=== PATIENT | female | born 1975 | race Caucasian/White ===

== ENCOUNTER 2017-05-31 11:32 | Inpatient (IN) | payer SELFPAY ==
[~2017-05-31] VITALS: Ht 152.4 cm; Wt 46.1 kg
[2017-05-31] VITALS (7 sets, daily range): BP systolic 95–108; BP diastolic 60–62; PULSE 108–120; RESP 16–20; TEMP 98.9–100.5; O2SAT 94–100
[~2017-05-31 11:32] MED LIST: LORT5TAB PO; METH10TA PO; PRED20 PO; RANI150 PO
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
[2017-05-31] MEDS ORDERED: SODIUM CHLORIDE 0.9% FLUSH 10 ML FLUSH IVF PRN ×2 (12:00→16:45)
[2017-05-31] MEDS ORDERED: SODIUM CHLOR 0.9% 1000 ML INJ 1,000 ML IV ONE ×4 (12:45→20:15)
[2017-05-31] MEDS ORDERED: methylPREDNISolone SOD SUCC 125 MG/2 ML VIAL IVP ONE (12:45)
[2017-05-31] MEDS: RESP: ALBUTEROL 2.5 MG/IPRATROPIUM 0.5 MG NEB (SCH) INH (12:51)
[2017-05-31 12:58] LABS: AUTOMATED NEUTROPHIL # 8.7 TH/MM3 (1.8-7.7); BASOPHIL # 0.1 TH/MM3 (0-0.2); BASOPHIL % 0.8 % (0.0-2.0); LYMPHOCYTE # 0.3 TH/MM3 (1.0-4.8); MEAN CELL VOLUME 92.9 FL (80.0-100.0); MEAN CORPUSCULAR HEMOGLOBIN 31.9 PG (27.0-34.0); MEAN CORPUSCULAR HGB CONC 34.3 % (32.0-36.0); MONO % 3.2 % (0.0-8.0); PLATELET COUNT 97 TH/MM3 (150-450); RED BLOOD COUNT 3.98 MIL/MM3 (4.00-5.30); RED CELL DISTRIBUTION WIDTH 13.9 % (11.6-17.2); WHITE BLOOD COUNT 9.4 TH/MM3 (4.0-11.0)
[2017-05-31 13:09] LABS: APTT (PATIENT) 29.6 SEC (24.3-30.1); PROTHROMBIN TIME - PATIENT 10.6 SEC (9.8-11.6)
--- NOTE | 2017-05-31 13:26 | RADRPT ---
EXAM DATE/TIME: 05/31/2017 12:55 [facility] COMPARISON: No previous studies available for comparison. INDICATIONS : Chest pain, short of breath. MEDICAL HISTORY : Chronic obstructive pulmonary disease. SURGICAL HISTORY : None. ENCOUNTER: Initial ACUITY: 2 days PAIN SCORE: 10/10 LOCATION: Bilateral chest FINDINGS: There is mild infiltrate in the right lower lobe. Followup to clearance would be suggested. Left lung appears grossly clear. Cardiac contours are satisfactory. CONCLUSION: Right lower lobe infiltrate Thiago Holland MD on May 31, 2017 at 13:22 Board Certified Radiologist. This report was verified electronically.
[2017-05-31 13:28] LABS: HEMO FLAGS AUTO DIFF
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
[2017-05-31 13:42] LABS: ALT (GPT) 27 U/L (10-53); ANION GAP 13 MEQ/L (5-15); AST (GOT) 35 U/L (15-37); BICARBONATE 20.2 MEQ/L (21.0-32.0); BLOOD UREA NITROGEN 37 MG/DL (7-18); CHLORIDE 99 MEQ/L (98-107); GLOMERULAR FILTRATION RATE 22 ML/MIN (>89); MAGNESIUM 2.1 MG/DL (1.5-2.5); POTASSIUM 3.7 MEQ/L (3.5-5.1); SODIUM (NA) 132 MEQ/L (136-145)
[2017-05-31 13:46] LABS: BANDS 28 % (0-6); NEUTROPHIL # MANUAL DIFF 9.2 TH/MM3 (1.8-7.7); PLATELET ESTIMATE SMEAR LOW (NORMAL); PLATELET MORPHOLOGY NORMAL (NORMAL); POLYS (SEG NEUTROPHILS) 70 % (16-70); SCAN/DIFF FINAL DIFF MANUAL; WBC DIFF SAMPLE 100
[2017-05-31 13:47] LABS: ALKALINE PHOSPHATASE 80 U/L (45-117); CREATINE KINASE 156 U/L (26-192); TOTAL BILIRUBIN ADULT 0.3 MG/DL (0.2-1.0)
[2017-05-31 13:59] LABS: CKMB LESS THAN 0.5 NG/ML (0.5-3.6)
[2017-05-31] MEDS ORDERED: SODIUM CHLOR 0.9% 1000 ML INJ 800 ML IV ONE (14:04)
[2017-05-31] MEDS ORDERED: PIPERACIL-TAZO 4.5 GM PREMIX 100 ML IV STA (14:04)
[2017-05-31] MEDS ORDERED: MORPHINE SULFATE 4 MG/ML INJ IV PUSH ONE ×2 (14:15→23:15)
[2017-05-31 14:21] LABS: BACTERIA, URINE OCC /hpf; BLOOD, URINE MOD (NEG); COMMENT (UR) CULT NOT INDICATED; CULTURE IF INDICATED CULT NOT INDICATED; GLUCOSE,URINE NEG (NEG); HYALINE CAST, URINE 19 /lpf (RARE); KETONE, URINE TRACE mg/dL (NEG); NITRITE,URINE NEG (NEG); SQUAMOUS EPITHELIAL CELL URINE 62 /hpf (0-5); URINE COLOR YELLOW (YELLW/STRAW)
[2017-05-31] MEDS ORDERED: SODIUM CHLOR 0.9% 1000 ML INJ 1,000 ML IV SCH (15:14)
[2017-05-31] MEDS ORDERED: BISACODYL 10 MG SUPP RECTAL PRN (15:15)
[2017-05-31] MEDS ORDERED: LACTULOSE SYRUP 20 GM/30 ML CUP PO PRN (15:15)
[2017-05-31] MEDS ORDERED: OLANZapine IM 10 MG VIAL IM ONE (15:15)
[2017-05-31] MEDS ORDERED: SENNOSIDES 8.6 MG TAB PO PRN (15:15)
[2017-05-31] MEDS ORDERED: VANCOMYCIN INJ 1,100 MG in SODIUM CHLOR 0.9% 250 ML INJ 250 ML IV ONE (15:15)
[2017-05-31] MEDS ORDERED: ONDANSETRON HCL 4 MG/2 ML VIAL IVP PRN (15:15)
[2017-05-31] MEDS ORDERED: NALOXONE HCL 0.4 MG/ML AMP IV PRN (15:15)
[2017-05-31] MEDS ORDERED: SODIUM CHLORIDE 0.9% FLUSH 10 ML FLUSH IV FLUSH PRN (15:15)
[2017-05-31] MEDS ORDERED: MAGNESIUM HYDROXIDE SUSP 30 ML CUP PO PRN (15:15)
--- NOTE | 2017-05-31 15:22 | RADRPT ---
EXAM DATE/TIME: 05/31/2017 13:45 [facility] COMPARISON: No previous studies available for comparison. INDICATIONS : Left arm swelling. MEDICAL HISTORY : COPD. Intravenous drug use. Depression. Anxiety. SURGICAL HISTORY : Tubal ligation. Colonoscopy. Fracture left leg. ENCOUNTER: Initial ACUITY: 2 day PAIN SCORE: 10/10 LOCATION: Left arm. FINDINGS: There is spontaneous flow documented in the basilic, axillary, and subclavian veins. The vessels are compressible and augmentation response is documented. No filling defects are seen. The flow is pha sic with respiration. Direction of flow in the jugular vein is caudal. However, the cephalic and brachial veins are incompletely compressible. This predominantly involves t he peripheral brachial vein and the entire cephalic. On Doppler interrogation, and no detectable flow in the cephalic. There is preserved flow in the brachial, however. CONCLUSION: 1. Deep venous thrombosis with nonocclusive thrombus in the peripheral brachial vein. 2. Occlusive thrombus in the entire superficial cephalic vein. Tyler Chung MD on May 31, 2017 at 15:17 Board Certified Radiologist. This report was verified electronically.
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
[2017-05-31] MEDS ORDERED: Vancomycin Consult Pharmacy 1 EA OTHER SCH (15:30)
[2017-05-31] MEDS ORDERED: HEPARIN SODIUM - SQ 10,000 UNITS/ML VIAL SQ SCH (16:00)
--- NOTE | 2017-05-31 16:37 | PD.RAD ---
Post Procedure Progress Note Pre Procedure Diagnosis: (1) Pneumonia Post Procedure Diagnosis: (1) Pneumonia Procedure Date: May 31, 2017 Supervising Radiologist: Sebastian Mora JR Proceduralist/Assist: Michael Carbajal, RT(R), Diana Becerra RT(R)() Anesthesia: Local Plan of Activity Patient to Unit: Nursing Unit Patient Condition: Good See PACS Report for procedural detail/treatment Central Venous Access Device Procedure 1 Right Internal Jugular Central Line Placement triple lumen Green[place]ic: Shelbi Mora Jr.,Sebastian Rosenbaum MD May 31, 2017 16:37
--- NOTE | 2017-05-31 16:49 | RADRPT ---
EXAM DATE/TIME: 05/31/2017 16:21 [facility] COMPARISON: No previous studies available for comparison. INDICATIONS : Patient is in need of placement of a central line for medication administration due to pnemonia. MEDICAL HISTORY : History of IVDA, COPD, cervical cancer, GI bleed, left hand cellulitis. SURGICAL HISTORY : History of colonoscopy, endoscopy. ENCOUNTER: Initial ACUITY: 1 day PAIN SCORE: 4/10 LOCATION: Left hand FLUORO TIME: 0.2 minutes IMAGE SERIES: 1 ACCESS: Right internal jugular vein DEVICE(S): 1.) 7 [place] triple lumen 20 cm Arrow central line PROCEDURE : 1. Ultrasound guided venipuncture. 2. Central line placement. The risks, benefits and alternatives to the procedure were explained and verbal and written consent w as obtained. The site was prepped in sterile fashion. Full sterile technique was used, including ca p, mask, sterile gloves and gown and a large sterile sheet. Hand hygiene and 2% chlorhexidine prep w as utilized per protocol for cutaneous antisepsis with appropriate dry time for site. The skin and s ubcutaneous tissues were infiltrated with local anesthetic solution. With ultrasound guidance a dermatotomy in the neck was created and subcutaneous dissection was perfor med. A micropuncture set was used to gain access and serial dilatation was performed to accept the c atheter as prescribed above. The catheter was fixed in place with suture and a sterile dressing was a pplied. The patient tolerated the procedure well and there were no complications. Chest radiograph is to be obtained to document position. CONCLUSION: Uncomplicated line placement as above. Sebastian Mora Jr., MD on May 31, 2017 at 16:47 Board Certified Radiologist. This report was verified electronically.
--- NOTE | 2017-05-31 17:04 | EKG ---
Date Performed: 05/31/2017 Time Performed: 13:28:33 PTAGE: 42 years EKG: SINUS TACHYCARDIA POSSIBLE RIGHT ATRIAL ENLARGEMENT POSSIBLE LEFT ATRIAL ENLARGEMENT ABNORM AL RHYTHM ECG PREVIOUS TRACING : 12/24/2012 12.25 Compared to the previous tracing rate faster DOCTOR: Brett Cazares Interpretating Date/Time 05/31/2017 17:04:08
[2017-05-31 17:36] LABS: HEMATOCRIT 30.9 % (35.0-46.0); MEAN CELL VOLUME 93.1 FL (80.0-100.0); MEAN CORPUSCULAR HGB CONC 34.3 % (32.0-36.0); PLATELET COUNT 87 TH/MM3 (150-450); RED BLOOD COUNT 3.32 MIL/MM3 (4.00-5.30); RED CELL DISTRIBUTION WIDTH 13.6 % (11.6-17.2); WHITE BLOOD COUNT 10.6 TH/MM3 (4.0-11.0)
[2017-05-31 17:41] LABS: REVIEW FLAG FINAL
[2017-05-31 17:52] LABS: APTT (PATIENT) 29.2 SEC (24.3-30.1); PROTHROMBIN TIME - PATIENT 10.9 SEC (9.8-11.6)
[2017-05-31] MEDS: HEPARIN-D5W INJ 250 ML IV SCH (19:48)
[2017-05-31 21:09] LABS: BLOOD GAS BASE EXCESS -7.4 mmol/L (-2-2); BLOOD GAS CARBOXYHEMOGLOBIN 1.3 % (0-4); BLOOD GAS HCO3 17 mmol/L (22-26); BLOOD GAS METHEMOGLOBIN 0.9 % (0-2); BLOOD GAS O2 HGB SATURATION 97 % (90-100); BLOOD GAS OXYGEN CONTENT 14.5 Vol % (12.0-20.0); BLOOD GAS PCO2 28 mmHg (38-42); BLOOD GAS PO2 269 mmHg (61-120); BLOOD GAS TOTAL HGB 10.1 G/DL (12.0-16.0); CRITICAL VALUE NO; FIO2 100 %; LITER FLOW 15 L/M; TEMP CORR TO 98.6
[2017-05-31 21:10] LABS: DRAW SITE RT RADIAL; NUMBER OF ARTERIAL PUNCTURES 2; STAT YES; ULNAR PULSE PRESENT
--- NOTE | 2017-05-31 21:26 | HHI.PR ---
Addendum to Inpatient Note Addendum Reason: Additional Documentation Additional Information Rapid response was called on this patient because patient was short of breath, in acute respiratory distress with hypoxia on room air. Nursing staff have therefore placed patient on nonrebreather and I was contacted. Came to see the patient at the bedside. Patient is awake, alert, oriented. Patient is in acute distress on nonrebreather. She is saturating about 92% though her work of breathing is quite high on non rebreather She would answer yes or no questions but not able to elaborate much. Chart reviewed. Impression: Acute respiratory distress from her hypoxic respiratory failure- ARDS vs PE Severe sepsis Bilateral pneumonia LUE DVT Plan: ABG stat. nebs bipap 12/5, fio2 to keep O2 sat above 90%. Chest x-ray stat. Personally reviewed. Showed airspace disease bilaterally suggestive of ARDS. continue heparin drip for both DVT and possible PE antibiotics- vanco/zosyn to continue transfer pt to ICU for critical care management- requiring bipap, high fio2 high risk of decompensation from ARDS dvt prophylaxis on heparin drip critical care time 30min Octaviano Luna MD May 31, 2017 21:26
--- NOTE | 2017-05-31 21:32 | RADRPT ---
EXAM DATE/TIME: 05/31/2017 21:20 [facility] COMPARISON: CENTRAL LINE PLACEMENT W , May 31, 2017, 16:21. INDICATIONS : Shortness of breath. MEDICAL HISTORY : Chronic obstructive pulmonary disease. SURGICAL HISTORY : None. ENCOUNTER: Initial ACUITY: 1 day PAIN SCORE: 0/10 LOCATION: Bilateral chest FINDINGS: A single view of the chest demonstrates scattered parenchymal opacities in the right upper lobe and r ight lower lobe. Right sided central line with tip in the cavoatrial junction. Heart normal in size.. Osseous structures are intact. CONCLUSION: 1. Patchy air space disease right upper lobe right lower lobe. Alfonzo Werner MD on May 31, 2017 at 21:29 Board Certified Radiologist. This report was verified electronically.
[2017-05-31] MEDS: ACETAMINOPHEN 325 MG TAB PO PRN (22:54)
[2017-05-31] MEDS: PIPERACIL-TAZO 2.25 GM PREMIX 50 ML IV SCH (22:57)
[2017-05-31 23:43] LABS: APTT (PATIENT) 36.8 SEC (24.3-30.1)
[2017-06-01] VITALS (13 sets, daily range): BP systolic 93–128; BP diastolic 59–70; PULSE 82–108; RESP 18–22; TEMP 97.5–103; O2SAT 90–98
[2017-06-01] MEDS ORDERED: CHLORHEXIDINE GLUCONATE 2 % 1 PACK (2 CLOTHS)(extra cloths) TOPICAL PRN (01:45)
[2017-06-01 03:50] LABS: AUTOMATED NEUTROPHIL # 8.5 TH/MM3 (1.8-7.7); BASOPHIL % 0.1 % (0.0-2.0); LYMPH % 5.1 % (9.0-44.0); LYMPHOCYTE # 0.5 TH/MM3 (1.0-4.8); MEAN CELL VOLUME 93.1 FL (80.0-100.0); MEAN CORPUSCULAR HEMOGLOBIN 32.1 PG (27.0-34.0); MEAN CORPUSCULAR HGB CONC 34.5 % (32.0-36.0); MONO % 4.2 % (0.0-8.0); NEUT % 90.6 % (16.0-70.0); PLATELET COUNT 76 TH/MM3 (150-450); RED CELL DISTRIBUTION WIDTH 13.9 % (11.6-17.2); WHITE BLOOD COUNT 9.4 TH/MM3 (4.0-11.0)
[2017-06-01 04:00] LABS: HEMO FLAGS AUTO DIFF
[2017-06-01] MEDS: CHLORHEXIDINE GLUCONATE 2 % 1 PACK (2 CLOTHS)(taper/protocol) TOPICAL SCH (04:00)
[2017-06-01] MEDS: PIPERACIL-TAZO 2.25 GM PREMIX 50 ML IV SCH ×2 (04:04→09:57)
[2017-06-01 04:05] LABS: APTT (PATIENT) 39.4 SEC (24.3-30.1)
[2017-06-01 04:42] LABS: ANION GAP 9 MEQ/L (5-15); BLOOD UREA NITROGEN 30 MG/DL (7-18); CHLORIDE 108 MEQ/L (98-107); GLOMERULAR FILTRATION RATE 45 ML/MIN (>89); POTASSIUM 3.5 MEQ/L (3.5-5.1); SODIUM (NA) 138 MEQ/L (136-145)
[2017-06-01 07:14] LABS: BANDS 15 % (0-6); NEUTROPHIL # MANUAL DIFF 8.6 TH/MM3 (1.8-7.7); POLYS (SEG NEUTROPHILS) 77 % (16-70); WBC DIFF SAMPLE 100
[2017-06-01 07:15] LABS: PLATELET ESTIMATE SMEAR LOW (NORMAL); PLATELET MORPHOLOGY NORMAL (NORMAL); SCAN/DIFF FINAL DIFF MANUAL
[2017-06-01] MEDS: SODIUM CHLORIDE 0.9% FLUSH 10 ML FLUSH IVF SCH (08:54)
[2017-06-01] MEDS: SODIUM CHLORIDE 0.9% FLUSH 10 ML FLUSH IV FLUSH SCH ×2 (08:55→22:01)
[2017-06-01] MEDS: DOCUSATE SODIUM 50 MG/SENNA 8.6 MG TAB PO SCH ×2 (08:55→21:00)
[2017-06-01 09:07] LABS: RETIC % 0.8 % (0.4-3.0)
[2017-06-01 09:12] LABS: REVIEW FLAG FINAL
[2017-06-01] MEDS ORDERED: ACETAMINOPHEN/HYDROcodone 325 MG/5 MG TAB PO PRN ×2 (09:15)
[2017-06-01 09:26] LABS: FERRITIN 389 NG/ML (8-252); LDH SERUM 186 U/L (84-246); TRANSFERRIN IRON PROFILE 171 MG/DL (200-360)
[2017-06-01] MEDS ORDERED: oxyCODONE/ACETAMINOPHEN 5 MG/325 MG TAB PO PRN (09:30)
[2017-06-01] MEDS: VANCOMYCIN 1,000 MG/NS 250 ML IV SCH ×2 (09:57)
[2017-06-01 10:44] LABS: APTT (PATIENT) 34.2 SEC (24.3-30.1)
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
[2017-06-01] MEDS: oxyCODONE/ACETAMINOPHEN 5 MG/325 MG TAB PO PRN ×3 (11:28→22:01)
[2017-06-01] MEDS: AZITHROMYCIN 250 MG TAB PO SCH (12:18)
[2017-06-01] MEDS: cefTRIAXone INJ 2,000 MG in SODIUM CHLORIDE 0.9% INJ 100 ML IV SCH (12:19)
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
--- NOTE | 2017-06-01 15:15 | HHI.PR ---
Subjective Remarks Follow-up for infection, DVT, thrombocytopenia, pneumonia, and respiratory failure Patient stated that breathing has improved. She said that she is in very good spirits at the moment because 2 of her sons are visiting her right now. Patient denies any cough. Last fever was at midnight 103. Deny any bleeding. Patient stated that she feels a lot stronger. Otherwise no other complaints. technical services manager is at the bedside. Objective Vitals Vital Signs Date Time Temp Pulse Resp B/P Pulse Ox O2 Delivery O2 Flow Rate FiO2 06/01/17 14:00 82 06/01/17 12:00 89 06/01/17 12:00 97.5 89 20 93/60 98 06/01/17 10:00 100 06/01/17 08:00 96 06/01/17 08:00 98.8 96 22 107/59 98 06/01/17 06:00 89 06/01/17 04:00 98.9 87 18 97/61 90 06/01/17 04:00 87 06/01/17 02:00 93 06/01/17 00:00 108 06/01/17 00:00 103.0 108 20 128/70 98 05/31/17 22:22 100 Simple Mask 6.00 05/31/17 22:15 100 100 05/31/17 21:30 100 50 05/31/17 20:50 100 15.00 100 05/31/17 20:50 100.5 120 18 108/60 95 05/31/17 17:18 108 16 95/60 94 Room Air I/O 05/31/17 05/31/17 05/31/17 06/01/17 06/01/17 06/01/17 07:00 15:00 23:00 07:00 15:00 23:00 Intake Total 120 ml 975 ml Output Total 350 ml Balance 120 ml 625 ml Intake Oral 120 ml 240 ml IV Total 735 ml Output Urine Total 350 ml # Voids 3 # Bowel Movements 0 0 Result Diagram: 06/01/1731406/01/17314 Imaging Last Impressions Central Venous Line 05/31/17 1524 Signed Impressions: Service Date/Time: Wednesday, May 31, 2017 16:21 - CONCLUSION: Uncomplicated line placement as above. Sebastian Mora Jr., MD Hand X-Ray 05/31/17 1235 Signed Impressions: Service Date/Time: Wednesday, May 31, 2017 12:47 - CONCLUSION: No fracture or significant degenerative changes. Tyler Chung MD Radius/Ulna X-Ray 05/31/17 1149 Signed Impressions: Service Date/Time: Wednesday, May 31, 2017 12:52 - CONCLUSION: No fracture. Tyler Chung MD Chest X-Ray 05/31/17 1149 Signed Impressions: Service Date/Time: Wednesday, May 31, 2017 12:55 - CONCLUSION: Right lower lobe infiltrate Thiago Holland MD Upper Extremity Ultrasound 05/31/17 0000 Signed Impressions: Service Date/Time: Wednesday, May 31, 2017 13:45 - CONCLUSION: 1. Deep venous thrombosis with nonocclusive thrombus in the peripheral brachial vein. 2. Occlusive thrombus in the entire superficial cephalic vein. Tyler Chung MD Objective Remarks GENERAL: in NAD SKIN: Warm and dry. HEAD: Normocephalic. EYES: No scleral icterus. No injection or drainage. NECK: Supple, trachea midline. No JVD or lymphadenopathy. Right IJ in place. CARDIOVASCULAR: Regular rate and rhythm without murmurs, gallops, or rubs. RESPIRATORY: Breath sounds equal bilaterally. No accessory muscle use. GASTROINTESTINAL: Abdomen soft, non-tender, nondistended. Medications and IVs Current Medications Sodium Chloride 2 ml 2 ml UNSCH PRN IVF FLUSH AFTER USING IV ACCESS; Start at 12:00; Stop 05/31/17 at 17:01; Status DC Sodium Chloride (NS 1000 ml Inj) 1,000 ml @ 999 mls/hr BOLUS ONCE IV Last administered on 05/31/17 13:55; Start 05/31/17 at 12:45; Stop 05/31/17 at 13:45 ; Status DC Methylprednisolone Sodium Succinate (SoluMEDROL INJ) 60 mg ONCE ONCE IVP Last administered on 05/31/17 13:55; Start 05/31/17 at 12:45; Stop 05/31/17 at 12:46 ; Status DC Albuterol/ Ipratropium 1 ampule 1 ampule Q15M INH Last administered on 12:51; Start 05/31/17 at 12:45; Stop 05/31/17 at 13:16; Status DC Vancomycin HCl 1100 mg/Sodium Chloride 261 ml @ 250 mls/hr ONCE ONCE IV ; Start 05/31/17 at 15:15; Stop 05/31/17 at 16:17; Status DC Piperacillin Sod/ Tazobactam Sod 100 ml @ 200 mls/hr ONCE STAT IV Last administered on 05/31/17 16:59; Start 05/31/17 at 14:04; Stop 05/31/17 at 14:33 ; Status DC Sodium Chloride 1,000 ml @ 1,000 mls/hr Q1H ONCE IV Last administered on 16:58; Start 05/31/17 at 14:04; Stop 05/31/17 at 15:03; Status DC Sodium Chloride (NS 1000 ml Inj) 800 ml @ 1,000 mls/hr Q48M ONCE IV Last administered on 05/31/17 16:59; Start 05/31/17 at 14:04; Stop 05/31/17 at 14:51 ; Status DC Morphine Sulfate (Morphine Inj) 4 mg ONCE ONCE IV PUSH Last administered on 19:46; Start 05/31/17 at 14:15; Stop 05/31/17 at 14:16; Status DC Olanzapine 10 mg 10 mg ONCE ONCE IM ; Start 05/31/17 at 15:15; Stop 05/31/17 at 15:16; Status Cancel Sodium Chloride (NS 1000 ml Inj) 1,000 ml @ 150 mls/hr Q6H40M IV Last administered on 05/31/17 19:47; Start 05/31/17 at 15:14; Stop 05/31/17 at 23:04 ; Status DC Sodium Chloride (NS Flush) 2 ml UNSCH PRN IV FLUSH FLUSH AFTER USING IV ACCESS ; Start 05/31/17 at 15:15 Sodium Chloride (NS Flush) 2 ml BID IV FLUSH Last administered on 06/01/17 08: 55; Start 05/31/17 at 21:00 Acetaminophen (Tylenol) 650 mg Q4H PRN PO TEMP > 100.4 Last administered on 22:54; Start 05/31/17 at 15:15 Ondansetron HCl (Zofran Inj) 4 mg Q6H PRN IVP NAUSEA OR VOMITING; Start at 15:15 Heparin Sodium (Porcine) (Heparin Inj) 5,000 units Q12H SQ ; Start 05/31/17 at 16:00; Stop 05/31/17 at 16:00; Status DC Naloxone HCl (Narcan Inj) 0.4 mg UNSCH PRN IV SEE LABEL COMMENTS; Start at 15:15 Senna/Docusate Sodium (Judy-Colace) 1 tab BID PO Last administered on 08:55; Start 05/31/17 at 21:00 Magnesium Hydroxide (Milk Of Magnesia Liq) 30 ml Q12H PRN PO MILD - MODERATE CONSTIPATION; Start 05/31/17 at 15:15 Sennosides (Senokot) 17.2 mg Q12H PRN PO MODERATE - SEVERE CONSTIPATION; Start 05/31/17 at 15:15 Bisacodyl (Dulcolax Supp) 10 mg DAILY PRN RECTAL SEVERE CONSITIPATION; Start at 15:15 Lactulose 30 ml 30 ml DAILY PRN PO SEVERE CONSITIPATION; Start 05/31/17 at 15: 15 Sodium Chloride 1,000 ml @ 999 mls/hr BOLUS ONCE IV ; Start 05/31/17 at 17:00 ; Stop 05/31/17 at 18:00; Status DC Pharmacy Profile Note 0 ml @ 0 mls/hr UNSCH OTHER ; Start 05/31/17 at 15:30 Piperacillin Sod/ Tazobactam Sod 50 ml @ 100 mls/hr Q6H IV Last administered on 06/01/17 09:57; Start 05/31/17 at 23:00; Stop 06/01/17 at 11:29; Status DC Heparin Sodium/ Dextrose (Heparin-D5W Inj) 250 ml @ 0 mls/hr TITRATE IV Last administered on 05/31/17 19:48; Start 05/31/17 at 16:15 Sodium Chloride (NS Flush) DAILY IVF Last administered on 06/01/17 08:54; Start 06/01/17 at 09:00 Sodium Chloride UNSCH PRN IVF SEE PROTOCOL; Start 05/31/17 at 16:45 Sodium Chloride (NS 1000 ml Inj) 1,000 ml @ 999 mls/hr BOLUS ONCE IV ; Start 05/31/17 at 20:15; Stop 05/31/17 at 21:15; Status DC Morphine Sulfate (Morphine Inj) 2 mg ONCE ONCE IV PUSH Last administered on 00:22; Start 05/31/17 at 23:15; Stop 05/31/17 at 23:16; Status DC Miscellaneous Information Patient in critical care unit? Ass... Q361D .XX ; Start 06/01/17 at 01:45 Chlorhexidine Gluconate (Chlorhexidine 2% Cloth) 3 pack DAILY@04 TOPICAL Last administered on 06/01/17 04:00; Start 06/01/17 at 04:00; Stop 06/05/17 at 04:01 Chlorhexidine Gluconate (Chlorhexidine 2% Cloth) 3 pack UNSCH PRN TOPICAL HYGIENIC CARE; Start 06/01/17 at 01:45; Stop 06/06/17 at 01:38 Acetaminophen/ Hydrocodone Bitart ([place] 5-325 Mg) 1 tab Q4H PRN PO pain 1-7; Start 06/01/17 at 09:15; Stop 06/01/17 at 09:29; Status DC Acetaminophen/ Hydrocodone Bitart ([place] 5-325 Mg) 2 tab Q4H PRN PO pain 8-10 Last administered on 06/01/17 09:22; Start 06/01/17 at 09:15; Stop 06/01/17 at 09:29; Status DC Oxycodone/ Acetaminophen (Percocet 5-325 Mg) 1 tab Q4H PRN PO pain 1-7; Start 06/01/17 at 09:30 Oxycodone/ Acetaminophen 2 tab 2 tab Q4H PRN PO pain 8-10 Last administered on 06/01/17 11:28; Start 06/01/17 at 09:30 Vancomycin HCl/ Sodium Chloride (Vancomycin Inj/ NS 250 ml Inj) 250 ml @ 250 mls/hr Q24H IV Last administered on 06/01/17 09:57; Start 06/01/17 at 10:00 Miscellaneous Information SPECIFIC LAB TO BE DRAWN:VANCOMYCIN TROUGH DATE TO... ONCE ONCE .XX ; Start 06/04/17 at 09:45; Stop 06/04/17 at 09:46 Ceftriaxone Sodium/Sodium Chloride (Rocephin Inj/NS Inj) 100 ml @ 200 mls/hr Q24H IV Last administered on 06/01/17 12:19; Start 06/01/17 at 12:00 Azithromycin (Zithromax) 500 mg Q24H PO Last administered on 06/01/17 12:18; Start 06/01/17 at 12:00 A/P Assessment and Plan 42-year-old female IV drug user presented with dyspnea, fevers and chills Sepsis source may be secondary to right lower lobe pneumonia and bacteremia. -Last review showing normal WBC with bandemia. Creatinine elevated with GFR 22. Chest x-ray showed right lower lobe infiltrate. UA negative. Patient has tachycardia. -Status post fluid resuscitation. Positive for out of 4 blood cultures for gram -positive cocci 1 culture showing MRSA. -Infectious disease consulted and following. -See treatment as below. Acute respiratory failure with hypoxia -Secondary to sepsis, bacteremia and pneumonia. -Continue supplement oxygen. Treat underlying condition. See treatment as below. MRSA bacteremia -Patient on vancomycin. Cultures repeated today. -Infectious disease following. Pending echo report. Community-acquired pneumonia -Checks x-ray show infiltrate in the right lower lobe. -Initially patient was on Zosyn and vancomycin. -Zosyn was discontinued and Rocephin started by infectious disease. -Pending pneumococcal and Legionella antigen. An order for sputum culture also obtained. Left arm DVT -Ultrasound Doppler showed Deep venous thrombosis with nonocclusive thrombus in the peripheral brachial vein. 2. Occlusive thrombus in the entire superficial cephalic vein. -Patient was put on a heparin drip. Due to thrombocytopenia inverted block operator consulted. Per inverted block operator continue with heparin drip. Thrombocytopenia -No signs of any active bleed. There is no recent baseline. Last baseline in 2012 and it was normal. -Most likely secondary to consumption. -Integration Analyst consulted and following. Per inverted block operator check hepatitis and HIV panel in addition to vitamin and iron study. Current IV drug use with crystal meth -Education given and discouraged use of crystal meth. DVT prophylaxis -SCDs. At the moment due to thrombocytopenia chemoprophylaxis contraindicated. Yissel Aldridge MD Jun 01, 2017 15:15 Yissel Aldridge MD Jun 01, 2017 15:15
[2017-06-01] MEDS: HEPARIN-D5W INJ 250 ML IV SCH (16:22)
[2017-06-01 17:05] LABS: APTT (PATIENT) 37.6 SEC (24.3-30.1)
--- NOTE | 2017-06-01 18:55 | RADRPT ---
EXAM DATE/TIME: 06/01/2017 17:07 [place] COMPARISON: No previous studies available for comparison. INDICATIONS : Hepatomegaly, evaluate liver and spleen. MEDICAL HISTORY : COPD. Intravenous drug use. Depression. Anxiety. SURGICAL HISTORY : Tubal ligation. Colonoscopy. Fracture left leg. ENCOUNTER: Initial ACUITY: 1 day PAIN SCORE: 4/10 LOCATION: Bilateral upper quadrant MEASUREMENTS: LIVER: 17.2 cm length COMMON DUCT: 5 mm RIGHT KIDNEY: 10.9 x 5.3 x 3.9 cm SPLEEN: 11.5 cm length FINDINGS: LIVER: Normal echotexture without focal lesion or ductal dilatation. Hepatopedal flow. COMMON DUCT: No intraluminal mass or stone visualized. GALLBLADDER: Contains no stones, demonstrates no wall thickening or pericholecystic fluid. PANCREAS: The visualized portions are within normal limits. RIGHT KIDNEY: No hydronephrosis, stone or mass. Small right pleural effusion. SPLEEN: No focal lesion. CONCLUSION: 1. Small right pleural effusion. 2. No evidence for cholelithiasis. 3. Spleen and liver are normal in size. Alfonzo Werner MD on June 01, 2017 at 18:52 Board Certified Radiologist. This report was verified electronically.
--- NOTE | 2017-06-01 21:33 | ECHRPT ---
Indication: SEPSIS- ENDOCARDITIS CONCLUSIONS Normal left ventricular size. Wall thickness is normal. The left ventricular systolic function is low normal with an estimated ejection fraction in the rang e of 50- 55%. No regional wall motion abnormalities are present. Moderate mitral valve regurgitation. Moderate aortic valve regurgitation. Mild thickening of the aortic valve leaflets. There is moderate tricuspid regurgitation. There is mild pulmonary hypertension present (45 mmHg). BP: 97 / 61 HR: 87 Rhythm: Sinus MEASUREMENTS (Male / Female) Normal Values Technical Quality:Good 2D ECHO LV Diastolic Diameter PLAX 4.6 cm 4.2 - 5.9 / 3.9 - 5.3 cm LV Systolic Diameter PLAX 3.7 cm IVS Diastolic Thickness 0.9 cm 0.6 - 1.0 / 0.6 - 0.9 cm LVPW Diastolic Thickness 0.7 cm 0.6 - 1.0 / 0.6 - 0.9 cm LV Relative Wall Thickness 0.3 RV Internal Dim ED PLAX 1.9 cm LA Systolic Diameter LX 3.1 cm 3.0 - 4.0 / 2.7 - 3.8 cm M-MODE AV Cusp Separation MM 1.9 cm DOPPLER AV Peak Velocity 146.0 cm/s AV Peak Gradient 8.5 mmHg LVOT Peak Velocity 97.2 cm/s LVOT Peak Gradient 3.8 mmHg MR Peak Velocity 510.0 cm/s MR Peak Gradient 104.0 mmHg Mitral E Point Velocity 64.7 cm/s Mitral A Point Velocity 76.0 cm/s Mitral E to A Ratio 0.9 LV E' Lateral Velocity 11.8 cm/s Mitral E to LV E' Lateral Ratio 5.5 LV E' Septal Velocity 6.7 cm/s Mitral E to LV E' Septal Ratio 9.6 TR Peak Velocity 296.0 cm/s TR Peak Gradient 35.0 mmHg FINDINGS LEFT VENTRICLE Normal left ventricular size. Wall thickness is normal. The left ventricular systolic function is low normal with an estimated ejection fraction in the rang e of 50- 55%. No regional wall motion abnormalities are present. RIGHT VENTRICLE Normal right ventricular size and systolic function. LEFT ATRIUM The left atrial size is normal. RIGHT ATRIUM The right atrial size is normal. ATRIAL SEPTUM Normal atrial septal thickness without atrial level shunting by limited color doppler interrogation. AORTA The aortic root and proximal ascending aorta are normal in size on limited imaging. MITRAL VALVE Moderate mitral valve regurgitation. AORTIC VALVE Moderate aortic valve regurgitation. Mild thickening of the aortic valve leaflets. TRICUSPID VALVE There is moderate tricuspid regurgitation. There is estimated mild pulmonary hypertension present (45 mmHg). PULMONARY VALVE The pulmonary valve is not well visualized. VESSELS The inferior vena cava is normal in size. PERICARDIUM No pericardial effusion. Brett Cazares MD, FACC (Electronically Signed) Final Date:01 June 2017 21:33
[2017-06-02] VITALS (14 sets, daily range): BP systolic 92–115; BP diastolic 53–71; PULSE 81–132; RESP 17–32; TEMP 97.4–98.9; O2SAT 83–97
[2017-06-02 01:45] LABS: APTT (PATIENT) 39.2 SEC (24.3-30.1)
[2017-06-02] MEDS: oxyCODONE/ACETAMINOPHEN 5 MG/325 MG TAB PO PRN ×4 (02:58→22:42)
[2017-06-02] MEDS: CHLORHEXIDINE GLUCONATE 2 % 1 PACK (2 CLOTHS)(taper/protocol) TOPICAL SCH (02:58)
[2017-06-02 05:14] LABS: AUTOMATED NEUTROPHIL # 6.4 TH/MM3 (1.8-7.7); BASOPHIL % 0.5 % (0.0-2.0); EOSINOPHIL % 0.1 % (0.0-4.0); HEMATOCRIT 26.7 % (35.0-46.0); LYMPH % 11.8 % (9.0-44.0); LYMPHOCYTE # 0.9 TH/MM3 (1.0-4.8); MEAN CELL VOLUME 93.4 FL (80.0-100.0); MEAN CORPUSCULAR HEMOGLOBIN 31.9 PG (27.0-34.0); MEAN CORPUSCULAR HGB CONC 34.1 % (32.0-36.0); MONO % 5.2 % (0.0-8.0); NEUT % 82.4 % (16.0-70.0); PLATELET COUNT 79 TH/MM3 (150-450); RED BLOOD COUNT 2.86 MIL/MM3 (4.00-5.30); RED CELL DISTRIBUTION WIDTH 14.1 % (11.6-17.2); WHITE BLOOD COUNT 7.8 TH/MM3 (4.0-11.0)
[2017-06-02 05:33] LABS: HEMO FLAGS AUTO DIFF
[2017-06-02 05:45] LABS: BICARBONATE 26.1 MEQ/L (21.0-32.0); POTASSIUM 3.6 MEQ/L (3.5-5.1)
[2017-06-02] MEDS: VANCOMYCIN 1,000 MG/NS 250 ML IV SCH ×2 (08:10)
[2017-06-02] MEDS: DOCUSATE SODIUM 50 MG/SENNA 8.6 MG TAB PO SCH ×2 (08:10→22:42)
[2017-06-02] MEDS: SODIUM CHLORIDE 0.9% FLUSH 10 ML FLUSH IV FLUSH SCH ×2 (09:00→22:42)
[2017-06-02] MEDS: SODIUM CHLORIDE 0.9% FLUSH 10 ML FLUSH IVF SCH (09:00)
[2017-06-02 09:40] LABS: BANDS 10 % (0-6); NEUTROPHIL # MANUAL DIFF 6.4 TH/MM3 (1.8-7.7); PLATELET ESTIMATE SMEAR LOW (NORMAL); POLYS (SEG NEUTROPHILS) 72 % (16-70); WBC DIFF SAMPLE 100
[2017-06-02 09:41] LABS: PLATELET MORPHOLOGY ENLARGED (NORMAL); SCAN/DIFF FINAL DIFF MANUAL
[2017-06-02] MEDS: cefTRIAXone INJ 2,000 MG in SODIUM CHLORIDE 0.9% INJ 100 ML IV SCH (10:47)
[2017-06-02] MEDS: AZITHROMYCIN 250 MG TAB PO SCH (10:48)
[2017-06-02 10:52] LABS: APTT (PATIENT) 37.8 SEC (24.3-30.1)
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
--- NOTE | 2017-06-02 13:43 | HHI.PR ---
Subjective Remarks Follow-up for infection and respiratory failure Patient was very upset and was packing her things to leave. I ask her why she said that she was not being treated like a human being. She stated that she wanted to get up to use the restroom and she was not allowed to. Otherwise she had no other complaints. She stated that her breathing has improved and she is doing a lot better. She remains afebrile. Patient had a nonrebreather off and there was no shortness of breathing. I dealt with patient's nurse and asked him to wean her off the nonrebreather since clinically she does not show any signs of respiratory failure. Patient stated that she will stay in the hospital if she can be transferred to a different floor. Objective Vitals Vital Signs Date Time Temp Pulse Resp B/P Pulse Ox O2 Delivery O2 Flow Rate FiO2 06/02/17 12:00 95 06/02/17 12:00 97.8 95 32 95/63 92 06/02/17 10:00 109 06/02/17 08:00 87 06/02/17 08:00 97.4 87 23 92/53 97 06/02/17 06:00 81 06/02/17 04:21 20 06/02/17 04:00 97.9 87 25 101/63 83 06/02/17 04:00 87 06/02/17 03:00 84 18 106/71 96 06/02/17 02:01 81 18 115/58 06/02/17 02:00 82 19 06/02/17 02:00 82 06/02/17 00:00 83 06/02/17 00:00 98.0 83 17 102/55 92 06/01/17 22:00 95 06/01/17 20:00 82 06/01/17 20:00 97.7 82 18 99/61 98 06/01/17 18:00 96 06/01/17 16:50 98 Simple Mask 6.00 06/01/17 16:00 88 06/01/17 16:00 97.8 88 20 94/60 95 06/01/17 14:00 82 I/O 06/01/17 06/01/17 06/01/17 06/02/17 06/02/17 06/02/17 07:00 15:00 23:00 07:00 15:00 23:00 Intake Total 120 ml 975 ml 626 ml 655 ml Output Total 350 ml 400 ml Balance 120 ml 625 ml 626 ml 255 ml Intake Oral 120 ml 240 ml 480 ml 480 ml IV Total 735 ml 146 ml 175 ml Output Urine Total 350 ml 400 ml # Voids 3 1 # Bowel Movements 0 0 # Sanitary Pads 1 Pads 1 Pads 1 Pads Result Diagram: 06/02/1741906/02/17419 Objective Remarks GENERAL: in NAD SKIN: Warm and dry. Left arm redness and swelling has improved. Mild tenderness of palpation in the area. HEAD: Normocephalic. EYES: No scleral icterus. No injection or drainage. NECK: Supple, trachea midline. No JVD or lymphadenopathy. Right IJ in place. CARDIOVASCULAR: Regular rate and rhythm without murmurs, gallops, or rubs. RESPIRATORY scant amount of scattered diffuse wheezing. No accessory muscle use. GASTROINTESTINAL: Abdomen soft, non-tender, nondistended. Medications and IVs Current Medications Sodium Chloride 2 ml 2 ml UNSCH PRN IVF FLUSH AFTER USING IV ACCESS; Start at 12:00; Stop 05/31/17 at 17:01; Status DC Sodium Chloride (NS 1000 ml Inj) 1,000 ml @ 999 mls/hr BOLUS ONCE IV Last administered on 05/31/17 13:55; Start 05/31/17 at 12:45; Stop 05/31/17 at 13:45 ; Status DC Methylprednisolone Sodium Succinate (SoluMEDROL INJ) 60 mg ONCE ONCE IVP Last administered on 05/31/17 13:55; Start 05/31/17 at 12:45; Stop 05/31/17 at 12:46 ; Status DC Albuterol/ Ipratropium 1 ampule 1 ampule Q15M INH Last administered on 12:51; Start 05/31/17 at 12:45; Stop 05/31/17 at 13:16; Status DC Vancomycin HCl 1100 mg/Sodium Chloride 261 ml @ 250 mls/hr ONCE ONCE IV ; Start 05/31/17 at 15:15; Stop 05/31/17 at 16:17; Status DC Piperacillin Sod/ Tazobactam Sod 100 ml @ 200 mls/hr ONCE STAT IV Last administered on 05/31/17 16:59; Start 05/31/17 at 14:04; Stop 05/31/17 at 14:33 ; Status DC Sodium Chloride 1,000 ml @ 1,000 mls/hr Q1H ONCE IV Last administered on 16:58; Start 05/31/17 at 14:04; Stop 05/31/17 at 15:03; Status DC Sodium Chloride (NS 1000 ml Inj) 800 ml @ 1,000 mls/hr Q48M ONCE IV Last administered on 05/31/17 16:59; Start 05/31/17 at 14:04; Stop 05/31/17 at 14:51 ; Status DC Morphine Sulfate (Morphine Inj) 4 mg ONCE ONCE IV PUSH Last administered on 19:46; Start 05/31/17 at 14:15; Stop 05/31/17 at 14:16; Status DC Olanzapine 10 mg 10 mg ONCE ONCE IM ; Start 05/31/17 at 15:15; Stop 05/31/17 at 15:16; Status Cancel Sodium Chloride (NS 1000 ml Inj) 1,000 ml @ 150 mls/hr Q6H40M IV Last administered on 05/31/17 19:47; Start 05/31/17 at 15:14; Stop 05/31/17 at 23:04 ; Status DC Sodium Chloride (NS Flush) 2 ml UNSCH PRN IV FLUSH FLUSH AFTER USING IV ACCESS ; Start 05/31/17 at 15:15 Sodium Chloride (NS Flush) 2 ml BID IV FLUSH Last administered on 06/02/17 09: 00; Start 05/31/17 at 21:00 Acetaminophen (Tylenol) 650 mg Q4H PRN PO TEMP > 100.4 Last administered on 22:54; Start 05/31/17 at 15:15 Ondansetron HCl (Zofran Inj) 4 mg Q6H PRN IVP NAUSEA OR VOMITING; Start at 15:15 Heparin Sodium (Porcine) (Heparin Inj) 5,000 units Q12H SQ ; Start 05/31/17 at 16:00; Stop 05/31/17 at 16:00; Status DC Naloxone HCl (Narcan Inj) 0.4 mg UNSCH PRN IV SEE LABEL COMMENTS; Start at 15:15 Senna/Docusate Sodium (Judy-Colace) 1 tab BID PO Last administered on 08:10; Start 05/31/17 at 21:00 Magnesium Hydroxide (Milk Of Magnesia Liq) 30 ml Q12H PRN PO MILD - MODERATE CONSTIPATION; Start 05/31/17 at 15:15 Sennosides (Senokot) 17.2 mg Q12H PRN PO MODERATE - SEVERE CONSTIPATION; Start 05/31/17 at 15:15 Bisacodyl (Dulcolax Supp) 10 mg DAILY PRN RECTAL SEVERE CONSITIPATION; Start at 15:15 Lactulose 30 ml 30 ml DAILY PRN PO SEVERE CONSITIPATION; Start 05/31/17 at 15: 15 Sodium Chloride 1,000 ml @ 999 mls/hr BOLUS ONCE IV ; Start 05/31/17 at 17:00 ; Stop 05/31/17 at 18:00; Status DC Pharmacy Profile Note 0 ml @ 0 mls/hr UNSCH OTHER ; Start 05/31/17 at 15:30 Piperacillin Sod/ Tazobactam Sod 50 ml @ 100 mls/hr Q6H IV Last administered on 06/01/17 09:57; Start 05/31/17 at 23:00; Stop 06/01/17 at 11:29; Status DC Heparin Sodium/ Dextrose (Heparin-D5W Inj) 250 ml @ 0 mls/hr TITRATE IV Last administered on 06/01/17 16:22; Start 05/31/17 at 16:15 Sodium Chloride (NS Flush) DAILY IVF Last administered on 06/02/17 09:00; Start 06/01/17 at 09:00 Sodium Chloride UNSCH PRN IVF SEE PROTOCOL; Start 05/31/17 at 16:45 Sodium Chloride (NS 1000 ml Inj) 1,000 ml @ 999 mls/hr BOLUS ONCE IV ; Start 05/31/17 at 20:15; Stop 05/31/17 at 21:15; Status DC Morphine Sulfate (Morphine Inj) 2 mg ONCE ONCE IV PUSH Last administered on 00:22; Start 05/31/17 at 23:15; Stop 05/31/17 at 23:16; Status DC Miscellaneous Information Patient in critical care unit? Ass... Q361D .XX ; Start 06/01/17 at 01:45 Chlorhexidine Gluconate (Chlorhexidine 2% Cloth) 3 pack DAILY@04 TOPICAL Last administered on 06/02/17 02:58; Start 06/01/17 at 04:00; Stop 06/05/17 at 04:01 Chlorhexidine Gluconate (Chlorhexidine 2% Cloth) 3 pack UNSCH PRN TOPICAL HYGIENIC CARE; Start 06/01/17 at 01:45; Stop 06/06/17 at 01:38 Acetaminophen/ Hydrocodone Bitart ([place] 5-325 Mg) 1 tab Q4H PRN PO pain 1-7; Start 06/01/17 at 09:15; Stop 06/01/17 at 09:29; Status DC Acetaminophen/ Hydrocodone Bitart ([place] 5-325 Mg) 2 tab Q4H PRN PO pain 8-10 Last administered on 06/01/17 09:22; Start 06/01/17 at 09:15; Stop 06/01/17 at 09:29; Status DC Oxycodone/ Acetaminophen (Percocet 5-325 Mg) 1 tab Q4H PRN PO pain 1-7; Start 06/01/17 at 09:30 Oxycodone/ Acetaminophen 2 tab 2 tab Q4H PRN PO pain 8-10 Last administered on 06/02/17 08:11; Start 06/01/17 at 09:30 Vancomycin HCl/ Sodium Chloride (Vancomycin Inj/ NS 250 ml Inj) 250 ml @ 250 mls/hr Q24H IV Last administered on 06/02/17 08:10; Start 06/01/17 at 10:00 Miscellaneous Information SPECIFIC LAB TO BE DRAWN:VANCOMYCIN TROUGH DATE TO... ONCE ONCE .XX ; Start 06/04/17 at 09:45; Stop 06/04/17 at 09:46 Ceftriaxone Sodium/Sodium Chloride (Rocephin Inj/NS Inj) 100 ml @ 200 mls/hr Q24H IV Last administered on 06/02/17 10:47; Start 06/01/17 at 12:00 Azithromycin (Zithromax) 500 mg Q24H PO Last administered on 06/02/17 10:48; Start 06/01/17 at 12:00 Albuterol/ Ipratropium (Duoneb Neb) 1 ampule Q6HR WHILE AWAKE NEB NEB ; Start 06/02/17 at 14:00 A/P Assessment and Plan 42-year-old female IV drug user presented with dyspnea, fevers and chills Sepsis source may be secondary to right lower lobe pneumonia and bacteremia. -Last review showing normal WBC with bandemia. Creatinine elevated with GFR 22. Chest x-ray showed right lower lobe infiltrate. UA negative. Patient has tachycardia. -Status post fluid resuscitation. Positive blood cultures. -Infectious disease consulted and following. -See treatment as below. Acute respiratory failure with hypoxia -Secondary to sepsis, bacteremia and pneumonia. -Continue supplement oxygen. Treat underlying condition. See treatment as below. MRSA bacteremia -06/01 All 4 cultures positive showing MRSA, group a strep, and bacillus not anthrax. Repeat blood cultures on 12/02/71 out of 4 gram-positive cocci. -Infectious disease following. Echo shows no lesion. Most likely will need a MIREILLE. -Patient is on vancomycin, Rocephin and azithromycin. Community-acquired pneumonia -Checks x-ray show infiltrate in the right lower lobe. -Initially patient was on Zosyn and vancomycin. -Zosyn was discontinued and now on Rocephin -pneumococcal and Legionella antigen negative. An order for sputum culture also obtained. Left arm DVT -Ultrasound Doppler showed Deep venous thrombosis with nonocclusive thrombus in the peripheral brachial vein. 2. Occlusive thrombus in the entire superficial cephalic vein. -Patient was put on a heparin drip. Due to thrombocytopenia core drill operator helper consulted. Per core drill operator helper continue with heparin drip. Thrombocytopenia -No signs of any active bleed. There is no recent baseline. Last baseline in 2012 and it was normal. -Most likely secondary to consumption. -Trial Mgr consulted and following. Per core drill operator helper check hepatitis and HIV panel in addition to vitamin and iron study. Hepatitis C -Patient is an active IV drug user. -LFTs normal. Liver ultrasound also normal. Follows outpatient. Current IV drug use with crystal meth -Education given and discouraged use of crystal meth. DVT prophylaxis -Patient on heparin drip. Discharge Planning Will wean patient off nonrebreather and if able to wean onto nasal cannula can be transfer to [facility]. Dealt with patient's nurse. Yissel Aldridge MD Jun 02, 2017 13:43
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
[2017-06-02] MEDS ORDERED: FLUMAZENIL 0.5 MG/5 ML VIAL IV PUSH PRN (15:45)
[2017-06-02] MEDS ORDERED: HALOPERIDOL LACTATE 5 MG/ML AMP IM PRN (15:45)
[2017-06-02] MEDS ORDERED: LORazepam 2 MG TAB PO PRN (15:45)
[2017-06-02] MEDS ORDERED: MORPHINE SULFATE 4 MG/ML INJ IV PUSH PRN (15:45)
[2017-06-02] MEDS ORDERED: LORazepam 2 MG/ML VIAL IV PUSH PRN ×4 (15:45)
[2017-06-02] MEDS ORDERED: LORazepam 1 MG TAB PO PRN (15:45)
[2017-06-02 20:27] LABS: APTT (PATIENT) 35.3 SEC (24.3-30.1)
[2017-06-02 21:29] LABS: APTT (PATIENT) 27.8 SEC (24.3-30.1)
[2017-06-02] MEDS: VANCOMYCIN INJ 1,000 MG in SODIUM CHLOR 0.9% 250 ML INJ 250 ML IV SCH (22:42)
[2017-06-02] MEDS: RESP: ALBUTEROL 2.5 MG/IPRATROPIUM 0.5 MG NEB (SCH) NEB (23:59)
[2017-06-03] VITALS (10 sets, daily range): BP systolic 105–122; BP diastolic 56–75; PULSE 85–128; RESP 16–24; TEMP 97.4–102.6; O2SAT 91–95
[2017-06-03 02:56] LABS: APTT (PATIENT) 39.1 SEC (24.3-30.1)
[2017-06-03] MEDS: CHLORHEXIDINE GLUCONATE 2 % 1 PACK (2 CLOTHS)(taper/protocol) TOPICAL SCH (04:00)
[2017-06-03 07:30] LABS: HEMATOCRIT 27.4 % (35.0-46.0); MEAN CELL VOLUME 94.4 FL (80.0-100.0); MEAN CORPUSCULAR HEMOGLOBIN 31.2 PG (27.0-34.0); MEAN CORPUSCULAR HGB CONC 33.1 % (32.0-36.0); PLATELET COUNT 111 TH/MM3 (150-450); RED CELL DISTRIBUTION WIDTH 14.1 % (11.6-17.2); REVIEW FLAG FINAL; WHITE BLOOD COUNT 6.4 TH/MM3 (4.0-11.0)
[2017-06-03 07:33] LABS: APTT (PATIENT) 43.1 SEC (24.3-30.1)
[2017-06-03 07:53] LABS: BICARBONATE 25.4 MEQ/L (21.0-32.0); POTASSIUM 3.4 MEQ/L (3.5-5.1)
[2017-06-03] MEDS: SODIUM CHLORIDE 0.9% FLUSH 10 ML FLUSH IV FLUSH SCH ×2 (09:00→22:44)
[2017-06-03] MEDS: SODIUM CHLORIDE 0.9% FLUSH 10 ML FLUSH IVF SCH (09:00)
[2017-06-03] MEDS: oxyCODONE/ACETAMINOPHEN 5 MG/325 MG TAB PO PRN ×3 (09:01→18:35)
[2017-06-03] MEDS: VANCOMYCIN INJ 1,000 MG in SODIUM CHLOR 0.9% 250 ML INJ 250 ML IV SCH ×2 (09:02→22:43)
[2017-06-03] MEDS: DOCUSATE SODIUM 50 MG/SENNA 8.6 MG TAB PO SCH ×2 (09:03→19:40)
[2017-06-03] MEDS: RESP: ALBUTEROL 2.5 MG/IPRATROPIUM 0.5 MG NEB (SCH) NEB ×3 (10:14→19:33)
[2017-06-03] MEDS ORDERED: POTASSIUM CHLORIDE 10 MEQ CONTROLLED RELEASE TAB PO ONE (10:30)
--- NOTE | 2017-06-03 10:59 | HHI.PR ---
Subjective Remarks Follow-up for bacteremia and withdrawals Patient found sleeping in bed. When I woke her up she states she had no complaints. Deny any tremors or any types of withdrawal. She denies any shortness of breathing and does not have her nasal cannula on. Denies any cough. Patient had a fever last my 102. Objective Vitals Vital Signs Date Time Temp Pulse Resp B/P Pulse Ox O2 Delivery O2 Flow Rate FiO2 06/03/17 10:15 95 Nasal Cannula 4.00 06/03/17 08:00 97.4 96 20 122/75 92 06/03/17 04:00 98.4 111 24 106/67 92 06/03/17 00:05 92 Nasal Cannula 6.00 06/03/17 00:01 92 Nasal Cannula 6.00 06/03/17 00:00 102.6 123 24 117/56 94 06/02/17 20:00 108 06/02/17 20:00 98.9 104 20 103/58 92 06/02/17 18:40 98.9 114 18 115/69 90 06/02/17 18:00 132 06/02/17 16:00 122 06/02/17 14:00 113 06/02/17 12:00 95 06/02/17 12:00 97.8 95 32 95/63 92 I/O 06/02/17 06/02/17 06/02/17 06/03/17 06/03/17 06/03/17 07:00 15:00 23:00 07:00 15:00 23:00 Intake Total 655 ml 462 ml 120 ml 120 ml Output Total 400 ml Balance 255 ml 462 ml 120 ml 120 ml Intake Oral 480 ml 280 ml 120 ml 120 ml IV Total 175 ml 182 ml Output Urine Total 400 ml # Voids 1 1 # Bowel Movements 0 0 0 # Sanitary Pads 1 Pads Result Diagram: 06/03/1770406/03/17704 Objective Remarks GENERAL: in NAD SKIN: Warm and dry. Left arm redness and swelling has improved. Mild tenderness of palpation in the area. HEAD: Normocephalic. EYES: No scleral icterus. No injection or drainage. NECK: Supple, trachea midline. No JVD or lymphadenopathy. Right IJ in place. CARDIOVASCULAR: Regular rate and rhythm without murmurs, gallops, or rubs. RESPIRATORY clear to auscultation bilaterally. No accessory muscle use. GASTROINTESTINAL: Abdomen soft, non-tender, nondistended. Medications and IVs Current Medications Sodium Chloride 2 ml 2 ml UNSCH PRN IVF FLUSH AFTER USING IV ACCESS; Start at 12:00; Stop 05/31/17 at 17:01; Status DC Sodium Chloride (NS 1000 ml Inj) 1,000 ml @ 999 mls/hr BOLUS ONCE IV Last administered on 05/31/17 13:55; Start 05/31/17 at 12:45; Stop 05/31/17 at 13:45 ; Status DC Methylprednisolone Sodium Succinate (SoluMEDROL INJ) 60 mg ONCE ONCE IVP Last administered on 05/31/17 13:55; Start 05/31/17 at 12:45; Stop 05/31/17 at 12:46 ; Status DC Albuterol/ Ipratropium 1 ampule 1 ampule Q15M INH Last administered on 12:51; Start 05/31/17 at 12:45; Stop 05/31/17 at 13:16; Status DC Vancomycin HCl 1100 mg/Sodium Chloride 261 ml @ 250 mls/hr ONCE ONCE IV ; Start 05/31/17 at 15:15; Stop 05/31/17 at 16:17; Status DC Piperacillin Sod/ Tazobactam Sod 100 ml @ 200 mls/hr ONCE STAT IV Last administered on 05/31/17 16:59; Start 05/31/17 at 14:04; Stop 05/31/17 at 14:33 ; Status DC Sodium Chloride 1,000 ml @ 1,000 mls/hr Q1H ONCE IV Last administered on 16:58; Start 05/31/17 at 14:04; Stop 05/31/17 at 15:03; Status DC Sodium Chloride (NS 1000 ml Inj) 800 ml @ 1,000 mls/hr Q48M ONCE IV Last administered on 05/31/17 16:59; Start 05/31/17 at 14:04; Stop 05/31/17 at 14:51 ; Status DC Morphine Sulfate (Morphine Inj) 4 mg ONCE ONCE IV PUSH Last administered on 19:46; Start 05/31/17 at 14:15; Stop 05/31/17 at 14:16; Status DC Olanzapine 10 mg 10 mg ONCE ONCE IM ; Start 05/31/17 at 15:15; Stop 05/31/17 at 15:16; Status Cancel Sodium Chloride (NS 1000 ml Inj) 1,000 ml @ 150 mls/hr Q6H40M IV Last administered on 05/31/17 19:47; Start 05/31/17 at 15:14; Stop 05/31/17 at 23:04 ; Status DC Sodium Chloride (NS Flush) 2 ml UNSCH PRN IV FLUSH FLUSH AFTER USING IV ACCESS ; Start 05/31/17 at 15:15 Sodium Chloride (NS Flush) 2 ml BID IV FLUSH Last administered on 06/03/17 09: 00; Start 05/31/17 at 21:00 Acetaminophen (Tylenol) 650 mg Q4H PRN PO TEMP > 100.4 Last administered on 22:54; Start 05/31/17 at 15:15 Ondansetron HCl (Zofran Inj) 4 mg Q6H PRN IVP NAUSEA OR VOMITING; Start at 15:15 Heparin Sodium (Porcine) (Heparin Inj) 5,000 units Q12H SQ ; Start 05/31/17 at 16:00; Stop 05/31/17 at 16:00; Status DC Naloxone HCl (Narcan Inj) 0.4 mg UNSCH PRN IV SEE LABEL COMMENTS; Start at 15:15 Senna/Docusate Sodium (Judy-Colace) 1 tab BID PO Last administered on 09:03; Start 05/31/17 at 21:00 Magnesium Hydroxide (Milk Of Magnesia Liq) 30 ml Q12H PRN PO MILD - MODERATE CONSTIPATION; Start 05/31/17 at 15:15 Sennosides (Senokot) 17.2 mg Q12H PRN PO MODERATE - SEVERE CONSTIPATION; Start 05/31/17 at 15:15 Bisacodyl (Dulcolax Supp) 10 mg DAILY PRN RECTAL SEVERE CONSITIPATION; Start at 15:15 Lactulose 30 ml 30 ml DAILY PRN PO SEVERE CONSITIPATION; Start 05/31/17 at 15: 15 Sodium Chloride 1,000 ml @ 999 mls/hr BOLUS ONCE IV ; Start 05/31/17 at 17:00 ; Stop 05/31/17 at 18:00; Status DC Pharmacy Profile Note 0 ml @ 0 mls/hr UNSCH OTHER ; Start 05/31/17 at 15:30 Piperacillin Sod/ Tazobactam Sod 50 ml @ 100 mls/hr Q6H IV Last administered on 06/01/17 09:57; Start 05/31/17 at 23:00; Stop 06/01/17 at 11:29; Status DC Heparin Sodium/ Dextrose (Heparin-D5W Inj) 250 ml @ 0 mls/hr TITRATE IV Last administered on 06/01/17 16:22; Start 05/31/17 at 16:15 Sodium Chloride (NS Flush) DAILY IVF Last administered on 06/03/17 09:00; Start 06/01/17 at 09:00 Sodium Chloride UNSCH PRN IVF SEE PROTOCOL; Start 05/31/17 at 16:45 Sodium Chloride (NS 1000 ml Inj) 1,000 ml @ 999 mls/hr BOLUS ONCE IV ; Start 05/31/17 at 20:15; Stop 05/31/17 at 21:15; Status DC Morphine Sulfate (Morphine Inj) 2 mg ONCE ONCE IV PUSH Last administered on 00:22; Start 05/31/17 at 23:15; Stop 05/31/17 at 23:16; Status DC Miscellaneous Information Patient in critical care unit? Ass... Q361D .XX ; Start 06/01/17 at 01:45 Chlorhexidine Gluconate (Chlorhexidine 2% Cloth) 3 pack DAILY@04 TOPICAL Last administered on 06/02/17 02:58; Start 06/01/17 at 04:00; Stop 06/05/17 at 04:01 Chlorhexidine Gluconate (Chlorhexidine 2% Cloth) 3 pack UNSCH PRN TOPICAL HYGIENIC CARE; Start 06/01/17 at 01:45; Stop 06/06/17 at 01:38 Acetaminophen/ Hydrocodone Bitart ([place] 5-325 Mg) 1 tab Q4H PRN PO pain 1-7; Start 06/01/17 at 09:15; Stop 06/01/17 at 09:29; Status DC Acetaminophen/ Hydrocodone Bitart ([place] 5-325 Mg) 2 tab Q4H PRN PO pain 8-10 Last administered on 06/01/17 09:22; Start 06/01/17 at 09:15; Stop 06/01/17 at 09:29; Status DC Oxycodone/ Acetaminophen (Percocet 5-325 Mg) 1 tab Q4H PRN PO pain 1-7; Start 06/01/17 at 09:30 Oxycodone/ Acetaminophen 2 tab 2 tab Q4H PRN PO pain 8-10 Last administered on 06/03/17 09:01; Start 06/01/17 at 09:30 Vancomycin HCl/ Sodium Chloride (Vancomycin Inj/ NS 250 ml Inj) 250 ml @ 250 mls/hr Q24H IV Last administered on 06/02/17 08:10; Start 06/01/17 at 10:00; Stop 06/02/17 at 15:16; Status DC Miscellaneous Information SPECIFIC LAB TO BE DRAWN:VANCOMYCIN TROUGH DATE TO... ONCE ONCE .XX ; Start 06/04/17 at 09:45; Stop 06/04/17 at 09:46 Ceftriaxone Sodium/Sodium Chloride (Rocephin Inj/NS Inj) 100 ml @ 200 mls/hr Q24H IV Last administered on 06/02/17 10:47; Start 06/01/17 at 12:00 Azithromycin (Zithromax) 500 mg Q24H PO Last administered on 06/02/17 10:48; Start 06/01/17 at 12:00 Albuterol/ Ipratropium 1 ampule 1 ampule Q6HR WHILE AWAKE NEB NEB Last administered on 06/03/17 10:14; Start 06/02/17 at 14:00 Vancomycin HCl/ Sodium Chloride (Vancomycin Inj/ NS 250 ml Inj) 250 ml @ 250 mls/hr Q12H IV Last administered on 06/03/17 09:02; Start 06/02/17 at 22:00 Flumazenil (Romazicon Inj) 0.2 mg Q1M PRN IV PUSH SEE LABEL COMMENTS; Start at 15:45 Lorazepam (Ativan) 1 mg Q4H PRN PO CIWA 8 - 10; Start 06/02/17 at 15:45 Lorazepam (Ativan Inj) 1 mg Q4H PRN IV PUSH CIWA 8 - 10; Start 06/02/17 at 15: 45 Lorazepam (Ativan) 2 mg Q2H PRN PO CIWA 11-14; Start 06/02/17 at 15:45 Lorazepam (Ativan Inj) 2 mg Q2H PRN IV PUSH CIWA 11-14; Start 06/02/17 at 15:45 Lorazepam (Ativan Inj) 2 mg Q1H PRN IV PUSH CIWA 15-20 Last administered on t 18:07; Start 06/02/17 at 15:45 Lorazepam (Ativan Inj) 2 mg Q15M PRN IV PUSH CIWA > 20; Start 06/02/17 at 15:45 Haloperidol Lactate (Haldol Inj) 2 mg Q15M PRN IM SEE LABEL COMMENTS; Start at 15:45 Morphine Sulfate (Morphine Inj) 2 mg Q3H PRN IV PUSH withdrawal; Start at 15:45 Miscellaneous Information SPECIFIC LAB TO BE DRAWN:VANCOMYCIN TROUGH DATE TO... ONCE ONCE .XX ; Start 06/04/17 at 09:45; Stop 06/04/17 at 09:46 Potassium Chloride (KCl) 30 meq ONCE ONCE PO ; Start 06/03/17 at 10:30; Stop at 10:31; Status DC A/P Assessment and Plan 42-year-old female IV drug user presented with dyspnea, fevers and chills Sepsis source may be secondary to right lower lobe pneumonia and bacteremia. -Last review showing normal WBC with bandemia. Creatinine elevated with GFR 22. Chest x-ray showed right lower lobe infiltrate. UA negative. Patient has tachycardia. -Status post fluid resuscitation. Positive blood cultures. -Infectious disease consulted and following. -See treatment as below. Acute respiratory failure with hypoxia -Secondary to sepsis, bacteremia and pneumonia. -Continue supplement oxygen. Treat underlying condition. See treatment as below. MRSA bacteremia -06/01 All 4 cultures positive showing MRSA, group a strep, and bacillus not anthrax. Repeat blood cultures on 12/02/16 out of 4 gram-positive cocci. Blood cultures repeated on 12/04/16 -Infectious disease following. Echo shows no lesion. Most likely will need a MIREILLE. -Patient is on vancomycin, Rocephin and azithromycin. Community-acquired pneumonia -Checks x-ray show infiltrate in the right lower lobe. -Initially patient was on Zosyn and vancomycin. -Zosyn was discontinued and now on Rocephin -pneumococcal and Legionella antigen negative. An order for sputum culture also obtained. Tachycardia -Secondary to withdrawals. -Patient on CIWA protocol and morphine IV when necessary for any signs of withdrawal. Left arm DVT -Ultrasound Doppler showed Deep venous thrombosis with nonocclusive thrombus in the peripheral brachial vein. 2. Occlusive thrombus in the entire superficial cephalic vein. -Per obstetrics teacher can consider oral anticoagulation. Thrombocytopenia -No signs of any active bleed. There is no recent baseline. Last baseline in 2012 and it was normal. -Most likely secondary to consumption. -Mine Manager consulted and following. Patient positive for hepatitis C. HIV negative. Hepatitis C -Patient is an active IV drug user. -LFTs normal. Liver ultrasound also normal. Follows outpatient. Current IV drug use with crystal meth -Education given and discouraged use of crystal meth. DVT prophylaxis -Patient on heparin drip. Discharge Planning Patient continues to be bacteremic and continued to have fevers. Due to severity of her illness she most likely will require a long hospital course. Yissel Aldridge MD Jun 03, 2017 10:59
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
[2017-06-03] MEDS: cefTRIAXone INJ 2,000 MG in SODIUM CHLORIDE 0.9% INJ 100 ML IV SCH (12:13)
[2017-06-03] MEDS: AZITHROMYCIN 250 MG TAB PO SCH (12:14)
[2017-06-03] MEDS ORDERED: DO NOT ADM ANY ANTICOAGULANT DRUGS OTHER PRN (13:00)
[2017-06-03] MEDS ORDERED: WARFARIN SOD 2 MG TAB PO ONE (14:00)
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
[2017-06-03] MEDS ORDERED: CEFUROXIME AXETIL 500 MG TAB PO SCH (15:00)
[2017-06-03 16:29] LABS: APTT (PATIENT) 83.7 SEC (24.3-30.1)
[2017-06-03] MEDS ORDERED: RESP: ALBUTEROL CONC 2.5 MG/0.5 ML NEB NEB PRN (18:15)
--- NOTE | 2017-06-03 18:54 | RADRPT ---
EXAM DATE/TIME: 06/03/2017 18:29 [facility] COMPARISON: CHEST SINGLE AP, May 31, 2017, 21:20. INDICATIONS : Shortness of breath. MEDICAL HISTORY : Chronic obstructive pulmonary disease. SURGICAL HISTORY : None. ENCOUNTER: Subsequent ACUITY: 4 - 6 days PAIN SCORE: 0/10 LOCATION: chest FINDINGS: A single view of the chest demonstrates right central line in superior vena cava. Bilateral airspace disease, right greater than left present. Differential diagnosis includes bronchopneumonia. Small right effusion. CONCLUSION: Increase in right-sided airspace disease over the last 3 days. Small right effusion. Mild left basila r opacity. Right central line in superior vena cava. Dave Calderón MD on June 03, 2017 at 18:49 Board Certified Radiologist. This report was verified electronically.
[2017-06-03] MEDS: ACETAMINOPHEN 325 MG TAB PO PRN (19:39)
[2017-06-03] MEDS ORDERED: LORazepam 1 MG TAB PO ONE (21:45)
[2017-06-03] MEDS: HEPARIN-D5W INJ 250 ML IV SCH (22:51)
[2017-06-03] MEDS: CEFEPIME INJ 2,000 MG in SODIUM CHLORIDE 0.9% INJ 100 ML IV SCH (23:30)
--- NOTE | 2017-06-03 23:30 | PD.CONS ---
HPI Consult Requested By Primary Care Physician No Primary Care Physician History of Present Illness 42-year-old female with pmhx significant for IV drug use who presented with shortness of breathing for 2 days associated with cough, phlegm, fevers and chills. Admitted with sepsis. Consulted for MIREILLE to r/o IE. Review of Systems Consitutional: DENIES: Fatigue, Fever, Chills, Weight gain, Weight loss Eyes: DENIES: Amaurosis Fugax, Change in vision HEENT: DENIES: Lightheadedness, Change in hearing Respiratory: DENIES: See HPI, Cough, Snoring, Shortness of breath, Wheezing, Sputum production Cardiovascular: DENIES: See HPI, Chest pain, Palpitations, Syncope, Tachycardia Gastrointestinal: DENIES: Nausea, Vomiting, Change in bowel habits, Reflux, Bloody stools, Melena Genitourinary: DENIES: Urinary incontinence, Difficulty voiding Integumentary: DENIES: Rash Neurologic: DENIES: Tingling or numbness, Memory problems, Poor Balance, Stroke symptoms Musculoskeletal: DENIES: Joint pain, Muscle pain, Limited range of motion, Back pain Psychiatric: DENIES: Anxiety, Depression, Sleep disturbances Hematologic: DENIES: Bruising tendencies, Bleeding tendencies Endocrine: DENIES: Weight gain, Weight loss, Thyroid disease Past Family Social History Allergies: Coded Allergies: *MDRO Multi-Drug Resistant Organism (Verified Adverse Reaction, Unknown, ) MRSA (blood) 05/31/17, 06/01/17, 06/02/17, 06/03/17 Past Medical History History cervical cancer 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 Past Surgical History History of LEEP procedure. Tubal ligation Reported Medications Reported Meds & Active Scripts Active No Active Prescriptions or Reported Medications Active Ordered Medications Current Medications Medications (Trade) Dose Ordered Sig/Peter Route Start Time Stop Time Status Last Admin (NS Flush) 2 ml UNSCH PRN IV FLUSH 05/31/17 15:15 (NS Flush) 2 ml BID IV FLUSH 05/31/17 21:00 06/03/17 22:44 (Tylenol) 650 mg Q4H PRN PO 05/31/17 15:15 06/03/17 19:39 (Zofran Inj) 4 mg Q6H PRN IVP 05/31/17 15:15 (Narcan Inj) 0.4 mg UNSCH PRN IV 05/31/17 15:15 (Judy-Colace) 1 tab BID PO 05/31/17 21:00 06/03/17 19:40 (Milk Of Magnesia Liq) 30 ml Q12H PRN PO 05/31/17 15:15 (Senokot) 17.2 mg Q12H PRN PO 05/31/17 15:15 (Dulcolax Supp) 10 mg DAILY PRN RECTAL 05/31/17 15:15 Lactulose 30 ml 30 ml DAILY PRN PO 05/31/17 15:15 Pharmacy Profile Note 0 ml @ 0 mls/hr UNSCH OTHER 05/31/17 15:30 (Heparin-D5W Inj) 250 ml @ 0 mls/hr TITRATE IV 05/31/17 16:15 06/03/17 22:51 (NS Flush) DAILY IVF 06/01/17 09:00 06/03/17 09:00 (NS Flush) UNSCH PRN IVF 05/31/17 16:45 Miscellaneous Information Patient in critical care unit? Ass... Q361D .XX 06/01/17 01:45 (Chlorhexidine 2% Cloth) 3 pack DAILY@04 TOPICAL 06/01/17 04:00 06/05/17 04:01 06/02/17 02:58 (Chlorhexidine 2% Cloth) 3 pack UNSCH PRN TOPICAL 06/01/17 01:45 06/06/17 01:38 (Percocet 5-325 Mg) 1 tab Q4H PRN PO 06/01/17 09:30 (Percocet 5-325 Mg) 2 tab Q4H PRN PO 06/01/17 09:30 06/03/17 18:35 Miscellaneous Information SPECIFIC LAB TO BE DRAWN:VANCOMYCIN TROUGH DATE TO... ONCE ONCE .XX 06/04/17 09:45 06/04/17 09:46 Azithromycin 500 mg 500 mg Q24H PO 06/01/17 12:00 Hold 06/03/17 12:14 (Vancomycin Inj/ NS 250 ml Inj) 250 ml @ 250 mls/hr Q12H IV 06/02/17 22:00 06/03/17 22:43 (Romazicon Inj) 0.2 mg Q1M PRN IV PUSH 06/02/17 15:45 (Ativan) 1 mg Q4H PRN PO 06/02/17 15:45 (Ativan Inj) 1 mg Q4H PRN IV PUSH 06/02/17 15:45 (Ativan) 2 mg Q2H PRN PO 06/02/17 15:45 (Ativan Inj) 2 mg Q2H PRN IV PUSH 06/02/17 15:45 (Ativan Inj) 2 mg Q1H PRN IV PUSH 06/02/17 15:45 06/02/17 18:07 (Ativan Inj) 2 mg Q15M PRN IV PUSH 06/02/17 15:45 (Haldol Inj) 2 mg Q15M PRN IM 06/02/17 15:45 Morphine Sulfate 2 mg 2 mg Q3H PRN IV PUSH 06/02/17 15:45 (Coumadin Consult Pharmacy) 0 ml @ 0 mls/hr UNSCH OTHER 06/03/17 12:15 Miscellaneous Information ALL NURSING DEPARTME... UNSCH PRN OTHER 06/03/17 13:00 06/04/17 12:59 Cefuroxime Axetil 500 mg 500 mg Q12H PO 06/03/17 15:00 Hold 06/03/17 15:44 (Maxipime Inj/NS Inj) 100 ml @ 200 mls/hr Q8HR IV 06/03/17 22:00 Physical Exam Vital Signs Vital Signs Date Time Temp Pulse Resp B/P Pulse Ox O2 Delivery O2 Flow Rate FiO2 06/03/17 20:00 99.9 128 17 112/66 91 06/03/17 18:26 92 Nasal Cannula 4.00 06/03/17 16:00 100.8 124 16 116/68 92 06/03/17 12:00 99.6 122 18 105/58 91 06/03/17 10:15 95 Nasal Cannula 4.00 06/03/17 08:00 97.4 96 20 122/75 92 06/03/17 08:00 85 06/03/17 04:00 98.4 111 24 106/67 92 06/03/17 00:05 92 Nasal Cannula 6.00 06/03/17 00:01 92 Nasal Cannula 6.00 06/03/17 00:00 102.6 123 24 117/56 94 Physical Exam GENERAL: Well-nourished, well-developed patient. SKIN: Warm and dry. HEAD: Normocephalic. EYES: No scleral icterus. No injection or drainage. NECK: Supple, trachea midline. No JVD or lymphadenopathy. CARDIOVASCULAR: Regular rate and rhythm without murmurs, gallops, or rubs. RESPIRATORY: Breath sounds equal bilaterally. No accessory muscle use. GASTROINTESTINAL: Abdomen soft, non-tender, nondistended. EXTREMITIES: No cyanosis, or edema. NEUROLOGICAL: Awake, alert, and oriented x 3. Non-focal. Laboratory Laboratory Tests Test 06/03/17 06/03/17 06/03/17 02:30 07:05 15:51 Activated Partial 39.1 43.1 83.7 Thromboplast Time White Blood Count 6.4 Red Blood Count 2.90 Hemoglobin 9.0 Hematocrit 27.4 Mean Corpuscular Volume 94.4 Mean Corpuscular Hemoglobin 31.2 Mean Corpuscular Hemoglobin 33.1 Concent Red Cell Distribution Width 14.1 Platelet Count 111 Mean Platelet Volume 10.7 Sodium Level 141 Potassium Level 3.4 Chloride Level 108 Carbon Dioxide Level 25.4 Anion Gap 8 Blood Urea Nitrogen 19 Creatinine 0.79 Estimat Glomerular Filtration 80 Rate Random Glucose 84 Calcium Level 7.9 Date/Time Procedure Status Source Growth 06/03/17 07:05 Aerobic Blood Culture Received Blood Peripheral Pending 06/03/17 07:05 Anaerobic Blood Culture Received Blood Peripheral Pending 06/02/17 16:20 Aerobic Blood Culture - Preliminary Resulted Blood Peripheral NO GROWTH IN 1 DAY 06/02/17 16:20 Anaerobic Blood Culture - Preliminary Resulted Blood Peripheral NO GROWTH IN 1 DAY 06/01/17 14:54 Legionella Antigen - Final Complete Urine Clean Catch PRESUMPTIVE NEGATIVE FOR LEGIONELLA P... 06/01/17 14:54 Streptococcus pneumoniae Antigen (M - Final Complete Urine Clean Catch PRESUMPTIVE NEGATIVE FOR STREPTOCOCCU... 05/31/17 19:30 Aerobic Blood Culture - Final Complete Blood Line S. Aureus Mrsa Group A Beta Strep 05/31/17 19:30 Anaerobic Blood Culture - Final Complete S. Aureus Mrsa Group A Beta Strep Result Diagram: 06/03/17 0705 06/03/17 0705 Imaging Last Impressions Chest X-Ray 06/03/17 0000 Signed Impressions: Service Date/Time: Saturday, June 03, 2017 18:29 - CONCLUSION: Increase in right-sided airspace disease over the last 3 days. Small right effusion. Mild left basilar opacity. Right central line in superior vena cava. Dave Calderón MD Liver Ultrasound 06/01/17 0000 Signed Impressions: Service Date/Time: Thursday, June 01, 2017 17:07 - CONCLUSION: 1. Small right pleural effusion. 2. No evidence for cholelithiasis. 3. Spleen and liver are normal in size. Alfonzo Werner MD Central Venous Line 05/31/17 1524 Signed Impressions: Service Date/Time: Wednesday, May 31, 2017 16:21 - CONCLUSION: Uncomplicated line placement as above. Sebastian Mora Jr., MD Hand X-Ray 05/31/17 1235 Signed Impressions: Service Date/Time: Wednesday, May 31, 2017 12:47 - CONCLUSION: No fracture or significant degenerative changes. Tyler Chung MD Radius/Ulna X-Ray 05/31/17 1149 Signed Impressions: Service Date/Time: Wednesday, May 31, 2017 12:52 - CONCLUSION: No fracture. Tyler Chung MD Upper Extremity Ultrasound 05/31/17 0000 Signed Impressions: Service Date/Time: Wednesday, May 31, 2017 13:45 - CONCLUSION: 1. Deep venous thrombosis with nonocclusive thrombus in the peripheral brachial vein. 2. Occlusive thrombus in the entire superficial cephalic vein. Tyler Chung MD Assessment and Plan Problem List: (1) Sepsis Assessment and Plan: 42 y/o with sepsis consulted for MIREILLE to r/o IE. No vegetation on TTE. Risk benefits of MIREILLE have been discussed with patient. She understands risks and want to think about it. She states that she does not want any more tests. If patient decides to have the MIREILLE it can be done next week. Thank you for the opportunity to take part in the care of this patient (2) Pneumonia (3) Normocytic anemia (4) DVT (deep venous thrombosis) (5) Thrombocytopenia Epi Mcfarlane MD Jun 03, 2017 23:30 Epi Mcfarlane MD Jun 03, 2017 23:30
[2017-06-03 23:59] LABS: APTT (PATIENT) 27.8 SEC (24.3-30.1)
[2017-06-04] VITALS (12 sets, daily range): BP systolic 96–116; BP diastolic 52–69; PULSE 89–160; RESP 18–20; TEMP 97.5–102; O2SAT 77–98
[2017-06-04] MEDS: RESP: ALBUTEROL 2.5 MG/IPRATROPIUM 0.5 MG NEB (SCH) NEB ×7 (03:21→19:54)
[2017-06-04] MEDS: CHLORHEXIDINE GLUCONATE 2 % 1 PACK (2 CLOTHS)(taper/protocol) TOPICAL SCH (03:50)
[2017-06-04] MEDS: ACETAMINOPHEN 325 MG TAB PO PRN ×2 (04:02→16:15)
[2017-06-04] MEDS: oxyCODONE/ACETAMINOPHEN 5 MG/325 MG TAB PO PRN ×3 (04:03→15:53)
[2017-06-04] MEDS: CEFEPIME INJ 2,000 MG in SODIUM CHLORIDE 0.9% INJ 100 ML IV SCH ×2 (05:23→14:25)
[2017-06-04 07:29] LABS: PROTHROMBIN TIME - PATIENT 11.2 SEC (9.8-11.6)
[2017-06-04 07:47] LABS: APTT (PATIENT) 32.2 SEC (24.3-30.1)
[2017-06-04] MEDS: SODIUM CHLORIDE 0.9% FLUSH 10 ML FLUSH IVF SCH (09:00)
[2017-06-04] MEDS ORDERED: PHARMACY ORDERED LAB ONE ×2 (09:45)
[2017-06-04] MEDS: SODIUM CHLORIDE 0.9% FLUSH 10 ML FLUSH IV FLUSH SCH (09:52)
[2017-06-04] MEDS: VANCOMYCIN INJ 1,000 MG in SODIUM CHLOR 0.9% 250 ML INJ 250 ML IV SCH (09:52)
[2017-06-04] MEDS: DOCUSATE SODIUM 50 MG/SENNA 8.6 MG TAB PO SCH (09:52)
--- NOTE | 2017-06-04 11:14 | HHI.PR ---
Subjective Remarks Follow-up for pneumonia and bacteremia Patient continues to have fevers. Last night fever of 102. Yesterday night I got paged by her nurse stating that patient require more oxygen so a stat chest x-ray was placed and nebulizers were increased. Patient denied any shortness of breathing. She stills has fever and chills. When I saw patient she is off the oxygen and in no respiratory distress. I also asked patient if she has any back pain or any pain anywhere pain on her body and she stated no. Objective Vitals Vital Signs Date Time Temp Pulse Resp B/P Pulse Ox O2 Delivery O2 Flow Rate FiO2 06/04/17 08:00 97.5 89 18 96/52 96 06/04/17 04:10 90 Nasal Cannula 4.00 06/04/17 04:00 102.0 113 19 116/65 91 06/04/17 00:13 98 Nasal Cannula 4.00 06/04/17 00:00 98.0 102 20 100/69 96 06/03/17 20:00 99.9 128 17 112/66 91 06/03/17 20:00 118 06/03/17 18:26 92 Nasal Cannula 4.00 06/03/17 16:00 100.8 124 16 116/68 92 06/03/17 12:00 99.6 122 18 105/58 91 I/O 06/03/17 06/03/17 06/03/17 06/04/17 06/04/17 06/04/17 07:00 15:00 23:00 07:00 15:00 23:00 Intake Total 120 ml 480 ml 440 ml 140 ml Balance 120 ml 480 ml 440 ml 140 ml Intake Oral 120 ml 480 ml 440 ml 140 ml # Voids 1 2 2 2 # Bowel Movements 0 0 0 0 Result Diagram: 06/03/17 0705 06/04/17 0645 Objective Remarks GENERAL: in NAD SKIN: Warm and dry. mild erythema of right forearm and swelling has improved. Mild tenderness of palpation in the area. HEAD: Normocephalic. EYES: No scleral icterus. No injection or drainage. NECK: Supple, trachea midline. No JVD or lymphadenopathy. Right IJ in place. CARDIOVASCULAR: Regular rate and rhythm without murmurs, gallops, or rubs. RESPIRATORY decrease right lower base. Patient has normal respiratory rate and in no respiratory distress. She is not coughing during the interview. No accessory muscle use. GASTROINTESTINAL: Abdomen soft, non-tender, nondistended. Medications and IVs Current Medications Sodium Chloride 2 ml 2 ml UNSCH PRN IVF FLUSH AFTER USING IV ACCESS; Start at 12:00; Stop 05/31/17 at 17:01; Status DC Sodium Chloride (NS 1000 ml Inj) 1,000 ml @ 999 mls/hr BOLUS ONCE IV Last administered on 05/31/17 13:55; Start 05/31/17 at 12:45; Stop 05/31/17 at 13:45 ; Status DC Methylprednisolone Sodium Succinate (SoluMEDROL INJ) 60 mg ONCE ONCE IVP Last administered on 05/31/17 13:55; Start 05/31/17 at 12:45; Stop 05/31/17 at 12:46 ; Status DC Albuterol/ Ipratropium 1 ampule 1 ampule Q15M INH Last administered on 12:51; Start 05/31/17 at 12:45; Stop 05/31/17 at 13:16; Status DC Vancomycin HCl 1100 mg/Sodium Chloride 261 ml @ 250 mls/hr ONCE ONCE IV ; Start 05/31/17 at 15:15; Stop 05/31/17 at 16:17; Status DC Piperacillin Sod/ Tazobactam Sod 100 ml @ 200 mls/hr ONCE STAT IV Last administered on 05/31/17 16:59; Start 05/31/17 at 14:04; Stop 05/31/17 at 14:33 ; Status DC Sodium Chloride 1,000 ml @ 1,000 mls/hr Q1H ONCE IV Last administered on 16:58; Start 05/31/17 at 14:04; Stop 05/31/17 at 15:03; Status DC Sodium Chloride (NS 1000 ml Inj) 800 ml @ 1,000 mls/hr Q48M ONCE IV Last administered on 05/31/17 16:59; Start 05/31/17 at 14:04; Stop 05/31/17 at 14:51 ; Status DC Morphine Sulfate (Morphine Inj) 4 mg ONCE ONCE IV PUSH Last administered on 19:46; Start 05/31/17 at 14:15; Stop 7/25/17 at 14:16; Status DC Olanzapine 10 mg 10 mg ONCE ONCE IM ; Start 05/31/17 at 15:15; Stop 05/31/17 at 15:16; Status Cancel Sodium Chloride (NS 1000 ml Inj) 1,000 ml @ 150 mls/hr Q6H40M IV Last administered on 05/31/17 19:47; Start 05/31/17 at 15:14; Stop 05/31/17 at 23:04 ; Status DC Sodium Chloride (NS Flush) 2 ml UNSCH PRN IV FLUSH FLUSH AFTER USING IV ACCESS ; Start 05/31/17 at 15:15 Sodium Chloride (NS Flush) 2 ml BID IV FLUSH Last administered on 06/04/17 09: 52; Start 05/31/17 at 21:00 Acetaminophen (Tylenol) 650 mg Q4H PRN PO TEMP > 100.4 Last administered on 04:02; Start 05/31/17 at 15:15 Ondansetron HCl (Zofran Inj) 4 mg Q6H PRN IVP NAUSEA OR VOMITING; Start at 15:15 Heparin Sodium (Porcine) (Heparin Inj) 5,000 units Q12H SQ ; Start 05/31/17 at 16:00; Stop 05/31/17 at 16:00; Status DC Naloxone HCl (Narcan Inj) 0.4 mg UNSCH PRN IV SEE LABEL COMMENTS; Start at 15:15 Senna/Docusate Sodium (Judy-Colace) 1 tab BID PO Last administered on 09:52; Start 05/31/17 at 21:00 Magnesium Hydroxide (Milk Of Magnesia Liq) 30 ml Q12H PRN PO MILD - MODERATE CONSTIPATION; Start 05/31/17 at 15:15 Sennosides (Senokot) 17.2 mg Q12H PRN PO MODERATE - SEVERE CONSTIPATION; Start 05/31/17 at 15:15 Bisacodyl (Dulcolax Supp) 10 mg DAILY PRN RECTAL SEVERE CONSITIPATION; Start at 15:15 Lactulose 30 ml 30 ml DAILY PRN PO SEVERE CONSITIPATION; Start 05/31/17 at 15: 15 Sodium Chloride 1,000 ml @ 999 mls/hr BOLUS ONCE IV ; Start 05/31/17 at 17:00 ; Stop 05/31/17 at 18:00; Status DC Pharmacy Profile Note 0 ml @ 0 mls/hr UNSCH OTHER ; Start 05/31/17 at 15:30 Piperacillin Sod/ Tazobactam Sod 50 ml @ 100 mls/hr Q6H IV Last administered on 06/01/17 09:57; Start 05/31/17 at 23:00; Stop 06/01/17 at 11:29; Status DC Heparin Sodium/ Dextrose (Heparin-D5W Inj) 250 ml @ 0 mls/hr TITRATE IV Last administered on 06/03/17 22:51; Start 05/31/17 at 16:15 Sodium Chloride (NS Flush) DAILY IVF Last administered on 06/04/17 09:00; Start 06/01/17 at 09:00 Sodium Chloride UNSCH PRN IVF SEE PROTOCOL; Start 05/31/17 at 16:45 Sodium Chloride (NS 1000 ml Inj) 1,000 ml @ 999 mls/hr BOLUS ONCE IV ; Start 05/31/17 at 20:15; Stop 05/31/17 at 21:15; Status DC Morphine Sulfate (Morphine Inj) 2 mg ONCE ONCE IV PUSH Last administered on 00:22; Start 05/31/17 at 23:15; Stop 05/31/17 at 23:16; Status DC Miscellaneous Information Patient in critical care unit? Ass... Q361D .XX ; Start 06/01/17 at 01:45 Chlorhexidine Gluconate (Chlorhexidine 2% Cloth) 3 pack DAILY@04 TOPICAL Last administered on 06/02/17 02:58; Start 06/01/17 at 04:00; Stop 06/05/17 at 04:01 Chlorhexidine Gluconate (Chlorhexidine 2% Cloth) 3 pack UNSCH PRN TOPICAL HYGIENIC CARE; Start 06/01/17 at 01:45; Stop 06/06/17 at 01:38 Acetaminophen/ Hydrocodone Bitart ([place] 5-325 Mg) 1 tab Q4H PRN PO pain 1-7; Start 06/01/17 at 09:15; Stop 06/01/17 at 09:29; Status DC Acetaminophen/ Hydrocodone Bitart ([place] 5-325 Mg) 2 tab Q4H PRN PO pain 8-10 Last administered on 06/01/17 09:22; Start 06/01/17 at 09:15; Stop 06/01/17 at 09:29; Status DC Oxycodone/ Acetaminophen (Percocet 5-325 Mg) 1 tab Q4H PRN PO pain 1-7; Start 06/01/17 at 09:30 Oxycodone/ Acetaminophen 2 tab 2 tab Q4H PRN PO pain 8-10 Last administered on 06/04/17 10:02; Start 06/01/17 at 09:30 Vancomycin HCl/ Sodium Chloride (Vancomycin Inj/ NS 250 ml Inj) 250 ml @ 250 mls/hr Q24H IV Last administered on 06/02/17 08:10; Start 06/01/17 at 10:00; Stop 06/02/17 at 15:16; Status DC Miscellaneous Information SPECIFIC LAB TO BE DRAWN:VANCOMYCIN TROUGH DATE TO... ONCE ONCE .XX Last administered on 06/04/17 09:45; Start 06/04/17 at 09:45; Stop 06/04/17 at 09:46; Status DC Ceftriaxone Sodium/Sodium Chloride (Rocephin Inj/NS Inj) 100 ml @ 200 mls/hr Q24H IV Last administered on 06/03/17 12:13; Start 06/01/17 at 12:00; Stop at 14:04; Status DC Azithromycin (Zithromax) 500 mg Q24H PO Last administered on 06/03/17 12:14; Start 06/01/17 at 12:00; Status Hold Albuterol/ Ipratropium 1 ampule 1 ampule Q6HR WHILE AWAKE NEB NEB Last administered on 06/03/17 13:31; Start 06/02/17 at 14:00; Stop 06/03/17 at 18:08 ; Status DC Vancomycin HCl/ Sodium Chloride (Vancomycin Inj/ NS 250 ml Inj) 250 ml @ 250 mls/hr Q12H IV Last administered on 06/04/17 09:52; Start 06/02/17 at 22:00 Flumazenil (Romazicon Inj) 0.2 mg Q1M PRN IV PUSH SEE LABEL COMMENTS; Start at 15:45 Lorazepam (Ativan) 1 mg Q4H PRN PO CIWA 8 - 10; Start 06/02/17 at 15:45 Lorazepam (Ativan Inj) 1 mg Q4H PRN IV PUSH CIWA 8 - 10; Start 06/02/17 at 15: 45 Lorazepam (Ativan) 2 mg Q2H PRN PO CIWA 11-14 Last administered on 06/04/17 01 :58; Start 06/02/17 at 15:45 Lorazepam (Ativan Inj) 2 mg Q2H PRN IV PUSH CIWA 11-14; Start 06/02/17 at 15:45 Lorazepam (Ativan Inj) 2 mg Q1H PRN IV PUSH CIWA 15-20 Last administered on 18:07; Start 06/02/17 at 15:45 Lorazepam (Ativan Inj) 2 mg Q15M PRN IV PUSH CIWA > 20; Start 06/02/17 at 15:45 Haloperidol Lactate (Haldol Inj) 2 mg Q15M PRN IM SEE LABEL COMMENTS; Start at 15:45 Morphine Sulfate (Morphine Inj) 2 mg Q3H PRN IV PUSH withdrawal; Start at 15:45 Miscellaneous Information SPECIFIC LAB TO BE DRAWN:VANCOMYCIN TROUGH DATE TO... ONCE ONCE .XX ; Start 06/04/17 at 09:45; Stop 06/04/17 at 09:45; Status DC Potassium Chloride 30 meq 30 meq ONCE ONCE PO Last administered on 06/03/17 12:14; Start 06/03/17 at 10:30; Stop 06/03/17 at 10:31; Status DC Pharmacy Profile Note (Coumadin Consult Pharmacy) 0 ml @ 0 mls/hr UNSCH OTHER ; Start 06/03/17 at 12:15 Warfarin Sodium (Coumadin) 2 mg ONCE ONCE PO Last administered on 06/03/17 14 :09; Start 06/03/17 at 14:00; Stop 06/03/17 at 14:01; Status DC Miscellaneous Information ALL NURSING DEPARTME... UNSCH PRN OTHER SEE LABEL COMMENTS; Start 06/03/17 at 13:00; Stop 06/04/17 at 12:59 Patient Medication Teaching (Coumadin Booklet) 1 ONCE ONCE OTHER Last administered on 06/03/17 15:55; Start 06/03/17 at 16:00; Stop 06/03/17 at 16:34 ; Status DC Cefuroxime Axetil (Ceftin) 500 mg Q12H PO Last administered on 06/03/17 15:44 ; Start 06/03/17 at 15:00; Status Hold Albuterol/ Ipratropium (Duoneb Neb) 1 ampule Q4HR NEB NEB Last administered on 06/04/17 08:18; Start 06/03/17 at 18:15 Albuterol Sulfate (Albuterol Concentrated Neb) 2.5 mg Q2HR NEB PRN NEB SOB or wheezing Last administered on 06/03/17 18:26; Start 06/03/17 at 18:15 Lorazepam 1 mg 1 mg ONCE ONCE PO Last administered on 06/03/17 22:44; Start 06/03/17 at 21:45; Stop 06/03/17 at 21:46; Status DC Cefepime HCl/ Sodium Chloride (Maxipime Inj/NS Inj) 100 ml @ 200 mls/hr Q8HR IV Last administered on 06/04/17 05:23; Start 06/03/17 at 22:00 Warfarin Sodium (Coumadin) 5 mg DAILY@1600 PO ; Start 06/04/17 at 16:00; Status Cancel Warfarin Sodium (Coumadin) 4 mg DAILY@1600 PO ; Start 06/04/17 at 16:00 A/P Assessment and Plan 42-year-old female IV drug user presented with dyspnea, fevers and chills Sepsis source may be secondary to right lower lobe pneumonia and bacteremia. -Last review showing normal WBC with bandemia. Creatinine elevated with GFR 22. Chest x-ray showed right lower lobe infiltrate. UA negative. Patient has tachycardia. -Status post fluid resuscitation. Positive blood cultures. -Infectious disease consulted and following. -See treatment as below. Acute respiratory failure with hypoxia -Secondary to sepsis, bacteremia and pneumonia. -Continue supplement oxygen. Treat underlying condition. See treatment as below. MRSA bacteremia -06/01 All 4 cultures positive showing MRSA, group a strep, and bacillus not anthrax. Repeat blood cultures on 06/01/17 4/4 MRSA. Blood cultures on 06/02/17 1/4 positive for gram-positive cocci 1 Blood cultures repeated on 12/04/16 still pending. -Patient continues to have fevers. -Infectious disease following. Echo shows no lesion. Most likely will need a MIREILLE. -Patient is on vancomycin and cefepime. Rocephin was discontinued on 06/03. Ceftin and Azithromycin is on hold. Community-acquired pneumonia -Checks x-ray show infiltrate in the right lower lobe. -Initially patient was on Zosyn and vancomycin. -Zosyn was discontinued and Rocephin discontinued on 06/03. Patient was put on azithromycin and Ceftin as placed on hold. She is now on cefepime. -pneumococcal and Legionella antigen negative. An order for sputum culture also obtained. -Patient had increased oxygen requirement last night in which an x-ray was repeated which showed increased right lower lobe infiltrate. At the moment she is satting at 96% on room air. -Continue with current management per infectious disease. Tachycardia -Intermittent. -Secondary to withdrawals. -Patient on CIWA protocol and morphine IV when necessary for any signs of withdrawal. Left arm DVT -Ultrasound Doppler showed Deep venous thrombosis with nonocclusive thrombus in the peripheral brachial vein. 2. Occlusive thrombus in the entire superficial cephalic vein. -Per shoe sprayer can consider oral anticoagulation. Thrombocytopenia -No signs of any active bleed. There is no recent baseline. Last baseline in 2012 and it was normal. -Most likely secondary to consumption. -New Business Clerk consulted and following. Patient positive for hepatitis C. HIV negative. Hepatitis C -Patient is an active IV drug user. -LFTs normal. Liver ultrasound also normal. Follows outpatient. Current IV drug use with crystal meth -Education given and discouraged use of crystal meth. DVT prophylaxis -Patient on heparin drip. Discharge Planning Patient continues to be bacteremic and continued to have fevers. Due to severity of her illness she most likely will require a long hospital course. Yissel Aldridge MD Jun 04, 2017 11:13
[2017-06-04 13:31] LABS: BICARBONATE 24.6 MEQ/L (21.0-32.0); POTASSIUM 3.2 MEQ/L (3.5-5.1)
[2017-06-04 13:39] LABS: HEMATOCRIT 24.3 % (35.0-46.0); MEAN CELL VOLUME 94.5 FL (80.0-100.0); MEAN CORPUSCULAR HEMOGLOBIN 31.5 PG (27.0-34.0); MEAN CORPUSCULAR HGB CONC 33.3 % (32.0-36.0); PLATELET COUNT 179 TH/MM3 (150-450); RED BLOOD COUNT 2.57 MIL/MM3 (4.00-5.30); RED CELL DISTRIBUTION WIDTH 14.1 % (11.6-17.2); REVIEW FLAG FINAL; WHITE BLOOD COUNT 9.3 TH/MM3 (4.0-11.0)
[2017-06-04] MEDS ORDERED: WARFARIN SOD 5 MG TAB PO SCH (16:00)
[2017-06-04] MEDS ORDERED: WARFARIN SOD 4 MG TAB PO SCH (16:00)
[2017-06-04 16:46] LABS: APTT (PATIENT) 26.7 SEC (24.3-30.1)
[2017-06-04] MEDS ORDERED: POTASSIUM CHLORIDE 20 MEQ CONTROLLED RELEASE TAB PO ONE (17:00)
[2017-06-04] MEDS ORDERED: SODIUM CHLOR 0.9% 1000 ML INJ 1,000 ML IV ONE (17:00)
[2017-06-04] MEDS ORDERED: PANTOPRAZOLE SODIUM 40 MG VIAL IV PUSH SCH (17:00)
[2017-06-04] MEDS ORDERED: IBUPROFEN 800 MG TAB PO ONE (17:00)
== END 2017-06-04 20:13 | disposition left against medical advice (07) | DRG 871 ==
LOC: NEPC 11:32 → NEDA 15:04 → N05A 20:13 → HIME 22:10 → N04B 06-02 18:53 → HIMW 06-04 17:40
PROVIDERS: ADMIT Family Medicine; ATTEND Family Medicine
PROC: 05HM33Z Insertion of Infusion Device into Right Internal Jugular Vein, Percutaneous Approach (ICD-10-PCS; principal; 2017-05-31)
DX: A41.02 Sepsis due to Methicillin resistant Staphylococcus aureus (principal); J18.9 Pneumonia, unspecified organism; J96.01 Acute respiratory failure with hypoxia; D69.6 Thrombocytopenia, unspecified; I95.9 Hypotension, unspecified; J44.0 Chronic obstructive pulmonary disease with (acute) lower respiratory infection; L03.114 Cellulitis of left upper limb; I82.622 Acute embolism and thrombosis of deep veins of left upper extremity; Z85.41 Personal history of malignant neoplasm of cervix uteri; F19.90 Other psychoactive substance use, unspecified, uncomplicated; F17.210 Nicotine dependence, cigarettes, uncomplicated; R00.0 Tachycardia, unspecified; M79.602 Pain in left arm; F41.1 Generalized anxiety disorder; D64.9 Anemia, unspecified; B19.20 Unspecified viral hepatitis C without hepatic coma; R65.20 Severe sepsis without septic shock; S61.532A Puncture wound without foreign body of left wrist, initial encounter; X58.XXXA Exposure to other specified factors, initial encounter; Y92.9 Unspecified place or not applicable
CPT/HCPCS: 36556; 36600; 71010; 73090; 73130; 76705; 76937; 77001; 80048; 80053; 80074; 80202; 81001; 82550; 82552; 82565; 82607; 82728; 82746; 82805; 83540; 83550; 83605; 83615; 83735; 83880; 84484; 84703; 85007; 85027; 85044; 85060; 85379; 85384; 85610; 85730; 86403; 86703; 87040; 87186; 87205; 87449; 87641; 93005; 93306; 93971; 94002; 94640; 94664; 96374; J0692; J0696; J1644; J2060; J2270; J2543; J2930; J3370; J7030; J7050; J7611

== ENCOUNTER 2017-06-05 11:49 | Inpatient (IN) | payer SELFPAY ==
[~2017-06-05] VITALS: Ht 152.4 cm; Wt 44.9 kg
[2017-06-05 11:57] VITALS: PULSE 122; RESP 20; TEMP 101.9; O2SAT 86
[2017-06-05] MEDS ORDERED: SODIUM CHLOR 0.9% 1000 ML INJ 1,000 ML IV ONE (12:08)
[2017-06-05] MEDS ORDERED: SODIUM CHLOR 0.9% 1000 ML INJ 800 ML IV ONE (12:08)
[2017-06-05] MEDS ORDERED: ACETAMINOPHEN 325 MG TAB PO ONE (12:15)
[2017-06-05] MEDS ORDERED: VANCOMYCIN INJ 1,000 MG in SODIUM CHLOR 0.9% 250 ML INJ 250 ML IV STA (12:19)
[2017-06-05] MEDS ORDERED: PIPERACIL-TAZO 4.5 GM PREMIX 100 ML IV STA (12:19)
--- NOTE | 2017-06-05 12:19 | PD ---
HPI Chief Complaint: Fever Time Seen by Provider: 11:59 Travel History International Travel<30 days: No Contact w/Intl Traveler<30days: No Traveled to known affect area: No History of Present Illness HPI 42-year-old female states she made a mistake and left AMA. She states that she still is feeling febrile and short of breath. She denies using drugs while she was gone. She denies any new complaints. She presents by ambulance. She is a poor historian [facility] Past Medical History Narrative Medical By records Anxiety: Yes Depression: Yes Cancer: Yes (cervical cancer, 1995) COPD: Yes Diminished Hearing: No Gastrointestinal Disorders: Yes (COLONOSCOPY/ENDOSCOPY 12/17; FOR GI BLEED) Insomnia: Yes Musculoskeletal: Yes (BACK INJURY) Respiratory: Yes (COPD) ?: Not : 4 Para: 4 Tubal Ligation: Yes Past Surgical History Narrative Surgical By records Gynecologic Surgery: Yes (surgery for cervical cancer, January,) Social History Narrative Social History By records Alcohol Use: No Tobacco Use: Yes (1.5 PPD) Substance Use: Yes (IV DRUG USE METHAMPHETAMINE, PT REPORTS LAST USE 2 WEEKS AGO) Allergies-Medications (Allergen,Severity, Reaction): Coded Allergies: *MDRO Multi-Drug Resistant Organism (Verified Adverse Reaction, Unknown, ) MRSA (blood) 05/31/17 Reported Meds & Prescriptions Reported Meds & Active Scripts Active No Active Prescriptions or Reported Medications Review of Systems ROS Limitations: Poor Historian Except as stated in HPI: all other systems reviewed are Neg Physical Exam Exam Limitations: Poor Historian Narrative GENERAL: thin, well-developed patient. SKIN: Warm and dry. HEAD: Normocephalic EYES: No injection or drainage. ENT: No nasal drainage noted. NECK: Supple, trachea midline. CARDIOVASCULAR: Tachycardic rate and regular rhythm RESPIRATORY: Breath sounds equal bilaterally at apices. No accessory muscle use. GASTROINTESTINAL: Abdomen nondistended. NEUROLOGICAL: Awake and alert. Moves all extremities and sensory grossly within normal limits. Normal speech. Data Data Last Documented VS Vital Signs Date Time Temp Pulse Resp B/P Pulse Ox O2 Delivery O2 Flow Rate FiO2 06/05/17 12:01 116 20 93 Nasal Cannula 2 06/05/17 11:57 101.9 Orders Electrocardiogram (06/05/17 12:08) Complete Blood Count With Diff (06/05/17 12:08) Comprehensive Metabolic Panel (06/05/17 12:08) Prothrombin Time / Inr (Pt) (06/05/17 12:08) Act Partial Throm Time (Ptt) (06/05/17 12:08) Lactic Acid Sepsis Protocol (06/05/17 12:08) Magnesium (Mg) (06/05/17 12:08) Phosphorus (Po4) (06/05/17 12:08) Ckmb (Isoenzyme) Profile (06/05/17 12:08) Troponin I (06/05/17 12:08) Urinalysis - C+S If Indicated (06/05/17 12:08) Blood Culture (06/05/17 12:08) Chest, Single Ap (06/05/17 12:08) Ecg Monitoring (06/05/17 12:08) Iv Access Insert/Monitor (06/05/17 12:08) Oximetry (06/05/17 12:08) Acetaminophen (Tylenol) (06/05/17 12:15) Sodium Chlor 0.9% 1000 Ml Inj (Ns 1000 M (06/05/17 12:08) Sodium Chlor 0.9% 1000 Ml Inj (Ns 1000 M (06/05/17 12:08) Vascular Poc Ultrasound (06/05/17 ) Vancomycin Inj (Vancomycin Inj) (06/05/17 12:19) Piperacil-Tazo 4.5 Gm Premix (Zosyn 4.5 (06/05/17 12:19) Vascular Access Team Consult/P PRN (06/05/17 13:06) Vascular Poc Ultrasound (06/05/17 ) Potassium Chloride Eff (K-Lyte Cl Eff) (06/05/17 13:45) Admit Order (Ed Use Only) (06/05/17 13:46) Labs Laboratory Tests Test 06/05/17 12:35 White Blood Count 11.8 TH/MM3 Red Blood Count 2.54 MIL/MM3 Hemoglobin 8.0 GM/DL Hematocrit 23.4 % Mean Corpuscular Volume 92.5 FL Mean Corpuscular Hemoglobin 31.7 PG Mean Corpuscular Hemoglobin 34.3 % Concent Red Cell Distribution Width 14.1 % Platelet Count 248 TH/MM3 Mean Platelet Volume 10.0 FL Neutrophils (%) (Auto) 72.0 % Lymphocytes (%) (Auto) 13.0 % Monocytes (%) (Auto) 13.6 % Eosinophils (%) (Auto) 0.8 % Basophils (%) (Auto) 0.6 % Neutrophils # (Auto) 8.5 TH/MM3 Lymphocytes # (Auto) 1.5 TH/MM3 Monocytes # (Auto) 1.6 TH/MM3 Eosinophils # (Auto) 0.1 TH/MM3 Basophils # (Auto) 0.1 TH/MM3 CBC Comment DIFF FINAL Differential Comment Prothrombin Time 15.3 SEC Prothromb Time International 1.4 RATIO Ratio Activated Partial 31.0 SEC Thromboplast Time Urine Color LIGHT-YELLOW Urine Turbidity CLEAR Urine pH 6.5 Urine Specific [place] 1.007 Urine Protein NEG mg/dL Urine Glucose (UA) NEG mg/dL Urine Ketones NEG mg/dL Urine Occult Blood MOD Urine Nitrite NEG Urine Bilirubin NEG Urine Urobilinogen LESS THAN 2.0 MG/DL Urine Leukocyte Esterase NEG Urine RBC 8 /hpf Urine WBC 1 /hpf Urine Squamous Epithelial 3 /hpf Cells Microscopic Urinalysis Comment CULT NOT INDICATED Sodium Level 142 MEQ/L Potassium Level 2.7 MEQ/L Chloride Level 110 MEQ/L Carbon Dioxide Level 23.2 MEQ/L Anion Gap 9 MEQ/L Blood Urea Nitrogen 6 MG/DL Creatinine 0.75 MG/DL Estimat Glomerular Filtration 85 ML/MIN Rate Random Glucose 93 MG/DL Lactic Acid Level 1.3 mmol/L Calcium Level 7.3 MG/DL Protein Corrected Calcium 7.7 MG/DL Phosphorus Level 1.8 MG/DL Magnesium Level 1.4 MG/DL Total Bilirubin 0.5 MG/DL Aspartate Amino Transf 20 U/L (AST/SGOT) Alanine Aminotransferase 24 U/L (ALT/SGPT) Alkaline Phosphatase 70 U/L Total Creatine Kinase 36 U/L Troponin I 0.02 NG/ML Total Protein 6.3 GM/DL Albumin 1.6 GM/DL [facility] Medical Decision Making Medical Screen Exam Complete: Yes Emergency Medical Condition: Yes Medical Record Reviewed: Yes (past history confirm, patient was in hospital for sepsis and pneumonia, history of IV drug abuse) Interpretation(s) CBC & BMP Diagram 06/05/17 12:35 cxr with pneumonia Differential Diagnosis Pneumonia, sepsis, renal failure, endocarditis Narrative Course Will check blood work, imaging and dose with IV fluids in place back on antibiotics and will admit back to the hospital ED workup is positive for persistent sepsis and pneumonia. She agrees to stay, potassium replaced Sepsis Criteria SIRS Criteria (2 or more): Temp > 100.9 or < 96.8, Heart rate over 90 Sepsis Criteria (SIRS+source): Infect source susp/known Criteria Outcome: Meets sepsis criteria Physician Communication Physician Communication dr munoz agrees to admit Diagnosis Primary Impression: Sepsis Qualified Code: A41.9 - Sepsis, due to unspecified organism Additional Impressions: Pneumonia Qualified Code: J18.9 - Pneumonia due to infectious organism, unspecified laterality, unspecified part of lung Thrombocytopenia Normocytic anemia Hypokalemia Admitting Information Admitting Physician Requests: Admit Scripts No Active Prescriptions or Reported Meds Natalia Mcknight MD Jun 05, 2017 12:19
[2017-06-05 13:11] LABS: AUTOMATED NEUTROPHIL # 8.5 TH/MM3 (1.8-7.7); BASOPHIL # 0.1 TH/MM3 (0-0.2); BASOPHIL % 0.6 % (0.0-2.0); EOSINOPHIL # 0.1 TH/MM3 (0-0.4); EOSINOPHIL % 0.8 % (0.0-4.0); HEMATOCRIT 23.4 % (35.0-46.0); HEMO FLAGS DIFF FINAL; LYMPHOCYTE # 1.5 TH/MM3 (1.0-4.8); MEAN CELL VOLUME 92.5 FL (80.0-100.0); MEAN CORPUSCULAR HEMOGLOBIN 31.7 PG (27.0-34.0); MEAN CORPUSCULAR HGB CONC 34.3 % (32.0-36.0); MONO % 13.6 % (0.0-8.0); PLATELET COUNT 248 TH/MM3 (150-450); RED BLOOD COUNT 2.54 MIL/MM3 (4.00-5.30); RED CELL DISTRIBUTION WIDTH 14.1 % (11.6-17.2); WHITE BLOOD COUNT 11.8 TH/MM3 (4.0-11.0)
[2017-06-05 13:19] LABS: BLOOD, URINE MOD (NEG); COMMENT (UR) CULT NOT INDICATED; CULTURE IF INDICATED CULT NOT INDICATED; GLUCOSE,URINE NEG (NEG); KETONE, URINE NEG (NEG); NITRITE,URINE NEG (NEG); PH, URINE 6.5 (5.0-8.5); SQUAMOUS EPITHELIAL CELL URINE 3 /hpf (0-5); URINE COLOR LIGHT-YELLOW (YELLW/STRAW)
[2017-06-05 13:20] LABS: INTERNATIONAL NORMALIZED RATIO 1.4 RATIO; PROTHROMBIN TIME - PATIENT 15.3 SEC (9.8-11.6)
--- NOTE | 2017-06-05 13:20 | RADRPT ---
EXAM DATE/TIME: 06/05/2017 12:09 [facility] COMPARISON: CHEST SINGLE AP, June 03, 2017, 18:29. INDICATIONS : Chest pain and shortness of breath. MEDICAL HISTORY : Chronic obstructive pulmonary disease. SURGICAL HISTORY : None. ENCOUNTER: Initial ACUITY: 1 week PAIN SCORE: 10/10 LOCATION: Bilateral chest FINDINGS: Diffuse patchiness is noted within the right lung consistent with probable pneumonia. Clinical corre lation is recommended. The left lung is clear. The heart is stable. CONCLUSION: 1. Stable diffuse infiltrate within the right lung consistent with probable pneumonia. Clinical co rrelation is recommended. Dagoberto Harmon MD on June 05, 2017 at 12:56 Board Certified Radiologist. This report was verified electronically.
[2017-06-05 13:35] LABS: BICARBONATE 23.2 MEQ/L (21.0-32.0); CALCIUM-PROTEIN CORRECTED 7.7 MG/DL (8.5-10.1); MAGNESIUM 1.4 MG/DL (1.5-2.5); TOTAL BILIRUBIN ADULT 0.5 MG/DL (0.2-1.0)
[2017-06-05 13:38] LABS: POTASSIUM 2.7 MEQ/L (3.5-5.1)
[2017-06-05] MEDS ORDERED: POTASSIUM CHLORIDE 25 MEQ EFFERVESCENT TAB PO ONE ×3 (13:45→14:00)
[2017-06-05] MEDS ORDERED: LACTULOSE SYRUP 20 GM/30 ML CUP PO PRN (13:45)
[2017-06-05] MEDS ORDERED: SENNOSIDES 8.6 MG TAB PO PRN (13:45)
[2017-06-05] MEDS ORDERED: ONDANSETRON HCL 4 MG/2 ML VIAL IVP PRN (13:45)
[2017-06-05] MEDS ORDERED: BISACODYL 10 MG SUPP RECTAL PRN (13:45)
[2017-06-05] MEDS ORDERED: NALOXONE HCL 0.4 MG/ML AMP IV PRN (13:45)
[2017-06-05] MEDS ORDERED: ACETAMINOPHEN 325 MG TAB PO PRN (13:45)
[2017-06-05] MEDS ORDERED: SODIUM CHLORIDE 0.9% FLUSH 10 ML FLUSH IV FLUSH PRN (13:45)
[2017-06-05] MEDS ORDERED: MAGNESIUM HYDROXIDE SUSP 30 ML CUP PO PRN (13:45)
[2017-06-05] MEDS ORDERED: POTASSIUM CHLOR 20 MEQ PREMIX 100 ML IV ONE (14:00)
[2017-06-05] MEDS ORDERED: POTASSIUM CHLORIDE 20 MEQ PWD PACKET PO ONE (14:00)
[2017-06-05] MEDS ORDERED: Vancomycin Consult Pharmacy 1 EA OTHER SCH (14:00)
[2017-06-05 14:01] VITALS: BP 138/63; PULSE 110; RESP 20; O2SAT 95
--- NOTE | 2017-06-05 14:07 | HHI.HP ---
[facility] Service [facility] Primary Care Physician No Primary Care Physician Admission Diagnosis sepsis, hypokalemia Diagnoses: Chief Complaint: severe sepsis Travel History International Travel<30 Days: No Contact w/Intl Traveler <30 Da: No Traveled to Known Affected Are: No History of Present Illness This is a 42-year-old female past medical history of IV drug use with crystal meth who was recently admitted secondary to severe sepsis, bacteremia with MRSA/ group a beta strep and pneumonia, and recently left AMA last night who presented with generalized fatigue. Patient stated that she left AMA last night because she felt like the staff and the [facility] was very rude to her. She stated she came back because she feels very weak. Patient denies any shortness of breathing. She denies any chest pain, shortness of breathing, lightheadedness or dizziness. Patient asking for pain medication. She also stated that she gets anxiety and wanted to let me know. During hospital course she had a stock parts inspector consult for a MIREILLE. At the moment of the interview patient declined a MIREILLE and stated she would think about it. I educated patient again about a MIREILLE and she stated she understood and wants to pursue with a MIREILLE. Patient received 50 mEq of oral potassium in the ED. Otherwise all other review of symptoms were reviewed and all negative. Past Family Social History Past Medical History History cervical cancer Recent IV drug use the past year using crystal meth Past Surgical History History of LEEP procedure. Tubal ligation Reported Medications Reported Meds & Active Scripts Active No Active Prescriptions or Reported Medications Allergies: Coded Allergies: *MDRO Multi-Drug Resistant Organism (Verified Adverse Reaction, Unknown, ) MRSA (blood) 05/31/17 Active Ordered Medications Current Medications Acetaminophen 650 mg 650 mg ONCE ONCE PO Last administered on 06/05/17 13:26 ; Start 06/05/17 at 12:15; Stop 06/05/17 at 12:16; Status DC Sodium Chloride 1,000 ml @ 1,000 mls/hr Q1H ONCE IV Last administered on 13:26; Start 06/05/17 at 12:08; Stop 06/05/17 at 13:07; Status DC Sodium Chloride 800 ml @ 1,000 mls/hr Q48M ONCE IV Last administered on 13:26; Start 06/05/17 at 12:08; Stop 06/05/17 at 12:55; Status DC Vancomycin HCl 1000 mg/Sodium Chloride 250 ml @ 250 mls/hr ONCE STAT IV Last administered on 06/05/17 14:00; Start 06/05/17 at 12:19; Stop 06/05/17 at 13:18 ; Status DC Piperacillin Sod/ Tazobactam Sod (Zosyn 4.5 Gm Premix) 100 ml @ 200 mls/hr ONCE STAT IV Last administered on 06/05/17 13:27; Start 06/05/17 at 12:19; Stop 06/05/17 at 12:48; Status DC Potassium Bicarb/ Potassium Chloride 50 meq 50 meq ONCE ONCE PO Last administered on 06/05/17 14:00; Start 06/05/17 at 13:45; Stop 06/05/17 at 13:46 ; Status DC Sodium Chloride (NS 1000 ml Inj) 1,000 ml @ 100 mls/hr Q10H IV ; Start at 14:00 Sodium Chloride (NS Flush) 2 ml UNSCH PRN IV FLUSH FLUSH AFTER USING IV ACCESS ; Start 06/05/17 at 13:45 Sodium Chloride (NS Flush) 2 ml BID IV FLUSH ; Start 06/05/17 at 21:00 Acetaminophen (Tylenol) 650 mg Q4H PRN PO TEMP > 100.4; Start 06/05/17 at 13:45 Ondansetron HCl (Zofran Inj) 4 mg Q6H PRN IVP NAUSEA OR VOMITING; Start at 13:45 Naloxone HCl (Narcan Inj) 0.4 mg UNSCH PRN IV SEE LABEL COMMENTS; Start at 13:45 Senna/Docusate Sodium (Judy-Colace) 1 tab BID PO ; Start 06/05/17 at 21:00 Magnesium Hydroxide (Milk Of Magnesia Liq) 30 ml Q12H PRN PO MILD - MODERATE CONSTIPATION; Start 06/05/17 at 13:45 Sennosides (Senokot) 17.2 mg Q12H PRN PO MODERATE - SEVERE CONSTIPATION; Start 06/05/17 at 13:45 Bisacodyl (Dulcolax Supp) 10 mg DAILY PRN RECTAL SEVERE CONSITIPATION; Start at 13:45 Lactulose 30 ml 30 ml DAILY PRN PO SEVERE CONSITIPATION; Start 06/05/17 at 13: 45 Pharmacy Profile Note 0 ml @ 0 mls/hr UNSCH OTHER ; Start 06/05/17 at 14:00 Pharmacy Profile Note 0 ml @ 0 mls/hr UNSCH OTHER ; Start 06/05/17 at 14:00 Cefepime HCl 2000 mg/Sodium Chloride 100 ml @ 200 mls/hr Q8H IV ; Start at 14:00; Status UNV Heparin Sodium/ Dextrose (Heparin-D5W Inj) 250 ml @ 0 mls/hr TITRATE IV ; Start 06/05/17 at 14:00; Status UNV Potassium Chloride (KCl Powder) 20 meq ONCE ONCE PO ; Start 06/05/17 at 14:00; Stop 06/05/17 at 14:01; Status UNV Potassium Bicarb/ Potassium Chloride (K-Lyte Cl Eff) 25 meq ONCE ONCE PO ; Start 06/05/17 at 14:00; Stop 06/05/17 at 14:01; Status UNV Potassium Bicarb/ Potassium Chloride 50 meq 50 meq ONCE ONCE PO ; Start at 14:00; Stop 06/05/17 at 14:01; Status UNV Potassium Chloride 100 ml @ 50 mls/hr BOLUS ONCE IV ; Start 06/05/17 at 14:00 ; Stop 06/05/17 at 15:59; Status UNV Magnesium Sulfate/ Dextrose (Magnesium Sulfate 1 Gm Premix) 100 ml @ 100 mls/ hr ONCE ONCE IV ; Start 06/05/17 at 14:00; Stop 06/05/17 at 14:59; Status UNV Family History Father had a history of heart disease. Otherwise everyone is relatively healthy. Social History Patient lives with her friend. Positive tobacco use about 5 cigarettes per day for the past 2 years. Deny any alcohol or any other type of drug use besides crystal meth. Physical Exam Vital Signs Vital Signs Date Time Temp Pulse Resp B/P Pulse Ox O2 Delivery O2 Flow Rate FiO2 06/05/17 14:01 110 20 138/63 95 Nasal Cannula 1 06/05/17 12:01 116 20 93 Nasal Cannula 2 06/05/17 11:57 101.9 122 20 86 Physical Exam GENERAL: This is a very thin female who looks chronically ill. SKIN: No rashes, ecchymoses or lesions. Cool and dry. HEAD: Atraumatic. Normocephalic. No temporal or scalp tenderness. EYES: Pupils equal round and reactive. Extraocular motions intact. No scleral icterus. No injection or drainage. ENT: Nose without bleeding, purulent drainage or septal hematoma. Throat without erythema, tonsillar hypertrophy or exudate. Uvula midline. Airway patent. NECK: Trachea midline. No JVD or lymphadenopathy. Supple, nontender, no meningeal signs. CARDIOVASCULAR: Regular rate and rhythm without murmurs, gallops, or rubs. RESPIRATORY: Mild diffuse bilateral wheezing and decreased breath sounds in the right lower lung base. She is not using any accessory muscles. There is no cough present during the examination. Normal respiratory rate. GASTROINTESTINAL: Abdomen soft, non-tender, nondistended. No hepato-splenomegaly , or palpable masses. No guarding. MUSCULOSKELETAL: Extremities without clubbing, cyanosis, or edema. No joint tenderness, effusion, or edema noted. No calf tenderness. Negative Homans sign bilaterally. NEUROLOGICAL: Awake and alert. Cranial nerves II through XII intact. Motor and sensory grossly within normal limits. Five out of 5 muscle strength in all muscle groups. Normal speech. Laboratory Laboratory Tests Test 06/05/17 12:35 White Blood Count 11.8 Red Blood Count 2.54 Hemoglobin 8.0 Hematocrit 23.4 Mean Corpuscular Volume 92.5 Mean Corpuscular Hemoglobin 31.7 Mean Corpuscular Hemoglobin 34.3 Concent Red Cell Distribution Width 14.1 Platelet Count 248 Mean Platelet Volume 10.0 Neutrophils (%) (Auto) 72.0 Lymphocytes (%) (Auto) 13.0 Monocytes (%) (Auto) 13.6 Eosinophils (%) (Auto) 0.8 Basophils (%) (Auto) 0.6 Neutrophils # (Auto) 8.5 Lymphocytes # (Auto) 1.5 Monocytes # (Auto) 1.6 Eosinophils # (Auto) 0.1 Basophils # (Auto) 0.1 CBC Comment DIFF FINAL Differential Comment Prothrombin Time 15.3 Prothromb Time International 1.4 Ratio Activated Partial 31.0 Thromboplast Time Urine Color LIGHT-YELLOW Urine Turbidity CLEAR Urine pH 6.5 Urine Specific [place] 1.007 Urine Protein NEG Urine Glucose (UA) NEG Urine Ketones NEG Urine Occult Blood MOD Urine Nitrite NEG Urine Bilirubin NEG Urine Urobilinogen LESS THAN 2.0 Urine Leukocyte Esterase NEG Urine RBC 8 Urine WBC 1 Urine Squamous Epithelial 3 Cells Microscopic Urinalysis Comment CULT NOT INDICATED Sodium Level 142 Potassium Level 2.7 Chloride Level 110 Carbon Dioxide Level 23.2 Anion Gap 9 Blood Urea Nitrogen 6 Creatinine 0.75 Estimat Glomerular Filtration 85 Rate Random Glucose 93 Lactic Acid Level 1.3 Calcium Level 7.3 Protein Corrected Calcium 7.7 Phosphorus Level 1.8 Magnesium Level 1.4 Total Bilirubin 0.5 Aspartate Amino Transf 20 (AST/SGOT) Alanine Aminotransferase 24 (ALT/SGPT) Alkaline Phosphatase 70 Total Creatine Kinase 36 Troponin I 0.02 Total Protein 6.3 Albumin 1.6 Date/Time Procedure Status Source Growth 06/05/17 12:40 Aerobic Blood Culture Received Blood Peripheral Pending 06/05/17 12:40 Anaerobic Blood Culture Received Blood Peripheral Pending Result Diagram: 06/05/17 1235 06/05/17 1235 Imaging Last Impressions Chest X-Ray 06/05/17 1208 Signed Impressions: Service Date/Time: Monday, June 05, 2017 12:09 - CONCLUSION: 1. Stable diffuse infiltrate within the right lung consistent with probable pneumonia. Clinical correlation is recommended. Dagoberto Harmon MD Septic Shock Reassessment Heart: Other (tachycardic) Lungs: Diminished Skin: Warm Capillary Refill: <2 seconds Assessment and Plan Assessment and Plan 42-year-old female IV drug user with a recent admission due to severe sepsis from pneumonia and MRSA/group a strep bacteremia and left AMA last night Severe sepsis source may be secondary to right lower lobe pneumonia and bacteremia. -Last review showing normal WBC with bandemia. Creatinine elevated with GFR 22. Chest x-ray showed right lower lobe infiltrate. UA negative. Repeat a chest x-ray shows increased right lower lobe effusion and infiltrate. - Positive blood cultures. -Will need to reconsult infectious disease. -See treatment as below. Acute respiratory failure with hypoxia -Secondary to sepsis, bacteremia and pneumonia. -Continue supplement oxygen. Treat underlying condition. See treatment as below. -Chest x-ray does show increase right lower lobe effusion. -Continue to monitor. MRSA bacteremia -06/01 All 4 cultures positive showing MRSA, group a strep, and bacillus not anthrax. Repeat blood cultures on 06/01/17 4/4 MRSA. Blood cultures on 06/02/17 1/2 culture positive for MRSA. 06/03/17 1 out of 2 positive for MRSA. 06/04 blood cultures pending. Blood cultures also obtained during this admission. -Patient continues to have fevers. - Echo shows no lesion. Waiter And Cashier was consulted on the last admission before she was AMA. Patient agreed to MIREILLE. Will put a consult in. -Will resume cefepime and vancomycin per infectious disease recommendation. -Will need to reconsult infectious disease. Community-acquired pneumonia -Checks x-ray show infiltrate in the right lower lobe. Repeat chest x-ray on show increase right lower lobe infiltrate/pleural effusion. Respiratory kiran she has not required more oxygen. -Before leaving AMA she was on cefepime and vancomycin. Will continue cefepime vancomycin. -pneumococcal and Legionella antigen negative. Will order sputum culture. Severe hypokalemia/hypo-magnesium -Potassium 2.7 and magnesium 1.4. Will give a gram of magnesium. Patient received 50mEQ by mouth of potassium chloride. Will give to KCl IV. -Replenish as needed. Fevers -Patient continues to spike fevers despite treatment. -She was given Tylenol and ibuprofen with no relief. -Will add a cooling blanket. Tachycardia -Intermittent. -May be secondary to anxiety common withdrawals, severe sepsis. -Patient does have Ativan for anxiety and pain medication. -Will also treat underlying illness and monitor closely. Left arm DVT -Ultrasound Doppler showed Deep venous thrombosis with nonocclusive thrombus in the peripheral brachial vein. 2. Occlusive thrombus in the entire superficial cephalic vein. -Packaging Specialist was consulted on last admission. Recommended bridging to Coumadin. Will restart heparin drip and consult pharmacy for Coumadin management. Thrombocytopenia -No signs of any active bleed. There is no recent baseline. Last baseline in 2012 and it was normal. -Most likely secondary to consumption. -Packaging Specialist consulted and following. Patient positive for hepatitis C. HIV negative. -Resolved. Hepatitis C -Patient is an active IV drug user. -LFTs normal. Liver ultrasound also normal. Follows outpatient. Current IV drug use with crystal meth -Education given and discouraged use of crystal meth. DVT prophylaxis -Patient will be put on a heparin drip. Code Status full Discussed Condition With Poor prognosis. Patient continues to be bacteremic along with having symptoms of sepsis. She is also noncompliant and left AMA. Physician Certification 2 Midnight Certification Type: Admission for Inpatient Services Order for Inpatient Services The services are ordered in accordance with Medicare regulations or non- Medicare payer requirements, as applicable. In the case of services not specified as inpatient-only, they are appropriately provided as inpatient services in accordance with the 2-midnight benchmark. Estimated LOS (days): 7 7 days is the estimated time the patient will need to remain in the hospital, assuming treatment plan goals are met and no additional complications. Post-Hospital Plan: Yissel Peters MD Jun 05, 2017 14:07
[2017-06-05] MEDS ORDERED: MAGNESIUM OXIDE 400 MG TAB PO PRN (14:30)
[2017-06-05] MEDS ORDERED: MAGNESIUM SULFATE INJ 4 GM in SODIUM CHLORIDE 0.9% INJ 92 ML IV PRN (14:30)
[2017-06-05] MEDS ORDERED: POTASSIUM PHOSPHATE MONOBASIC 500 MG TAB PO/TUBE PRN (14:30)
[2017-06-05] MEDS ORDERED: POTASSIUM PHOSPHATE INJ 30 MMOL in SODIUM CHLOR 0.9% 250 ML INJ 250 ML IV PRN (14:30)
[2017-06-05] MEDS ORDERED: POTASSIUM CHLOR 20 MEQ PREMIX 100 ML IV PRN ×2 (14:30)
[2017-06-05] MEDS ORDERED: POTASSIUM CHLORIDE 25 MEQ EFFERVESCENT TAB PO PRN (14:30)
[2017-06-05] MEDS ORDERED: POTASSIUM CHLOR 40 MEQ PREMIX 100 ML IV PRN ×2 (14:30)
[2017-06-05] MEDS ORDERED: MAGNESIUM SULFATE INJ 2 GM in SODIUM CHLORIDE 0.9% INJ 96 ML IV PRN (14:30)
[2017-06-05] MEDS ORDERED: SODIUM PHOSPHATE INJ 30 MMOL in SODIUM CHLOR 0.9% 250 ML INJ 240 ML IV PRN (14:30)
[2017-06-05] MEDS ORDERED: oxyCODONE/ACETAMINOPHEN 5 MG/325 MG TAB PO PRN (14:30)
[2017-06-05] MEDS ORDERED: POTASSIUM PHOSPHATE MONOBASIC 500 MG TAB PO PRN (14:30)
[2017-06-05] MEDS ORDERED: IBUPROFEN 800 MG TAB PO PRN (14:45)
[2017-06-05] MEDS ORDERED: MAGNESIUM SULFATE 1 GM PREMIX 100 ML IV ONE (15:00)
[2017-06-05] MEDS: SODIUM CHLOR 0.9% 1000 ML INJ 1,000 ML IV SCH ×2 (15:17→21:21)
[2017-06-05] MEDS: HEPARIN-D5W INJ 250 ML IV SCH (15:19)
[2017-06-05] MEDS: CEFEPIME INJ 2,000 MG in SODIUM CHLORIDE 0.9% INJ 100 ML IV SCH ×3 (15:30→21:21)
[2017-06-05] MEDS: oxyCODONE/ACETAMINOPHEN 5 MG/325 MG TAB PO PRN ×2 (16:00→21:25)
[2017-06-05 16:04] VITALS: BP 138/78; PULSE 86; RESP 18; TEMP 98.1; O2SAT 96
[2017-06-05 16:06] LABS: HEMATOCRIT 22.6 % (35.0-46.0); MEAN CELL VOLUME 93.9 FL (80.0-100.0); MEAN CORPUSCULAR HEMOGLOBIN 31.4 PG (27.0-34.0); MEAN CORPUSCULAR HGB CONC 33.5 % (32.0-36.0); PLATELET COUNT 257 TH/MM3 (150-450); RED BLOOD COUNT 2.41 MIL/MM3 (4.00-5.30); RED CELL DISTRIBUTION WIDTH 14.1 % (11.6-17.2); REVIEW FLAG FINAL; WHITE BLOOD COUNT 11.1 TH/MM3 (4.0-11.0)
[2017-06-05 16:15] LABS: APTT (PATIENT) 32.7 SEC (24.3-30.1)
[2017-06-05] MEDS: WARFARIN SOD 4 MG TAB PO SCH (16:24)
[2017-06-05] MEDS: PANTOPRAZOLE SODIUM 40 MG VIAL IV PUSH SCH (16:25)
[2017-06-05 16:49] LABS: POTASSIUM 3.3 MEQ/L (3.5-5.1)
[2017-06-05 16:54] LABS: MAGNESIUM 1.7 MG/DL (1.5-2.5)
[2017-06-05 18:00] VITALS: BP 125/77; PULSE 85; RESP 16; O2SAT 100
[2017-06-05 19:56] LABS: AMPHETAMINE, URINE NEG (NEG); BARBITURATES, URINE NEG (NEG); COCAINE, URINE NEG (NEG)
[2017-06-05 20:00] VITALS: BP 135/73; PULSE 79; RESP 25; TEMP 98; O2SAT 92
[2017-06-05 20:53] LABS: APTT (PATIENT) 40.6 SEC (24.3-30.1)
[2017-06-05] MEDS: SODIUM CHLORIDE 0.9% FLUSH 10 ML FLUSH IV FLUSH SCH (21:21)
[2017-06-05] MEDS: DOCUSATE SODIUM 50 MG/SENNA 8.6 MG TAB PO SCH (21:21)
[2017-06-05] MEDS: LORazepam 0.5 MG TAB PO PRN (21:25)
[2017-06-05 22:00] VITALS: PULSE 95
[2017-06-06] VITALS (17 sets, daily range): BP systolic 103–152; BP diastolic 58–83; PULSE 70–103; RESP 17–32; TEMP 97.3–99.2; O2SAT 91–98
[2017-06-06] MEDS: oxyCODONE/ACETAMINOPHEN 5 MG/325 MG TAB PO PRN ×4 (02:38→17:32)
[2017-06-06] MEDS: MORPHINE SULFATE 4 MG/ML INJ IV PUSH PRN ×2 (02:38→21:40)
[2017-06-06] MEDS: VANCOMYCIN 1,000 MG/NS 250 ML IV SCH ×4 (02:55→12:56)
[2017-06-06 03:05] LABS: HEMATOCRIT 27.1 % (35.0-46.0); MEAN CELL VOLUME 94.5 FL (80.0-100.0); MEAN CORPUSCULAR HEMOGLOBIN 30.7 PG (27.0-34.0); MEAN CORPUSCULAR HGB CONC 32.5 % (32.0-36.0); PLATELET COUNT 320 TH/MM3 (150-450); RED BLOOD COUNT 2.87 MIL/MM3 (4.00-5.30); RED CELL DISTRIBUTION WIDTH 14.2 % (11.6-17.2); REVIEW FLAG FINAL; WHITE BLOOD COUNT 13.6 TH/MM3 (4.0-11.0)
[2017-06-06 03:20] LABS: BICARBONATE 19.8 MEQ/L (21.0-32.0); POTASSIUM 3.7 MEQ/L (3.5-5.1); VANCOMYCIN TROUGH 11.9 MCG/ML (5.0-10.0)
[2017-06-06 03:30] LABS: INTERNATIONAL NORMALIZED RATIO 1.7 RATIO; PROTHROMBIN TIME - PATIENT 19.4 SEC (9.8-11.6)
[2017-06-06 04:18] LABS: CALCIUM-PROTEIN CORRECTED 7.6 MG/DL (8.5-10.1)
[2017-06-06] MEDS: LORazepam 0.5 MG TAB PO PRN ×2 (05:05→21:36)
[2017-06-06] MEDS: CEFEPIME INJ 2,000 MG in SODIUM CHLORIDE 0.9% INJ 100 ML IV SCH (05:06)
[2017-06-06] MEDS: DOCUSATE SODIUM 50 MG/SENNA 8.6 MG TAB PO SCH ×2 (08:58→21:00)
[2017-06-06] MEDS: SODIUM CHLORIDE 0.9% FLUSH 10 ML FLUSH IV FLUSH SCH ×2 (08:58→21:37)
[2017-06-06] MEDS: SODIUM CHLOR 0.9% 1000 ML INJ 1,000 ML IV SCH ×2 (08:58→21:39)
--- NOTE | 2017-06-06 09:56 | HHI.PR ---
Subjective Remarks Follow up for bacteremia, PNA, and severe sepsis Patient only had one fever yesterday. She stated she feels a lot better. Denied shortness of breathing. She is on nasal cannula. Positive cough. Objective Vitals Vital Signs Date Time Temp Pulse Resp B/P Pulse Ox O2 Delivery O2 Flow Rate FiO2 06/06/17 08:00 78 06/06/17 06:00 81 06/06/17 04:00 99.2 103 22 116/58 91 06/06/17 04:00 103 06/06/17 02:00 78 06/06/17 01:43 96 Nasal Cannula 2.00 06/06/17 00:00 81 06/06/17 00:00 98.2 81 24 112/62 95 06/05/17 22:00 95 06/05/17 20:00 98.0 79 25 135/73 92 06/05/17 20:00 79 06/05/17 18:00 85 16 125/77 100 Room Air 06/05/17 17:11 16 06/05/17 16:04 98.1 86 18 138/78 96 Room Air 06/05/17 16:04 98.1 06/05/17 14:01 110 20 138/63 95 Nasal Cannula 1 06/05/17 12:01 116 20 93 Nasal Cannula 2 06/05/17 11:57 101.9 122 20 86 I/O 06/05/17 06/05/17 06/05/17 06/06/17 06/06/17 06/06/17 07:00 15:00 23:00 07:00 15:00 23:00 Intake Total 710 ml 1030 ml Output Total 400 ml Balance 310 ml 1030 ml Intake Oral 240 ml 240 ml IV Total 470 ml 790 ml Output Urine Total 400 ml # Voids 2 Result Diagram: 06/06/17 0215 06/06/17 0215 Objective Remarks GENERAL: Very thin female sitting up in bed in no acute distress. She looks more energized today. NECK: Supple, trachea midline. No JVD or lymphadenopathy. CARDIOVASCULAR: Regular rate and rhythm without murmurs, gallops, or rubs. RESPIRATORY: Breath sounds equal bilaterally. No accessory muscle use. GASTROINTESTINAL: Abdomen soft, non-tender, nondistended. MUSCULOSKELETAL: No cyanosis, or edema. BACK: Nontender without obvious deformity. No CVA tenderness. Medications and IVs Current Medications Acetaminophen 650 mg 650 mg ONCE ONCE PO Last administered on 06/05/17 13:26 ; Start 06/05/17 at 12:15; Stop 06/05/17 at 12:16; Status DC Sodium Chloride 1,000 ml @ 1,000 mls/hr Q1H ONCE IV Last administered on 13:26; Start 06/05/17 at 12:08; Stop 06/05/17 at 13:07; Status DC Sodium Chloride 800 ml @ 1,000 mls/hr Q48M ONCE IV Last administered on 13:26; Start 06/05/17 at 12:08; Stop 06/05/17 at 12:55; Status DC Vancomycin HCl 1000 mg/Sodium Chloride 250 ml @ 250 mls/hr ONCE STAT IV Last administered on 06/05/17 14:00; Start 06/05/17 at 12:19; Stop 06/05/17 at 13:18 ; Status DC Piperacillin Sod/ Tazobactam Sod (Zosyn 4.5 Gm Premix) 100 ml @ 200 mls/hr ONCE STAT IV Last administered on 06/05/17 13:27; Start 06/05/17 at 12:19; Stop 06/05/17 at 12:48; Status DC Potassium Bicarb/ Potassium Chloride 50 meq 50 meq ONCE ONCE PO Last administered on 06/05/17 14:00; Start 06/05/17 at 13:45; Stop 06/05/17 at 13:46 ; Status DC Sodium Chloride (NS 1000 ml Inj) 1,000 ml @ 100 mls/hr Q10H IV Last administered on 06/06/17 08:58; Start 06/05/17 at 14:00 Sodium Chloride (NS Flush) 2 ml UNSCH PRN IV FLUSH FLUSH AFTER USING IV ACCESS ; Start 06/05/17 at 13:45 Sodium Chloride (NS Flush) 2 ml BID IV FLUSH Last administered on 06/06/17 08: 58; Start 06/05/17 at 21:00 Acetaminophen (Tylenol) 650 mg Q4H PRN PO TEMP > 100.4 Last administered on 03:42; Start 06/05/17 at 13:45 Ondansetron HCl (Zofran Inj) 4 mg Q6H PRN IVP NAUSEA OR VOMITING; Start at 13:45 Naloxone HCl (Narcan Inj) 0.4 mg UNSCH PRN IV SEE LABEL COMMENTS; Start at 13:45 Senna/Docusate Sodium (Judy-Colace) 1 tab BID PO Last administered on 08:58; Start 06/05/17 at 21:00 Magnesium Hydroxide (Milk Of Magnesia Liq) 30 ml Q12H PRN PO MILD - MODERATE CONSTIPATION; Start 06/05/17 at 13:45 Sennosides (Senokot) 17.2 mg Q12H PRN PO MODERATE - SEVERE CONSTIPATION; Start 06/05/17 at 13:45 Bisacodyl (Dulcolax Supp) 10 mg DAILY PRN RECTAL SEVERE CONSITIPATION; Start at 13:45 Lactulose 30 ml 30 ml DAILY PRN PO SEVERE CONSITIPATION; Start 06/05/17 at 13: 45 Pharmacy Profile Note 0 ml @ 0 mls/hr UNSCH OTHER ; Start 06/05/17 at 14:00 Pharmacy Profile Note 0 ml @ 0 mls/hr UNSCH OTHER ; Start 06/05/17 at 14:00 Cefepime HCl 2000 mg/Sodium Chloride 100 ml @ 200 mls/hr Q8H IV Last administered on 06/06/17 05:06; Start 06/05/17 at 15:00 Heparin Sodium/ Dextrose (Heparin-D5W Inj) 250 ml @ 0 mls/hr TITRATE IV Last administered on 06/05/17 15:19; Start 06/05/17 at 14:00 Potassium Chloride (KCl Powder) 20 meq ONCE ONCE PO ; Start 06/05/17 at 14:00; Stop 06/05/17 at 14:01; Status Cancel Potassium Bicarb/ Potassium Chloride (K-Lyte Cl Eff) 25 meq ONCE ONCE PO ; Start 06/05/17 at 14:00; Stop 06/05/17 at 14:01; Status Cancel Potassium Bicarb/ Potassium Chloride 50 meq 50 meq ONCE ONCE PO ; Start at 14:00; Stop 06/05/17 at 14:19; Status DC Potassium Chloride 100 ml @ 50 mls/hr BOLUS ONCE IV Last administered on 06/05 15:17; Start 06/05/17 at 14:00; Stop 06/05/17 at 15:59; Status DC Magnesium Sulfate/ Dextrose 100 ml @ 100 mls/hr ONCE ONCE IV Last administered on 06/05/17 16:03; Start 06/05/17 at 15:00; Stop 06/05/17 at 15:59 ; Status DC Potassium Chloride 100 ml @ 50 mls/hr Q2H PRN IV For Potassium 2.8 - 3.2 mEq/L ; Start 06/05/17 at 14:30 Potassium Chloride (KCl 20 Meq Premix Inj) 100 ml @ 50 mls/hr Q2H PRN IV For Potassium 2.8 - 3.2 mEq/L; Start 06/05/17 at 14:30 Potassium Bicarb/ Potassium Chloride 50 meq 50 meq UNSCH PRN PO For Potassium 3.3 - 3.5 mEq/L; Start 06/05/17 at 14:30 Potassium Chloride 100 ml @ 25 mls/hr UNSCH PRN IV For Potassium 3.3 - 3.5 mEq /L; Start 06/05/17 at 14:30 Potassium Chloride 100 ml @ 50 mls/hr Q2H PRN IV For Potassium 3.3 - 3.5 mEq/L ; Start 06/05/17 at 14:30 Magnesium Sulfate/ Sodium Chloride (Magnesium Sulfate Inj/NS Inj) 100 ml @ 50 mls/hr UNSCH PRN IV For Magnesium 0.9 - 1.1 mg/dL; Start 06/05/17 at 14:30 Magnesium Oxide 800 mg 800 mg UNSCH PRN PO For Magnesium 1.2 - 1.6 mg/dL; Start 06/05/17 at 14:30 Magnesium Sulfate/ Sodium Chloride (Magnesium Sulfate Inj/NS Inj) 100 ml @ 50 mls/hr UNSCH PRN IV For Magnesium 1.2 - 1.6 mg/dL; Start 06/05/17 at 14:30 Potassium Phosphate 2000 mg 2,000 mg Q4H PRN PO For Phosphorus < 2.5 mg/dL Last administered on 06/06/17 05:06; Start 06/05/17 at 14:30 Sodium Phosphate/ Sodium Chloride (Sodium Phosphate Inj/NS 250 ml Inj) 250 ml @ 42 mls/hr UNSCH PRN IV For Phosphorus < 2.5 mg/dL; Start 06/05/17 at 14:30 Potassium Phosphate 2000 mg 2,000 mg UNSCH PRN PO/TUBE SEE LABEL COMMENTS; Start 06/05/17 at 14:30 Potassium Phosphate/Sodium Chloride (Potassium Phosphate Inj/NS 250 ml Inj) 260 ml @ 42 mls/hr UNSCH PRN IV SEE LABEL COMMENTS; Start 06/05/17 at 14:30 Oxycodone/ Acetaminophen (Percocet 5-325 Mg) 1 tab Q4H PRN PO pain 1-7; Start 06/05/17 at 14:30 Oxycodone/ Acetaminophen (Percocet 5-325 Mg) 2 tab Q4H PRN PO pain 8-10 Last administered on 06/06/17 08:59; Start 06/05/17 at 14:30 Lorazepam (Ativan) 0.5 mg Q8H PRN PO anxiety Last administered on 06/06/17 05: 05; Start 06/05/17 at 14:30 Morphine Sulfate (Morphine Inj) 2 mg Q3H PRN IV PUSH withdrawal Last administered on 06/06/17 02:38; Start 06/05/17 at 14:30 Ibuprofen (Motrin) 800 mg Q8H PRN PO fever 101; Start 06/05/17 at 14:45 Pantoprazole Sodium (Protonix Inj) 40 mg Q24H IV PUSH Last administered on 06/05 16:25; Start 06/05/17 at 16:00 Warfarin Sodium 4 mg 4 mg DAILY@16 PO Last administered on 06/05/17 16:24; Start 06/05/17 at 16:00 Vancomycin HCl/ Sodium Chloride (Vancomycin Inj/ NS 250 ml Inj) 250 ml @ 250 mls/hr Q12H IV Last administered on 06/06/17 02:55; Start 06/06/17 at 02:00 Miscellaneous Information SPECIFIC LAB TO BE ... ONCE ONCE .XX ; Start at 01:45; Stop 06/07/17 at 01:46 A/P Assessment and Plan 42-year-old female IV drug user with a recent admission due to severe sepsis from pneumonia and MRSA/group a strep bacteremia and left AMA on 06/04 and is back for treatment Severe sepsis source may be secondary to right lower lobe pneumonia and bacteremia. -Labs review showing normal WBC with bandemia. Creatinine elevated with GFR 22. Chest x-ray showed right lower lobe infiltrate. UA negative. Repeat a chest x-ray shows increased right lower lobe effusion and infiltrate. - Positive blood cultures. -Infectious disease consulted. -See treatment as below. Acute respiratory failure with hypoxia -Secondary to sepsis, bacteremia and pneumonia. -Continue supplement oxygen. Treat underlying condition. See treatment as below. -Chest x-ray does show increase right lower lobe effusion. -Now on 2 L nasal cannula and clinically improving. MRSA bacteremia -06/01 All 4 cultures positive showing MRSA, group a strep, and bacillus not anthrax. Repeat blood cultures on 06/01/17 4/4 MRSA. Blood cultures on 06/02/17 1/2 culture positive for MRSA. 06/03/17 1 out of 2 positive for MRSA. 06/04 blood cultures negative 1 day. -06/05/17 pending blood cultures. - Echo shows no lesion. Patient Care Technician was consulted on the last admission before she was AMA. Patient agreed to MIREILLE. Pending reconsult from network security consultant. -Continue with cefepime and vancomycin per infectious disease recommendation. Community-acquired pneumonia -Checks x-ray show infiltrate in the right lower lobe. Repeat chest x-ray on show increase right lower lobe infiltrate/pleural effusion. - -pneumococcal and Legionella antigen negative. -Patient is on cefepime and vancomycin. -Clinically patient is improving. Continue with current regimen. Severe hypokalemia/hypo-magnesium -Potassium 2.7 and magnesium 1.4 on admission. -Resolved. -Replenish as needed. Tachycardia -Intermittent. Improving. -May be secondary to anxiety common withdrawals, severe sepsis. -Patient has Ativan for anxiety and pain medication. -Will also treat underlying illness and monitor closely. Left arm DVT -Ultrasound Doppler showed Deep venous thrombosis with nonocclusive thrombus in the peripheral brachial vein. 2. Occlusive thrombus in the entire superficial cephalic vein. -Assembly Operator was consulted on last admission. Recommended bridging to Coumadin. On Coumadin bridging with heparin. Thrombocytopenia -No signs of any active bleed. There is no recent baseline. Last baseline in 2012 and it was normal. -Most likely secondary to consumption. -Assembly Operator consulted and following. Patient positive for hepatitis C. HIV negative. -Resolved. Hepatitis C -Patient is an active IV drug user. -LFTs normal. Liver ultrasound also normal. Follows outpatient. Current IV drug use with crystal meth -Education given and discouraged use of crystal meth. DVT prophylaxis -On heparin drip. Discharge Planning Patient is medically stable to be transfer out of the ICU. Yissel Aldridge MD Jun 06, 2017 09:56 DVT prophylaxis -Patient will be put on a heparin drip. Yissel Aldridge MD Jun 06, 2017 09:56
--- NOTE | 2017-06-06 10:16 | PD.CONS ---
History of Present Illness Service Infectious disease Consult Requested By Dr Paxton Aldridge Reason for Consult Evaluate patient with bacteremia, IV drug use, possible endocarditis Primary Care Physician No Primary Care Physician Diagnoses: History of Present Illness Patient seen and examined. Records reviewed. Patient is a 42-year-old female, known to me from her hospitalization about a week ago. She presented complaining of severe anxiety attack with some chest discomfort and rapid breathing. She had some cough and yellowish phlegm at that time. She also had some fever and chills. She was also complaining of pain in her left hand. She has known IV drug use, but she denies injecting in her left arm. Patient on her hospitalization was found to have blood cultures with MRSA, and group A strep. The group A strep was positive in the first 2 blood cultures on admission. Subsequent blood cultures grew MRSA from 06/01, , and 06/03. Her left upper extremity cellulitis also improved. MIREILLE was being considered, and cardiology saw the patient. Patient however did not want MIREILLE, and she signed out AGAINST MEDICAL ADVICE on June 04. She came back yesterday, complaining of generalized aches and weakness. Her cough is better. She complains of pain on her right chest when she coughs, and persistent pain on her left chest that is not aggravated by any kind of activity. She continues to have on and off fevers. Her urine drug screen on this admission is negative except for benzodiazepine. Patient currently is agreeable to having MIREILLE done. During her last admission, she tested positive for hepatitis C , and has HIV negative test. Infectious disease consultation has been requested to evaluate the patient. Review of Systems Constitutional: COMPLAINS OF: Fever, Chills Eyes: DENIES: Eye pain, Vision loss Ears, nose, mouth, throat: DENIES: Nasal discharge, Oral lesions, Throat pain, Ear Pain Respiratory: COMPLAINS OF: Cough, DENIES: Shortness of breath Cardiovascular: COMPLAINS OF: Chest pain, DENIES: Palpitations, Syncope Gastrointestinal: DENIES: Abdominal pain, Diarrhea, Nausea, Vomiting Genitourinary: DENIES: Urinary frequency, Dysuria Musculoskeletal: COMPLAINS OF: Muscle aches, DENIES: Joint Swelling Integumentary: DENIES: Rash Neurologic: DENIES: Headache Psychiatric: DENIES: Hallucinations Past Family Social History Allergies: Coded Allergies: *MDRO Multi-Drug Resistant Organism (Verified Adverse Reaction, Unknown, ) MRSA (blood) 05/31/17, 06/01/17, 06/02/17, 06/03/17 Past Medical History Cervical cancer IV drug use Hep C Past Surgical History Hx LEEP procedure for cervical CA Active Ordered Medications Tylenol Dulcolax Cefepime Heparin Motrin Lactulose Ativan MOM Magnesium Morphine Zofran Percocet Protonix Potassium Judy-Colace Senokot Vancomycin Coumadin Family History Noncontributory Social History Patient lives with her friend. Positive tobacco use about 5 cigarettes per day for the past 2 years. Denies any alcohol IVDU - crystal meth Physical Exam Vital Signs Vital Signs Date Time Temp Pulse Resp B/P Pulse Ox O2 Delivery O2 Flow Rate FiO2 06/06/17 08:00 78 06/06/17 06:00 81 06/06/17 04:00 99.2 103 22 116/58 91 06/06/17 04:00 103 06/06/17 02:00 78 06/06/17 01:43 96 Nasal Cannula 2.00 06/06/17 00:00 81 06/06/17 00:00 98.2 81 24 112/62 95 06/05/17 22:00 95 06/05/17 20:00 98.0 79 25 135/73 92 06/05/17 20:00 79 06/05/17 18:00 85 16 125/77 100 Room Air 06/05/17 17:11 16 06/05/17 16:04 98.1 86 18 138/78 96 Room Air 06/05/17 16:04 98.1 06/05/17 14:01 110 20 138/63 95 Nasal Cannula 1 06/05/17 12:01 116 20 93 Nasal Cannula 2 06/05/17 11:57 101.9 122 20 86 Physical Exam GENERAL: Patient is a thin, well-developed female, awake and alert, not in respiratory distress. SKIN: Warm and dry. No generalized rash, no ecchymoses and no evidence of embolic lesions. HEAD: Atraumatic. Normocephalic. No temporal wasting, or tenderness. EYES: [place] conjunctiva. No petechia or hemorrhage. Pupils equal, round and reactive to light. Extraocular movements full and intact. No scleral icterus. No injection or drainage. EARS, NOSE AND THROAT: Nose without bleeding or purulent nasal discharge. No sinus tenderness. Mucous membranes pink and moist. No oral lesions noted. No exudate. No oral thrush. NECK: Trachea midline. Supple and not tender, no meningeal signs. CARDIOVASCULAR: Regular rate and rhythm. No murmurs, rubs or gallops heard RESPIRATORY: Clear to auscultation. Breath sounds equal bilaterally. No rales , wheezing or rhonchi ABDOMEN: Soft, non-tender, nondistended. Bowel sounds present and normoactive. No guarding. No rebound. No organomegaly. EXTREMITIES: No clubbing, cyanosis, or edema. L hand and distal forearm markedly improved as far as redness and swelling. No calf tenderness. Well perfused and warm. Track sanon in her BUE, more on R than on L NEUROLOGICAL: Awake and alert. Cranial nerves grossly intact. Motor grossly within normal limits. PSYCHIATRIC: Normal affect, calm and cooperative. LINE: No evidence of infection Laboratory Laboratory Tests Test 06/05/17 06/05/17 06/05/17 06/05/17 12:35 15:30 16:27 18:30 White Blood Count 11.8 11.1 Red Blood Count 2.54 2.41 Hemoglobin 8.0 7.6 Hematocrit 23.4 22.6 Mean Corpuscular Volume 92.5 93.9 Mean Corpuscular Hemoglobin 31.7 31.4 Mean Corpuscular Hemoglobin 34.3 33.5 Concent Red Cell Distribution Width 14.1 14.1 Platelet Count 248 257 Mean Platelet Volume 10.0 9.3 Neutrophils (%) (Auto) 72.0 Lymphocytes (%) (Auto) 13.0 Monocytes (%) (Auto) 13.6 Eosinophils (%) (Auto) 0.8 Basophils (%) (Auto) 0.6 Neutrophils # (Auto) 8.5 Lymphocytes # (Auto) 1.5 Monocytes # (Auto) 1.6 Eosinophils # (Auto) 0.1 Basophils # (Auto) 0.1 CBC Comment DIFF FINAL Differential Comment Prothrombin Time 15.3 Prothromb Time International 1.4 Ratio Activated Partial 31.0 32.7 Thromboplast Time Urine Color LIGHT-YELLOW Urine Turbidity CLEAR Urine pH 6.5 Urine Specific [place] 1.007 Urine Protein NEG Urine Glucose (UA) NEG Urine Ketones NEG Urine Occult Blood MOD Urine Nitrite NEG Urine Bilirubin NEG Urine Urobilinogen LESS THAN 2.0 Urine Leukocyte Esterase NEG Urine RBC 8 Urine WBC 1 Urine Squamous Epithelial 3 Cells Microscopic Urinalysis Comment CULT NOT INDICATED Sodium Level 142 Potassium Level 2.7 3.3 Chloride Level 110 Carbon Dioxide Level 23.2 Anion Gap 9 Blood Urea Nitrogen 6 Creatinine 0.75 Estimat Glomerular Filtration 85 Rate Random Glucose 93 Lactic Acid Level 1.3 Calcium Level 7.3 Protein Corrected Calcium 7.7 Phosphorus Level 1.8 2.3 Magnesium Level 1.4 1.7 Total Bilirubin 0.5 Aspartate Amino Transf 20 (AST/SGOT) Alanine Aminotransferase 24 (ALT/SGPT) Alkaline Phosphatase 70 Total Creatine Kinase 36 Troponin I 0.02 Total Protein 6.3 Albumin 1.6 Urine Opiates Screen NEG Urine Barbiturates Screen NEG Urine Amphetamines Screen NEG Urine Benzodiazepines Screen POS Urine Cocaine Screen NEG Urine Cannabinoids Screen NEG Nasal Screen MRSA (PCR) MRSA NOT DETECTED Test 06/05/17 06/06/17 20:14 02:15 Activated Partial 40.6 35.0 Thromboplast Time Potassium Level 3.8 3.7 White Blood Count 13.6 Red Blood Count 2.87 Hemoglobin 8.8 Hematocrit 27.1 Mean Corpuscular Volume 94.5 Mean Corpuscular Hemoglobin 30.7 Mean Corpuscular Hemoglobin 32.5 Concent Red Cell Distribution Width 14.2 Platelet Count 320 Mean Platelet Volume 9.6 Hematology Comments Prothrombin Time 19.4 Prothromb Time International 1.7 Ratio Sodium Level 142 Chloride Level 115 Carbon Dioxide Level 19.8 Anion Gap 7 Blood Urea Nitrogen 10 Creatinine 0.76 Estimat Glomerular Filtration 83 Rate Random Glucose 87 Calcium Level 7.4 Protein Corrected Calcium 7.6 Total Protein 6.7 Vancomycin Level Trough 11.9 Date/Time Procedure Status Source Growth 06/05/17 12:40 Aerobic Blood Culture Received Blood Peripheral Pending 06/05/17 12:40 Anaerobic Blood Culture Received Blood Peripheral Pending Result Diagram: 06/06/17 0215 06/06/17 0215 Imaging Chest X-Ray 06/05/17 1208 Signed Impressions: Service Date/Time: Monday, June 05, 2017 12:09 - CONCLUSION: 1. Stable diffuse infiltrate within the right lung consistent with probable pneumonia. Clinical correlation is recommended. Dagoberto Harmon MD Assessment and Plan Assessment and Plan IMPRESSION Sepsis with BC growing MRSA and GAS, concern for possible endocarditis given Hx IVDU Cellulitis L hand and Forearm, markedly improved Known active IVDU Pneumonia, CAP, clinically better - no change on CXR - very suspicious has septic emboli to lung Renal insufficiency due to sepsis, present during last admission, resolved Hep C (+) test RECOMMENDATION Complete PNA Rx with Ceftin and Zithromax Continue IV vanco - Vanco E-test 1.5 Add Rifampin D/W patient regarding MIREILLE and she agrees - will reconsult Dr Calderón Follow repeat BC to document clearing Will do CT chest to evaluate for septic emboli Monitor progress She will need 6 weeks Abx from date of last (+) BC because she had high grade MRSA bacteremia I will follow along with you Thank you for this consultation Discussed Condition With Explained plan and recommendations to the patient D/W Yumiko Jim MD Jun 06, 2017 10:16
[2017-06-06 11:26] LABS: APTT (PATIENT) 48.5 SEC (24.3-30.1)
[2017-06-06] MEDS ORDERED: IOHEXOL 350 MG/ML 10 ML VIAL (for RAD DIAG) IV ONE (11:41)
--- NOTE | 2017-06-06 12:18 | RADRPT ---
EXAM DATE/TIME: 06/06/2017 11:24 [facility] COMPARISON: CTA CHEST W 3D RECON, December 24, 2012, 13:51. CHEST SINGLE AP, June 05, 2017, 12:09. INDICATIONS : Infitrate,septic emboli IV CONTRAST: 70 cc Omnipaque 350 (iohexol) IV RADIATION DOSE: 3.32 CTDIvol (mGy) MEDICAL HISTORY : Cardiovascular disease. Chronic obstructive pulmonary disease. TB,CERVICAL CANCER SURGICAL HISTORY : Tubal ligation. ENCOUNTER: Initial ACUITY: 1 day PAIN SCALE: 0/10 LOCATION: chest TECHNIQUE: Volumetric scanning of the chest was performed. Using automated exposure control and adjustment of t he mA and/or kV according to patient size, radiation dose was kept as low as reasonably achievable to obtain optimal diagnostic quality images. DICOM format image data is available electronically for review and comparison. Follow-up recommendations for incidentally detected pulmonary nodules are based at a minimum on nodul e size and patient risk factors according to Fleischner Society Guidelines. FINDINGS: There is an approximate 2.6 cm right hilar lymph node present on the older study from 2012 at ich time it measured 2.5 cm. There are additional smaller lymph nodes within the mediastinum not sign ificantly changed. These are most likely benign. There is fairly dense parenchymal consolidation airs pace in appearance involving the right upper lobe, right lower lobe not present previously with less involvement of the lingula and left lower lobe. Small bilateral pleural effusions are seen. Extensive COPD is seen. CONCLUSION: Small bilateral pleural effusions, dense airspace consolidation bilaterally worse on the right highly suspicious for pneumonia. Nahun Mcqueen MD on June 06, 2017 at 12:11 Board Certified Radiologist. This report was verified electronically.
[2017-06-06] MEDS: RIFAMPIN 150 MG CAP PO SCH ×2 (12:55→21:36)
--- NOTE | 2017-06-06 13:50 | MB ---
cc: DAVID HUMPHREYS DO DATE OF CONSULTATION: June 06, 2017 REASON FOR CONSULTATION Bacteremia, sepsis, consideration of MIREILLE. HISTORY OF PRESENT ILLNESS Marjan Grant is a pleasant 42-year-old female who presented to [facility] Emergency Room on June 05, 2017 due to weakness. She was here the week before and was found to have MRSA bacteremia as well as pneumonia. She was offered MIREILLE but at that time declined it. She also ended up leaving [facility] as she felt like the staff was rude to her. She presents back because she is feeling more weak than when she was in the hospital. At this time it has been discussed with her further about MIREILLE and she is agreeable. In seeing her she is currently denying chest pain, shortness of breath, lightheadedness or dizziness. PAST MEDICAL HISTORY 1. Bacteremia with MRSA. 2. Tobacco abuse. 3. History of cervical cancer. 4. History of IV drug abuse with crystal meth up until 2 weeks ago. PAST SURGICAL HISTORY 1. LEEP procedure. 2. Tubal ligation. ALLERGIES NO KNOWN DRUG ALLERGIES. MEDICATIONS Denies. FAMILY HISTORY Father has a history of heart disease. Denies premature coronary artery disease or sudden cardiac within the family. SOCIAL HISTORY The patient lives with her friend. She smokes about five cigarettes per day for the past few years. Denies alcohol abuse. Denies all other drugs other than crystal meth. REVIEW OF SYSTEMS 14-systems were reviewed including osteopathic pertinent positives and negatives above, otherwise negative. PHYSICAL EXAMINATION VITAL SIGNS: Temperature 97.3, heart rate 86, blood pressure 106/73, respirations 20, pulse ox 95% on 2 liters. GENERAL: The patient appears well, in no acute distress, alert, awake and oriented x3. HEENT: Extraocular muscles intact. Mucous membranes moist. The patient has poor dentition overall. NECK: Neck is supple. No JVD at 45 degrees. No carotid bruits heard bilaterally. Carotid upstroke is brisk in nature. HEART: Heart is regular rate and rhythm. Positive first and second heart sounds with a 1/6 holosystolic murmur noted at the apex. LUNGS: Clear to auscultation bilaterally. No wheezes, rales or rhonchi. ABDOMEN: Soft, nontender, nondistended. No organomegaly noted. EXTREMITIES: Show no clubbing or cyanosis. Left hand and distal forearm show mild erythema and edema. Track sanon are noted in bilateral upper extremities. NEUROLOGIC: No focal deficits. SKIN: Warm, dry and intact with notable track sanon as well as erythema and edema of the left arm. OSTEOPATHIC: No kyphoscoliosis, lordosis or paraspinal tender points. LABORATORY FINDINGS Hemoglobin 8.8, hematocrit 27.1, platelets 320. INR 1.7, potassium 3.7, BUN 10, creatinine 0.76. Multiple bottles of MRSA positive blood cultures from May 31 through the . IMPRESSION 1. Severe sepsis. 2. Pneumonia. 3. Recent bacteremia with multiple bottles of blood cultures positive for MRSA. 4. History IV drug abuse. 5. Tobacco abuse. 6. Electrolyte disturbance. 7. Left arm DVT. 8. History of hepatitis C. RECOMMENDATIONS 1. Ms. Grant appears to have multiple blood cultures positive for MRSA on her previous admission and was offered MIREILLE but declined at that time. After discussing with her further she agrees that she should undergo the MIREILLE and understands the risks, benefits and alternatives. 2. At this time she has been on a heparin drip and been given Coumadin and her INR is 1.7. My concern is that her INR will most likely be higher tomorrow. As I do not feel that this is an emergent procedure, I would allow her INR to come down naturally. 3. Tentatively we will plan on Tuesday depending on her INR results. She will be n.p.o. after midnight on Tuesday. We will plan on holding her heparin Tuesday morning before the procedure. 4. Further recommendations will be made based on the hospital course. 5. I spoke to her for greater than 3 minutes about tobacco cessation. Thank you for allowing me to see Marjan Grant. If there are any questions, please do not hesitate to call. David Humphreys DO VGP/TLL /12:15 PM /1:28 PM
--- NOTE | 2017-06-06 14:16 | EKG ---
Date Performed: 06/05/2017 Time Performed: 12:05:38 PTAGE: 42 years EKG: SINUS TACHYCARDIA ABNORMAL RHYTHM ECG Compared to prior tracing no significant change PREVIOUS TRACING : 05/31/2017 13.28 DOCTOR: Surendra Saldaña Interpretating Date/Time 06/06/2017 14:12:49
[2017-06-06] MEDS: HEPARIN-D5W INJ 250 ML IV SCH (17:25)
[2017-06-06] MEDS: PANTOPRAZOLE SODIUM 40 MG VIAL IV PUSH SCH (17:26)
[2017-06-06 18:03] LABS: APTT (PATIENT) 38.8 SEC (24.3-30.1)
[2017-06-07] VITALS (7 sets, daily range): BP systolic 141–164; BP diastolic 75–89; PULSE 75–95; RESP 16–20; TEMP 97.5–98.4; O2SAT 90–96
[2017-06-07] MEDS: oxyCODONE/ACETAMINOPHEN 5 MG/325 MG TAB PO PRN ×5 (00:11→23:00)
[2017-06-07 00:56] LABS: APTT (PATIENT) 44.9 SEC (24.3-30.1)
[2017-06-07] MEDS: MORPHINE SULFATE 4 MG/ML INJ IV PUSH PRN ×3 (01:42→19:49)
[2017-06-07] MEDS ORDERED: PHARMACY ORDERED LAB ONE (01:45)
[2017-06-07] MEDS: VANCOMYCIN 1,000 MG/NS 250 ML IV SCH ×4 (02:28→17:00)
[2017-06-07] MEDS: LORazepam 0.5 MG TAB PO PRN ×2 (05:32→19:59)
[2017-06-07] MEDS: SODIUM CHLOR 0.9% 1000 ML INJ 1,000 ML IV SCH ×2 (05:36→17:00)
[2017-06-07] MEDS: DOCUSATE SODIUM 50 MG/SENNA 8.6 MG TAB PO SCH ×2 (09:46→19:49)
[2017-06-07] MEDS: SODIUM CHLORIDE 0.9% FLUSH 10 ML FLUSH IV FLUSH SCH ×2 (09:46→19:49)
[2017-06-07] MEDS: RIFAMPIN 150 MG CAP PO SCH (09:51)
--- NOTE | 2017-06-07 11:31 | PD.CARD.PN ---
Subjective Subjective Remarks No events overnight No chest pain/SOB Objective Medications Current Medications Medications (Trade) Dose Ordered Sig/Peter Route Start Time Stop Time Status Last Admin (NS 1000 ml Inj) 1,000 ml @ 100 mls/hr Q10H IV 06/05/17 14:00 06/07/17 05:36 (NS Flush) 2 ml UNSCH PRN IV FLUSH 06/05/17 13:45 (NS Flush) 2 ml BID IV FLUSH 06/05/17 21:00 06/06/17 21:37 (Tylenol) 650 mg Q4H PRN PO 06/05/17 13:45 06/06/17 03:42 (Zofran Inj) 4 mg Q6H PRN IVP 06/05/17 13:45 (Narcan Inj) 0.4 mg UNSCH PRN IV 06/05/17 13:45 (Judy-Colace) 1 tab BID PO 06/05/17 21:00 06/06/17 08:58 (Milk Of Magnesia Liq) 30 ml Q12H PRN PO 06/05/17 13:45 (Senokot) 17.2 mg Q12H PRN PO 06/05/17 13:45 (Dulcolax Supp) 10 mg DAILY PRN RECTAL 06/05/17 13:45 Lactulose 30 ml 30 ml DAILY PRN PO 06/05/17 13:45 Pharmacy Profile Note 0 ml @ 0 mls/hr UNSCH OTHER 06/05/17 14:00 Pharmacy Profile Note 0 ml @ 0 mls/hr UNSCH OTHER 06/05/17 14:00 Hold (Heparin-D5W Inj) 250 ml @ 0 mls/hr TITRATE IV 06/05/17 14:00 Future Hold 06/06/17 17:25 (Percocet 5-325 Mg) 1 tab Q4H PRN PO 06/05/17 14:30 (Percocet 5-325 Mg) 2 tab Q4H PRN PO 06/05/17 14:30 06/07/17 09:51 (Ativan) 0.5 mg Q8H PRN PO 06/05/17 14:30 06/07/17 05:32 (Morphine Inj) 2 mg Q3H PRN IV PUSH 06/05/17 14:30 06/07/17 01:42 (Motrin) 800 mg Q8H PRN PO 06/05/17 14:45 (Protonix Inj) 40 mg Q24H IV PUSH 06/05/17 16:00 06/06/17 17:26 Warfarin Sodium 4 mg 4 mg DAILY@16 PO 06/05/17 16:00 Hold 06/05/17 16:24 (Vancomycin Inj/ NS 250 ml Inj) 250 ml @ 250 mls/hr Q12H IV 06/06/17 02:00 06/07/17 02:28 (Rifampin) 300 mg Q12H PO 06/06/17 11:00 06/07/17 09:51 Miscellaneous Information SPECIFIC LAB TO BE DRAWN:VANCOMYCIN TROUGH DATE TO... ONCE ONCE .XX 06/09/17 01:45 06/09/17 01:46 Vital Signs / I&O Vital Signs Date Time Temp Pulse Resp B/P Pulse Ox O2 Delivery O2 Flow Rate FiO2 06/07/17 08:00 97.5 85 18 142/76 93 06/07/17 04:00 98.3 89 18 162/86 94 06/07/17 00:00 98.2 93 20 164/89 93 06/06/17 23:24 21 06/06/17 20:00 97.8 102 18 152/82 92 06/06/17 14:30 97.6 97 20 143/83 91 06/06/17 13:00 77 21 132/79 97 06/06/17 12:00 98.4 70 19 121/81 98 06/06/17 12:00 70 06/06/17 11:47 75 22 122/80 97 06/06/17 11:45 71 21 118/76 I/O 06/06/17 06/06/17 06/06/17 06/07/17 06/07/17 06/07/17 07:00 15:00 23:00 07:00 15:00 23:00 Intake Total 1030 ml 180 ml 373 ml 696 ml Output Total 300 ml Balance 1030 ml -120 ml 373 ml 696 ml Intake Oral 240 ml 180 ml 240 ml 240 ml IV Total 790 ml 133 ml 456 ml Output Urine Total 300 ml # Voids 2 2 4 1 # Bowel Movements 1 0 Physical Exam GENERAL: NAD, AAOx3 SKIN: Warm and dry. HEAD: Atraumatic. Normocephalic. EYES: Pupils equal and round. No scleral icterus. No injection or drainage. ENT: No nasal bleeding or discharge. Mucous membranes pink and moist. NECK: Trachea midline. No JVD. CARDIOVASCULAR: Regular rate and rhythm. RESPIRATORY: No accessory muscle use. Clear to auscultation. Breath sounds equal bilaterally. GASTROINTESTINAL: Abdomen soft, non-tender, nondistended. Hepatic and splenic margins not palpable. MUSCULOSKELETAL: Left hand with mild edema/erythema NEUROLOGICAL: Awake and alert. No obvious cranial nerve deficits. Motor grossly within normal limits. Five out of 5 muscle strength in the arms and legs. Normal speech. PSYCHIATRIC: Appropriate mood and affect; insight and judgment normal. Laboratory Laboratory Tests Test 06/06/17 06/06/17 17:23 23:35 Activated Partial 38.8 SEC 44.9 SEC Thromboplast Time Assessment and Plan Problem List: (1) Pneumonia (2) Sepsis (3) DVT (deep venous thrombosis) (4) IVDA (intravenous drug abuse) complicating (5) Bacteremia Assessment and Plan 1) Recent bacteremia, concern for endocarditis Previously denied MIREILLE but willing to undergo now 2) On heparin drip/Coumadin for DVT in arm Coumadin held, awaiting INR 3) Plan MIREILLE in the morning Coumadin held Check INR in the am Heparin drip held in the am NPO after midnight Problem Qualifiers (1) Pneumonia: Qualified Code: J18.9 - Pneumonia due to infectious organism, unspecified laterality, unspecified part of lung (2) Sepsis: Qualified Code: A41.9 - Sepsis, due to unspecified organism David Spear DO Jun 07, 2017 11:31
[2017-06-07 12:13] LABS: HEMATOCRIT 24.4 % (35.0-46.0); MEAN CELL VOLUME 94.2 FL (80.0-100.0); MEAN CORPUSCULAR HEMOGLOBIN 32.5 PG (27.0-34.0); MEAN CORPUSCULAR HGB CONC 34.5 % (32.0-36.0); PLATELET COUNT 327 TH/MM3 (150-450); RED BLOOD COUNT 2.59 MIL/MM3 (4.00-5.30); RED CELL DISTRIBUTION WIDTH 14.4 % (11.6-17.2); REVIEW FLAG FINAL; WHITE BLOOD COUNT 9.9 TH/MM3 (4.0-11.0)
[2017-06-07 12:18] LABS: APTT (PATIENT) 37.8 SEC (24.3-30.1); INTERNATIONAL NORMALIZED RATIO 1.3 RATIO; PROTHROMBIN TIME - PATIENT 14.7 SEC (9.8-11.6)
[2017-06-07 12:31] LABS: BICARBONATE 21.3 MEQ/L (21.0-32.0); POTASSIUM 3.3 MEQ/L (3.5-5.1)
--- NOTE | 2017-06-07 16:49 | HHI.PR ---
Subjective Remarks Patient seen today around noon. Says he is feeling all right. Reports irritation at Nugent site. Would like to have Nugent out as soon as possible. Denies any chest pain or shortness of breath Objective Vital Signs Date Time Temp Pulse Resp B/P Pulse Ox O2 Delivery O2 Flow Rate FiO2 06/07/17 12:26 Nasal Cannula 3.00 06/07/17 12:00 97.8 88 16 151/75 90 06/07/17 09:53 Nasal Cannula 2.00 06/07/17 08:00 97.5 85 18 142/76 93 06/07/17 04:00 98.3 89 18 162/86 94 06/07/17 00:00 98.2 93 20 164/89 93 06/06/17 23:24 21 06/06/17 20:00 97.8 102 18 152/82 92 I/O 06/06/17 06/06/17 06/06/17 06/07/17 06/07/17 06/07/17 06:59 14:59 22:59 06:59 14:59 22:59 Intake Total 1030 ml 180 ml 373 ml 696 ml 2403 ml Output Total 300 ml Balance 1030 ml -120 ml 373 ml 696 ml 2403 ml Intake Oral 240 ml 180 ml 240 ml 240 ml 2403 ml IV Total 790 ml 133 ml 456 ml Output Urine Total 300 ml # Voids 2 2 4 1 2 # Bowel Movements 1 0 1 Result Diagram: 06/07/17 1133 06/07/17 1133 Objective Remarks GENERAL: Lying in bed. Appears comfortable. SKIN: Warm and dry. HEAD: Normocephalic. EYES: No scleral icterus. No injection or drainage. NECK: Supple, trachea midline. No JVD. CARDIOVASCULAR: Regular rate and rhythm without murmurs, gallops, or rubs. RESPIRATORY: Breath sounds equal bilaterally. No accessory muscle use. GASTROINTESTINAL: Abdomen soft, non-tender, nondistended. MUSCULOSKELETAL: No cyanosis, or edema. BACK: Nontender without obvious deformity. No CVA tenderness. A/P Assessment and Plan ====06/07/17======= //Bacteremia. cont IV Antibiotics as per infectious disease. MIREILLE planned for tomorrow. //Pneumonia as seen on CT chest. With hypoxic respiratory failure. Started on duo nebs. Start Zosyn. Even though this is likely secondary to septic emboli, will need to cover for healthcare associated pneumonia. //Hypokalemia. Potassium 3.3. Low. Replaced. 42-year-old female IV drug user with a recent admission due to severe sepsis from pneumonia and MRSA/group a strep bacteremia and left AMA on 06/04 and is back for treatment //Severe sepsis source may be secondary to right lower lobe pneumonia and bacteremia. -Labs review showing normal WBC with bandemia. Creatinine elevated with GFR 22. Chest x-ray showed right lower lobe infiltrate. UA negative. Repeat a chest x-ray shows increased right lower lobe effusion and infiltrate. - Positive blood cultures. -Infectious disease consulted. -See treatment as below. //Acute respiratory failure with hypoxia -Secondary to sepsis, bacteremia and pneumonia. -Continue supplement oxygen. Treat underlying condition. See treatment as below. -Chest x-ray does show increase right lower lobe effusion. -Now on 2 L nasal cannula and clinically improving. //MRSA bacteremia -06/01 All 4 cultures positive showing MRSA, group a strep, and bacillus not anthrax. Repeat blood cultures on 06/01/17 4/4 MRSA. Blood cultures on 06/02/17 1/2 culture positive for MRSA. 06/03/17 1 out of 2 positive for MRSA. 06/04 blood cultures negative 1 day. -06/05/17 pending blood cultures. - Echo shows no lesion. Medication Nurse was consulted on the last admission before she was AMA. Patient agreed to MIREILLE. Pending reconsult from operator lights. -Continue vancomycin, rifampin per infectious disease recommendation. //Community-acquired pneumonia -Checks x-ray show infiltrate in the right lower lobe. Repeat chest x-ray on show increase right lower lobe infiltrate/pleural effusion. - -pneumococcal and Legionella antigen negative. -Patient is on cefepime and vancomycin. -Clinically patient is improving. Continue with current regimen. //Severe hypokalemia/hypo-magnesium -Potassium 2.7 and magnesium 1.4 on admission. -Resolved. -Replenish as needed. //Tachycardia -Intermittent. Improving. -May be secondary to anxiety common withdrawals, severe sepsis. -Patient has Ativan for anxiety and pain medication. -Will also treat underlying illness and monitor closely. //Left arm DVT -Ultrasound Doppler showed Deep venous thrombosis with nonocclusive thrombus in the peripheral brachial vein. 2. Occlusive thrombus in the entire superficial cephalic vein. -Resort Desk Clerk was consulted on last admission. Recommended bridging to Coumadin. On Coumadin bridging with heparin. //Thrombocytopenia -No signs of any active bleed. There is no recent baseline. Last baseline in 2012 and it was normal. -Most likely secondary to consumption. -Resort Desk Clerk consulted and following. Patient positive for hepatitis C. HIV negative. -Resolved. //Hepatitis C -Patient is an active IV drug user. -LFTs normal. Liver ultrasound also normal. Follows outpatient. //Current IV drug use with crystal meth -Education given and discouraged use of crystal meth. //DVT prophylaxis -On heparin drip. Discharge Planning When cleared by infectious disease Juan Be MD Jun 07, 2017 16:49
[2017-06-07] MEDS: PANTOPRAZOLE SODIUM 40 MG VIAL IV PUSH SCH (17:00)
[2017-06-07] MEDS ORDERED: POTASSIUM CHLORIDE 20 MEQ CONTROLLED RELEASE TAB PO ONE (17:00)
[2017-06-07] MEDS: PIPERACIL-TAZO 4.5 GM PREMIX 100 ML IV SCH (18:39)
[2017-06-07] MEDS: RESP: ALBUTEROL 2.5 MG/IPRATROPIUM 0.5 MG NEB (SCH) NEB (20:51)
[2017-06-07 21:38] LABS: APTT (PATIENT) 34.9 SEC (24.3-30.1)
[2017-06-08] VITALS (8 sets, daily range): BP systolic 120–153; BP diastolic 68–80; PULSE 79–103; RESP 18–20; TEMP 97.6–98.6; O2SAT 92–98
[2017-06-08] MEDS: PIPERACIL-TAZO 4.5 GM PREMIX 100 ML IV SCH ×5 (00:40→23:38)
[2017-06-08] MEDS: RIFAMPIN 150 MG CAP PO SCH ×3 (01:06→23:38)
[2017-06-08] MEDS: MORPHINE SULFATE 4 MG/ML INJ IV PUSH PRN ×5 (01:07→23:39)
[2017-06-08] MEDS: VANCOMYCIN 1,000 MG/NS 250 ML IV SCH ×4 (01:07→13:27)
[2017-06-08] MEDS: HEPARIN-D5W INJ 250 ML IV SCH (01:33)
[2017-06-08] MEDS: SODIUM CHLOR 0.9% 1000 ML INJ 1,000 ML IV SCH ×3 (02:24→21:05)
[2017-06-08] MEDS: RESP: ALBUTEROL 2.5 MG/IPRATROPIUM 0.5 MG NEB (SCH) NEB ×4 (03:40→19:47)
[2017-06-08] MEDS: oxyCODONE/ACETAMINOPHEN 5 MG/325 MG TAB PO PRN ×4 (05:07→21:03)
[2017-06-08] MEDS: LORazepam 0.5 MG TAB PO PRN ×2 (05:48→16:46)
[2017-06-08 06:15] LABS: HEMATOCRIT 25.8 % (35.0-46.0); MEAN CELL VOLUME 94.6 FL (80.0-100.0); MEAN CORPUSCULAR HEMOGLOBIN 31.2 PG (27.0-34.0); PLATELET COUNT 389 TH/MM3 (150-450); RED BLOOD COUNT 2.73 MIL/MM3 (4.00-5.30); RED CELL DISTRIBUTION WIDTH 14.5 % (11.6-17.2); REVIEW FLAG FINAL
[2017-06-08 06:27] LABS: APTT (PATIENT) 31.8 SEC (24.3-30.1); INTERNATIONAL NORMALIZED RATIO 1.1 RATIO; PROTHROMBIN TIME - PATIENT 12.7 SEC (9.8-11.6)
[2017-06-08 06:37] LABS: BICARBONATE 25.1 MEQ/L (21.0-32.0); MAGNESIUM 1.5 MG/DL (1.5-2.5); POTASSIUM 3.3 MEQ/L (3.5-5.1)
[2017-06-08] MEDS: DOCUSATE SODIUM 50 MG/SENNA 8.6 MG TAB PO SCH ×2 (07:54→21:04)
[2017-06-08] MEDS: SODIUM CHLORIDE 0.9% FLUSH 10 ML FLUSH IV FLUSH SCH ×2 (07:54→21:04)
[2017-06-08] MEDS ORDERED: MIDAZOLAM HCL 2 MG/2 ML VIAL ONE (08:25)
--- NOTE | 2017-06-08 10:07 | ECHRPT ---
Indication: Acute and subacute endocarditis, unspecified CONCLUSIONS The left ventricular systolic function is low normal with an estimated ejection fraction in the rang e of 50- 55%. The mitral valve vegetation appears to be on ventricular (2.2cm x 1.2cm) and atrial side (1.3cm x 0. 8cm). Mild mitral valve regurgitation (noted with blood pressure normalized with Tyrone). In limited views from the subcostal, there appears to be an echo density (0.7cm x 0.7cm) with indepe ndent cardiac motion on the aortic valve, possibly a vegetation. Moderate aortic valve regurgitation. Mobile vegetation (1.1cm x 1.0cm) noted on the the triscuspid valve. There is mild tricuspid valve regurgitation. BP: / HR: Rhythm: Sinus Technical Quality:Good Medications Complications None Proc. Components Consent obtained. Anesthesia at bedside. During procedure, BP mildly low so giv en Tyrone to make sure MR was not worse than what I was seeing. FINDINGS LEFT VENTRICLE Normal left ventricular size. Wall thickness is normal. The left ventricular systolic function is low normal with an estimated ejection fraction in the rang e of 50- 55%. No regional wall motion abnormalities are present. RIGHT VENTRICLE Normal right ventricular size and systolic function. LEFT ATRIUM The left atrial size is normal. RIGHT ATRIUM The right atrial size is normal. ATRIAL APPENDAGES Normal left atrial appendage size with no evidence of thrombus formation. ATRIAL SEPTUM Normal atrial septal thickness without atrial level shunting by limited color doppler interrogation. AORTA The aortic root and proximal ascending aorta are normal in size on limited imaging. MITRAL VALVE Structurally normal mitral valve. No mitral valve stenosis. Mild mitral valve regurgitation (noted with blood pressure normalized with Tyrone) Mobile echodensity is noted on the mitral valve consistent with vegetation. The vegetation appears to be on ventricular (2.2cm x 1.2cm) and atrial side (1.3cm x 0.8cm) AORTIC VALVE Trileaflet aortic valve. No aortic valve stenosis. Moderate aortic valve regurgitation. In limited views from the subcostal, there appears to be an echo density (0.7cm x 0.7cm) with indepe ndent cardiac motion on the aortic valve, possibly a vegetation TRICUSPID VALVE Structurally normal tricuspid valve. No tricuspid valve stenosis. There is mild tricuspid valve regurgitation. Mobile vegetation (1.1cm x 1.0cm) noted on the the triscuspid valve VESSELS No pulmonary valve regurgitation or stenosis. David Spear DO (Electronically Signed) Final Date:08 June 2017 10:06
--- NOTE | 2017-06-08 12:26 | PD.CONS ---
History of Present Illness Service CT Surgery Consult Requested By Dr. Be Reason for Consult MRSA endocarditis, sepsis Primary Care Physician No Primary Care Physician Diagnoses: (1) IVDA (intravenous drug abuse) complicating (2) Sepsis (3) Endocarditis History of Present Illness Patient is a 42-year-old female complaining chest discomfort and dyspnea with fever and chills. She was also complaining of pain in her left hand. She has known IV drug use. Patient on her hospitalization was found to have blood cultures with MRSA, and group A strep. The group A strep was positive in the first 2 blood cultures on admission. Subsequent blood cultures grew MRSA from , 06/02, and 06/03. Her left upper extremity cellulitis also improved. She refused MIREILLE, and she signed out AGAINST MEDICAL ADVICE on June 04. She returned to the ED complaining of generalized aches and weakness. Her urine drug screen on this admission is negative except for benzodiazepine. Patient underwent MIREILLE this morning which shows moderate AI, mild TR and MR with vegetations on all 3 valves. During her last admission, she tested positive for hepatitis C, and has HIV negative test. Review of Systems Constitutional: COMPLAINS OF: Diaphoretic episodes, Fatigue, Fever, Weight loss , Chills, Change in appetite, Night Sweats, DENIES: Weight gain, Dizziness Endocrine: DENIES: Abnorml menstrual pattern, Heat/cold intolerance, Polydipsia , Polyuria, Polyphagia Eyes: DENIES: Blurred vision, Diplopia, Eye inflammation, Eye pain, Vision loss , Photosensitivity, Double Vision Ears, nose, mouth, throat: DENIES: Tinnitus, Hearing loss, Vertigo, Nasal discharge, Oral lesions, Throat pain, Hoarseness, Ear Pain, Running Nose, Epistaxis, Sinus Pain, Toothache, Odynophagia Respiratory: COMPLAINS OF: Cough, DENIES: Apneas, Snoring, Wheezing, Hemoptysis, Sputum production, Shortness of breath Cardiovascular: COMPLAINS OF: Chest pain, DENIES: Palpitations, Syncope, Dyspnea on Exertion, PND, Lower Extremity Edema, Orthopnea, Claudication Gastrointestinal: COMPLAINS OF: Nausea, DENIES: Abdominal pain, Black stools, Bloody stools, Constipation, Diarrhea, Vomiting, Difficulty Swallowing, Anorexia Genitourinary: DENIES: Abnormal vaginal bleeding, Dysmenorrhea, Dyspareunia, Sexual dysfunction, Urinary frequency, Urinary incontinence, Urgency, Hematuria , Dysuria, Nocturia, Vaginal discharge Musculoskeletal: COMPLAINS OF: Muscle aches, Stiffness, DENIES: Joint pain, Joint Swelling, Back pain, Neck pain Integumentary: DENIES: Abnormal pigmentation, Pruritus, Rash, Nail changes, Breast masses, Breast skin changes, Nipple discharge Hematologic/lymphatic: DENIES: Bruising, Lymphadenopathy Immunologic/allergic: DENIES: Eczema, Urticaria Neurologic: DENIES: Abnormal gait, Headache, Localized weakness, Paresthesias, Seizures, Speech Problems, Tremor, Poor Balance Psychiatric: DENIES: Anxiety, Confusion, Mood changes, Depression, Hallucinations, Agitation, Suicidal Ideation, Homicidal Ideation, Delusions Past Family Social History Allergies: Coded Allergies: *MDRO Multi-Drug Resistant Organism (Verified Adverse Reaction, Unknown, ) MRSA (blood) 05/31/17, 06/01/17, 06/02/17, 06/03/17 Past Medical History Past Medical History History cervical cancer Recent IV drug use the past year using crystal meth Past Surgical History History of LEEP procedure. Tubal ligation Reported Medications none Active Ordered Medications Current Medications Medications (Trade) Dose Ordered Sig/Peter Route Start Time Stop Time Status Last Admin (NS 1000 ml Inj) 1,000 ml @ 100 mls/hr Q10H IV 06/05/17 14:00 06/08/17 02:24 (NS Flush) 2 ml UNSCH PRN IV FLUSH 06/05/17 13:45 (NS Flush) 2 ml BID IV FLUSH 06/05/17 21:00 06/08/17 07:54 (Tylenol) 650 mg Q4H PRN PO 06/05/17 13:45 06/06/17 03:42 (Zofran Inj) 4 mg Q6H PRN IVP 06/05/17 13:45 (Narcan Inj) 0.4 mg UNSCH PRN IV 06/05/17 13:45 (Judy-Colace) 1 tab BID PO 06/05/17 21:00 06/06/17 08:58 (Milk Of Magnesia Liq) 30 ml Q12H PRN PO 06/05/17 13:45 (Senokot) 17.2 mg Q12H PRN PO 06/05/17 13:45 (Dulcolax Supp) 10 mg DAILY PRN RECTAL 06/05/17 13:45 Lactulose 30 ml 30 ml DAILY PRN PO 06/05/17 13:45 Pharmacy Profile Note 0 ml @ 0 mls/hr UNSCH OTHER 06/05/17 14:00 Pharmacy Profile Note 0 ml @ 0 mls/hr UNSCH OTHER 06/05/17 14:00 Hold (Heparin-D5W Inj) 250 ml @ 0 mls/hr TITRATE IV 06/05/17 14:00 Hold 06/08/17 01:33 (Percocet 5-325 Mg) 1 tab Q4H PRN PO 06/05/17 14:30 (Percocet 5-325 Mg) 2 tab Q4H PRN PO 06/05/17 14:30 06/08/17 09:48 (Ativan) 0.5 mg Q8H PRN PO 06/05/17 14:30 06/08/17 05:48 (Morphine Inj) 2 mg Q3H PRN IV PUSH 06/05/17 14:30 06/08/17 07:52 (Motrin) 800 mg Q8H PRN PO 06/05/17 14:45 (Protonix Inj) 40 mg Q24H IV PUSH 06/05/17 16:00 06/07/17 17:00 Warfarin Sodium 4 mg 4 mg DAILY@16 PO 06/05/17 16:00 Hold 06/05/17 16:24 (Vancomycin Inj/ NS 250 ml Inj) 250 ml @ 250 mls/hr Q12H IV 06/06/17 02:00 06/08/17 01:07 (Rifampin) 300 mg Q12H PO 06/06/17 11:00 06/08/17 01:06 Miscellaneous Information SPECIFIC LAB TO BE DRAWN:VANCOMYCIN TROUGH DATE TO... ONCE ONCE .XX 06/09/17 01:45 06/09/17 01:46 (Zosyn 4.5 Gm Premix) 100 ml @ 200 mls/hr Q6H IV 06/07/17 18:00 06/08/17 05:47 Family History unremarkable Social History Active IV drug use Meth use Tobacco abuse Physical Exam Vital Signs Vital Signs Date Time Temp Pulse Resp B/P Pulse Ox O2 Delivery O2 Flow Rate FiO2 06/08/17 09:53 Nasal Cannula 4.00 06/08/17 09:37 Nasal Cannula 3.00 06/08/17 08:00 97.6 80 20 138/70 95 06/08/17 04:00 97.9 94 20 149/80 92 06/08/17 03:41 93 Nasal Cannula 3.00 06/08/17 00:00 98.6 79 18 153/75 93 06/07/17 20:00 Nasal Cannula 2.00 06/07/17 20:00 98.4 75 18 141/78 96 06/07/17 17:20 96 Nasal Cannula 3.00 06/07/17 17:00 93 Nasal Cannula 3.00 06/07/17 16:00 98.0 95 16 155/83 96 06/07/17 12:26 Nasal Cannula 3.00 Physical Exam GENERAL: This is a malnourished, cachectic patient, in no apparent distress. SKIN: No rashes, ecchymoses or lesions. Cool and dry. HEAD: Atraumatic. Normocephalic. No temporal or scalp tenderness. EYES: Pupils equal round and reactive. Extraocular motions intact. No scleral icterus. No injection or drainage. ENT: Nose without bleeding, purulent drainage or septal hematoma. Throat without erythema, tonsillar hypertrophy or exudate. Uvula midline. Airway patent. NECK: Trachea midline. No JVD or lymphadenopathy. Supple, nontender, no meningeal signs. CARDIOVASCULAR: Regular rate and rhythm without murmurs, gallops, or rubs. RESPIRATORY: Clear to auscultation. Breath sounds equal bilaterally. No wheezes , rales, or rhonchi. GASTROINTESTINAL: Abdomen soft, non-tender, nondistended. No hepato-splenomegaly , or palpable masses. No guarding. MUSCULOSKELETAL: Extremities without clubbing, cyanosis, or edema. No joint tenderness, effusion, or edema noted. No calf tenderness. Negative Homans sign bilaterally. NEUROLOGICAL: Awake and alert. Cranial nerves II through XII intact. Motor and sensory grossly within normal limits. Five out of 5 muscle strength in all muscle groups. Normal speech. Laboratory Laboratory Tests Test 06/07/17 06/08/17 20:47 05:40 Activated Partial 34.9 31.8 Thromboplast Time White Blood Count 10.0 Red Blood Count 2.73 Hemoglobin 8.5 Hematocrit 25.8 Mean Corpuscular Volume 94.6 Mean Corpuscular Hemoglobin 31.2 Mean Corpuscular Hemoglobin 33.0 Concent Red Cell Distribution Width 14.5 Platelet Count 389 Mean Platelet Volume 8.8 Prothrombin Time 12.7 Prothromb Time International 1.1 Ratio Sodium Level 143 Potassium Level 3.3 Chloride Level 109 Carbon Dioxide Level 25.1 Anion Gap 9 Blood Urea Nitrogen 5 Creatinine 0.67 Estimat Glomerular Filtration 97 Rate Random Glucose 78 Calcium Level 7.5 Phosphorus Level 3.2 Magnesium Level 1.5 Albumin 1.5 Date/Time Procedure Status Source Growth 06/05/17 12:40 Aerobic Blood Culture - Preliminary Resulted Blood Peripheral NO GROWTH IN 3 DAYS 06/05/17 12:40 Anaerobic Blood Culture - Preliminary Resulted Blood Peripheral NO GROWTH IN 3 DAYS Result Diagram: 06/08/17 0540 06/08/17 0540 Imaging Last Impressions Chest CT 06/06/17 0000 Signed Impressions: Service Date/Time: Tuesday, June 06, 2017 11:24 - CONCLUSION: Small bilateral pleural effusions, dense airspace consolidation bilaterally worse on the right highly suspicious for pneumonia. Nahun Mcqueen MD Chest X-Ray 06/05/17 1208 Signed Impressions: Service Date/Time: Monday, June 05, 2017 12:09 - CONCLUSION: 1. Stable diffuse infiltrate within the right lung consistent with probable pneumonia. Clinical correlation is recommended. Dagoberto Harmon MD MIREILLE: CONCLUSIONS The left ventricular systolic function is low normal with an estimated ejection fraction in the range of 50- 55%. The mitral valve vegetation appears to be on ventricular (2.2cm x 1.2cm) and atrial side (1.3cm x 0.8cm). Mild mitral valve regurgitation (noted with blood pressure normalized with Tyrone) . In limited views from the subcostal, there appears to be an echo density ( 0.7cm x 0.7cm) with independent cardiac motion on the aortic valve, possibly a vegetation. Moderate aortic valve regurgitation. Mobile vegetation (1.1cm x 1.0cm) noted on the the triscuspid valve. There is mild tricuspid valve regurgitation. Course The patient is stable on IV antibiotics currently. Assessment and Plan Problem List: (1) Endocarditis Status: Acute (2) IVDA (intravenous drug abuse) complicating Status: Acute (3) Sepsis Status: Acute Assessment and Plan Unfortunate 42 y/o female presents with MRSA sepsis, and endocarditis with vegetations present on the mitral, tricuspid, and aortic valves. She has no evidence of heart failure at this time. Given her h/o non-compliance and IVDA, I would not consider her a surgical candidate. Her operative risk is prohibitive and long-term prognosis very poor. Discussed Condition With patient Problem Qualifiers (1) Sepsis: Qualified Code: A41.9 - Sepsis, due to unspecified organism (2) Endocarditis: Qualified Code: I33.0 - Acute bacterial endocarditis Vannessa Eagle MD Jun 08, 2017 12:25
--- NOTE | 2017-06-08 15:54 | HHI.IDPN ---
Note Infectious Disease Note D/W Dr Rainer richardson with evidence of vegetation in MV, TV and AV BC all positive up to 06/05 CTS evaluation noted - patient not a surgical candidate She is on IV Vanco and Rifampin Will need to increase dose of Vanco to aim for higher trough Vanco E-test 1.5 Repeat BC ordered May need to change Abx if continues to be (+) Yumiko Brown MD, MD Jun 08, 2017 15:54
[2017-06-08] MEDS ORDERED: Vancomycin Consult Pharmacy 1 EA OTHER SCH (16:00)
[2017-06-08] MEDS: PANTOPRAZOLE SODIUM 40 MG VIAL IV PUSH SCH (16:21)
--- NOTE | 2017-06-08 16:55 | PD.CARD.PN ---
Subjective Subjective Remarks Doing well post-MIREILLE No chest pain/SOB Objective Medications Current Medications Medications (Trade) Dose Ordered Sig/Peter Route Start Time Stop Time Status Last Admin (NS 1000 ml Inj) 1,000 ml @ 100 mls/hr Q10H IV 06/05/17 14:00 06/08/17 02:24 (NS Flush) 2 ml UNSCH PRN IV FLUSH 06/05/17 13:45 (NS Flush) 2 ml BID IV FLUSH 06/05/17 21:00 06/08/17 07:54 (Tylenol) 650 mg Q4H PRN PO 06/05/17 13:45 06/06/17 03:42 (Zofran Inj) 4 mg Q6H PRN IVP 06/05/17 13:45 (Narcan Inj) 0.4 mg UNSCH PRN IV 06/05/17 13:45 (Judy-Colace) 1 tab BID PO 06/05/17 21:00 06/06/17 08:58 (Milk Of Magnesia Liq) 30 ml Q12H PRN PO 06/05/17 13:45 (Senokot) 17.2 mg Q12H PRN PO 06/05/17 13:45 (Dulcolax Supp) 10 mg DAILY PRN RECTAL 06/05/17 13:45 Lactulose 30 ml 30 ml DAILY PRN PO 06/05/17 13:45 Pharmacy Profile Note 0 ml @ 0 mls/hr UNSCH OTHER 06/05/17 14:00 Hold (Heparin-D5W Inj) 250 ml @ 0 mls/hr TITRATE IV 06/05/17 14:00 06/08/17 01:33 (Percocet 5-325 Mg) 1 tab Q4H PRN PO 06/05/17 14:30 (Percocet 5-325 Mg) 2 tab Q4H PRN PO 06/05/17 14:30 06/08/17 16:41 (Ativan) 0.5 mg Q8H PRN PO 06/05/17 14:30 06/08/17 16:46 (Morphine Inj) 2 mg Q3H PRN IV PUSH 06/05/17 14:30 06/08/17 13:30 (Motrin) 800 mg Q8H PRN PO 06/05/17 14:45 (Protonix Inj) 40 mg Q24H IV PUSH 06/05/17 16:00 06/08/17 16:21 Warfarin Sodium 4 mg 4 mg DAILY@16 PO 06/05/17 16:00 Hold 06/05/17 16:24 (Vancomycin Inj/ NS 250 ml Inj) 250 ml @ 250 mls/hr Q12H IV 06/06/17 02:00 06/08/17 13:27 (Rifampin) 300 mg Q12H PO 06/06/17 11:00 06/08/17 12:19 Miscellaneous Information SPECIFIC LAB TO BE DRAWN:VANCOMYCIN TROUGH DATE TO... ONCE ONCE .XX 06/09/17 01:45 06/09/17 01:46 Piperacillin Sod/ Tazobactam Sod 100 ml @ 200 mls/hr Q6H IV 06/07/17 18:00 06/08/17 12:19 (Vancomycin Consult Pharmacy) 0 ml @ 0 mls/hr UNSCH OTHER 06/08/17 16:00 Vital Signs / I&O Vital Signs Date Time Temp Pulse Resp B/P Pulse Ox O2 Delivery O2 Flow Rate FiO2 06/08/17 13:00 Nasal Cannula 3.00 06/08/17 12:00 98.4 94 20 126/78 93 06/08/17 09:53 Nasal Cannula 4.00 06/08/17 09:37 Nasal Cannula 3.00 06/08/17 08:00 97.6 80 20 138/70 95 06/08/17 04:00 97.9 94 20 149/80 92 06/08/17 03:41 93 Nasal Cannula 3.00 06/08/17 00:00 98.6 79 18 153/75 93 06/07/17 20:00 Nasal Cannula 2.00 06/07/17 20:00 98.4 75 18 141/78 96 06/07/17 17:20 96 Nasal Cannula 3.00 06/07/17 17:00 93 Nasal Cannula 3.00 I/O 06/07/17 06/07/17 06/07/17 06/08/17 06/08/17 06/08/17 07:00 15:00 23:00 07:00 15:00 23:00 Intake Total 696 ml 2403 ml 2389 ml 1085 ml Output Total 1200 ml Balance 696 ml 2403 ml 2389 ml -115 ml Intake Oral 240 ml 2403 ml 240 ml 0 ml IV Total 456 ml 2149 ml 1085 ml Output Urine Total 1200 ml # Voids 1 2 3 # Bowel Movements 0 1 0 0 Physical Exam GENERAL: NAD, AAOx3 SKIN: Warm and dry. HEAD: Atraumatic. Normocephalic. EYES: Pupils equal and round. No scleral icterus. No injection or drainage. ENT: No nasal bleeding or discharge. Mucous membranes pink and moist. NECK: Trachea midline. No JVD. CARDIOVASCULAR: Regular rate and rhythm. RESPIRATORY: No accessory muscle use. Clear to auscultation. Breath sounds equal bilaterally. GASTROINTESTINAL: Abdomen soft, non-tender, nondistended. Hepatic and splenic margins not palpable. MUSCULOSKELETAL: Left hand with mild edema/erythema NEUROLOGICAL: Awake and alert. No obvious cranial nerve deficits. Motor grossly within normal limits. Five out of 5 muscle strength in the arms and legs. Normal speech. PSYCHIATRIC: Appropriate mood and affect; insight and judgment normal. Laboratory Laboratory Tests Test 06/07/17 06/08/17 20:47 05:40 Activated Partial 34.9 SEC 31.8 SEC Thromboplast Time White Blood Count 10.0 TH/MM3 Red Blood Count 2.73 MIL/MM3 Hemoglobin 8.5 GM/DL Hematocrit 25.8 % Mean Corpuscular Volume 94.6 FL Mean Corpuscular Hemoglobin 31.2 PG Mean Corpuscular Hemoglobin 33.0 % Concent Red Cell Distribution Width 14.5 % Platelet Count 389 TH/MM3 Mean Platelet Volume 8.8 FL Prothrombin Time 12.7 SEC Prothromb Time International 1.1 RATIO Ratio Sodium Level 143 MEQ/L Potassium Level 3.3 MEQ/L Chloride Level 109 MEQ/L Carbon Dioxide Level 25.1 MEQ/L Anion Gap 9 MEQ/L Blood Urea Nitrogen 5 MG/DL Creatinine 0.67 MG/DL Estimat Glomerular Filtration 97 ML/MIN Rate Random Glucose 78 MG/DL Calcium Level 7.5 MG/DL Phosphorus Level 3.2 MG/DL Magnesium Level 1.5 MG/DL Albumin 1.5 GM/DL Assessment and Plan Problem List: (1) Pneumonia (2) Sepsis (3) DVT (deep venous thrombosis) (4) IVDA (intravenous drug abuse) complicating (5) Bacteremia Assessment and Plan 1) Recent bacteremia, concern for endocarditis Previously denied MIREILLE but willing to undergo now 2) On heparin drip/Coumadin for DVT in arm 3) MIREILLE today showing endocarditis of the AV/MV/TV Moderate AR, mild MR/TR 4) Not a surgical candidate 5) Discussed with ID and CT surgery Problem Qualifiers (1) Pneumonia: Qualified Code: J18.9 - Pneumonia due to infectious organism, unspecified laterality, unspecified part of lung (2) Sepsis: Qualified Code: A41.9 - Sepsis, due to unspecified organism David Spear DO Jun 08, 2017 16:55
[2017-06-08 17:31] LABS: APTT (PATIENT) 31.3 SEC (24.3-30.1)
--- NOTE | 2017-06-08 18:59 | HHI.PR ---
Subjective Remarks Patient seen this afternoon around noon. She reports pain all over, but says this is the same as over the past week. Objective Vital Signs Date Time Temp Pulse Resp B/P Pulse Ox O2 Delivery O2 Flow Rate FiO2 06/08/17 16:00 97.9 103 20 139/74 98 06/08/17 13:00 Nasal Cannula 3.00 06/08/17 12:00 98.4 94 20 126/78 93 06/08/17 09:53 Nasal Cannula 4.00 06/08/17 09:37 Nasal Cannula 3.00 06/08/17 08:00 97.6 80 20 138/70 95 06/08/17 04:00 97.9 94 20 149/80 92 06/08/17 03:41 93 Nasal Cannula 3.00 06/08/17 00:00 98.6 79 18 153/75 93 06/07/17 20:00 Nasal Cannula 2.00 06/07/17 20:00 98.4 75 18 141/78 96 I/O 06/07/17 06/07/17 06/07/17 06/08/17 06/08/17 06/08/17 07:00 15:00 23:00 07:00 15:00 23:00 Intake Total 696 ml 2403 ml 2389 ml 1085 ml 480 ml 545 ml Output Total 1200 ml Balance 696 ml 2403 ml 2389 ml -115 ml 480 ml 545 ml Intake Oral 240 ml 2403 ml 240 ml 0 ml 480 ml IV Total 456 ml 2149 ml 1085 ml 545 ml Output Urine Total 1200 ml # Voids 1 2 3 4 # Bowel Movements 0 1 0 0 1 Result Diagram: 06/08/17 0540 06/08/17 0540 Objective Remarks GENERAL: Lying in bed. Appears comfortable.exam unchanged from yesterday. SKIN: Warm and dry. HEAD: Normocephalic. EYES: No scleral icterus. No injection or drainage. NECK: Supple, trachea midline. No JVD. CARDIOVASCULAR: Regular rate and rhythm without murmurs, gallops, or rubs. RESPIRATORY: Breath sounds equal bilaterally. No accessory muscle use. GASTROINTESTINAL: Abdomen soft, non-tender, nondistended. MUSCULOSKELETAL: No cyanosis, or edema. BACK: Nontender without obvious deformity. No CVA tenderness. A/P Assessment and Plan ====06/08/17======= //Bacteremia. Discussed results of echocardiogram with both infectious disease and cardiology which shows 3 valve with vegetations. Continue antibiotics as per ID //Hypokalemia. Potassium 3.3 again. Low. Replaced. Magnesium replacement started daily. 42-year-old female IV drug user with a recent admission due to severe sepsis from pneumonia and MRSA/group a strep bacteremia and left AMA on 06/04 and is back for treatment //Severe sepsis source may be secondary to right lower lobe pneumonia and bacteremia. -Labs review showing normal WBC with bandemia. Creatinine elevated with GFR 22. Chest x-ray showed right lower lobe infiltrate. UA negative. Repeat a chest x-ray shows increased right lower lobe effusion and infiltrate. - Positive blood cultures. -Infectious disease consulted. -See treatment as below. //Acute respiratory failure with hypoxia -Secondary to sepsis, bacteremia and pneumonia. -Continue supplement oxygen. Treat underlying condition. See treatment as below. -Chest x-ray does show increase right lower lobe effusion. -Now on 2 L nasal cannula and clinically improving. //MRSA bacteremia -06/01 All 4 cultures positive showing MRSA, group a strep, and bacillus not anthrax. Repeat blood cultures on 06/01/17 4/4 MRSA. Blood cultures on 06/02/17 1/2 culture positive for MRSA. 06/03/17 1 out of 2 positive for MRSA. 06/04 blood cultures negative 1 day. -06/05/17 pending blood cultures. - Echo shows no lesion. Assistant Import Manager was consulted on the last admission before she was AMA. Patient agreed to MIREILLE. Pending reconsult from floor covering contractor. -Continue vancomycin, rifampin per infectious disease recommendation. //Community-acquired pneumonia -Checks x-ray show infiltrate in the right lower lobe. Repeat chest x-ray on show increase right lower lobe infiltrate/pleural effusion. - -pneumococcal and Legionella antigen negative. -Patient is on cefepime and vancomycin. -Clinically patient is improving. Continue with current regimen. -06/07. Start Zosyn for possible healthcare associated pneumonia. -Continue antibiotics //Severe hypokalemia/hypo-magnesium -Potassium 2.7 and magnesium 1.4 on admission. -Resolved. -Replenish as needed. //Tachycardia -Intermittent. Improving. -May be secondary to anxiety common withdrawals, severe sepsis. -Patient has Ativan for anxiety and pain medication. -Will also treat underlying illness and monitor closely. //Left arm DVT -Ultrasound Doppler showed Deep venous thrombosis with nonocclusive thrombus in the peripheral brachial vein. 2. Occlusive thrombus in the entire superficial cephalic vein. -Gate Agent was consulted on last admission. Recommended bridging to Coumadin. On Coumadin bridging with heparin. //Thrombocytopenia -No signs of any active bleed. There is no recent baseline. Last baseline in 2012 and it was normal. -Most likely secondary to consumption. -Gate Agent consulted and following. Patient positive for hepatitis C. HIV negative. -Resolved. //Hepatitis C -Patient is an active IV drug user. -LFTs normal. Liver ultrasound also normal. Follows outpatient. //Current IV drug use with crystal meth -Education given and discouraged use of crystal meth. //DVT prophylaxis -On heparin drip. Discharge Planning When cleared by infectious disease Juan Be MD Jun 08, 2017 18:59
[2017-06-08] MEDS ORDERED: POTASSIUM CHLORIDE 10 MEQ CONTROLLED RELEASE TAB PO ONE (19:00)
[2017-06-08] MEDS: MAGNESIUM OXIDE 400 MG TAB PO SCH (19:18)
[2017-06-09] VITALS (8 sets, daily range): BP systolic 118–155; BP diastolic 62–84; PULSE 80–89; RESP 16–20; TEMP 98.1–99.3; O2SAT 92–99
[2017-06-09] MEDS: HEPARIN-D5W INJ 250 ML IV SCH (00:13)
[2017-06-09] MEDS: LORazepam 0.5 MG TAB PO PRN ×2 (01:11→17:37)
[2017-06-09] MEDS: oxyCODONE/ACETAMINOPHEN 5 MG/325 MG TAB PO PRN ×5 (01:13→22:14)
[2017-06-09] MEDS ORDERED: PHARMACY ORDERED LAB ONE (01:45)
[2017-06-09 02:38] LABS: AUTOMATED NEUTROPHIL # 5.9 TH/MM3 (1.8-7.7); BASOPHIL % 0.5 % (0.0-2.0); EOSINOPHIL # 0.1 TH/MM3 (0-0.4); EOSINOPHIL % 1.6 % (0.0-4.0); HEMATOCRIT 22.3 % (35.0-46.0); HEMO FLAGS DIFF FINAL; LYMPHOCYTE # 2.3 TH/MM3 (1.0-4.8); MEAN CELL VOLUME 94.3 FL (80.0-100.0); MEAN CORPUSCULAR HEMOGLOBIN 31.4 PG (27.0-34.0); MEAN CORPUSCULAR HGB CONC 33.3 % (32.0-36.0); MONO % 7.3 % (0.0-8.0); NEUT % 65.6 % (16.0-70.0); PLATELET COUNT 337 TH/MM3 (150-450); RED BLOOD COUNT 2.37 MIL/MM3 (4.00-5.30); RED CELL DISTRIBUTION WIDTH 14.7 % (11.6-17.2); WHITE BLOOD COUNT 9.1 TH/MM3 (4.0-11.0)
[2017-06-09] MEDS: VANCOMYCIN 1,000 MG/NS 250 ML IV SCH ×4 (02:41→13:17)
[2017-06-09 02:50] LABS: APTT (PATIENT) 30.6 SEC (24.3-30.1)
[2017-06-09 02:58] LABS: BICARBONATE 28.8 MEQ/L (21.0-32.0); MAGNESIUM 1.6 MG/DL (1.5-2.5); POTASSIUM 3.7 MEQ/L (3.5-5.1); VANCOMYCIN TROUGH 14.7 MCG/ML (5.0-10.0)
[2017-06-09 03:16] LABS: CALCIUM-PROTEIN CORRECTED 7.8 MG/DL (8.5-10.1)
[2017-06-09] MEDS: RESP: ALBUTEROL 2.5 MG/IPRATROPIUM 0.5 MG NEB (SCH) NEB ×4 (03:49→20:25)
[2017-06-09] MEDS: PIPERACIL-TAZO 4.5 GM PREMIX 100 ML IV SCH ×2 (05:15→11:28)
[2017-06-09] MEDS: SODIUM CHLOR 0.9% 1000 ML INJ 1,000 ML IV SCH ×2 (05:24→16:49)
[2017-06-09] MEDS: MORPHINE SULFATE 4 MG/ML INJ IV PUSH PRN ×4 (06:45→19:31)
[2017-06-09] MEDS: DOCUSATE SODIUM 50 MG/SENNA 8.6 MG TAB PO SCH ×2 (08:43→19:31)
[2017-06-09] MEDS: SODIUM CHLORIDE 0.9% FLUSH 10 ML FLUSH IV FLUSH SCH ×2 (08:44→19:31)
[2017-06-09] MEDS: RIFAMPIN 150 MG CAP PO SCH ×2 (11:27→22:14)
[2017-06-09] MEDS: MAGNESIUM OXIDE 400 MG TAB PO SCH (11:27)
--- NOTE | 2017-06-09 12:27 | PD.CARD.PN ---
Subjective Subjective Remarks No events overnight No fever/chills Objective Medications Current Medications Medications (Trade) Dose Ordered Sig/Peter Route Start Time Stop Time Status Last Admin (NS 1000 ml Inj) 1,000 ml @ 100 mls/hr Q10H IV 06/05/17 14:00 06/09/17 05:24 (NS Flush) 2 ml UNSCH PRN IV FLUSH 06/05/17 13:45 (NS Flush) 2 ml BID IV FLUSH 06/05/17 21:00 06/09/17 08:44 (Tylenol) 650 mg Q4H PRN PO 06/05/17 13:45 06/06/17 03:42 (Zofran Inj) 4 mg Q6H PRN IVP 06/05/17 13:45 (Narcan Inj) 0.4 mg UNSCH PRN IV 06/05/17 13:45 (Judy-Colace) 1 tab BID PO 06/05/17 21:00 06/06/17 08:58 (Milk Of Magnesia Liq) 30 ml Q12H PRN PO 06/05/17 13:45 (Senokot) 17.2 mg Q12H PRN PO 06/05/17 13:45 (Dulcolax Supp) 10 mg DAILY PRN RECTAL 06/05/17 13:45 Lactulose 30 ml 30 ml DAILY PRN PO 06/05/17 13:45 Pharmacy Profile Note 0 ml @ 0 mls/hr UNSCH OTHER 06/05/17 14:00 (Heparin-D5W Inj) 250 ml @ 0 mls/hr TITRATE IV 06/05/17 14:00 06/09/17 00:13 (Percocet 5-325 Mg) 1 tab Q4H PRN PO 06/05/17 14:30 (Percocet 5-325 Mg) 2 tab Q4H PRN PO 06/05/17 14:30 06/09/17 08:45 (Ativan) 0.5 mg Q8H PRN PO 06/05/17 14:30 06/09/17 01:11 (Morphine Inj) 2 mg Q3H PRN IV PUSH 06/05/17 14:30 06/09/17 11:29 (Motrin) 800 mg Q8H PRN PO 06/05/17 14:45 (Protonix Inj) 40 mg Q24H IV PUSH 06/05/17 16:00 06/08/17 16:21 Warfarin Sodium 4 mg 4 mg DAILY@16 PO 06/05/17 16:00 06/05/17 16:24 (Vancomycin Inj/ NS 250 ml Inj) 250 ml @ 250 mls/hr Q12H IV 06/06/17 02:00 06/09/17 02:41 Rifampin 300 mg 300 mg Q12H PO 06/06/17 11:00 06/09/17 11:27 Piperacillin Sod/ Tazobactam Sod 100 ml @ 200 mls/hr Q6H IV 06/07/17 18:00 06/09/17 11:28 (Vancomycin Consult Pharmacy) 0 ml @ 0 mls/hr UNSCH OTHER 06/08/17 16:00 (Mag-Ox) 400 mg DAILY PO 06/08/17 19:00 06/09/17 11:27 Vital Signs / I&O Vital Signs Date Time Temp Pulse Resp B/P Pulse Ox O2 Delivery O2 Flow Rate FiO2 06/09/17 08:04 97 Nasal Cannula 2.00 06/09/17 08:01 98.3 86 20 139/72 94 06/09/17 04:00 98.1 80 18 138/81 92 06/09/17 00:00 98.1 87 16 132/78 94 06/08/17 20:00 98.5 102 18 120/68 93 06/08/17 20:00 Nasal Cannula 3.00 06/08/17 19:52 92 Nasal Cannula 3.00 06/08/17 16:00 97.9 103 20 139/74 98 06/08/17 13:00 Nasal Cannula 3.00 I/O 06/08/17 06/08/17 06/08/17 06/09/17 06/09/17 06/09/17 07:00 15:00 23:00 07:00 15:00 23:00 Intake Total 1085 ml 480 ml 905 ml Output Total 1200 ml Balance -115 ml 480 ml 905 ml Intake Oral 0 ml 480 ml 360 ml IV Total 1085 ml 545 ml Output Urine Total 1200 ml # Voids 4 3 # Bowel Movements 0 1 0 Physical Exam GENERAL: NAD, AAOx3 SKIN: Warm and dry. HEAD: Atraumatic. Normocephalic. EYES: Pupils equal and round. No scleral icterus. No injection or drainage. ENT: No nasal bleeding or discharge. Mucous membranes pink and moist. NECK: Trachea midline. No JVD. CARDIOVASCULAR: Regular rate and rhythm. RESPIRATORY: No accessory muscle use. Clear to auscultation. Breath sounds equal bilaterally. GASTROINTESTINAL: Abdomen soft, non-tender, nondistended. Hepatic and splenic margins not palpable. MUSCULOSKELETAL: Left hand with mild edema/erythema NEUROLOGICAL: Awake and alert. No obvious cranial nerve deficits. Motor grossly within normal limits. Five out of 5 muscle strength in the arms and legs. Normal speech. PSYCHIATRIC: Appropriate mood and affect; insight and judgment normal. Laboratory Laboratory Tests Test 06/08/17 06/09/17 16:43 02:27 Activated Partial 31.3 SEC 30.6 SEC Thromboplast Time White Blood Count 9.1 TH/MM3 Red Blood Count 2.37 MIL/MM3 Hemoglobin 7.4 GM/DL Hematocrit 22.3 % Mean Corpuscular Volume 94.3 FL Mean Corpuscular Hemoglobin 31.4 PG Mean Corpuscular Hemoglobin 33.3 % Concent Red Cell Distribution Width 14.7 % Platelet Count 337 TH/MM3 Mean Platelet Volume 8.4 FL Neutrophils (%) (Auto) 65.6 % Lymphocytes (%) (Auto) 25.0 % Monocytes (%) (Auto) 7.3 % Eosinophils (%) (Auto) 1.6 % Basophils (%) (Auto) 0.5 % Neutrophils # (Auto) 5.9 TH/MM3 Lymphocytes # (Auto) 2.3 TH/MM3 Monocytes # (Auto) 0.7 TH/MM3 Eosinophils # (Auto) 0.1 TH/MM3 Basophils # (Auto) 0.0 TH/MM3 CBC Comment DIFF FINAL Differential Comment Sodium Level 144 MEQ/L Potassium Level 3.7 MEQ/L Chloride Level 110 MEQ/L Carbon Dioxide Level 28.8 MEQ/L Anion Gap 5 MEQ/L Blood Urea Nitrogen 6 MG/DL Creatinine 0.72 MG/DL Estimat Glomerular Filtration 89 ML/MIN Rate Random Glucose 103 MG/DL Calcium Level 7.4 MG/DL Protein Corrected Calcium 7.8 MG/DL Phosphorus Level 2.7 MG/DL Magnesium Level 1.6 MG/DL Total Protein 6.3 GM/DL Albumin 1.4 GM/DL Vancomycin Level Trough 14.7 MCG/ML Assessment and Plan Problem List: (1) Pneumonia (2) Sepsis (3) DVT (deep venous thrombosis) (4) IVDA (intravenous drug abuse) complicating (5) Bacteremia Assessment and Plan 1) Bacteremia 2) On heparin drip/Coumadin for DVT in arm 3) 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
[2017-06-09 12:57] LABS: APTT (PATIENT) 35.5 SEC (24.3-30.1)
[2017-06-09 13:17] LABS: PROTHROMBIN TIME - PATIENT 11.4 SEC (9.8-11.6)
--- NOTE | 2017-06-09 14:24 | HHI.IDPN ---
Subjective Subjective Remarks Patient is a 42-year-old female, known to me from her hospitalization about a week ago. She presented complaining of severe anxiety attack with some chest discomfort and rapid breathing. She had some cough and yellowish phlegm at that time. She also had some fever and chills. She was also complaining of pain in her left hand. She has known IV drug use, but she denies injecting in her left arm. Patient on her hospitalization was found to have blood cultures with MRSA, and group A strep. The group A strep was positive in the first 2 blood cultures on admission. Subsequent blood cultures grew MRSA from 06/01, , and 06/03. Her left upper extremity cellulitis also improved. MIREILLE was being considered, and cardiology saw the patient. Patient however did not want MIREILLE, and she signed out AGAINST MEDICAL ADVICE on June 04. She came back yesterday, complaining of generalized aches and weakness. Her cough is better. She complains of pain on her right chest when she coughs, and persistent pain on her left chest that is not aggravated by any kind of activity. She continues to have on and off fevers. Her urine drug screen on this admission is negative except for benzodiazepine. Patient currently is agreeable to having MIREILLE done. During her last admission, she tested positive for hepatitis C , and has HIV negative test. Notes reviewed temps ok Still with pain R side of chest when she coughs CT chest with infiltrates on R side MIREILLE with endocarditis MV, AV and TV CTS surgery - not surgical candidate D/W Dr Spear (cardiology) No rash No diarrhea No N/V Last (+) BC 06/05 Antibiotics Vanco Rifampin Zosyn Lines PIV Past Medical History Cervical cancer IV drug use Hep C Past Surgical History Hx LEEP procedure for cervical CA Allergies: Coded Allergies: *MDRO Multi-Drug Resistant Organism (Verified Adverse Reaction, Unknown, ) MRSA (blood) 05/31/17, 06/01/17, 06/02/17, 06/03/17, 06/05/17 Objective . Vital Signs Date Time Temp Pulse Resp B/P Pulse Ox O2 Delivery O2 Flow Rate FiO2 06/09/17 12:00 98.4 89 20 118/62 93 06/09/17 12:00 Nasal Cannula 2.00 06/09/17 08:04 97 Nasal Cannula 2.00 06/09/17 08:01 98.3 86 20 139/72 94 06/09/17 08:00 Nasal Cannula 3.00 06/09/17 04:00 98.1 80 18 138/81 92 06/09/17 00:00 98.1 87 16 132/78 94 06/08/17 20:00 98.5 102 18 120/68 93 06/08/17 20:00 Nasal Cannula 3.00 06/08/17 19:52 92 Nasal Cannula 3.00 06/08/17 16:00 97.9 103 20 139/74 98 06/08/17 06/08/17 06/09/17 15:00 23:00 07:00 Intake Total 480 ml 905 ml Balance 480 ml 905 ml Intake Oral 480 ml 360 ml IV Total 545 ml # Voids 4 3 # Bowel Movements 1 0 . Laboratory Tests Test 06/08/17 06/09/17 05:40 02:27 White Blood Count 10.0 TH/MM3 9.1 TH/MM3 Red Blood Count 2.73 MIL/MM3 2.37 MIL/MM3 Hemoglobin 8.5 GM/DL 7.4 GM/DL Hematocrit 25.8 % 22.3 % Mean Corpuscular Volume 94.6 FL 94.3 FL Mean Corpuscular Hemoglobin 31.2 PG 31.4 PG Mean Corpuscular Hemoglobin 33.0 % 33.3 % Concent Red Cell Distribution Width 14.5 % 14.7 % Platelet Count 389 TH/MM3 337 TH/MM3 Mean Platelet Volume 8.8 FL 8.4 FL Neutrophils (%) (Auto) 65.6 % Lymphocytes (%) (Auto) 25.0 % Monocytes (%) (Auto) 7.3 % Eosinophils (%) (Auto) 1.6 % Basophils (%) (Auto) 0.5 % Neutrophils # (Auto) 5.9 TH/MM3 Lymphocytes # (Auto) 2.3 TH/MM3 Monocytes # (Auto) 0.7 TH/MM3 Eosinophils # (Auto) 0.1 TH/MM3 Basophils # (Auto) 0.0 TH/MM3 CBC Comment DIFF FINAL Differential Comment Laboratory Tests Test 06/08/17 06/09/17 05:40 02:27 Sodium Level 143 MEQ/L 144 MEQ/L Potassium Level 3.3 MEQ/L 3.7 MEQ/L Chloride Level 109 MEQ/L 110 MEQ/L Carbon Dioxide Level 25.1 MEQ/L 28.8 MEQ/L Anion Gap 9 MEQ/L 5 MEQ/L Blood Urea Nitrogen 5 MG/DL 6 MG/DL Creatinine 0.67 MG/DL 0.72 MG/DL Estimat Glomerular Filtration 97 ML/MIN 89 ML/MIN Rate Random Glucose 78 MG/DL 103 MG/DL Calcium Level 7.5 MG/DL 7.4 MG/DL Phosphorus Level 3.2 MG/DL 2.7 MG/DL Magnesium Level 1.5 MG/DL 1.6 MG/DL Albumin 1.5 GM/DL 1.4 GM/DL Protein Corrected Calcium 7.8 MG/DL Total Protein 6.3 GM/DL Microbiology Date/Time Procedure Status Source Growth 06/08/17 16:56 Aerobic Blood Culture - Preliminary Resulted Blood Peripheral NO GROWTH IN 1 DAY 06/08/17 16:56 Anaerobic Blood Culture - Preliminary Resulted Blood Peripheral NO GROWTH IN [address] 06/06/17 0000 Signed Impressions: Service Date/Time: Tuesday, June 06, 2017 11:24 - CONCLUSION: Small bilateral pleural effusions, dense airspace consolidation bilaterally worse on the right highly suspicious for pneumonia. Nahun Mcqueen MD Chest X-Ray 06/05/17 1208 Signed Impressions: Service Date/Time: Monday, June 05, 2017 12:09 - CONCLUSION: 1. Stable diffuse infiltrate within the right lung consistent with probable pneumonia. Clinical correlation is recommended. Dagoberto Harmon MD Physical Exam GENERAL: Patient is a thin, well-developed female, awake and alert, not in respiratory distress. SKIN: Warm and dry. No generalized rash, no ecchymoses and no evidence of embolic lesions. HEAD: Atraumatic. Normocephalic. No temporal wasting, or tenderness. EYES: [place] conjunctiva. No petechia or hemorrhage. No scleral icterus. No injection or drainage. EARS, NOSE AND THROAT: Nose without bleeding or purulent nasal discharge. Mucous membranes pink and moist. No oral lesions noted. No exudate. No oral thrush. NECK: Trachea midline. Supple and not tender, no meningeal signs. CARDIOVASCULAR: Regular rate and rhythm. No murmurs, rubs or gallops heard RESPIRATORY: Clear to auscultation. Breath sounds equal bilaterally. No rales , wheezing or rhonchi ABDOMEN: Soft, non-tender, nondistended. Bowel sounds present and normoactive. No guarding. No rebound. No organomegaly. EXTREMITIES: No clubbing, cyanosis, or edema. L hand and distal forearm markedly improved as far as redness and swelling. No calf tenderness. Well perfused and warm. Track sanon in her BUE, more on R than on L NEUROLOGICAL: Non-focal PSYCHIATRIC: Normal affect, calm and cooperative. LINE: No evidence of infection Assessment & Plan Remarks IMPRESSION Sepsis with BC growing MRSA and GAS, has 3 valves (+) on MIREILLE MV, AV and TV Cellulitis L hand and Forearm, resolved Known active IVDU Pneumonia, CAP, clinically better Renal insufficiency due to sepsis, present during last admission, resolved Hep C (+) test RECOMMENDATION Complete PNA Rx with Ceftin and Zithromax Stop Zosyn Continue IV vanco - Vanco E-test 1.5 Continue Rifampin - follow LFT Follow BC to document clearing Monitor progress She will need 6 weeks Abx from date of last (+) BC because she had high grade MRSA bacteremia Once BC negative, will make determination on how she can complete her Abx Rx Explained plan to the patient Yumiko Horan MD Jun 09, 2017 14:24
[2017-06-09] MEDS: PANTOPRAZOLE SODIUM 40 MG VIAL IV PUSH SCH (16:04)
[2017-06-09] MEDS: CEFUROXIME AXETIL 500 MG TAB PO SCH (16:04)
[2017-06-09] MEDS: WARFARIN SOD 4 MG TAB PO SCH (16:05)
[2017-06-09] MEDS: AZITHROMYCIN 250 MG TAB PO SCH (16:05)
--- NOTE | 2017-06-09 19:56 | HHI.PR ---
Subjective Remarks Patient says she feels all right. Reports pain unchanged from yesterday. Denies any nausea or vomiting. Denies any abdominal pain. Patient denies any bleeding Objective Vital Signs Date Time Temp Pulse Resp B/P Pulse Ox O2 Delivery O2 Flow Rate FiO2 06/09/17 16:00 98.2 84 20 129/69 95 06/09/17 15:07 Nasal Cannula 2.00 06/09/17 12:00 98.4 89 20 118/62 93 06/09/17 12:00 Nasal Cannula 2.00 06/09/17 08:04 97 Nasal Cannula 2.00 06/09/17 08:01 98.3 86 20 139/72 94 06/09/17 08:00 Nasal Cannula 3.00 06/09/17 04:00 98.1 80 18 138/81 92 06/09/17 00:00 98.1 87 16 132/78 94 06/08/17 20:00 98.5 102 18 120/68 93 06/08/17 20:00 Nasal Cannula 3.00 06/08/17 19:52 92 Nasal Cannula 3.00 I/O 06/08/17 06/08/17 06/08/17 06/09/17 06/09/17 06/09/17 06:59 14:59 22:59 06:59 14:59 22:59 Intake Total 1085 ml 480 ml 545 ml 360 ml 3754 ml Output Total 1200 ml Balance -115 ml 480 ml 545 ml 360 ml 3754 ml Intake Oral 0 ml 480 ml 360 ml 840 ml IV Total 1085 ml 545 ml 2914 ml Output Urine Total 1200 ml # Voids 4 3 6 # Bowel Movements 0 1 0 1 Result Diagram: 06/09/1722606/09/17226 Objective Remarks GENERAL: Lying in bed. Appears comfortable.exam unchanged from yesterday.alert and oriented 3. SKIN: Warm and dry. HEAD: Normocephalic. EYES: No scleral icterus. No injection or drainage. NECK: Supple, trachea midline. No JVD. CARDIOVASCULAR: Regular rate and rhythm without murmurs, gallops, or rubs. RESPIRATORY: Breath sounds equal bilaterally. No accessory muscle use. GASTROINTESTINAL: Abdomen soft, non-tender, nondistended. MUSCULOSKELETAL: No cyanosis, or edema. BACK: Nontender without obvious deformity. No CVA tenderness. A/P Assessment and Plan ====06/09/17======= //Bacteremia. -With vegetations on ultrasound 06/09 blood cultures negative to date. No fevers. Not a surgical candidate. Continue antibiotics as per ID //Hypokalemia. Resolved. Potassium 3.7. //Anemia. 7.4 from 8.5 yesterday. No signs of bleeding. Repeat tomorrow. 42-year-old female IV drug user with a recent admission due to severe sepsis from pneumonia and MRSA/group a strep bacteremia and left AMA on 06/04 and is back for treatment //Severe sepsis source may be secondary to right lower lobe pneumonia and bacteremia. -Labs review showing normal WBC with bandemia. Creatinine elevated with GFR 22. Chest x-ray showed right lower lobe infiltrate. UA negative. Repeat a chest x-ray shows increased right lower lobe effusion and infiltrate. - Positive blood cultures. -will need 6 weeks Abx from date of last pos bc -Appreciate ID assistance. //Acute respiratory failure with hypoxia -Secondary to sepsis, bacteremia and pneumonia. -Continue supplement oxygen. Treat underlying condition. See treatment as below. -Chest x-ray does show increase right lower lobe effusion. -Now on 2 L nasal cannula and clinically improving. //MRSA bacteremia -06/01 All 4 cultures positive showing MRSA, group a strep, and bacillus not anthrax. Repeat blood cultures on 06/01/17 4/4 MRSA. Blood cultures on 06/02/17 1/2 culture positive for MRSA. 06/03/17 1 out of 2 positive for MRSA. 06/04 blood cultures negative 1 day. -06/05/17 pending blood cultures. - matthew shows vegetations on 3 valves. Cardiology/cardio vascular surgery does not consider patient a surgical candidate at this time. Continue antibiotics as per ID. //Community-acquired pneumonia -Checks x-ray show infiltrate in the right lower lobe. Repeat chest x-ray on show increase right lower lobe infiltrate/pleural effusion. - -pneumococcal and Legionella antigen negative. -Patient is on cefepime and vancomycin. -Clinically patient is improving. Continue with current regimen. -06/07. Start Zosyn for possible healthcare associated pneumonia. -Continue antibiotics //Severe hypokalemia/hypo-magnesium -Potassium 2.7 and magnesium 1.4 on admission. -Resolved. -Replenish as needed. //Tachycardia -Intermittent. Improving. -May be secondary to anxiety common withdrawals, severe sepsis. -Patient has Ativan for anxiety and pain medication. -Will also treat underlying illness and monitor closely. //Left arm DVT -Ultrasound Doppler showed Deep venous thrombosis with nonocclusive thrombus in the peripheral brachial vein. 2. Occlusive thrombus in the entire superficial cephalic vein. -Resolution Manager was consulted on last admission. Recommended bridging to Coumadin. On Coumadin bridging with heparin. //Thrombocytopenia -No signs of any active bleed. There is no recent baseline. Last baseline in 2012 and it was normal. -Most likely secondary to consumption. -Resolution Manager consulted and following. Patient positive for hepatitis C. HIV negative. -Resolved. //Hepatitis C -Patient is an active IV drug user. -LFTs normal. Liver ultrasound also normal. Follows outpatient. //Current IV drug use with crystal meth -Education given and discouraged use of crystal meth. //DVT prophylaxis -On heparin drip. Discharge Planning patient will need 6 weeks of antibiotic from most recent positive blood culture. When cleared by infectious disease Juan Be MD Jun 09, 2017 19:55
[2017-06-09 21:57] LABS: APTT (PATIENT) 50.2 SEC (24.3-30.1)
[2017-06-09 22:44] LABS: TRANSFERRIN IRON PROFILE 140 MG/DL (200-360)
[2017-06-09 22:46] LABS: FERRITIN 120 NG/ML (8-252)
[2017-06-10] VITALS (7 sets, daily range): BP systolic 110–146; BP diastolic 57–77; PULSE 72–107; RESP 18–20; TEMP 98.1–99; O2SAT 91–95
[2017-06-10] MEDS: MORPHINE SULFATE 4 MG/ML INJ IV PUSH PRN ×6 (00:33→17:26)
[2017-06-10] MEDS: HEPARIN-D5W INJ 250 ML IV SCH ×2 (00:38→20:39)
[2017-06-10] MEDS: VANCOMYCIN 1,000 MG/NS 250 ML IV SCH ×4 (01:55→14:21)
[2017-06-10] MEDS: CEFUROXIME AXETIL 500 MG TAB PO SCH ×2 (01:55→14:20)
[2017-06-10] MEDS: SODIUM CHLOR 0.9% 1000 ML INJ 1,000 ML IV SCH ×2 (01:56→14:32)
[2017-06-10] MEDS: oxyCODONE/ACETAMINOPHEN 5 MG/325 MG TAB PO PRN ×5 (01:56→20:40)
[2017-06-10] MEDS: RESP: ALBUTEROL 2.5 MG/IPRATROPIUM 0.5 MG NEB (SCH) NEB ×4 (03:27→19:36)
[2017-06-10 03:49] LABS: AUTOMATED NEUTROPHIL # 8.4 TH/MM3 (1.8-7.7); BASOPHIL # 0.1 TH/MM3 (0-0.2); BASOPHIL % 0.8 % (0.0-2.0); EOSINOPHIL # 0.2 TH/MM3 (0-0.4); EOSINOPHIL % 1.8 % (0.0-4.0); HEMATOCRIT 24.7 % (35.0-46.0); HEMO FLAGS DIFF FINAL; LYMPH % 21.9 % (9.0-44.0); LYMPHOCYTE # 2.7 TH/MM3 (1.0-4.8); MEAN CELL VOLUME 95.1 FL (80.0-100.0); MEAN CORPUSCULAR HEMOGLOBIN 31.1 PG (27.0-34.0); MEAN CORPUSCULAR HGB CONC 32.7 % (32.0-36.0); NEUT % 68.5 % (16.0-70.0); PLATELET COUNT 383 TH/MM3 (150-450); RED CELL DISTRIBUTION WIDTH 15.1 % (11.6-17.2); WHITE BLOOD COUNT 12.3 TH/MM3 (4.0-11.0)
[2017-06-10 04:09] LABS: APTT (PATIENT) 46.1 SEC (24.3-30.1); PROTHROMBIN TIME - PATIENT 11.3 SEC (9.8-11.6)
[2017-06-10 04:15] LABS: BICARBONATE 26.3 MEQ/L (21.0-32.0); MAGNESIUM 1.6 MG/DL (1.5-2.5)
[2017-06-10] MEDS: LORazepam 0.5 MG TAB PO PRN (05:47)
[2017-06-10] MEDS: MAGNESIUM OXIDE 400 MG TAB PO SCH (08:12)
[2017-06-10] MEDS: SODIUM CHLORIDE 0.9% FLUSH 10 ML FLUSH IV FLUSH SCH ×2 (08:13→20:40)
[2017-06-10] MEDS: DOCUSATE SODIUM 50 MG/SENNA 8.6 MG TAB PO SCH ×2 (08:13→20:39)
[2017-06-10] MEDS: RIFAMPIN 150 MG CAP PO SCH ×2 (09:49→20:40)
[2017-06-10] MEDS: AZITHROMYCIN 250 MG TAB PO SCH (14:20)
[2017-06-10] MEDS: PANTOPRAZOLE SODIUM 40 MG VIAL IV PUSH SCH (14:33)
[2017-06-10] MEDS: WARFARIN SOD 4 MG TAB PO SCH (14:33)
[2017-06-10] MEDS ORDERED: WARFARIN SOD 4 MG TAB PO SCH (16:00)
--- NOTE | 2017-06-10 23:08 | HHI.PR ---
Subjective Remarks Patient seen this morning.no shortness of breath. No nausea or vomiting. She denies any changes. Objective Vital Signs Date Time Temp Pulse Resp B/P Pulse Ox O2 Delivery O2 Flow Rate FiO2 06/10/17 20:00 98.1 85 18 110/57 95 06/10/17 16:00 Nasal Cannula 3.00 06/10/17 16:00 99.0 107 20 136/77 92 06/10/17 12:00 Nasal Cannula 2.00 06/10/17 12:00 98.1 72 18 146/72 95 06/10/17 09:35 93 Nasal Cannula 2.00 06/10/17 08:00 98.6 97 20 138/76 94 06/10/17 08:00 Nasal Cannula 2.00 06/10/17 04:00 98.4 82 18 135/68 92 06/10/17 00:00 98.2 76 18 128/64 91 I/O 06/09/17 06/09/17 06/09/17 06/10/17 06/10/17 06/10/17 06:59 14:59 22:59 06:59 14:59 22:59 Intake Total 360 ml 3754 ml 480 ml 1597 ml 1546 ml Balance 360 ml 3754 ml 480 ml 1597 ml 1546 ml Intake Oral 360 ml 840 ml 480 ml 720 ml 720 ml IV Total 2914 ml 877 ml 826 ml # Voids 3 6 3 5 8 # Bowel Movements 0 1 1 0 0 Result Diagram: 06/10/17 0340 06/10/17 0340 Objective Remarks GENERAL: Lying in bed. Appears comfortable.exam unchanged..alert and oriented 3. SKIN: Warm and dry. HEAD: Normocephalic. EYES: No scleral icterus. No injection or drainage. NECK: Supple, trachea midline. No JVD. CARDIOVASCULAR: Regular rate and rhythm without murmurs, gallops, or rubs. RESPIRATORY: Breath sounds equal bilaterally. No accessory muscle use. GASTROINTESTINAL: Abdomen soft, non-tender, nondistended. MUSCULOSKELETAL: No cyanosis, or edema. BACK: Nontender without obvious deformity. No CVA tenderness. A/P Assessment and Plan 42-year-old female with a history of IV drug use, presents with bacteremia. 3 valves with vegetations. Cardiovascular surgery states not a surgical candidate at this time. Antibiotics as per infectious disease. ====06/10/17======= anemia. Hemoglobin 8.1. Improved from yesterday. 42-year-old female IV drug user with a recent admission due to severe sepsis from pneumonia and MRSA/group a strep bacteremia and left AMA on 06/04 and is back for treatment //Severe sepsis source may be secondary to right lower lobe pneumonia and bacteremia. -Labs review showing normal WBC with bandemia. Creatinine elevated with GFR 22. Chest x-ray showed right lower lobe infiltrate. UA negative. Repeat a chest x-ray shows increased right lower lobe effusion and infiltrate. - Positive blood cultures. -will need 6 weeks Abx from date of last pos bc -Appreciate ID assistance. //Acute respiratory failure with hypoxia -Secondary to sepsis, bacteremia and pneumonia. -Continue supplement oxygen. Treat underlying condition. See treatment as below. -Chest x-ray does show increase right lower lobe effusion. -Now on 2 L nasal cannula and clinically improving. //MRSA bacteremia -06/01 All 4 cultures positive showing MRSA, group a strep, and bacillus not anthrax. Repeat blood cultures on 06/01/17 4/4 MRSA. Blood cultures on 06/02/17 1/2 culture positive for MRSA. 06/03/17 1 out of 2 positive for MRSA. 06/04 blood cultures negative 1 day. -06/05/17 pending blood cultures. - matthew shows vegetations on 3 valves. Cardiology/cardio vascular surgery does not consider patient a surgical candidate at this time. Continue antibiotics as per ID. //Community-acquired pneumonia -Checks x-ray show infiltrate in the right lower lobe. Repeat chest x-ray on show increase right lower lobe infiltrate/pleural effusion. - -pneumococcal and Legionella antigen negative. -Patient is on cefepime and vancomycin. -Clinically patient is improving. Continue with current regimen. -06/07. Start Zosyn for possible healthcare associated pneumonia. -Continue antibiotics //Severe hypokalemia/hypo-magnesium -Potassium 2.7 and magnesium 1.4 on admission. -Resolved. -Replenish as needed. //Tachycardia -Intermittent. Improving. -May be secondary to anxiety common withdrawals, severe sepsis. -Patient has Ativan for anxiety and pain medication. -Will also treat underlying illness and monitor closely. //Left arm DVT -Ultrasound Doppler showed Deep venous thrombosis with nonocclusive thrombus in the peripheral brachial vein. 2. Occlusive thrombus in the entire superficial cephalic vein. -Grip Boss was consulted on last admission. Recommended bridging to Coumadin. On Coumadin bridging with heparin. //Thrombocytopenia -No signs of any active bleed. There is no recent baseline. Last baseline in 2012 and it was normal. -Most likely secondary to consumption. -Grip Boss consulted and following. Patient positive for hepatitis C. HIV negative. -Resolved. //Hepatitis C -Patient is an active IV drug user. -LFTs normal. Liver ultrasound also normal. Follows outpatient. //Current IV drug use with crystal meth -Education given and discouraged use of crystal meth. //DVT prophylaxis -On heparin drip. Discharge Planning patient will need 6 weeks of antibiotic from most recent positive blood culture. When cleared by infectious disease Juan Be MD Jun 10, 2017 23:08
[2017-06-11] VITALS: BP 139/69; PULSE 90; RESP 18; TEMP 98.2; O2SAT 95
[2017-06-11] MEDS: MORPHINE SULFATE 4 MG/ML INJ IV PUSH PRN ×6 (01:15→21:19)
[2017-06-11] MEDS: oxyCODONE/ACETAMINOPHEN 5 MG/325 MG TAB PO PRN ×4 (01:16→21:19)
[2017-06-11] MEDS: CEFUROXIME AXETIL 500 MG TAB PO SCH ×2 (01:16→14:22)
[2017-06-11] MEDS: VANCOMYCIN 1,000 MG/NS 250 ML IV SCH ×4 (01:17→15:39)
[2017-06-11 03:25] VITALS: BP 136/73; PULSE 89; RESP 18; TEMP 97.8; O2SAT 93
[2017-06-11] MEDS: RESP: ALBUTEROL 2.5 MG/IPRATROPIUM 0.5 MG NEB (SCH) NEB ×3 (04:00→15:37)
[2017-06-11] MEDS: LORazepam 0.5 MG TAB PO PRN ×2 (04:33→21:19)
[2017-06-11 08:00] VITALS: BP 136/80; PULSE 98; RESP 20; TEMP 98.4; O2SAT 94
[2017-06-11] MEDS: DOCUSATE SODIUM 50 MG/SENNA 8.6 MG TAB PO SCH ×2 (08:23→21:00)
[2017-06-11] MEDS: MAGNESIUM OXIDE 400 MG TAB PO SCH (08:23)
[2017-06-11] MEDS: SODIUM CHLORIDE 0.9% FLUSH 10 ML FLUSH IV FLUSH SCH ×2 (08:24→21:18)
[2017-06-11 09:21] LABS: HEMATOCRIT 25.3 % (35.0-46.0); MEAN CELL VOLUME 95.6 FL (80.0-100.0); MEAN CORPUSCULAR HEMOGLOBIN 31.9 PG (27.0-34.0); MEAN CORPUSCULAR HGB CONC 33.4 % (32.0-36.0); PLATELET COUNT 414 TH/MM3 (150-450); RED BLOOD COUNT 2.64 MIL/MM3 (4.00-5.30); RED CELL DISTRIBUTION WIDTH 16.1 % (11.6-17.2); REVIEW FLAG FINAL; WHITE BLOOD COUNT 13.1 TH/MM3 (4.0-11.0)
[2017-06-11 09:31] LABS: APTT (PATIENT) 46.5 SEC (24.3-30.1); PROTHROMBIN TIME - PATIENT 11.5 SEC (9.8-11.6)
[2017-06-11] MEDS: SODIUM CHLOR 0.9% 1000 ML INJ 1,000 ML IV SCH ×3 (10:00→21:23)
[2017-06-11] MEDS: RIFAMPIN 150 MG CAP PO SCH ×2 (11:47→21:18)
[2017-06-11 12:00] VITALS: BP 138/77; PULSE 96; RESP 20; TEMP 98.6; O2SAT 91; O2SAT 94
[2017-06-11] MEDS ORDERED: PHARMACY ORDERED LAB ONE (13:45)
[2017-06-11] MEDS: AZITHROMYCIN 250 MG TAB PO SCH (14:22)
[2017-06-11] MEDS: HEPARIN-D5W INJ 250 ML IV SCH (14:29)
[2017-06-11 16:00] VITALS: BP 127/63; PULSE 87; RESP 20; TEMP 98.7; O2SAT 87
--- NOTE | 2017-06-11 16:46 | HHI.PR ---
Subjective Remarks The patient says she still has some chest pain when she takes deep breaths. She has been ambulating. She has been having bowel movements. She is eating small amounts. She is sleeping. She had no acute complaints. She wants to know how long she has to be in the hospital for. Objective Vitals Vital Signs Date Time Temp Pulse Resp B/P Pulse Ox O2 Delivery O2 Flow Rate FiO2 06/11/17 16:00 98.7 87 20 127/63 87 06/11/17 12:00 98.6 96 20 138/77 91 06/11/17 08:00 98.4 98 20 136/80 94 06/11/17 03:52 16 06/11/17 03:51 16 06/11/17 03:25 97.8 89 18 136/73 93 06/11/17 00:50 Nasal Cannula 3.00 06/11/17 00:00 98.2 90 18 139/69 95 06/10/17 20:00 98.1 85 18 110/57 95 I/O 06/10/17 06/10/17 06/10/17 06/11/17 06/11/17 06/11/17 07:00 15:00 23:00 07:00 15:00 23:00 Intake Total 1597 ml 1546 ml 240 ml Output Total 300 ml Balance 1597 ml 1546 ml 240 ml -300 ml Intake Oral 720 ml 720 ml 240 ml IV Total 877 ml 826 ml Output Urine Total 300 ml # Voids 5 8 4 6 2 # Bowel Movements 0 0 0 1 Result Diagram: 06/11/17 0835 06/10/17 0340 Imaging Last Impressions Chest CT 06/06/17 0000 Signed Impressions: Service Date/Time: Tuesday, June 06, 2017 11:24 - CONCLUSION: Small bilateral pleural effusions, dense airspace consolidation bilaterally worse on the right highly suspicious for pneumonia. Nahun Mcqueen MD Chest X-Ray 06/05/17 1208 Signed Impressions: Service Date/Time: Monday, June 05, 2017 12:09 - CONCLUSION: 1. Stable diffuse infiltrate within the right lung consistent with probable pneumonia. Clinical correlation is recommended. Dagoberto Harmon MD Objective Remarks GENERAL: Lying in bed. Appears comfortable. SKIN: Warm and dry. HEAD: Normocephalic. EYES: No scleral icterus. No injection or drainage. NECK: Supple, trachea midline. No JVD. CARDIOVASCULAR: Regular rate and rhythm without murmurs, gallops, or rubs. RESPIRATORY: Breath sounds equal bilaterally. No accessory muscle use. GASTROINTESTINAL: Abdomen soft, non-tender, nondistended. MUSCULOSKELETAL: No cyanosis, or edema. BACK: Nontender without obvious deformity. No CVA tenderness. PSYCH: Mood and affect appropriate. Medications and IVs Current Medications Medications (Trade) Dose Ordered Sig/Peter Route Start Time Stop Time Status Last Admin (NS 1000 ml Inj) 1,000 ml @ 100 mls/hr Q10H IV 06/05/17 14:00 06/11/17 00:00 (NS Flush) 2 ml UNSCH PRN IV FLUSH 06/05/17 13:45 (NS Flush) 2 ml BID IV FLUSH 06/05/17 21:00 06/11/17 08:24 (Tylenol) 650 mg Q4H PRN PO 06/05/17 13:45 06/06/17 03:42 (Zofran Inj) 4 mg Q6H PRN IVP 06/05/17 13:45 (Narcan Inj) 0.4 mg UNSCH PRN IV 06/05/17 13:45 (Judy-Colace) 1 tab BID PO 06/05/17 21:00 06/11/17 08:23 (Milk Of Magnesia Liq) 30 ml Q12H PRN PO 06/05/17 13:45 (Senokot) 17.2 mg Q12H PRN PO 06/05/17 13:45 (Dulcolax Supp) 10 mg DAILY PRN RECTAL 06/05/17 13:45 Lactulose 30 ml 30 ml DAILY PRN PO 06/05/17 13:45 Pharmacy Profile Note 0 ml @ 0 mls/hr UNSCH OTHER 06/05/17 14:00 (Heparin-D5W Inj) 250 ml @ 0 mls/hr TITRATE IV 06/05/17 14:00 06/11/17 14:29 (Percocet 5-325 Mg) 1 tab Q4H PRN PO 06/05/17 14:30 (Percocet 5-325 Mg) 2 tab Q4H PRN PO 06/05/17 14:30 06/11/17 13:17 (Ativan) 0.5 mg Q8H PRN PO 06/05/17 14:30 06/11/17 04:33 (Morphine Inj) 2 mg Q3H PRN IV PUSH 06/05/17 14:30 06/11/17 15:00 (Motrin) 800 mg Q8H PRN PO 06/05/17 14:45 Pantoprazole Sodium 40 mg 40 mg Q24H IV PUSH 06/05/17 16:00 06/10/17 14:33 (Vancomycin Inj/ NS 250 ml Inj) 250 ml @ 250 mls/hr Q12H IV 06/06/17 02:00 06/11/17 15:39 Rifampin 300 mg 300 mg Q12H PO 06/06/17 11:00 06/11/17 11:47 (Vancomycin Consult Pharmacy) 0 ml @ 0 mls/hr UNSCH OTHER 06/08/17 16:00 (Mag-Ox) 400 mg DAILY PO 06/08/17 19:00 06/11/17 08:23 (Ceftin) 500 mg Q12H PO 06/09/17 15:00 06/16/17 14:59 06/11/17 14:22 (Zithromax) 500 mg Q24H PO 06/09/17 15:00 06/16/17 14:59 06/11/17 14:22 (Coumadin) 5 mg DAILY@16 PO 06/11/17 16:00 A/P Assessment and Plan 42-year-old female IV drug user with a recent admission due to severe sepsis from pneumonia and MRSA/group a strep bacteremia and left AMA on 06/04 and is back for treatment Bacteremia/endocarditis -Labs review showing normal WBC with bandemia. Creatinine elevated with GFR 22. Chest x-ray showed right lower lobe infiltrate. UA negative. Repeat a chest x-ray shows increased right lower lobe effusion and infiltrate. Positive blood cultures. Echo with vegetation on 3 valves. -will need 6 weeks Abx from date of last pos bc -Appreciate ID assistance. Acute respiratory failure with hypoxia Secondary to sepsis/ PNA. -Continue supplement oxygen. Treat underlying condition. -Chest x-ray does show increase right lower lobe effusion. -Now on 2 L nasal cannula and clinically improving. MRSA bacteremia -06/01 All 4 cultures positive showing MRSA, group a strep, and bacillus not anthrax. Repeat blood cultures on 06/01/17 4/4 MRSA. Blood cultures on 06/02/17 1/2 culture positive for MRSA. 06/03/17 1 out of 2 positive for MRSA. 06/04 blood cultures negative 1 day. -06/05/17 pending blood cultures. - matthew shows vegetations on 3 valves. Cardiology/cardio vascular surgery does not consider patient a surgical candidate at this time. Continue antibiotics as per ID. Community-acquired pneumonia -Checks x-ray show infiltrate in the right lower lobe. Repeat chest x-ray on show increase right lower lobe infiltrate/pleural effusion. - -pneumococcal and Legionella antigen negative. -Patient is on cefepime and vancomycin. -Clinically patient is improving. Continue with current regimen. -06/07. Start Zosyn for possible healthcare associated pneumonia. -Continue antibiotics Severe hypokalemia/hypo-magnesium -Potassium 2.7 and magnesium 1.4 on admission. -Resolved. -Replenish as needed. Left arm DVT Ultrasound Doppler showed Deep venous thrombosis with nonocclusive thrombus in the peripheral brachial vein; Occlusive thrombus in the entire superficial cephalic vein. -Circular Saw Operator was consulted on last admission. Recommended bridging to Coumadin. On Coumadin bridging with heparin. Hepatitis C Patient is an active IV drug user. LFTs normal. Liver ultrasound also normal. - Follow as an outpatient. Current IV drug use with crystal meth -Education given and discouraged use of crystal meth. DVT prophylaxis -On heparin drip. Discharge Planning patient will need 6 weeks of antibiotic from most recent positive blood culture. When cleared by infectious disease Iggy Alexander DO Jun 11, 2017 16:46 //DVT prophylaxis -On heparin drip. Discharge Planning patient will need 6 weeks of antibiotic from most recent positive blood culture. When cleared by infectious disease Iggy Alexander DO Jun 11, 2017 16:46
[2017-06-11] MEDS: PANTOPRAZOLE SODIUM 40 MG VIAL IV PUSH SCH (17:15)
[2017-06-11] MEDS: WARFARIN SOD 5 MG TAB PO SCH (17:15)
[2017-06-11 20:00] VITALS: BP 151/77; PULSE 97; RESP 18; TEMP 97.9; O2SAT 98
[2017-06-12] MEDS: oxyCODONE/ACETAMINOPHEN 5 MG/325 MG TAB PO PRN ×5 (02:19→18:52)
[2017-06-12] MEDS: MORPHINE SULFATE 4 MG/ML INJ IV PUSH PRN ×6 (02:19→20:05)
[2017-06-12] MEDS: CEFUROXIME AXETIL 500 MG TAB PO SCH ×2 (02:19→14:55)
[2017-06-12] MEDS: VANCOMYCIN 1,000 MG/NS 250 ML IV SCH ×4 (03:10→16:20)
[2017-06-12 04:00] VITALS: BP 132/61; PULSE 84; RESP 16; TEMP 98.2; O2SAT 91
[2017-06-12] MEDS: SODIUM CHLOR 0.9% 1000 ML INJ 1,000 ML IV SCH (05:52)
[2017-06-12] MEDS: HEPARIN-D5W INJ 250 ML IV SCH (05:52)
[2017-06-12] MEDS: DOCUSATE SODIUM 50 MG/SENNA 8.6 MG TAB PO SCH ×2 (09:00→20:06)
[2017-06-12] MEDS: MAGNESIUM OXIDE 400 MG TAB PO SCH (10:37)
[2017-06-12] MEDS: SODIUM CHLORIDE 0.9% FLUSH 10 ML FLUSH IV FLUSH SCH ×2 (10:44→20:06)
[2017-06-12 11:45] VITALS: O2SAT 93
[2017-06-12] MEDS: RIFAMPIN 150 MG CAP PO SCH ×2 (13:51→23:00)
[2017-06-12 14:06] LABS: HEMATOCRIT 26.4 % (35.0-46.0); MEAN CELL VOLUME 97.2 FL (80.0-100.0); MEAN CORPUSCULAR HEMOGLOBIN 31.7 PG (27.0-34.0); MEAN CORPUSCULAR HGB CONC 32.6 % (32.0-36.0); PLATELET COUNT 410 TH/MM3 (150-450); RED BLOOD COUNT 2.72 MIL/MM3 (4.00-5.30); RED CELL DISTRIBUTION WIDTH 16.4 % (11.6-17.2); REVIEW FLAG FINAL; WHITE BLOOD COUNT 9.8 TH/MM3 (4.0-11.0)
--- NOTE | 2017-06-12 14:07 | HHI.PR ---
Subjective Remarks The patient was resting in bed comfortably. She was ordering a sales account director salad for lunch. She requested something to help her sleep. She had no acute complaints. Discussed with nursing, who had no concerns. Objective Vitals Vital Signs Date Time Temp Pulse Resp B/P Pulse Ox O2 Delivery O2 Flow Rate FiO2 06/12/17 11:45 93 06/12/17 06:22 20 06/12/17 05:48 20 06/12/17 04:00 98.2 84 16 132/61 91 06/11/17 20:00 97.9 97 18 151/77 98 06/11/17 20:00 Nasal Cannula 3.00 06/11/17 16:00 98.7 87 20 127/63 87 I/O 06/11/17 06/11/17 06/11/17 06/12/17 06/12/17 06/12/17 07:00 15:00 23:00 07:00 15:00 23:00 Intake Total 240 ml 480 ml 1568 ml Output Total 300 ml 1 ml Balance 240 ml -300 ml 480 ml 1567 ml Intake Oral 240 ml 480 ml 0 ml IV Total 1568 ml Output Urine Total 300 ml 1 ml # Voids 4 6 5 # Bowel Movements 0 1 0 0 Result Diagram: 06/11/17 0835 06/10/17 0340 Imaging Last Impressions Chest CT 06/06/17 0000 Signed Impressions: Service Date/Time: Tuesday, June 06, 2017 11:24 - CONCLUSION: Small bilateral pleural effusions, dense airspace consolidation bilaterally worse on the right highly suspicious for pneumonia. Nahun Mcqueen MD Chest X-Ray 06/05/17 1208 Signed Impressions: Service Date/Time: Monday, June 05, 2017 12:09 - CONCLUSION: 1. Stable diffuse infiltrate within the right lung consistent with probable pneumonia. Clinical correlation is recommended. Dagoberto Harmon MD Objective Remarks GENERAL: Lying in bed. Appears comfortable. SKIN: Warm and dry. HEAD: Normocephalic. EYES: No scleral icterus. No injection or drainage. NECK: Supple, trachea midline. No JVD. CARDIOVASCULAR: Regular rate and rhythm without murmurs, gallops, or rubs. RESPIRATORY: Breath sounds equal bilaterally. No accessory muscle use. GASTROINTESTINAL: Abdomen soft, non-tender, nondistended. MUSCULOSKELETAL: No cyanosis, or edema. BACK: Nontender without obvious deformity. No CVA tenderness. PSYCH: Mood and affect appropriate. Medications and IVs Current Medications Medications (Trade) Dose Ordered Sig/Peter Route Start Time Stop Time Status Last Admin (NS 1000 ml Inj) 1,000 ml @ 100 mls/hr Q10H IV 06/05/17 14:00 06/12/17 05:52 (NS Flush) 2 ml UNSCH PRN IV FLUSH 06/05/17 13:45 (NS Flush) 2 ml BID IV FLUSH 06/05/17 21:00 06/12/17 10:44 (Tylenol) 650 mg Q4H PRN PO 06/05/17 13:45 06/06/17 03:42 (Zofran Inj) 4 mg Q6H PRN IVP 06/05/17 13:45 (Narcan Inj) 0.4 mg UNSCH PRN IV 06/05/17 13:45 (Judy-Colace) 1 tab BID PO 06/05/17 21:00 06/11/17 08:23 (Milk Of Magnesia Liq) 30 ml Q12H PRN PO 06/05/17 13:45 (Senokot) 17.2 mg Q12H PRN PO 06/05/17 13:45 (Dulcolax Supp) 10 mg DAILY PRN RECTAL 06/05/17 13:45 Lactulose 30 ml 30 ml DAILY PRN PO 06/05/17 13:45 Pharmacy Profile Note 0 ml @ 0 mls/hr UNSCH OTHER 06/05/17 14:00 (Heparin-D5W Inj) 250 ml @ 0 mls/hr TITRATE IV 06/05/17 14:00 06/12/17 05:52 (Percocet 5-325 Mg) 1 tab Q4H PRN PO 06/05/17 14:30 (Percocet 5-325 Mg) 2 tab Q4H PRN PO 06/05/17 14:30 06/12/17 10:38 (Ativan) 0.5 mg Q8H PRN PO 06/05/17 14:30 06/11/17 21:19 (Morphine Inj) 2 mg Q3H PRN IV PUSH 06/05/17 14:30 06/12/17 13:46 (Motrin) 800 mg Q8H PRN PO 06/05/17 14:45 (Protonix Inj) 40 mg Q24H IV PUSH 06/05/17 16:00 06/11/17 17:15 Rifampin 300 mg 300 mg Q12H PO 06/06/17 11:00 06/12/17 13:51 (Vancomycin Consult Pharmacy) 0 ml @ 0 mls/hr UNSCH OTHER 06/08/17 16:00 (Mag-Ox) 400 mg DAILY PO 06/08/17 19:00 06/12/17 10:37 (Ceftin) 500 mg Q12H PO 06/09/17 15:00 06/16/17 14:59 06/12/17 02:19 (Zithromax) 500 mg Q24H PO 06/09/17 15:00 06/16/17 14:59 06/11/17 14:22 Warfarin Sodium 5 mg 5 mg DAILY@16 PO 06/11/17 16:00 06/11/17 17:15 (Vancomycin Inj/ NS 250 ml Inj) 250 ml @ 250 mls/hr Q12H IV 06/12/17 04:00 06/12/17 03:10 A/P Assessment and Plan 42-year-old female IV drug user with a recent admission due to severe sepsis from pneumonia and MRSA/group a strep bacteremia and left AMA on 06/04 and is back for treatment Bacteremia/ endocarditis/ PNA Chest x-ray showed right lower lobe infiltrate. UA negative. Repeat chest x- ray shows increased right lower lobe effusion and infiltrate. 06/01 All 4 cultures positive showing MRSA, group a strep, and bacillus not anthrax. Repeat blood cultures on 06/01/17 4/4 MRSA. Blood cultures on 06/02/17 1/2 culture positive for MRSA. 06/03/17 1 out of 2 positive for MRSA. 06/04 blood cultures negative. MIREILLE shows vegetations on 3 valves. Cardiology/cardio vascular surgery does not consider patient a surgical candidate at this time. Echo with vegetation on 3 valves. ID consult appreciated. - will need 6 weeks Abx from date of last pos bc. Continue antibiotics per ID. Currently on vancomycin, Ceftin, azithromycin and rifampin. Acute respiratory failure with hypoxia Secondary to sepsis/ PNA. - Continue supplement oxygen. Wean as tolerated. - continue antibiotics. - incentive spirometry. - encourage ambulation. Severe hypokalemia/hypo-magnesium Potassium 2.7 and magnesium 1.4 on admission. Resolved. - Replenish as needed. Left arm DVT Ultrasound Doppler showed Deep venous thrombosis with nonocclusive thrombus in the peripheral brachial vein; Occlusive thrombus in the entire superficial cephalic vein. Economics Professor was consulted on last admission. Recommended bridging to Coumadin. - On Coumadin bridging with heparin. Hepatitis C Patient is an active IV drug user. LFTs normal. Liver ultrasound also normal. - Follow as an outpatient. Current IV drug use With crystal meth. - Education given and discouraged use of crystal meth. DVT prophylaxis -On heparin drip. Discharge Planning patient will need 6 weeks of antibiotic from most recent positive blood culture. When cleared by infectious disease Iggy Alexander DO Jun 12, 2017 14:07
[2017-06-12 14:14] LABS: PROTHROMBIN TIME - PATIENT 11.4 SEC (9.8-11.6)
[2017-06-12 14:27] LABS: APTT (PATIENT) 33.8 SEC (24.3-30.1)
[2017-06-12 14:28] LABS: MAGNESIUM 1.9 MG/DL (1.5-2.5); POTASSIUM 3.5 MEQ/L (3.5-5.1)
[2017-06-12] MEDS: AZITHROMYCIN 250 MG TAB PO SCH (14:55)
[2017-06-12 16:00] VITALS: BP 165/77; PULSE 103; RESP 18; TEMP 97.6; O2SAT 93
[2017-06-12] MEDS: WARFARIN SOD 5 MG TAB PO SCH (16:19)
[2017-06-12] MEDS: PANTOPRAZOLE SODIUM 40 MG VIAL IV PUSH SCH (16:20)
[2017-06-12 18:25] VITALS: O2SAT 93
[2017-06-12 20:00] VITALS: BP 136/63; PULSE 99; RESP 20; TEMP 98.2; O2SAT 91
[2017-06-12] MEDS: ZOLPIDEM TARTRATE 5 MG TAB PO PRN (20:04)
[2017-06-13] MEDS: HEPARIN-D5W INJ 250 ML IV SCH ×2 (00:03→14:38)
[2017-06-13] MEDS: MORPHINE SULFATE 4 MG/ML INJ IV PUSH PRN ×2 (00:26→09:08)
[2017-06-13] MEDS: oxyCODONE/ACETAMINOPHEN 5 MG/325 MG TAB PO PRN ×4 (01:51→21:06)
[2017-06-13] MEDS: CEFUROXIME AXETIL 500 MG TAB PO SCH ×2 (01:51→14:34)
[2017-06-13] MEDS: SODIUM CHLOR 0.9% 1000 ML INJ 1,000 ML IV SCH (01:54)
[2017-06-13] MEDS: VANCOMYCIN 1,000 MG/NS 250 ML IV SCH ×4 (05:22→15:32)
[2017-06-13 08:00] VITALS: BP 129/63; PULSE 81; RESP 20; TEMP 98.4; O2SAT 92
[2017-06-13] MEDS: SODIUM CHLORIDE 0.9% FLUSH 10 ML FLUSH IV FLUSH SCH ×2 (09:00→21:07)
[2017-06-13] MEDS: DOCUSATE SODIUM 50 MG/SENNA 8.6 MG TAB PO SCH ×2 (09:07→21:00)
[2017-06-13] MEDS: MAGNESIUM OXIDE 400 MG TAB PO SCH (09:07)
[2017-06-13 09:10] LABS: APTT (PATIENT) 39.2 SEC (24.3-30.1)
[2017-06-13 09:15] LABS: INTERNATIONAL NORMALIZED RATIO 1.1 RATIO; PROTHROMBIN TIME - PATIENT 11.9 SEC (9.8-11.6)
[2017-06-13 10:21] VITALS: O2SAT 92
[2017-06-13] MEDS: RIFAMPIN 150 MG CAP PO SCH ×2 (11:17→21:06)
--- NOTE | 2017-06-13 12:45 | HHI.PR ---
Subjective Remarks The patient was upset that she couldn't get the morphine and oxycodone at the same time. Nursing reported that she was threatening to leave against medical advice. The patient endorsed some aggravation but otherwise was feeling well. She said she was getting stir crazy by staying in the hospital. Objective Vitals Vital Signs Date Time Temp Pulse Resp B/P Pulse Ox O2 Delivery O2 Flow Rate FiO2 06/13/17 08:00 92 Room Air 06/13/17 08:00 98.4 81 20 129/63 92 06/12/17 21:00 Nasal Cannula 3.00 06/12/17 20:00 98.2 99 20 136/63 91 06/12/17 18:25 93 21 06/12/17 16:00 97.6 103 18 165/77 93 I/O 06/12/17 06/12/17 06/12/17 06/13/17 06/13/17 06/13/17 06:59 14:59 22:59 06:59 14:59 22:59 Intake Total 1568 ml 480 ml 240 ml 1685 ml Output Total 1 ml 3 ml Balance 1567 ml 480 ml 237 ml 1685 ml Intake Oral 0 ml 480 ml 240 ml 240 ml IV Total 1568 ml 1280 ml Other 165 ml Output Urine Total 1 ml 3 ml # Voids 2 2 # Bowel Movements 0 1 0 0 Result Diagram: 06/12/17 1320 06/12/17 1320 Imaging Last Impressions Chest CT 06/06/17 0000 Signed Impressions: Service Date/Time: Tuesday, June 06, 2017 11:24 - CONCLUSION: Small bilateral pleural effusions, dense airspace consolidation bilaterally worse on the right highly suspicious for pneumonia. Nahun Mcqueen MD Chest X-Ray 06/05/17 1208 Signed Impressions: Service Date/Time: Monday, June 05, 2017 12:09 - CONCLUSION: 1. Stable diffuse infiltrate within the right lung consistent with probable pneumonia. Clinical correlation is recommended. Dagoberto Harmon MD Objective Remarks GENERAL: Lying in bed. Appears comfortable. SKIN: Warm and dry. HEAD: Normocephalic. EYES: No scleral icterus. No injection or drainage. NECK: Supple, trachea midline. No JVD. CARDIOVASCULAR: Regular rate and rhythm without murmurs, gallops, or rubs. RESPIRATORY: Breath sounds equal bilaterally. No accessory muscle use. GASTROINTESTINAL: Abdomen soft, non-tender, nondistended. MUSCULOSKELETAL: No cyanosis, or edema. BACK: Nontender without obvious deformity. No CVA tenderness. PSYCH: Anxious. Medications and IVs Current Medications Medications (Trade) Dose Ordered Sig/Peter Route Start Time Stop Time Status Last Admin (NS Flush) 2 ml UNSCH PRN IV FLUSH 06/05/17 13:45 (NS Flush) 2 ml BID IV FLUSH 06/05/17 21:00 06/12/17 20:06 (Tylenol) 650 mg Q4H PRN PO 06/05/17 13:45 06/06/17 03:42 (Zofran Inj) 4 mg Q6H PRN IVP 06/05/17 13:45 (Narcan Inj) 0.4 mg UNSCH PRN IV 06/05/17 13:45 (Judy-Colace) 1 tab BID PO 06/05/17 21:00 06/13/17 09:07 (Milk Of Magnesia Liq) 30 ml Q12H PRN PO 06/05/17 13:45 (Senokot) 17.2 mg Q12H PRN PO 06/05/17 13:45 (Dulcolax Supp) 10 mg DAILY PRN RECTAL 06/05/17 13:45 Lactulose 30 ml 30 ml DAILY PRN PO 06/05/17 13:45 Pharmacy Profile Note 0 ml @ 0 mls/hr UNSCH OTHER 06/05/17 14:00 (Heparin-D5W Inj) 250 ml @ 0 mls/hr TITRATE IV 06/05/17 14:00 06/13/17 00:03 (Percocet 5-325 Mg) 1 tab Q4H PRN PO 06/05/17 14:30 (Percocet 5-325 Mg) 2 tab Q4H PRN PO 06/05/17 14:30 06/13/17 11:16 (Ativan) 0.5 mg Q8H PRN PO 06/05/17 14:30 06/11/17 21:19 (Motrin) 800 mg Q8H PRN PO 06/05/17 14:45 (Protonix Inj) 40 mg Q24H IV PUSH 06/05/17 16:00 06/12/17 16:20 Rifampin 300 mg 300 mg Q12H PO 06/06/17 11:00 06/13/17 11:17 (Vancomycin Consult Pharmacy) 0 ml @ 0 mls/hr UNSCH OTHER 06/08/17 16:00 (Mag-Ox) 400 mg DAILY PO 06/08/17 19:00 06/13/17 09:07 (Ceftin) 500 mg Q12H PO 06/09/17 15:00 06/16/17 14:59 06/13/17 01:51 (Zithromax) 500 mg Q24H PO 06/09/17 15:00 06/16/17 14:59 06/12/17 14:55 Warfarin Sodium 5 mg 5 mg DAILY@16 PO 06/11/17 16:00 06/12/17 16:19 (Vancomycin Inj/ NS 250 ml Inj) 250 ml @ 250 mls/hr Q12H IV 06/12/17 04:00 06/13/17 05:22 (Ambien) 5 mg HS PRN PO 06/12/17 14:00 06/12/17 20:04 (Coumadin) 5 mg ONCE PO 06/13/17 16:00 06/13/17 23:59 Miscellaneous Information SPECIFIC LAB TO BE NEVAEH... ONCE ONCE .XX 06/14/17 15:45 06/14/17 15:46 A/P Assessment and Plan 42-year-old female IV drug user with a recent admission due to severe sepsis from pneumonia and MRSA/group a strep bacteremia and left AMA on 06/04 and is back for treatment Bacteremia/ endocarditis/ PNA Chest x-ray showed right lower lobe infiltrate. UA negative. Repeat chest x- ray shows increased right lower lobe effusion and infiltrate. 06/01 All 4 cultures positive showing MRSA, group a strep, and bacillus not anthrax. Repeat blood cultures on 06/01/17 4/4 MRSA. Blood cultures on 06/02/17 1/2 culture positive for MRSA. 06/03/17 1 out of 2 positive for MRSA. 06/04 blood cultures negative. MIREILLE shows vegetations on 3 valves. Cardiology/ cardiovascular surgery does not consider patient a surgical candidate at this time. Echo with vegetation on 3 valves. ID consult appreciated. - will need 6 weeks Abx from date of last pos bc. Continue antibiotics per ID. Currently on vancomycin, Ceftin, azithromycin and rifampin. No change in treatment 06/13. Acute respiratory failure with hypoxia Secondary to sepsis/ PNA. - Continue supplement oxygen. Wean as tolerated. - continue antibiotics. - incentive spirometry. - encourage ambulation. Severe hypokalemia/hypo-magnesium Potassium 2.7 and magnesium 1.4 on admission. Resolved. - Replenish as needed. Left arm DVT Ultrasound Doppler showed Deep venous thrombosis with nonocclusive thrombus in the peripheral brachial vein; Occlusive thrombus in the entire superficial cephalic vein. Hydraulic Governor Assembler was consulted on last admission. Recommended bridging to Coumadin. - On Coumadin bridging with heparin. INR 1.1 06/13. Hepatitis C Patient is an active IV drug user. LFTs normal. Liver ultrasound also normal. - Follow as an outpatient. Current IV drug use With crystal meth. - Education given and discouraged use of crystal meth. DVT prophylaxis -On heparin drip. Discharge Planning patient will need 6 weeks of antibiotic from most recent positive blood culture. When cleared by infectious disease Iggy Alexander DO Jun 13, 2017 12:45
[2017-06-13] MEDS: LORazepam 0.5 MG TAB PO PRN (13:16)
[2017-06-13] MEDS: AZITHROMYCIN 250 MG TAB PO SCH (14:34)
[2017-06-13] MEDS: PANTOPRAZOLE SODIUM 40 MG VIAL IV PUSH SCH (15:28)
[2017-06-13] MEDS: WARFARIN SOD 5 MG TAB PO SCH (15:38)
[2017-06-13] MEDS ORDERED: WARFARIN SOD 5 MG TAB PO SCH (16:00)
[2017-06-13 17:00] VITALS: O2SAT 94
[2017-06-13 20:00] VITALS: BP 114/59; PULSE 80; RESP 18; TEMP 98.7; O2SAT 94
[2017-06-13] MEDS: ZOLPIDEM TARTRATE 5 MG TAB PO PRN (21:06)
[2017-06-13 23:24] LABS: APTT (PATIENT) 82.3 SEC (24.3-30.1)
[2017-06-14] MEDS: oxyCODONE/ACETAMINOPHEN 5 MG/325 MG TAB PO PRN ×5 (03:22→20:25)
[2017-06-14] MEDS: CEFUROXIME AXETIL 500 MG TAB PO SCH ×2 (03:22→14:45)
[2017-06-14] MEDS: VANCOMYCIN 1,000 MG/NS 250 ML IV SCH ×4 (03:23→16:46)
[2017-06-14 04:00] VITALS: BP 120/66; PULSE 78; RESP 18; TEMP 98.2
[2017-06-14] MEDS: HEPARIN-D5W INJ 250 ML IV SCH ×2 (06:35→21:00)
[2017-06-14 06:49] LABS: HEMATOCRIT 24.8 % (35.0-46.0); MEAN CELL VOLUME 96.2 FL (80.0-100.0); MEAN CORPUSCULAR HEMOGLOBIN 32.4 PG (27.0-34.0); MEAN CORPUSCULAR HGB CONC 33.7 % (32.0-36.0); PLATELET COUNT 366 TH/MM3 (150-450); RED BLOOD COUNT 2.58 MIL/MM3 (4.00-5.30); RED CELL DISTRIBUTION WIDTH 16.2 % (11.6-17.2); REVIEW FLAG FINAL; WHITE BLOOD COUNT 6.9 TH/MM3 (4.0-11.0)
[2017-06-14 06:55] LABS: APTT (PATIENT) 42.5 SEC (24.3-30.1); INTERNATIONAL NORMALIZED RATIO 1.1 RATIO
[2017-06-14] MEDS: LORazepam 0.5 MG TAB PO PRN (07:43)
[2017-06-14] MEDS: SODIUM CHLORIDE 0.9% FLUSH 10 ML FLUSH IV FLUSH SCH ×2 (07:44→20:26)
[2017-06-14] MEDS: MAGNESIUM OXIDE 400 MG TAB PO SCH (07:44)
[2017-06-14] MEDS: DOCUSATE SODIUM 50 MG/SENNA 8.6 MG TAB PO SCH ×2 (07:45→20:26)
[2017-06-14 08:00] VITALS: BP 138/84; PULSE 88; RESP 20; TEMP 98.5; O2SAT 95
[2017-06-14 09:47] VITALS: O2SAT 95
[2017-06-14 12:00] VITALS: BP 121/56; PULSE 71; RESP 20; TEMP 98.6; O2SAT 96
[2017-06-14] MEDS: RIFAMPIN 150 MG CAP PO SCH (12:01)
[2017-06-14 12:54] LABS: APTT (PATIENT) 46.7 SEC (24.3-30.1)
--- NOTE | 2017-06-14 13:28 | HHI.PR ---
Subjective Remarks The patient said that she has OCD and she is having a hard time staying in the hospital. She said that she did well on Xanax in the past and requests once a day Xanax. Otherwise no acute complaints. Discussed with nursing. Objective Vitals Vital Signs Date Time Temp Pulse Resp B/P Pulse Ox O2 Delivery O2 Flow Rate FiO2 06/14/17 12:00 98.6 71 20 121/56 96 06/14/17 09:47 95 21 06/14/17 08:03 Room Air 06/14/17 08:00 98.5 88 20 138/84 95 06/14/17 04:00 98.2 78 18 120/66 06/13/17 20:00 98.7 80 18 114/59 94 06/13/17 20:00 Room Air 06/13/17 17:00 94 21 I/O 06/13/17 06/13/17 06/13/17 06/14/17 06/14/17 06/14/17 07:00 15:00 23:00 07:00 15:00 23:00 Intake Total 1685 ml 720 ml 480 ml 395 ml Output Total 0 ml Balance 1685 ml 720 ml 480 ml 395 ml Intake Oral 240 ml 720 ml 480 ml IV Total 1280 ml 395 ml Other 165 ml Output Urine Total 0 ml # Voids 2 3 0 # Bowel Movements 0 0 0 Result Diagram: 06/14/17 0556 06/12/17 1320 Imaging Last Impressions Chest CT 06/06/17 0000 Signed Impressions: Service Date/Time: Tuesday, June 06, 2017 11:24 - CONCLUSION: Small bilateral pleural effusions, dense airspace consolidation bilaterally worse on the right highly suspicious for pneumonia. Nahun Mcqueen MD Chest X-Ray 06/05/17 1208 Signed Impressions: Service Date/Time: Monday, June 05, 2017 12:09 - CONCLUSION: 1. Stable diffuse infiltrate within the right lung consistent with probable pneumonia. Clinical correlation is recommended. Dagoberto Harmon MD Objective Remarks GENERAL: Lying in bed. Appears comfortable. SKIN: Warm and dry. HEAD: Normocephalic. EYES: No scleral icterus. No injection or drainage. NECK: Supple, trachea midline. No JVD. CARDIOVASCULAR: Regular rate and rhythm without murmurs, gallops, or rubs. RESPIRATORY: Breath sounds equal bilaterally. No accessory muscle use. GASTROINTESTINAL: Abdomen soft, non-tender, nondistended. MUSCULOSKELETAL: No cyanosis, or edema. BACK: Nontender without obvious deformity. No CVA tenderness. PSYCH: Anxious. Medications and IVs Current Medications Medications (Trade) Dose Ordered Sig/Peter Route Start Time Stop Time Status Last Admin (NS Flush) 2 ml UNSCH PRN IV FLUSH 06/05/17 13:45 (NS Flush) 2 ml BID IV FLUSH 06/05/17 21:00 06/14/17 07:44 (Tylenol) 650 mg Q4H PRN PO 06/05/17 13:45 06/06/17 03:42 (Zofran Inj) 4 mg Q6H PRN IVP 06/05/17 13:45 (Narcan Inj) 0.4 mg UNSCH PRN IV 06/05/17 13:45 (Judy-Colace) 1 tab BID PO 06/05/17 21:00 06/13/17 09:07 (Milk Of Magnesia Liq) 30 ml Q12H PRN PO 06/05/17 13:45 (Senokot) 17.2 mg Q12H PRN PO 06/05/17 13:45 (Dulcolax Supp) 10 mg DAILY PRN RECTAL 06/05/17 13:45 Lactulose 30 ml 30 ml DAILY PRN PO 06/05/17 13:45 Pharmacy Profile Note 0 ml @ 0 mls/hr UNSCH OTHER 06/05/17 14:00 (Heparin-D5W Inj) 250 ml @ 0 mls/hr TITRATE IV 06/05/17 14:00 06/14/17 06:35 (Percocet 5-325 Mg) 1 tab Q4H PRN PO 06/05/17 14:30 (Percocet 5-325 Mg) 2 tab Q4H PRN PO 06/05/17 14:30 06/14/17 12:02 (Ativan) 0.5 mg Q8H PRN PO 06/05/17 14:30 06/14/17 07:43 (Motrin) 800 mg Q8H PRN PO 06/05/17 14:45 (Protonix Inj) 40 mg Q24H IV PUSH 06/05/17 16:00 06/13/17 15:28 Rifampin 300 mg 300 mg Q12H PO 06/06/17 11:00 06/14/17 12:01 (Vancomycin Consult Pharmacy) 0 ml @ 0 mls/hr UNSCH OTHER 06/08/17 16:00 (Mag-Ox) 400 mg DAILY PO 06/08/17 19:00 06/14/17 07:44 (Ceftin) 500 mg Q12H PO 06/09/17 15:00 06/16/17 14:59 06/14/17 03:22 (Zithromax) 500 mg Q24H PO 06/09/17 15:00 06/16/17 14:59 06/13/17 14:34 Warfarin Sodium 5 mg 5 mg DAILY@16 PO 06/11/17 16:00 06/13/17 15:38 (Vancomycin Inj/ NS 250 ml Inj) 250 ml @ 250 mls/hr Q12H IV 06/12/17 04:00 06/14/17 03:23 (Ambien) 5 mg HS PRN PO 06/12/17 14:00 06/13/17 21:06 Miscellaneous Information SPECIFIC LAB TO BE NEVAEH... ONCE ONCE .XX 06/14/17 15:45 06/14/17 15:46 (Coumadin) 5 mg ONCE PO 06/14/17 16:00 06/14/17 23:59 A/P Assessment and Plan 42-year-old female IV drug user with a recent admission due to severe sepsis from pneumonia and MRSA/group a strep bacteremia and left AMA on 06/04 and is back for treatment Bacteremia/ endocarditis/ PNA Chest x-ray showed right lower lobe infiltrate. UA negative. Repeat chest x- ray shows increased right lower lobe effusion and infiltrate. 06/01 All 4 cultures positive showing MRSA, group a strep, and bacillus not anthrax. Repeat blood cultures on 06/01/17 4/4 MRSA. Blood cultures on 06/02/17 1/2 culture positive for MRSA. 06/03/17 1 out of 2 positive for MRSA. 06/04 blood cultures negative. MIREILLE shows vegetations on 3 valves. Cardiology/ cardiovascular surgery does not consider patient a surgical candidate at this time. Echo with vegetation on 3 valves. ID consult appreciated. - will need 6 weeks Abx from date of last pos bc. Continue antibiotics per ID. Currently on vancomycin, Ceftin, azithromycin and rifampin. No change in treatment 06/14. Acute respiratory failure with hypoxia Secondary to sepsis/ PNA. - Continue supplement oxygen. Wean as tolerated. - continue antibiotics. - incentive spirometry. - encourage ambulation. Severe hypokalemia/hypo-magnesium Potassium 2.7 and magnesium 1.4 on admission. Resolved. - Replenish as needed. Left arm DVT Ultrasound Doppler showed Deep venous thrombosis with nonocclusive thrombus in the peripheral brachial vein; Occlusive thrombus in the entire superficial cephalic vein. Cost Accounting Clerk was consulted on last admission. Recommended bridging to Coumadin. - On Coumadin bridging with heparin. INR 1.1 06/14. Hepatitis C Patient is an active IV drug user. LFTs normal. Liver ultrasound also normal. - Follow as an outpatient. Current IV drug use With crystal meth. - Education given and discouraged use of crystal meth. Anxiety/ OCD The pt says she did well on Xanax in the past. - d/c Ativan and start Xanax. DVT prophylaxis -On heparin drip. Discharge Planning patient will need 6 weeks of antibiotic from most recent positive blood culture. When cleared by infectious disease Iggy Alexander DO Jun 14, 2017 13:28
[2017-06-14] MEDS: AZITHROMYCIN 250 MG TAB PO SCH (14:45)
[2017-06-14] MEDS: ALPRAZolam 0.5 MG TAB PO PRN (14:50)
[2017-06-14] MEDS ORDERED: PHARMACY ORDERED LAB ONE (15:45)
[2017-06-14 16:00] VITALS: BP 116/55; PULSE 76; RESP 20; TEMP 98.2; O2SAT 94
[2017-06-14] MEDS ORDERED: WARFARIN SOD 5 MG TAB PO SCH (16:00)
[2017-06-14] MEDS: PANTOPRAZOLE SODIUM 40 MG VIAL IV PUSH SCH (16:16)
[2017-06-14] MEDS: WARFARIN SOD 5 MG TAB PO SCH (16:16)
[2017-06-14 20:00] VITALS: BP 146/67; PULSE 79; RESP 18; TEMP 98.3; O2SAT 96
[2017-06-14] MEDS: ZOLPIDEM TARTRATE 5 MG TAB PO PRN (20:49)
[2017-06-15] VITALS (7 sets, daily range): BP systolic 137–148; BP diastolic 60–75; PULSE 63–80; RESP 16–20; TEMP 96.6–98.7; O2SAT 92–96
[2017-06-15] MEDS: RIFAMPIN 150 MG CAP PO SCH ×3 (00:26→23:06)
[2017-06-15] MEDS: oxyCODONE/ACETAMINOPHEN 5 MG/325 MG TAB PO PRN ×6 (00:26→21:09)
[2017-06-15] MEDS: CEFUROXIME AXETIL 500 MG TAB PO SCH ×2 (04:41→15:00)
[2017-06-15] MEDS: VANCOMYCIN 1,000 MG/NS 250 ML IV SCH ×4 (04:41→16:23)
[2017-06-15] MEDS: ALPRAZolam 0.5 MG TAB PO PRN (07:34)
[2017-06-15] MEDS: MAGNESIUM OXIDE 400 MG TAB PO SCH (07:34)
[2017-06-15] MEDS: SODIUM CHLORIDE 0.9% FLUSH 10 ML FLUSH IV FLUSH SCH ×2 (07:37→21:09)
[2017-06-15 08:32] LABS: INTERNATIONAL NORMALIZED RATIO 1.1 RATIO
[2017-06-15] MEDS: DOCUSATE SODIUM 50 MG/SENNA 8.6 MG TAB PO SCH ×2 (09:00→21:00)
--- NOTE | 2017-06-15 11:00 | HHI.PR ---
Subjective Remarks The patient feels she is getting more and more depressed. She wants to go home. Otherwise no acute complaints. Objective Vitals Vital Signs Date Time Temp Pulse Resp B/P Pulse Ox O2 Delivery O2 Flow Rate FiO2 06/15/17 08:00 98.7 76 20 147/75 94 06/15/17 04:00 Room Air 06/15/17 04:00 98.1 76 18 140/66 95 06/15/17 00:00 Room Air 06/15/17 00:00 98.2 80 18 138/62 96 06/14/17 20:00 98.3 79 18 146/67 96 06/14/17 20:00 Room Air 06/14/17 16:00 98.2 76 20 116/55 94 06/14/17 12:00 98.6 71 20 121/56 96 I/O 06/14/17 06/14/17 06/14/17 06/15/17 06/15/17 06/15/17 07:00 15:00 23:00 07:00 15:00 23:00 Intake Total 395 ml 720 ml 602 ml 370 ml Output Total 750 ml Balance 395 ml -30 ml 602 ml 370 ml Intake Oral 720 ml 480 ml 120 ml IV Total 395 ml 122 ml 250 ml Output Urine Total 750 ml # Voids 2 1 # Bowel Movements 2 Result Diagram: 06/14/17 0556 06/15/17 0809 Imaging Last Impressions Chest CT 06/06/17 0000 Signed Impressions: Service Date/Time: Tuesday, June 06, 2017 11:24 - CONCLUSION: Small bilateral pleural effusions, dense airspace consolidation bilaterally worse on the right highly suspicious for pneumonia. Nahun Mcqueen MD Chest X-Ray 06/05/17 1208 Signed Impressions: Service Date/Time: Monday, June 05, 2017 12:09 - CONCLUSION: 1. Stable diffuse infiltrate within the right lung consistent with probable pneumonia. Clinical correlation is recommended. Dagoberto Harmon MD Objective Remarks GENERAL: Lying in bed. Appears comfortable. SKIN: Warm and dry. HEAD: Normocephalic. EYES: No scleral icterus. No injection or drainage. NECK: Supple, trachea midline. No JVD. CARDIOVASCULAR: Regular rate and rhythm without murmurs, gallops, or rubs. RESPIRATORY: Breath sounds equal bilaterally. No accessory muscle use. GASTROINTESTINAL: Abdomen soft, non-tender, nondistended. MUSCULOSKELETAL: No cyanosis, or edema. BACK: Nontender without obvious deformity. No CVA tenderness. PSYCH: Anxious. Medications and IVs Current Medications Medications (Trade) Dose Ordered Sig/Peter Route Start Time Stop Time Status Last Admin (NS Flush) 2 ml UNSCH PRN IV FLUSH 06/05/17 13:45 (NS Flush) 2 ml BID IV FLUSH 06/05/17 21:00 06/15/17 07:37 (Tylenol) 650 mg Q4H PRN PO 06/05/17 13:45 06/06/17 03:42 (Zofran Inj) 4 mg Q6H PRN IVP 06/05/17 13:45 (Narcan Inj) 0.4 mg UNSCH PRN IV 06/05/17 13:45 (Judy-Colace) 1 tab BID PO 06/05/17 21:00 06/13/17 09:07 (Milk Of Magnesia Liq) 30 ml Q12H PRN PO 06/05/17 13:45 (Senokot) 17.2 mg Q12H PRN PO 06/05/17 13:45 (Dulcolax Supp) 10 mg DAILY PRN RECTAL 06/05/17 13:45 Lactulose 30 ml 30 ml DAILY PRN PO 06/05/17 13:45 Pharmacy Profile Note 0 ml @ 0 mls/hr UNSCH OTHER 06/05/17 14:00 (Heparin-D5W Inj) 250 ml @ 0 mls/hr TITRATE IV 06/05/17 14:00 06/14/17 21:00 (Percocet 5-325 Mg) 1 tab Q4H PRN PO 06/05/17 14:30 (Percocet 5-325 Mg) 2 tab Q4H PRN PO 06/05/17 14:30 06/15/17 09:34 (Motrin) 800 mg Q8H PRN PO 06/05/17 14:45 (Protonix Inj) 40 mg Q24H IV PUSH 06/05/17 16:00 06/14/17 16:16 Rifampin 300 mg 300 mg Q12H PO 06/06/17 11:00 06/15/17 00:26 (Vancomycin Consult Pharmacy) 0 ml @ 0 mls/hr UNSCH OTHER 06/08/17 16:00 (Mag-Ox) 400 mg DAILY PO 06/08/17 19:00 06/15/17 07:34 (Ceftin) 500 mg Q12H PO 06/09/17 15:00 06/16/17 14:59 06/15/17 04:41 (Zithromax) 500 mg Q24H PO 06/09/17 15:00 06/16/17 14:59 06/14/17 14:45 Warfarin Sodium 5 mg 5 mg DAILY@16 PO 06/11/17 16:00 06/14/17 16:16 (Vancomycin Inj/ NS 250 ml Inj) 250 ml @ 250 mls/hr Q12H IV 06/12/17 04:00 06/15/17 04:41 (Ambien) 5 mg HS PRN PO 06/12/17 14:00 06/14/17 20:49 (Xanax) 0.5 mg DAILY PRN PO 06/14/17 13:30 06/15/17 07:34 Miscellaneous Information SPECIFIC LAB TO BE DRAWN:VANCO TROUGH DATE TO BE DR... ONCE ONCE .XX 06/15/17 15:45 06/15/17 15:46 (Coumadin) 5 mg ONCE PO 06/15/17 16:00 06/15/17 23:59 A/P Assessment and Plan 42-year-old female IV drug user with a recent admission due to severe sepsis from pneumonia and MRSA/group a strep bacteremia and left AMA on 06/04 and is back for treatment Bacteremia/ endocarditis/ PNA Chest x-ray showed right lower lobe infiltrate. UA negative. Repeat chest x- ray shows increased right lower lobe effusion and infiltrate. 06/01 All 4 cultures positive showing MRSA, group a strep, and bacillus not anthrax. Repeat blood cultures on 06/01/17 4/4 MRSA. Blood cultures on 06/02/17 1/2 culture positive for MRSA. 06/03/17 1 out of 2 positive for MRSA. 06/04 blood cultures negative. MIREILLE shows vegetations on 3 valves. Cardiology/ cardiovascular surgery does not consider patient a surgical candidate at this time. Echo with vegetation on 3 valves. ID consult appreciated. - will need 6 weeks Abx from date of last pos bc. Continue antibiotics per ID. Currently on vancomycin and rifampin. - Ceftin and azithromycin to be discontinued 06/16 for treatment of pneumonia. Acute respiratory failure with hypoxia Secondary to sepsis/ PNA. - Continue supplement oxygen. Wean as tolerated. - continue antibiotics. - incentive spirometry. - encourage ambulation. Severe hypokalemia/ hypomagnesemia Potassium 2.7 and magnesium 1.4 on admission. Resolved. - Replenish as needed. Left arm DVT Ultrasound Doppler showed Deep venous thrombosis with nonocclusive thrombus in the peripheral brachial vein; Occlusive thrombus in the entire superficial cephalic vein. Sock Drier was consulted on last admission. Recommended bridging to Coumadin. - On Coumadin bridging with heparin. INR 1.1 06/15. Hepatitis C Patient is an active IV drug user. LFTs normal. Liver ultrasound also normal. - Follow as an outpatient. Current IV drug use With crystal meth. - Education given and discouraged use of crystal meth. Anxiety/ OCD/ depression The pt says she did well on Xanax in the past. - d/c Ativan and start Xanax. - Psychiatry consult requested. DVT prophylaxis -On heparin drip and Coumadin Discharge Planning patient will need 6 weeks of antibiotic from most recent positive blood culture. When cleared by infectious disease Iggy Alexander DO Jun 15, 2017 11:00
[2017-06-15] MEDS: HEPARIN-D5W INJ 250 ML IV SCH (12:44)
[2017-06-15] MEDS: AZITHROMYCIN 250 MG TAB PO SCH (15:00)
[2017-06-15] MEDS ORDERED: PHARMACY ORDERED LAB ONE (15:45)
[2017-06-15] MEDS ORDERED: WARFARIN SOD 5 MG TAB PO SCH (16:00)
[2017-06-15] MEDS: WARFARIN SOD 5 MG TAB PO SCH (16:22)
[2017-06-15] MEDS: PANTOPRAZOLE SODIUM 40 MG VIAL IV PUSH SCH (16:23)
--- NOTE | 2017-06-15 16:51 | PD.PSY.CON ---
Provisional Diagnosis Admission Date Jun 05, 2017 at 13:47 [employer] [place]. Adjustment disorder with depressed mood, IV amphetamine use disorder, history of depression and anxiety [employer]. Deferred [employer] [facility]. COPD, pneumonia, History of Present Illness Service Psychiatry Consult Requested By Reason for Consult Depressive symptoms Primary Care Physician No Primary Care Physician HPI The patient is a 42-year-old occasions woman, single, domiciled with a roommate in [facility], mother of 4 kids, unemployed, supported by savings, psychiatric history of anxiety, depression, no previous psychiatric hospitalizations, one remote suicide attempt, amphetamine use disorder, IV drug user with a recent admission due to severe sepsis from pneumonia and MRSA/group a strep bacteremia and left AMA on 06/04 and is back for treatment. Admitted due to Bacteremia/ endocarditis/ PNA 06/01 All 4 cultures positive showing MRSA, group a strep, and bacillus not anthrax. Repeat blood cultures on 06/01/17 4/4 MRSA. Blood cultures on 06/02/17 1/2 culture positive for MRSA. 06/03/17 1 out of 2 positive for MRSA. 06/04 blood cultures negative. MIREILLE shows vegetations on 3 valves. Cardiology/cardiovascular surgery does not consider patient a surgical candidate at this time. Echo with vegetation on 3 valves. ID consult appreciated. Will need 6 weeks Abx from date of last pos bc. Continue antibiotics per ID. Currently on vancomycin and rifampin. Ceftin and azithromycin to be discontinued 06/16 for treatment of pneumonia. Also to psychiatry due to symptoms of depression. On psychiatric evaluation today patient is calm, cooperative and pleasant. Patient reported that she has been feeling sad, at times depressed due to the length of her hospitalization. Patient reports that she has been feeling guilty, isolated, with difficulty sleeping denies, intrusive thoughts, anxious, with low level of energy and appetite. However she denies suicidal or homicidal ideation. She expresses motivation to continue her medical regimen, getting better, follow medical recommendations. Patient is oriented 3, no attention deficit, no gross cognitive impairment present. Patient says that she doesn't believe and suicidality because she wants to go to [facility]. Patient stated that she is committed to stop using IV drugs. She reports daily use of amphetamines IV. Denies the use of other drugs and alcohol. No paranoia, no delusions, no disorganized behaviors are thought, no perceptual disturbances reported or present. Review of Systems Constitutional: DENIES: Diaphoretic episodes, Fatigue, Fever, Weight gain, Weight loss, Chills, Dizziness, Change in appetite, Night Sweats Endocrine: DENIES: Abnorml menstrual pattern, Heat/cold intolerance, Polydipsia , Polyuria, Polyphagia Eyes: DENIES: Blurred vision, Diplopia, Eye inflammation, Eye pain, Vision loss , Photosensitivity, Double Vision Ears, nose, mouth, throat: DENIES: Tinnitus, Hearing loss, Vertigo, Nasal discharge, Oral lesions, Throat pain, Hoarseness, Ear Pain, Running Nose, Epistaxis, Sinus Pain, Toothache, Odynophagia Respiratory: DENIES: Apneas, Cough, Snoring, Wheezing, Hemoptysis, Sputum production, Shortness of breath Cardiovascular: DENIES: Chest pain, Palpitations, Syncope, Dyspnea on Exertion , PND, Lower Extremity Edema, Orthopnea, Claudication Genitourinary: DENIES: Abnormal vaginal bleeding, Dysmenorrhea, Dyspareunia, Sexual dysfunction, Urinary frequency, Urinary incontinence, Urgency, Hematuria , Dysuria, Nocturia, Vaginal discharge Integumentary: DENIES: Abnormal pigmentation, Pruritus, Rash, Nail changes, Breast masses, Breast skin changes, Nipple discharge Hematologic/lymphatic: DENIES: Bruising, Lymphadenopathy Immunologic/allergic: DENIES: Eczema, Urticaria Neurologic: DENIES: Abnormal gait, Headache, Localized weakness, Paresthesias, Seizures, Speech Problems, Tremor, Poor Balance Psychiatric: COMPLAINS OF: Anxiety, Depression, DENIES: Confusion, Mood changes, Hallucinations, Agitation, Suicidal Ideation, Homicidal Ideation, Delusions Past Family Social History Coded Allergies: *MDRO Multi-Drug Resistant Organism (Verified Adverse Reaction, Unknown, ) MRSA (blood) 05/31/17, 06/01/17, 06/02/17, 06/03/17, 06/05/17 No Active Prescriptions or Reported Meds Current Medications Medications (Trade) Dose Ordered Sig/Peter Route Start Time Stop Time Status Last Admin (NS Flush) 2 ml UNSCH PRN IV FLUSH 06/05/17 13:45 (NS Flush) 2 ml BID IV FLUSH 06/05/17 21:00 06/15/17 07:37 (Tylenol) 650 mg Q4H PRN PO 06/05/17 13:45 06/06/17 03:42 (Zofran Inj) 4 mg Q6H PRN IVP 06/05/17 13:45 (Narcan Inj) 0.4 mg UNSCH PRN IV 06/05/17 13:45 (Judy-Colace) 1 tab BID PO 06/05/17 21:00 06/13/17 09:07 (Milk Of Magnesia Liq) 30 ml Q12H PRN PO 06/05/17 13:45 (Senokot) 17.2 mg Q12H PRN PO 06/05/17 13:45 (Dulcolax Supp) 10 mg DAILY PRN RECTAL 06/05/17 13:45 Lactulose 30 ml 30 ml DAILY PRN PO 06/05/17 13:45 Pharmacy Profile Note 0 ml @ 0 mls/hr UNSCH OTHER 06/05/17 14:00 (Heparin-D5W Inj) 250 ml @ 0 mls/hr TITRATE IV 06/05/17 14:00 06/15/17 12:44 (Percocet 5-325 Mg) 1 tab Q4H PRN PO 06/05/17 14:30 (Percocet 5-325 Mg) 2 tab Q4H PRN PO 06/05/17 14:30 06/15/17 13:42 (Motrin) 800 mg Q8H PRN PO 06/05/17 14:45 (Protonix Inj) 40 mg Q24H IV PUSH 06/05/17 16:00 06/15/17 16:23 Rifampin 300 mg 300 mg Q12H PO 06/06/17 11:00 06/15/17 11:39 (Vancomycin Consult Pharmacy) 0 ml @ 0 mls/hr UNSCH OTHER 06/08/17 16:00 (Mag-Ox) 400 mg DAILY PO 06/08/17 19:00 06/15/17 07:34 (Ceftin) 500 mg Q12H PO 06/09/17 15:00 06/16/17 14:59 06/15/17 15:00 (Zithromax) 500 mg Q24H PO 06/09/17 15:00 06/16/17 14:59 06/15/17 15:00 Warfarin Sodium 5 mg 5 mg DAILY@16 PO 06/11/17 16:00 06/15/17 16:22 (Vancomycin Inj/ NS 250 ml Inj) 250 ml @ 250 mls/hr Q12H IV 06/12/17 04:00 06/15/17 16:23 (Ambien) 5 mg HS PRN PO 06/12/17 14:00 06/14/17 20:49 (Coumadin) 5 mg ONCE PO 06/15/17 16:00 06/15/17 23:59 06/15/17 16:22 (Xanax) 0.5 mg BID PRN PO 06/15/17 21:00 Miscellaneous Information SPECIFIC LAB TO BE DRAWN:VANCO TROUGH DATE TO BE DR... ONCE ONCE .XX 06/16/17 03:45 06/16/17 03:46 Family History She denies family psychiatric history Social History Patient was born and raised in [place], she is in [place] with a roommate, she has 4 kids, children unemployed, , her highest level of education is ninth grade Patient's Strengths (min. 2) verbal communication Physical Exam Physical examinations, no tremors, no EPS, no stiffness, no psychomotor retardation or agitation, no gait disturbances. Vital Signs Vital Signs Date Time Temp Pulse Resp B/P Pulse Ox O2 Delivery O2 Flow Rate FiO2 06/15/17 12:00 98.7 77 20 148/72 92 06/15/17 11:39 21 06/15/17 10:00 Room Air 06/12/17 21:00 3.00 I/O 06/14/17 06/14/17 06/14/17 07:59 15:59 23:59 Intake Total 395 ml 720 ml 602 ml Output Total 750 ml Balance 395 ml -30 ml 602 ml Mental Status Examination Appearance skinny woman, [facility], good hygiene, calm, cooperative and pleasant Speech: Unremarkable Orientation: x3 Memory: Unremarkable Thought Process: Logical Thought Content: Unremarkable Language Fluids and spontaneous Fund of Knowledge Adequate for level of education Hallucination Type: None Attention and Concentration: Good Suicidal Ideation: No Previous Suicide Attempts: Yes Homicidal Ideation: No Previous Homicide Attempts: No Insight: Good Affect: Good Mood: Sad Motor Activity: Normal gait Assessment & Plan Problem List: (1) Adjustment disorder with depressed mood Assessment & Plan: On psychiatric evaluation today patient is calm, cooperative and pleasant. Logical, coherent and relevant. Oriented 3, no gross cognitive impairment present. Patient reports mild to moderate depressive symptoms mostly secondary to the length of her hospitalization and acutely of underlying medical conditions. Patient reports difficulty sleeping at night, intrusive thoughts, level of energy, poor appetite, frequent sadness, but denies hopelessness, denies anhedonia, denies helplessness, denies suicidal and homicidal ideation, denies visual and auditory hallucinations. Patient is future oriented, with identifiable protective factors for suicidality. Patient does not meet criteria for psychiatric admission at this moment. We will start Remeron 15 milligrams at bedtime for depression. Extensive support, motivation and psychoeducation provided. We'll follow-up. ICD Code: F43.21 Assessment & Plan Estimated LOS: days Mickey Harrison MD Jun 15, 2017 16:51
[2017-06-15] MEDS: ZOLPIDEM TARTRATE 5 MG TAB PO PRN (21:08)
[2017-06-15] MEDS: MIRTAZAPINE 15 MG TAB PO SCH (21:08)
[2017-06-16] MEDS: CEFUROXIME AXETIL 500 MG TAB PO SCH (02:58)
[2017-06-16] MEDS: ALPRAZolam 0.5 MG TAB PO PRN ×2 (02:59→10:01)
[2017-06-16] MEDS: oxyCODONE/ACETAMINOPHEN 5 MG/325 MG TAB PO PRN ×4 (02:59→19:04)
[2017-06-16] MEDS ORDERED: PHARMACY ORDERED LAB ONE (03:45)
[2017-06-16] MEDS: VANCOMYCIN 1,000 MG/NS 250 ML IV SCH ×4 (04:11→14:25)
[2017-06-16] MEDS: HEPARIN-D5W INJ 250 ML IV SCH ×2 (06:19→23:19)
[2017-06-16 08:00] VITALS: BP 149/66; PULSE 72; RESP 18; TEMP 98.1; O2SAT 94
[2017-06-16] MEDS: DOCUSATE SODIUM 50 MG/SENNA 8.6 MG TAB PO SCH ×2 (09:00→21:00)
--- NOTE | 2017-06-16 09:48 | HHI.PR ---
Subjective Remarks The patient was ambulating to the bathroom. She said she discussed with psychiatry yesterday. She said she had no acute complaints. Objective Vitals Vital Signs Date Time Temp Pulse Resp B/P Pulse Ox O2 Delivery O2 Flow Rate FiO2 06/16/17 08:10 Room Air 06/16/17 08:00 98.1 72 18 149/66 94 06/15/17 20:45 98.2 63 16 137/60 93 06/15/17 20:20 21 06/15/17 19:00 96 Room Air 21 06/15/17 16:00 96.6 66 20 148/70 93 06/15/17 12:00 98.7 77 20 148/72 92 06/15/17 11:39 95 21 06/15/17 10:00 96 Room Air 21 I/O 06/15/17 06/15/17 06/15/17 06/16/17 06/16/17 06/16/17 07:00 15:00 23:00 07:00 15:00 23:00 Intake Total 370 ml 720 ml 720 ml 0 ml Output Total 800 ml Balance 370 ml -80 ml 720 ml 0 ml Intake Oral 120 ml 720 ml 720 ml 0 ml IV Total 250 ml Output Urine Total 800 ml # Voids 1 4 3 # Bowel Movements 2 1 0 Result Diagram: 06/14/17 0556 06/15/17 0809 Imaging Last Impressions Chest CT 06/06/17 0000 Signed Impressions: Service Date/Time: Tuesday, June 06, 2017 11:24 - CONCLUSION: Small bilateral pleural effusions, dense airspace consolidation bilaterally worse on the right highly suspicious for pneumonia. KJustus Mcqueen MD Chest X-Ray 06/05/17 1208 Signed Impressions: Service Date/Time: Monday, June 05, 2017 12:09 - CONCLUSION: 1. Stable diffuse infiltrate within the right lung consistent with probable pneumonia. Clinical correlation is recommended. Dagoberto Harmon MD Objective Remarks GENERAL: Lying in bed. Appears comfortable. SKIN: Warm and dry. HEAD: Normocephalic. EYES: No scleral icterus. No injection or drainage. NECK: Supple, trachea midline. No JVD. CARDIOVASCULAR: Regular rate and rhythm without murmurs, gallops, or rubs. RESPIRATORY: Breath sounds equal bilaterally. No accessory muscle use. GASTROINTESTINAL: Abdomen soft, non-tender, nondistended. MUSCULOSKELETAL: No cyanosis, or edema. BACK: Nontender without obvious deformity. No CVA tenderness. PSYCH: Anxious. Medications and IVs Current Medications Medications (Trade) Dose Ordered Sig/Peter Route Start Time Stop Time Status Last Admin (NS Flush) 2 ml UNSCH PRN IV FLUSH 06/05/17 13:45 (NS Flush) 2 ml BID IV FLUSH 06/05/17 21:00 06/15/17 21:09 (Tylenol) 650 mg Q4H PRN PO 06/05/17 13:45 06/06/17 03:42 (Zofran Inj) 4 mg Q6H PRN IVP 06/05/17 13:45 (Narcan Inj) 0.4 mg UNSCH PRN IV 06/05/17 13:45 (Judy-Colace) 1 tab BID PO 06/05/17 21:00 06/13/17 09:07 (Milk Of Magnesia Liq) 30 ml Q12H PRN PO 06/05/17 13:45 (Senokot) 17.2 mg Q12H PRN PO 06/05/17 13:45 (Dulcolax Supp) 10 mg DAILY PRN RECTAL 06/05/17 13:45 Lactulose 30 ml 30 ml DAILY PRN PO 06/05/17 13:45 Pharmacy Profile Note 0 ml @ 0 mls/hr UNSCH OTHER 06/05/17 14:00 (Heparin-D5W Inj) 250 ml @ 0 mls/hr TITRATE IV 06/05/17 14:00 06/16/17 06:19 (Percocet 5-325 Mg) 1 tab Q4H PRN PO 06/05/17 14:30 (Percocet 5-325 Mg) 2 tab Q4H PRN PO 06/05/17 14:30 06/16/17 02:59 (Motrin) 800 mg Q8H PRN PO 06/05/17 14:45 (Protonix Inj) 40 mg Q24H IV PUSH 06/05/17 16:00 06/15/17 16:23 Rifampin 300 mg 300 mg Q12H PO 06/06/17 11:00 06/15/17 23:06 (Vancomycin Consult Pharmacy) 0 ml @ 0 mls/hr UNSCH OTHER 06/08/17 16:00 (Mag-Ox) 400 mg DAILY PO 06/08/17 19:00 06/15/17 07:34 (Ceftin) 500 mg Q12H PO 06/09/17 15:00 06/16/17 14:59 06/16/17 02:58 (Zithromax) 500 mg Q24H PO 06/09/17 15:00 06/16/17 14:59 06/15/17 15:00 Warfarin Sodium 5 mg 5 mg DAILY@16 PO 06/11/17 16:00 06/15/17 16:22 (Vancomycin Inj/ NS 250 ml Inj) 250 ml @ 250 mls/hr Q12H IV 06/12/17 04:00 06/16/17 04:11 (Ambien) 5 mg HS PRN PO 06/12/17 14:00 06/15/17 21:08 (Xanax) 0.5 mg BID PRN PO 06/15/17 21:00 06/16/17 02:59 (Remeron) 15 mg HS PO 06/15/17 21:00 06/15/17 21:08 A/P Assessment and Plan 42-year-old female IV drug user with a recent admission due to severe sepsis from pneumonia and MRSA/group a strep bacteremia and left AMA on 06/04 and is back for treatment Bacteremia/ endocarditis/ PNA Chest x-ray showed right lower lobe infiltrate. UA negative. Repeat chest x- ray shows increased right lower lobe effusion and infiltrate. 06/01 All 4 cultures positive showing MRSA, group a strep, and bacillus not anthrax. Repeat blood cultures on 06/01/17 4/4 MRSA. Blood cultures on 06/02/17 1/2 culture positive for MRSA. 06/03/17 1 out of 2 positive for MRSA. 06/04 blood cultures negative. MIREILLE shows vegetations on 3 valves. Cardiology/ cardiovascular surgery does not consider patient a surgical candidate at this time. Echo with vegetation on 3 valves. ID consult appreciated. - will need 6 weeks Abx from date of last pos bc. Continue antibiotics per ID. Currently on vancomycin and rifampin. - Ceftin and azithromycin to be discontinued today for treatment of pneumonia. Acute respiratory failure with hypoxia Secondary to sepsis/ PNA. - Continue supplement oxygen. Wean as tolerated. Currently on room air. - continue antibiotics. - incentive spirometry. - encourage ambulation. Severe hypokalemia/ hypomagnesemia Potassium 2.7 and magnesium 1.4 on admission. Resolved. - Replenish as needed. Left arm DVT Ultrasound Doppler showed Deep venous thrombosis with nonocclusive thrombus in the peripheral brachial vein; Occlusive thrombus in the entire superficial cephalic vein. Parking Enforcement Manager was consulted on last admission. Recommended bridging to Coumadin. - On Coumadin bridging with heparin. INR pending 06/16. Hepatitis C Patient is an active IV drug user. LFTs normal. Liver ultrasound also normal. - Follow as an outpatient. Current IV drug use With crystal meth. - Education given and discouraged use of crystal meth. Anxiety/ OCD/ depression The pt says she did well on Xanax in the past. Psychiatry consult appreciated. - d/c Ativan and start Xanax. - Remeron started by psychiatry. PPx: heparin drip and Coumadin Discharge Planning patient will need 6 weeks of antibiotic from most recent positive blood culture. When cleared by infectious disease Iggy Alexander DO Jun 16, 2017 09:48
[2017-06-16 10:01] LABS: APTT (PATIENT) 49.4 SEC (24.3-30.1); INTERNATIONAL NORMALIZED RATIO 1.1 RATIO; PROTHROMBIN TIME - PATIENT 11.8 SEC (9.8-11.6)
[2017-06-16] MEDS: RIFAMPIN 150 MG CAP PO SCH ×2 (10:01→21:23)
[2017-06-16] MEDS: SODIUM CHLORIDE 0.9% FLUSH 10 ML FLUSH IV FLUSH SCH ×2 (10:02→21:24)
[2017-06-16] MEDS: MAGNESIUM OXIDE 400 MG TAB PO SCH (10:02)
[2017-06-16 12:00] VITALS: RESP 18
[2017-06-16 12:52] VITALS: O2SAT 94
--- NOTE | 2017-06-16 14:17 | HHI.IDPN ---
Subjective Subjective Remarks Patient is a 42-year-old female, known to me from her hospitalization about a week ago. She presented complaining of severe anxiety attack with some chest discomfort and rapid breathing. She had some cough and yellowish phlegm at that time. She also had some fever and chills. She was also complaining of pain in her left hand. She has known IV drug use, but she denies injecting in her left arm. Patient on her hospitalization was found to have blood cultures with MRSA, and group A strep. The group A strep was positive in the first 2 blood cultures on admission. Subsequent blood cultures grew MRSA from 06/01, , and 06/03. Her left upper extremity cellulitis also improved. MIREILLE was being considered, and cardiology saw the patient. Patient however did not want MIREILLE, and she signed out AGAINST MEDICAL ADVICE on June 04. She came back yesterday, complaining of generalized aches and weakness. Her cough is better. She complains of pain on her right chest when she coughs, and persistent pain on her left chest that is not aggravated by any kind of activity. She continues to have on and off fevers. Her urine drug screen on this admission is negative except for benzodiazepine. Patient currently is agreeable to having MIREILLE done. During her last admission, she tested positive for hepatitis C , and has HIV negative test. Notes reviewed Temps ok Still with pain R side of chest when she coughs, stable, not worse Last (+) BC 06/05 BC (+) 05/31-06/05 No other complaint Not SOB. No rash or itching No diarrhea Voiding ok Antibiotics Vanco Rifampin Ceftin - to finish today Lines PIV Past Medical History Cervical cancer IV drug use Hep C Past Surgical History Hx LEEP procedure for cervical CA Allergies: Coded Allergies: *MDRO Multi-Drug Resistant Organism (Verified Adverse Reaction, Unknown, ) MRSA (blood) 05/31/17, 06/01/17, 06/02/17, 06/03/17, 06/05/17 Objective . Vital Signs Date Time Temp Pulse Resp B/P Pulse Ox O2 Delivery O2 Flow Rate FiO2 06/16/17 12:52 94 21 06/16/17 12:00 18 06/16/17 08:10 Room Air 06/16/17 08:00 98.1 72 18 149/66 94 06/15/17 20:45 98.2 63 16 137/60 93 06/15/17 20:20 21 06/15/17 19:00 96 Room Air 21 06/15/17 16:00 96.6 66 20 148/70 93 06/15/17 06/15/17 06/16/17 14:59 22:59 06:59 Intake Total 720 ml 720 ml 0 ml Output Total 800 ml Balance -80 ml 720 ml 0 ml Intake Oral 720 ml 720 ml 0 ml Output Urine Total 800 ml # Voids 4 3 # Bowel Movements 2 1 0 . Laboratory Tests Test 06/15/17 08:09 Creatinine 0.64 MG/DL Estimat Glomerular Filtration 102 ML/MIN Rate Imaging Chest CT 06/06/17 0000 Signed Impressions: Service Date/Time: Tuesday, June 06, 2017 11:24 - CONCLUSION: Small bilateral pleural effusions, dense airspace consolidation bilaterally worse on the right highly suspicious for pneumonia. Nahun Mcqueen MD Chest X-Ray 06/05/17 1208 Signed Impressions: Service Date/Time: Monday, June 05, 2017 12:09 - CONCLUSION: 1. Stable diffuse infiltrate within the right lung consistent with probable pneumonia. Clinical correlation is recommended. Dagoberto Harmon MD Physical Exam GENERAL: awake and alert, not in respiratory distress. SKIN: Warm and dry. No generalized rash, no ecchymoses and no evidence of embolic lesions. HEAD: Atraumatic. Normocephalic. No temporal wasting, or tenderness. EYES: [place] conjunctiva. No petechia or hemorrhage. No scleral icterus. No injection or drainage. EARS, NOSE AND THROAT: Nose without bleeding or purulent nasal discharge. Mucous membranes pink and moist. No oral lesions noted. No exudate. No oral thrush. NECK: Trachea midline. Supple and not tender, no meningeal signs. CARDIOVASCULAR: Regular rate and rhythm. No murmurs, rubs or gallops heard RESPIRATORY: Clear to auscultation. Breath sounds equal bilaterally. No rales , wheezing or rhonchi ABDOMEN: Soft, non-tender, nondistended. Bowel sounds present and normoactive. No guarding. No rebound. No organomegaly. EXTREMITIES: No clubbing, cyanosis, or edema. No calf tenderness. Well perfused and warm. NEUROLOGICAL: Non-focal PSYCHIATRIC: Normal affect, calm and cooperative. LINE: No evidence of infection Assessment & Plan Remarks IMPRESSION Sepsis with BC growing MRSA and GAS, has 3 valves (+) on MIREILLE MV, AV and TV Cellulitis L hand and Forearm, resolved Known active IVDU Pneumonia, CAP, clinically better Renal insufficiency due to sepsis, present during last admission, resolved Hep C (+) test RECOMMENDATION Complete PNA Rx with Ceftin and Zithromax Continue IV vanco - Vanco E-test 1.5 Continue Rifampin - follow LFT Monitor progress She will need 6 weeks Abx from date of last (+) BC because she had high grade MRSA bacteremia Once BC negative, will make determination on how she can complete her Abx Rx - will have discussion with other ID to make final determination of her Abx Rx Explained plan to the patient Yumiko Horan MD Jun 16, 2017 14:17 Follow BC to document clearing Monitor progress She will need 6 weeks Abx from date of last (+) BC because she had high grade MRSA bacteremia Once BC negative, will make determination on how she can complete her Abx Rx Explained plan to the patient Yumiko Horan MD Jun 16, 2017 14:17
[2017-06-16] MEDS: PANTOPRAZOLE SODIUM 40 MG VIAL IV PUSH SCH (14:24)
[2017-06-16] MEDS: WARFARIN SOD 5 MG TAB PO SCH (14:24)
[2017-06-16 16:00] VITALS: BP 126/60; PULSE 94; RESP 18; TEMP 98.4; O2SAT 95
[2017-06-16] MEDS ORDERED: WARFARIN SOD 7.5 MG TAB PO SCH (16:00)
[2017-06-16 19:55] VITALS: BP 118/58; PULSE 95; RESP 16; TEMP 98.2; O2SAT 93
[2017-06-16] MEDS: MIRTAZAPINE 15 MG TAB PO SCH (21:13)
[2017-06-16] MEDS: ZOLPIDEM TARTRATE 5 MG TAB PO PRN (21:23)
[2017-06-17] MEDS: VANCOMYCIN 1,000 MG/NS 250 ML IV SCH ×2 (03:58)
[2017-06-17] MEDS: oxyCODONE/ACETAMINOPHEN 5 MG/325 MG TAB PO PRN ×2 (04:14→07:57)
[2017-06-17] MEDS: MAGNESIUM OXIDE 400 MG TAB PO SCH (07:57)
[2017-06-17] MEDS: ALPRAZolam 0.5 MG TAB PO PRN (07:57)
[2017-06-17 08:00] VITALS: BP 133/66; PULSE 77; RESP 17; TEMP 98.1; O2SAT 95
[2017-06-17] MEDS: DOCUSATE SODIUM 50 MG/SENNA 8.6 MG TAB PO SCH (08:00)
[2017-06-17] MEDS: SODIUM CHLORIDE 0.9% FLUSH 10 ML FLUSH IV FLUSH SCH (08:00)
[2017-06-17 09:51] LABS: MEAN CELL VOLUME 97.6 FL (80.0-100.0); MEAN CORPUSCULAR HEMOGLOBIN 32.1 PG (27.0-34.0); MEAN CORPUSCULAR HGB CONC 32.9 % (32.0-36.0); PLATELET COUNT 387 TH/MM3 (150-450); RED BLOOD COUNT 2.87 MIL/MM3 (4.00-5.30); RED CELL DISTRIBUTION WIDTH 16.5 % (11.6-17.2); REVIEW FLAG FINAL; WHITE BLOOD COUNT 4.8 TH/MM3 (4.0-11.0)
[2017-06-17 10:03] LABS: APTT (PATIENT) 43.4 SEC (24.3-30.1); INTERNATIONAL NORMALIZED RATIO 1.1 RATIO; PROTHROMBIN TIME - PATIENT 12.1 SEC (9.8-11.6)
--- NOTE | 2017-06-17 11:39 | HHI.PR ---
Subjective Remarks The patient was anxious to hear if she could be discharged soon. She had no acute complaints. Objective Vitals Vital Signs Date Time Temp Pulse Resp B/P Pulse Ox O2 Delivery O2 Flow Rate FiO2 06/17/17 08:30 Room Air 06/17/17 08:00 98.1 77 17 133/66 95 06/16/17 20:00 Room Air 06/16/17 19:55 98.2 95 16 118/58 93 06/16/17 16:00 98.4 94 18 126/60 95 06/16/17 12:52 94 21 06/16/17 12:00 18 I/O 06/16/17 06/16/17 06/16/17 06/17/17 06/17/17 06/17/17 07:00 15:00 23:00 07:00 15:00 23:00 Intake Total 0 ml 960 ml 804 ml 352 ml Balance 0 ml 960 ml 804 ml 352 ml Intake Oral 0 ml 960 ml 480 ml 0 ml IV Total 324 ml 352 ml # Voids 3 3 4 3 # Bowel Movements 0 2 1 0 Result Diagram: 06/17/17 0749 06/17/17 0749 Imaging Last Impressions Chest CT 06/06/17 0000 Signed Impressions: Service Date/Time: Tuesday, June 06, 2017 11:24 - CONCLUSION: Small bilateral pleural effusions, dense airspace consolidation bilaterally worse on the right highly suspicious for pneumonia. Nahun Mcqueen MD Chest X-Ray 06/05/17 1208 Signed Impressions: Service Date/Time: Monday, June 05, 2017 12:09 - CONCLUSION: 1. Stable diffuse infiltrate within the right lung consistent with probable pneumonia. Clinical correlation is recommended. Dagoberto Harmon MD Objective Remarks GENERAL: Lying in bed. Appears comfortable. SKIN: Warm and dry. HEAD: Normocephalic. EYES: No scleral icterus. No injection or drainage. NECK: Supple, trachea midline. No JVD. CARDIOVASCULAR: Regular rate and rhythm without murmurs, gallops, or rubs. RESPIRATORY: Breath sounds equal bilaterally. No accessory muscle use. GASTROINTESTINAL: Abdomen soft, non-tender, nondistended. MUSCULOSKELETAL: No cyanosis, or edema. BACK: Nontender without obvious deformity. No CVA tenderness. PSYCH: Flattened affect. Medications and IVs Current Medications Medications (Trade) Dose Ordered Sig/Peter Route Start Time Stop Time Status Last Admin (NS Flush) 2 ml UNSCH PRN IV FLUSH 06/05/17 13:45 (NS Flush) 2 ml BID IV FLUSH 06/05/17 21:00 06/17/17 08:00 (Tylenol) 650 mg Q4H PRN PO 06/05/17 13:45 06/06/17 03:42 (Zofran Inj) 4 mg Q6H PRN IVP 06/05/17 13:45 (Narcan Inj) 0.4 mg UNSCH PRN IV 06/05/17 13:45 (Judy-Colace) 1 tab BID PO 06/05/17 21:00 06/13/17 09:07 (Milk Of Magnesia Liq) 30 ml Q12H PRN PO 06/05/17 13:45 (Senokot) 17.2 mg Q12H PRN PO 06/05/17 13:45 (Dulcolax Supp) 10 mg DAILY PRN RECTAL 06/05/17 13:45 Lactulose 30 ml 30 ml DAILY PRN PO 06/05/17 13:45 Pharmacy Profile Note 0 ml @ 0 mls/hr UNSCH OTHER 06/05/17 14:00 (Heparin-D5W Inj) 250 ml @ 0 mls/hr TITRATE IV 06/05/17 14:00 06/16/17 23:19 (Percocet 5-325 Mg) 1 tab Q4H PRN PO 06/05/17 14:30 (Percocet 5-325 Mg) 2 tab Q4H PRN PO 06/05/17 14:30 06/17/17 07:57 (Motrin) 800 mg Q8H PRN PO 06/05/17 14:45 (Protonix Inj) 40 mg Q24H IV PUSH 06/05/17 16:00 06/16/17 14:24 Rifampin 300 mg 300 mg Q12H PO 06/06/17 11:00 06/16/17 21:23 (Vancomycin Consult Pharmacy) 0 ml @ 0 mls/hr UNSCH OTHER 06/08/17 16:00 (Mag-Ox) 400 mg DAILY PO 06/08/17 19:00 06/17/17 07:57 Warfarin Sodium 5 mg 5 mg DAILY@16 PO 06/11/17 16:00 8/10/17 14:24 (Vancomycin Inj/ NS 250 ml Inj) 250 ml @ 250 mls/hr Q12H IV 06/12/17 04:00 06/17/17 03:58 (Ambien) 5 mg HS PRN PO 06/12/17 14:00 06/16/17 21:23 (Xanax) 0.5 mg BID PRN PO 06/15/17 21:00 06/17/17 07:57 (Remeron) 15 mg HS PO 06/15/17 21:00 06/16/17 21:13 A/P Assessment and Plan 42-year-old female IV drug user with a recent admission due to severe sepsis from pneumonia and MRSA/group a strep bacteremia and left AMA on 06/04 and is back for treatment Bacteremia/ endocarditis/ PNA Chest x-ray showed right lower lobe infiltrate. UA negative. Repeat chest x- ray shows increased right lower lobe effusion and infiltrate. 06/01 All 4 cultures positive showing MRSA, group a strep, and bacillus not anthrax. Repeat blood cultures on 06/01/17 4/4 MRSA. Blood cultures on 06/02/17 1/2 culture positive for MRSA. 06/03/17 1 out of 2 positive for MRSA. 06/04 blood cultures negative. MIREILLE shows vegetations on 3 valves. Cardiology/ cardiovascular surgery does not consider patient a surgical candidate at this time. Echo with vegetation on 3 valves. ID consult appreciated. Ceftin and azithromycin to be discontinued 06/16 for treatment of pneumonia. - will need 6 weeks Abx from date of last pos bc. Continue antibiotics per ID. Currently on vancomycin and rifampin. Telvancin once daily at the infusion center is an option per ID. The pt will need a PICC line. Acute respiratory failure with hypoxia Secondary to sepsis/ PNA. - Continue supplement oxygen. Wean as tolerated. Currently on room air. - continue antibiotics. - incentive spirometry. - encourage ambulation. Severe hypokalemia/ hypomagnesemia Potassium 2.7 and magnesium 1.4 on admission. Resolved. - Replenish as needed. Left arm DVT Ultrasound Doppler showed Deep venous thrombosis with nonocclusive thrombus in the peripheral brachial vein; Occlusive thrombus in the entire superficial cephalic vein. Cardiac Technician was consulted on last admission. Recommended bridging to Coumadin. - On Coumadin bridging with heparin. INR still 1.1 06/17. Hepatitis C Patient is an active IV drug user. LFTs normal. Liver ultrasound also normal. - Follow as an outpatient. Current IV drug use With crystal meth. - Education given and discouraged use of crystal meth. Anxiety/ OCD/ depression The pt says she did well on Xanax in the past. Psychiatry consult appreciated. - d/c Ativan and start Xanax. - Remeron started by psychiatry. PPx: heparin drip and Coumadin Discharge Planning patient will need 6 weeks of antibiotic from most recent positive blood culture. Possibly d/c to infusion center on Tuesday. The pt will need a PICC line placed and is an IV drug user so there is some concerns with this discharge plan. Iggy Alexander DO Jun 17, 2017 11:38
--- NOTE | 2017-06-17 11:47 | HHI.DCPOC ---
Discharge Care Plan Diagnosis: (1) Adjustment disorder with depressed mood (2) Endocarditis (3) DVT (deep venous thrombosis) (4) Sepsis (5) Bacteremia (6) IV drug abuse Goals to Promote Your Health * To prevent worsening of your condition and complications * To maintain your health at the optimal level Directions to Meet Your Goals Take your medications as prescribed Follow your dietary instruction Follow activity as directed Keep your appointments as scheduled Take your immunizations and boosters as scheduled If your symptoms worsen call your PCP, if no PCP go to Urgent Care Center or Emergency Room Smoking is Dangerous to Your Health. Avoid second hand smoke Call the 24-hour hour crisis hotline for domestic abuse at Iggy Alexander DO Jun 17, 2017 11:46
--- NOTE | 2017-06-17 11:49 | PD.AMA ---
Against Medical Advice Note Diagnosis: (1) IV drug abuse (2) Adjustment disorder with depressed mood (3) Endocarditis (4) DVT (deep venous thrombosis) (5) Sepsis (6) Bacteremia Discharge Disposition: Against Medical Advice Pt Condition on Discharge: Stable Recommended Treatment Course The patient was encouraged to remain in the hospital for IV antibiotics and anticoagulation. She was told she had a life-threatening infection and she understood the consequences of leaving against medical advice. AMA Statement Patient Marjan Grant has decided to leave the hospital against medical advice. This patient has the capacity to refuse care and understands the risks of leaving, including permanent disability and/or , and has had an opportunity to ask questions about her condition. The patient has been informed that she may return for care at any time, and follow up has been arranged/ advised. Iggy Alexander DO Jun 17, 2017 11:49
--- NOTE | 2017-06-17 12:02 | HHI.IDPN ---
Subjective Subjective Remarks Patient is a 42-year-old female, known to me from her hospitalization about a week ago. She presented complaining of severe anxiety attack with some chest discomfort and rapid breathing. She had some cough and yellowish phlegm at that time. She also had some fever and chills. She was also complaining of pain in her left hand. She has known IV drug use, but she denies injecting in her left arm. Patient on her hospitalization was found to have blood cultures with MRSA, and group A strep. The group A strep was positive in the first 2 blood cultures on admission. Subsequent blood cultures grew MRSA from 06/01, , and 06/03. Her left upper extremity cellulitis also improved. MIREILLE was being considered, and cardiology saw the patient. Patient however did not want MIREILLE, and she signed out AGAINST MEDICAL ADVICE on June 04. She came back yesterday, complaining of generalized aches and weakness. Her cough is better. She complains of pain on her right chest when she coughs, and persistent pain on her left chest that is not aggravated by any kind of activity. She continues to have on and off fevers. Her urine drug screen on this admission is negative except for benzodiazepine. Patient currently is agreeable to having MIREILLE done. During her last admission, she tested positive for hepatitis C , and has HIV negative test. Notes reviewed Temps ok Still with pain R side of chest when she coughs, stable, not worse Last (+) BC 06/05 BC (+) 05/31-06/05 No other complaint Not SOB. No rash or itching No diarrhea Voiding ok Antibiotics Vanco Rifampin Ceftin - to finish today Lines PIV Past Medical History Cervical cancer IV drug use Hep C Past Surgical History Hx LEEP procedure for cervical CA Allergies: Coded Allergies: *MDRO Multi-Drug Resistant Organism (Verified Adverse Reaction, Unknown, ) MRSA (blood) 05/31/17, 06/01/17, 06/02/17, 06/03/17, 06/05/17 Objective . Vital Signs Date Time Temp Pulse Resp B/P Pulse Ox O2 Delivery O2 Flow Rate FiO2 06/17/17 08:30 Room Air 06/17/17 08:00 98.1 77 17 133/66 95 06/16/17 20:00 Room Air 06/16/17 19:55 98.2 95 16 118/58 93 06/16/17 16:00 98.4 94 18 126/60 95 06/16/17 12:52 94 21 06/16/17 06/16/17 06/17/17 15:00 23:00 07:00 Intake Total 960 ml 804 ml 352 ml Balance 960 ml 804 ml 352 ml Intake Oral 960 ml 480 ml 0 ml IV Total 324 ml 352 ml # Voids 3 4 3 # Bowel Movements 2 1 0 . Laboratory Tests Test 06/17/17 07:49 White Blood Count 4.8 TH/MM3 Red Blood Count 2.87 MIL/MM3 Hemoglobin 9.2 GM/DL Hematocrit 28.0 % Mean Corpuscular Volume 97.6 FL Mean Corpuscular Hemoglobin 32.1 PG Mean Corpuscular Hemoglobin 32.9 % Concent Red Cell Distribution Width 16.5 % Platelet Count 387 TH/MM3 Mean Platelet Volume 8.9 FL Laboratory Tests Test 06/17/17 07:49 Creatinine 0.83 MG/DL Estimat Glomerular Filtration 75 ML/MIN Rate Imaging Chest CT 06/06/17 0000 Signed Impressions: Service Date/Time: Tuesday, June 06, 2017 11:24 - CONCLUSION: Small bilateral pleural effusions, dense airspace consolidation bilaterally worse on the right highly suspicious for pneumonia. Nahun Mcqueen MD Chest X-Ray 06/05/17 1208 Signed Impressions: Service Date/Time: Monday, June 05, 2017 12:09 - CONCLUSION: 1. Stable diffuse infiltrate within the right lung consistent with probable pneumonia. Clinical correlation is recommended. Dagoberto Harmon MD Physical Exam GENERAL: awake and alert, not in respiratory distress. SKIN: Warm and dry. No generalized rash, no ecchymoses and no evidence of embolic lesions. HEAD: Atraumatic. Normocephalic. No temporal wasting, or tenderness. EYES: [place] conjunctiva. No petechia or hemorrhage. No scleral icterus. No injection or drainage. EARS, NOSE AND THROAT: Nose without bleeding or purulent nasal discharge. Mucous membranes pink and moist. No oral lesions noted. No exudate. No oral thrush. NECK: Trachea midline. Supple and not tender, no meningeal signs. CARDIOVASCULAR: Regular rate and rhythm. No murmurs, rubs or gallops heard RESPIRATORY: Clear to auscultation. Breath sounds equal bilaterally. No rales , wheezing or rhonchi ABDOMEN: Soft, non-tender, nondistended. Bowel sounds present and normoactive. No guarding. No rebound. No organomegaly. EXTREMITIES: No clubbing, cyanosis, or edema. No calf tenderness. Well perfused and warm. NEUROLOGICAL: Non-focal PSYCHIATRIC: Normal affect, calm and cooperative. LINE: No evidence of infection Assessment & Plan Remarks IMPRESSION Sepsis with BC growing MRSA and GAS, has 3 valves (+) on MIREILLE MV, AV and TV Cellulitis L hand and Forearm, resolved Known active IVDU Pneumonia, CAP, clinically better Renal insufficiency due to sepsis, present during last admission, resolved Hep C (+) test RECOMMENDATION Continue IV vanco - Vanco E-test 1.5 Continue Rifampin - follow LFT Monitor progress She will need 6 weeks Abx from date of last (+) BC because she had high grade MRSA bacteremia D/W patient plans of D/C Tuesday - to get outpatient IV Abx infusion, with Telavancin Patient then stated that she does not want to stay and wants to leave She states that she will take her chances and does not want to stay D/W Yumiko William MD Jun 17, 2017 12:02
--- NOTE | 2017-06-17 15:07 | HHI.DS ---
Discharge Summary Admission Date Jun 05, 2017 at 13:47 Discharge Date: Jun 17, 2017 Admitting Diagnosis sepsis, hypokalemia (1) Endocarditis ICD Code: I38 Diagnosis: Principal (2) Adjustment disorder with depressed mood ICD Code: F43.21 (3) IV drug abuse ICD Code: F19.10 (4) DVT (deep venous thrombosis) ICD Code: I82.409 Procedures None Brief History - From Admission This is a 42-year-old female past medical history of IV drug use with crystal meth who was recently admitted secondary to severe sepsis, bacteremia with MRSA/ group a beta strep and pneumonia, and recently left AMA last night who presented with generalized fatigue. Patient stated that she left AMA last night because she felt like the staff and the [facility] was very rude to her. She stated she came back because she feels very weak. Patient denies any shortness of breathing. She denies any chest pain, shortness of breathing, lightheadedness or dizziness. Patient asking for pain medication. She also stated that she gets anxiety and wanted to let me know. During hospital course she had a manual equipment mechanic consult for a MIREILLE. At the moment of the interview patient declined a MIREILLE and stated she would think about it. I educated patient again about a IMREILLE and she stated she understood and wants to pursue with a MIREILLE. Patient received 50 mEq of oral potassium in the ED. Otherwise all other review of symptoms were reviewed and all negative. CBC/BMP: 06/17/17 0749 06/17/17 0749 Significant Findings Laboratory Tests Test 06/14/17 06/15/17 06/15/17 06/16/17 15:25 08:09 12:53 03:20 Vancomycin Level Trough 16.2 MCG/ML 23.5 MCG/ML 16.4 MCG/ML (5.0-10.0) (5.0-10.0) (5.0-10.0) Prothrombin Time 12.0 SEC (9.8-11.6) Activated Partial 48.0 SEC Thromboplast Time (24.3-30.1) Test 06/16/17 06/17/17 09:15 07:49 Prothrombin Time 11.8 SEC 12.1 SEC (9.8-11.6) (9.8-11.6) Activated Partial 49.4 SEC 43.4 SEC Thromboplast Time (24.3-30.1) (24.3-30.1) Red Blood Count 2.87 MIL/MM3 (4.00-5.30) Hemoglobin 9.2 GM/DL (11.6-15.3) Hematocrit 28.0 % (35.0-46.0) Estimat Glomerular Filtration 75 ML/MIN (>89) Rate Imaging Last Impressions Chest CT 06/06/17 0000 Signed Impressions: Service Date/Time: Tuesday, June 06, 2017 11:24 - CONCLUSION: Small bilateral pleural effusions, dense airspace consolidation bilaterally worse on the right highly suspicious for pneumonia. Nahun Mcqueen MD Chest X-Ray 06/05/17 1208 Signed Impressions: Service Date/Time: Monday, June 05, 2017 12:09 - CONCLUSION: 1. Stable diffuse infiltrate within the right lung consistent with probable pneumonia. Clinical correlation is recommended. Dagoberto Harmon MD PE at Discharge GENERAL: Lying in bed. Appears comfortable. SKIN: Warm and dry. HEAD: Normocephalic. EYES: No scleral icterus. No injection or drainage. NECK: Supple, trachea midline. No JVD. CARDIOVASCULAR: Regular rate and rhythm without murmurs, gallops, or rubs. RESPIRATORY: Breath sounds equal bilaterally. No accessory muscle use. GASTROINTESTINAL: Abdomen soft, non-tender, nondistended. MUSCULOSKELETAL: No cyanosis, or edema. BACK: Nontender without obvious deformity. No CVA tenderness. PSYCH: Flattened affect. Hospital Course Bacteremia/ endocarditis/ PNA 42-year-old female IV drug user with a recent admission due to severe sepsis from pneumonia and MRSA/ Group A Strep bacteremia and left AMA on 06/04 who is back for treatment. Chest x-ray showed right lower lobe infiltrate. UA negative. Repeat chest x-ray showed increased right lower lobe effusion and infiltrate. 06/01 All 4 cultures positive showing MRSA, group a strep, and bacillus not anthrax. Repeat blood cultures on 06/01/17 4/4 MRSA. Blood cultures on 06/02/17 1/2 culture positive for MRSA. 06/03/17 1 out of 2 positive for MRSA. 06/04 blood cultures negative. MIREILLE shows vegetations on 3 valves. Cardiology/cardiovascular surgery does not consider patient a surgical candidate at this time. Repeat echo with vegetation on 3 valves. ID was consulted. Ceftin and azithromycin were ordered for treatment of pneumonia. Currently on vancomycin and rifampin for endocarditis. Telvancin once daily at the infusion center is an option per ID. The pt will need a PICC line. The pt did not wish to stay in the hospital and left AMA 06/17/17. She understood the need for treatment and the risks of leaving without treatment. Discussed with infectious disease. Severe hypokalemia/ hypomagnesemia Potassium 2.7 and magnesium 1.4 on admission. Resolved. Left arm DVT Ultrasound Doppler showed Deep venous thrombosis with nonocclusive thrombus in the peripheral brachial vein; Occlusive thrombus in the entire superficial cephalic vein. Tea Blender was consulted on last admission. Recommended bridging to Coumadin. Currently on Coumadin bridging with heparin gtt. INR still 1.1 06/17. Anxiety/ OCD/ depression The pt says she did well on Xanax in the past so that was ordered as needed. Psychiatry was consulted. Remeron started by psychiatry. Pt Condition on Discharge: Stable Discharge Disposition: Discharge Home Discharge Time: > 30 minutes Discharge Instructions DIET: Follow Instructions for: Heart Healthy Diet Medication Profile: No Active Prescriptions or Reported Meds Iggy Alexander DO Jun 17, 2017 15:07
== END 2017-06-17 12:12 | disposition left against medical advice (07) | DRG 871 ==
LOC: NEPE 11:49 → NEDA 13:47 → HIME 18:25 → N04B 06-06 14:30
PROVIDERS: ADMIT Hospitalist; ATTEND Hospitalist
PROC: B246ZZ4 Ultrasonography of Right and Left Heart, Transesophageal (ICD-10-PCS; principal; 2017-06-08)
DX: A41.02 Sepsis due to Methicillin resistant Staphylococcus aureus (principal); J18.9 Pneumonia, unspecified organism; J96.01 Acute respiratory failure with hypoxia; I33.0 Acute and subacute infective endocarditis; J90 Pleural effusion, not elsewhere classified; D69.6 Thrombocytopenia, unspecified; E83.42 Hypomagnesemia; I82.622 Acute embolism and thrombosis of deep veins of left upper extremity; J44.0 Chronic obstructive pulmonary disease with (acute) lower respiratory infection; L03.114 Cellulitis of left upper limb; I82.612 Acute embolism and thrombosis of superficial veins of left upper extremity; I08.3 Combined rheumatic disorders of mitral, aortic and tricuspid valves; G47.00 Insomnia, unspecified; D64.9 Anemia, unspecified; E87.6 Hypokalemia; B19.20 Unspecified viral hepatitis C without hepatic coma; R65.20 Severe sepsis without septic shock; N28.9 Disorder of kidney and ureter, unspecified; F15.10 Other stimulant abuse, uncomplicated; F17.210 Nicotine dependence, cigarettes, uncomplicated; F41.1 Generalized anxiety disorder; F42.9 Obsessive-compulsive disorder, unspecified; F43.21 Adjustment disorder with depressed mood; Z85.41 Personal history of malignant neoplasm of cervix uteri; Z91.19 Patient's noncompliance with other medical treatment and regimen
CPT/HCPCS: 71010; 71260; 76937; 80048; 80053; 80069; 80202; 80307; 81001; 82550; 82565; 82728; 83540; 83550; 83605; 83735; 84100; 84132; 84155; 84484; 85025; 85027; 85610; 85730; 87040; 87186; 87205; 87641; 93005; 93312; 93320; 93325; 94150; 94640; 94664; 94667; 94668; 96374; C9113; J0692; J1644; J2250; J2270; J2543; J3010; J3370; J3475; J3480; J7030; J7050; Q9967

== ENCOUNTER 2017-09-03 09:35 | Inpatient (IN) | payer SELFPAY ==
[~2017-09-03] VITALS: Ht 157.5 cm; Wt 47.5 kg
[2017-09-03] VITALS (14 sets, daily range): BP systolic 85–115; BP diastolic 49–73; PULSE 112–134; RESP 18–32; TEMP 98.6–102.7; O2SAT 91–100
[2017-09-03] MEDS ORDERED: SODIUM CHLORIDE 0.9% FLUSH 10 ML FLUSH IVF PRN (10:00)
[2017-09-03] MEDS ORDERED: SODIUM CHLOR 0.9% 1000 ML INJ 1,000 ML IV ONE ×2 (10:00)
[2017-09-03] MEDS ORDERED: methylPREDNISolone SOD SUCC 125 MG/2 ML VIAL IV PUSH ONE (10:00)
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
[2017-09-03] MEDS: RESP: ALBUTEROL 2.5 MG/IPRATROPIUM 0.5 MG NEB (SCH) INH ×3 (10:15→20:42)
--- NOTE | 2017-09-03 11:14 | RADRPT ---
EXAM DATE/TIME: 09/03/2017 10:34 [facility] COMPARISON: CHEST SINGLE AP, June 05, 2017, 12:09. INDICATIONS : Shortness of breath and wheezing. MEDICAL HISTORY : Cardiovascular disease. Chronic obstructive pulmonary disease. TB. SURGICAL HISTORY : None. ENCOUNTER: Initial ACUITY: 4 - 6 days PAIN SCORE: 0/10 LOCATION: Bilateral chest FINDINGS: Scattered patchy infiltrates are noted bilaterally consistent with pulmonary edema and/or pneumonia. Clinical correlation is recommended. The heart is stable. CONCLUSION: Scattered patchy infiltrates bilaterally consistent with pneumonia and/or pulmonary edema. Clinical correlation is recommended. Dagoberto Harmon MD on September 03, 2017 at 11:02 Board Certified Radiologist. This report was verified electronically.
[2017-09-03] MEDS ORDERED: VANCOMYCIN INJ 1,000 MG in SODIUM CHLOR 0.9% 250 ML INJ 250 ML IV ONE (11:30)
[2017-09-03] MEDS ORDERED: PIPERACIL-TAZO 4.5 GM PREMIX 100 ML IV ONE (11:30)
[2017-09-03] MEDS ORDERED: AZITHROMYCIN INJ 500 MG in SODIUM CHLOR 0.9% 250 ML INJ 250 ML IV ONE (11:30)
[2017-09-03 11:42] LABS: BACTERIA, URINE MANY /hpf; BILIRUBIN, URINE NEG (NEG); BLOOD, URINE TRACE (NEG); GLUCOSE,URINE NEG (NEG); KETONE, URINE NEG (NEG); NITRITE,URINE NEG (NEG); SQUAMOUS EPITHELIAL CELL URINE 151 /hpf (0-5); URINE COLOR DARK-YELLOW (YELLW/STRAW); URINE LEUKOCYTE ESTERASE SMALL (NEG)
[2017-09-03 12:02] LABS: ALKALINE PHOSPHATASE 58 U/L (45-117); TOTAL BILIRUBIN ADULT 0.6 MG/DL (0.2-1.0); TOTAL PROTEIN 7.2 GM/DL (6.4-8.2); TROPONIN I 0.29 NG/ML (0.02-0.05)
[2017-09-03 12:03] LABS: ALBUMIN 2.2 GM/DL (3.4-5.0); ALT (GPT) 18 U/L (10-53); AST (GOT) 38 U/L (15-37); BICARBONATE 21.7 MEQ/L (21.0-32.0); BLOOD UREA NITROGEN 30 MG/DL (7-18); CALCIUM 8.2 MG/DL (8.5-10.1); CHLORIDE 95 MEQ/L (98-107); CREATININE 1.97 MG/DL (0.50-1.00); GLOMERULAR FILTRATION RATE 28 ML/MIN (>89); GLUCOSE,RANDOM 97 MG/DL (74-106); MAGNESIUM 1.8 MG/DL (1.5-2.5); SODIUM (NA) 130 MEQ/L (136-145)
[2017-09-03 12:35] LABS: AUTOMATED NEUTROPHIL # 1.8 TH/MM3 (1.8-7.7); EOSINOPHIL % 0.1 % (0.0-4.0); HEMATOCRIT 29.2 % (35.0-46.0); HEMOGLOBIN 9.5 GM/DL (11.6-15.3); LYMPH % 9.2 % (9.0-44.0); LYMPHOCYTE # 0.2 TH/MM3 (1.0-4.8); MEAN CELL VOLUME 90.1 FL (80.0-100.0); MEAN CORPUSCULAR HEMOGLOBIN 29.3 PG (27.0-34.0); MEAN CORPUSCULAR HGB CONC 32.5 % (32.0-36.0); MEAN PLATELET VOLUME 10.8 FL (7.0-11.0); MONO % 17.9 % (0.0-8.0); MONOCYTE # 0.4 TH/MM3 (0-0.9); NEUT % 71.8 % (16.0-70.0); PLATELET COUNT 51 TH/MM3 (150-450); RED BLOOD COUNT 3.24 MIL/MM3 (4.00-5.30); WHITE BLOOD COUNT 2.5 TH/MM3 (4.0-11.0)
[2017-09-03 12:55] LABS: PROTHROMBIN TIME - PATIENT 11.5 SEC (9.8-11.6)
[2017-09-03 12:56] LABS: D-DIMER GREATER THAN 35.20 MG/L FEU (0.00-0.50)
[2017-09-03 13:12] LABS: BANDS 4 % (0-6); LYMPHOCYTES 8 % (9-44); METAMYELOCYTES 7 % (0-1); MONOCYTES 2 % (0-8); MYELOCYTES 4 % (0-0); NEUTROPHIL # MANUAL DIFF 2.3 TH/MM3 (1.8-7.7); POLYS (SEG NEUTROPHILS) 75 % (16-70)
[2017-09-03 13:16] LABS: DOHLE BODIES PRESENT (NONE SEEN); TOXIC GRANULATION 2+ (NORMAL); TOXIC VACUOLATION PRESENT (NONE SEEN)
[2017-09-03 13:17] LABS: ACANTHOCYTES OCC (NORMAL)
[2017-09-03] MEDS ORDERED: HEPARIN SODIUM - IV 10,000 UNITS/10 ML VIAL IV PUSH ONE (13:30)
[2017-09-03] MEDS ORDERED: MIDAZOLAM HCL 5 MG/5 ML VIAL IV ONE (15:30)
[2017-09-03] MEDS ORDERED: ROCURONIUM INJ 100 MG/10 ML VIAL IV ONE (15:30)
--- NOTE | 2017-09-03 15:44 | RADRPT ---
EXAM DATE/TIME: 09/03/2017 15:17 [facility] COMPARISON: CHEST SINGLE AP, September 03, 2017, 10:34. INDICATIONS : Status post intubation and central line placement. MEDICAL HISTORY : Cardiovascular disease. Chronic obstructive pulmonary disease. TB. SURGICAL HISTORY : None. ENCOUNTER: Initial ACUITY: 1 day PAIN SCORE: Non-responsive. LOCATION: chest FINDINGS: A single AP semierect view of the chest was obtained and demonstrates interval placement of an endotr acheal tube with the tip approximately 4 cm above the nela. There has been placement of a nasogastr ic tube seen coursing through the esophagus and into the stomach. There is been placement of a left s ubclavian central venous line with the tip projected over the superior vena cava. There is no pneumot horax. There is been a mild interval increase in the coarse interstitial opacities in both lungs grea test at the lung bases left greater than right. The heart size is within normal limits. There are mul tiple overlying electrocardiogram leads and oxygen tubing. CONCLUSION: 1. Interval intubation, placement of nasogastric tube and left subclavian central venous catheter. 2. Mild increasing coarse infiltrates in both lungs with no pneumothorax. Iggy Burgess MD on September 03, 2017 at 15:40 Board Certified Radiologist. This report was verified electronically.
[2017-09-03] MEDS ORDERED: MAGNESIUM OXIDE 400 MG TAB PO PRN (15:45)
[2017-09-03] MEDS ORDERED: POTASSIUM CHLOR 40 MEQ PREMIX 100 ML IV PRN (15:45)
[2017-09-03] MEDS ORDERED: CHLORHEXIDINE GLUCONATE 2 % 1 PACK (2 CLOTHS) TOP PRN (15:45)
[2017-09-03] MEDS ORDERED: HALOPERIDOL LACTATE 5 MG/ML AMP IV PRN (15:45)
[2017-09-03] MEDS ORDERED: ONDANSETRON HCL 4 MG/2 ML VIAL IV PUSH PRN (15:45)
[2017-09-03] MEDS ORDERED: TERBUTALINE INJ 1 MG/ML AMP SQ PRN (15:45)
[2017-09-03] MEDS ORDERED: MAGNESIUM SULFATE INJ 4 GM in SODIUM CHLORIDE 0.9% INJ 92 ML IV PRN (15:45)
[2017-09-03] MEDS ORDERED: POTASSIUM PHOSPHATE INJ 30 MMOL in SODIUM CHLOR 0.9% 250 ML INJ 250 ML IV PRN (15:45)
[2017-09-03] MEDS ORDERED: POTASSIUM PHOSPHATE MONOBASIC 500 MG TAB PO/TUBE PRN (15:45)
[2017-09-03] MEDS ORDERED: DEXTROSE 50% IN WATER 50 ML VIAL(D50) IV PUSH PRN (15:45)
[2017-09-03] MEDS ORDERED: MAGNESIUM SULFATE INJ 2 GM in SODIUM CHLORIDE 0.9% INJ 96 ML IV PRN (15:45)
[2017-09-03] MEDS ORDERED: PROPOFOL 1000 MG/100 ML IV PRN (15:45)
[2017-09-03] MEDS ORDERED: SODIUM PHOSPHATE INJ 30 MMOL in SODIUM CHLOR 0.9% 250 ML INJ 240 ML IV PRN (15:45)
[2017-09-03] MEDS ORDERED: MAGNESIUM HYDROXIDE SUSP 30 ML CUP PO PRN (15:45)
[2017-09-03] MEDS ORDERED: MISCELLANEOUS NURSING INFORMATION XX SCH (15:45)
[2017-09-03] MEDS ORDERED: POTASSIUM PHOSPHATE MONOBASIC 500 MG TAB PO PRN (15:45)
[2017-09-03] MEDS ORDERED: SENNOSIDES 8.6 MG TAB PO PRN (15:45)
[2017-09-03] MEDS ORDERED: POTASSIUM CHLOR 20 MEQ PREMIX 100 ML IV PRN ×2 (15:45)
[2017-09-03] MEDS ORDERED: PROPOFOL 1000 MG/100 ML INJ 100 ML IV PRN ×2 (15:45)
[2017-09-03] MEDS ORDERED: LACTULOSE SYRUP 20 GM/30 ML CUP PO PRN (15:45)
[2017-09-03] MEDS ORDERED: Vancomycin Consult Pharmacy 1 EA OTHER SCH (15:45)
[2017-09-03] MEDS ORDERED: RESP: ALBUTEROL 2.5 MG/IPRATROPIUM 0.5 MG NEB (PRN) INH (15:45)
--- NOTE | 2017-09-03 16:26 | HHI.HP ---
HPI Service Critical Care Medicine Primary Care Physician Unknown Admission Diagnosis septic shock, pneumonia, UTI, h/o SBE, IVDA Diagnosis: Chief Complaint: chest pain Travel History International Travel<30 Days: No Contact w/Intl Traveler <30 Da: No Traveled to Known Affected Are: No History of Present Illness This is a 42yF with a history of methamphetamine IVDA who was recently admitted for three-valve endocarditis and was on IV Vancomycin for MRSA bacteremia/ endocarditis when she left AMA. This is the second time during this disease process that she left AMA. She re-presents in multiorgan system failure and septic shock with hypotension, tachycardia, hypoxia on NRB. CXR demonstrates multifocal bilateral patchy infiltrates suggestive of septic pulmonary emboli with possible superimposed community acquired pneumonia. She has acute kidney injury with elevated Cr 1.9. On last prior admission, she had a DVT and left without proper anticoagulation. She is leukopenic, anemic. On my evaluation, she has thrown her bedpan with urine on the floor. she threw her non-rebreather on the floor and states to me "it's not taking away my pain. I don't want it if it doesn't take away my pain." She is screaming at me for pain medication, but will not give me additional information about her recent illness. The remainder of the history is gleaned from the medical record. Her ROS is positive for chest pain, but otherwise unobtainable. She is quite hypoxic on my evaluation secondary to the fact that she is refusing her nonrebreather. However, when I asked her if she would like to go to Hospice and be made comfortable and without treatment, she denies this and says she wants me to "take away her pain and fix her." Review of Systems ROS Limitations: Clinical Condition, Uncooperative, Refused, Combative Cardiovascular: COMPLAINS OF: Chest pain Past Family Social History Allergies: Coded Allergies: *MDRO Multi-Drug Resistant Organism (Verified Adverse Reaction, Unknown, 09/03/17) MRSA (blood) 05/31/17, 06/01/17, 06/02/17, 06/03/17, 06/05/17 Past Medical History History cervical cancer Recent IV drug use the past year using crystal meth Past Surgical History History of LEEP procedure. Tubal ligation Reported Medications None. Active Ordered Medications See MAR Family History reviewed in the chart and found to be noncontributory to her acute illness Social History Reported Medications Reported Meds & Active Scripts Active No Active Prescriptions or Reported Medications Positive tobacco use. + methamphetamine use. Physical Exam Vital Signs Vital Signs Date Time Temp Pulse Resp B/P (MAP) Pulse Ox O2 Delivery O2 Flow Rate FiO2 09/03/17 14:26 98 50 09/03/17 14:23 118 28 100/59 (73) 100 Non-Rebreather 15.00 09/03/17 12:40 118 26 100/59 (73) 100 Non-Rebreather 15.00 09/03/17 11:30 124 26 115/67 (83) 91 Nasal Cannula 5.00 09/03/17 11:30 127 28 115/67 (83) 91 Nasal Cannula 5.00 09/03/17 11:30 91 Nasal Cannula 5.00 09/03/17 10:15 97 Non-Rebreather 15.00 09/03/17 09:54 98.6 122 32 85/49 (61) Physical Exam GENERAL: Middle-aged female who appears much older than stated age, lying in bed , in severe respiratory distress. HEENT: Normocephalic. Atraumatic. Pupils equal, round, reactive, conjugate. Mucous membranes are dry NECK: Trachea is midline. There is JVD up to the mid neck CHEST: Tachypneic. Hypoxic. SPO2 82%. Currently off her nonrebreather as she was refusing to wear it. Bilateral coarse rales in all lung goodson CARDIOVASCULAR: Tachycardic rate, regular rhythm. Sinus by telemetry. Hypotensive systolic in the 90s. ABDOMEN: Soft, nontender, nondistended. No guarding. MUSCULOSKELETAL: Pulses 2+. No peripheral edema. Multiple scattered excoriations throughout her upper and lower extremities NEUROLOGICAL: RASS +2. No focal deficits. Moving all extremities. Volitionally does not follow commands. Laboratory Laboratory Tests Test 09/03/17 09:59 09/03/17 10:40 09/03/17 10:50 09/03/17 12:22 Blood Gas Puncture Site LT BRACHIAL Blood Gas Patient Temperature 98.6 Blood Gas HCO3 22 Blood Gas Base Excess -2.3 Blood Gas Oxygen Saturation 95 Arterial Blood pH 7.42 Arterial Blood Partial Pressure CO2 34 Arterial Blood Partial Pressure O2 87 Arterial Blood Oxygen Content 13.7 Arterial Blood Carboxyhemoglobin 1.9 Arterial Blood Methemoglobin 0.5 Blood Gas Hemoglobin 10.2 Oxygen Delivery Device Non-Rebreathing Mask Blood Gas Liter Flow 15 Blood Urea Nitrogen 30 Creatinine 1.97 Random Glucose 97 Total Protein 7.2 Albumin 2.2 Calcium Level 8.2 Magnesium Level 1.8 Alkaline Phosphatase 58 Aspartate Amino Transf (AST/SGOT) 38 Alanine Aminotransferase (ALT/SGPT) 18 Total Bilirubin 0.6 Sodium Level 130 Potassium Level 3.3 Chloride Level 95 Carbon Dioxide Level 21.7 Anion Gap 13 Estimat Glomerular Filtration Rate 28 Lactic Acid Level 4.5 Troponin I 0.29 B-Type Natriuretic Peptide 225 Urine Color DARK-YELLOW Urine Turbidity CLOUDY Urine pH 5.0 Urine Specific [place] 1.027 Urine Protein 100 Urine Glucose (UA) NEG Urine Ketones NEG Urine Occult Blood TRACE Urine Nitrite NEG Urine Bilirubin NEG Urine Urobilinogen 2.0 Urine Leukocyte Esterase SMALL Urine RBC 5 Urine WBC 26 Urine Squamous Epithelial Cells 151 Urine Bacteria MANY Microscopic Urinalysis Comment CULTURE INDICATED White Blood Count 2.5 Red Blood Count 3.24 Hemoglobin 9.5 Hematocrit 29.2 Mean Corpuscular Volume 90.1 Mean Corpuscular Hemoglobin 29.3 Mean Corpuscular Hemoglobin Concent 32.5 Red Cell Distribution Width 15.0 Platelet Count 51 Mean Platelet Volume 10.8 Neutrophils (%) (Auto) 71.8 Lymphocytes (%) (Auto) 9.2 Monocytes (%) (Auto) 17.9 Eosinophils (%) (Auto) 0.1 Basophils (%) (Auto) 1.0 Neutrophils # (Auto) 1.8 Lymphocytes # (Auto) 0.2 Monocytes # (Auto) 0.4 Eosinophils # (Auto) 0.0 Basophils # (Auto) 0.0 CBC Comment AUTO DIFF Differential Total Cells Counted 100 Neutrophils % (Manual) 75 Band Neutrophils % 4 Lymphocytes % 8 Monocytes % 2 Neutrophils # (Manual) 2.3 Metamyelocytes 7 Myelocytes 4 Differential Comment FINAL DIFF MANUAL Toxic Granulation 2+ Toxic Vacuolation PRESENT Dohle Bodies PRESENT Platelet Estimate LOW Platelet Morphology Comment ENLARGED Acanthocytes OCC Prothrombin Time 11.5 Prothromb Time International Ratio 1.0 Activated Partial Thromboplast Time 32.7 D-Dimer Quantitative (PE/DVT) GREATER THAN 35.20 Test 09/03/17 15:45 Blood Gas Puncture Site ART LINE Blood Gas Patient Temperature 98.6 Blood Gas HCO3 18 Blood Gas Base Excess -7.8 Blood Gas Oxygen Saturation 90 Arterial Blood pH 7.25 Arterial Blood Partial Pressure CO2 43 Arterial Blood Partial Pressure O2 73 Arterial Blood Oxygen Content 11.9 Arterial Blood Carboxyhemoglobin 0.9 Arterial Blood Methemoglobin 1.3 Blood Gas Hemoglobin 9.4 Oxygen Delivery Device VENTILATOR Blood Gas Ventilator Setting PRVC/AC 550/18 Blood Gas Inspired Oxygen 50 Date/Time Source Procedure Growth Status 09/03/17 12:27 Blood Peripheral Aerobic Blood Culture Pending Received 09/03/17 12:27 Blood Peripheral Anaerobic Blood Culture Pending Received 09/03/17 10:50 Urine Clean Catch Urine Culture Pending Received Result Diagram: 09/03/17 1222 09/03/17 1040 Imaging Last Impressions Chest X-Ray 09/03/17 0954 Signed Impressions: Service Date/Time: Sunday, September 03, 2017 10:34 - CONCLUSION: Scattered patchy infiltrates bilaterally consistent with pneumonia and/or pulmonary edema. Clinical correlation is recommended. MD Jarad Fernández VTE Risk Assessment Caprini VTE Risk Assessment: Mod/High Risk (score >= 2) Caprini Risk Assessment Model Point Value = 1 Point Value = 2 Point Value = 3 Point Value = 5 Age 41-60 Minor surgery BMI > 25 kg/m2 Swollen legs Varicose veins or History of unexplained or recurrent spontaneous Oral contraceptives or hormone replacement Sepsis (< 1 month) Serious lung disease, including pneumonia (< 1 month) Abnormal pulmonary function Acute myocardial infarction Congestive heart failure (< 1 month) History of inflammatory bowel disease Medical patient at bed rest Age 61-74 Arthroscopic surgery Major open surgery (> 45 min) Laparoscopic surgery (> 45 min) Malignancy Confined to bed (> 72 hours) Immobilizing plaster cast Central venous access Age >= 75 History of VTE Family history of VTE Factor V Leiden Prothrombin [id number] Lupus anticoagulant Anticardiolipin antibodies Elevated serum homocysteine Heparin-induced thrombocytopenia Other congenital or acquired thrombophilia Stroke (< 1 month) Elective arthroplasty Hip, pelvis, or leg fracture Acute spinal cord injury (< 1 month) Prophylaxis Regimen Total Risk Factor Score Risk Level Prophylaxis Regimen 0-1 Low Early ambulation 2 Moderate Order ONE of the following: *Sequential Compression Device (SCD) *Heparin 5000 units SQ BID 3-4 Higher Order ONE of the following medications: *Heparin 5000 units SQ TID *Enoxaparin/Lovenox 40 mg SQ daily (WT < 150 kg, CrCl > 30 mL/min) *Enoxaparin/Lovenox 30 mg SQ daily (WT < 150 kg, CrCl > 10-29 mL/min) *Enoxaparin/Lovenox 30 mg SQ BID (WT < 150 kg, CrCl > 30 mL/min) AND/OR *Sequential Compression Device (SCD) 5 or more Highest Order ONE of the following medications: *Heparin 5000 units SQ TID (Preferred with Epidurals) *Enoxaparin/Lovenox 40 mg SQ daily (WT < 150 kg, CrCl > 30 mL/min) *Enoxaparin/Lovenox 30 mg SQ daily (WT < 150 kg, CrCl > 10-29 mL/min) *Enoxaparin/Lovenox 30 mg SQ BID (WT < 150 kg, CrCl > 30 mL/min) AND *Sequential Compression Device (SCD) Assessment and Plan Assessment and Plan Assessment: 42-year-old female with active IV drug abuse and 3 valve endocarditis, including aortic, mitral, and tricuspid valve, with associated valvulopathies: most notably moderate aortic insufficiency. She has now left [place] two separate times during the course of this illness and each time she represents in a higher degree of critical illness. She presents today in multiorgan system failure, overwhelming septic shock and likely mixed-septic/ cardiogenic shock due to her multiple valvular lesions. She has evidence of intravascular volume overload likely secondary to her valvulopathies, but also very much in septic shock. She has evidence of multiorgan failure with kidney and liver involvement. She is acutely hypoxic from her pneumonia which is almost certainly from untreated MRSA bacteremia and endocarditis. She is very critically ill. Because she stated she wanted aggressive treatment (although some of her statements and certainly her actions have suggested against this), I proceeded with intubation, placement of central and arterial lines, and aggressive resuscitative efforts. Certainly she is not a candidate for surgical intervention at this time, and given her medical noncompliance and poor social support, she may likely never be a candidate for surgical intervention. She likely will from this illness, and if she continues to leave [place], she will certainly from untreated overwhelming bacteremia and endocarditis. I will re-consult infectious disease as well as palliative care in an attempt to better clarify her overall goals of treatment going forward if we can get her out of shock and more stable. We will also have to anticoagulate her for her untreated DVT. Plan by systems: Neurologic: Agitated delirium Toxic/metabolic encephalopathy Methamphetamine abuse - RASS goal -2 - fentanyl and propofol - scheduled oxycodone 10mg po q4h to help with ongoing pain needs - scheduled seroquel 50mg po q8hr for delirium - breakthrough haldol 5mg iv q4h prn - watch for signs of amphetamine withdraw - daily sedation vacations starting tomorrow. Respiratory: Acute hypoxic respiratory failure MRSA septic pulmonary emboli Acute multifocal pneumonia secondary to bacteremia - intubated 09/03 - vent bundle, hob at 30 degrees, nebs - no weaning until out of shock - wean fio2 for spo2 > 90% - abg now and in AM. - send sputum culture Cardiovascular: Septic shock Cardiogenic shock Elevated troponin - secondary to endocarditis Tricuspid valve endocarditis Moderate tricuspid regurgitation Mitral valve endocarditis Mild mitral valve regurgitation Aortic valve endocarditis Moderate aortic valve regurgitation - Levophed for goal map > 65 mmHg - has already had 3 L IVF. will not give additional fluids as she has mixed- shock picture and her valvular lesions are starting to cause CHF symptoms - unlikely to be ACS, much more likely to be endocarditis related elevations in serum troponins. - trend lactates - may need early diuresis. Renal: Acute kidney injury - secondary to shock - trend daily Cr - place hercules catheter. - has received adequate ivf. will use vasopressors to maintain renal perfusion pressure. -- Strict I/Os FEN/GI: Acute protein calorie malnutrition- severe Hypokalemia Hyponatremia - ICU electrolyte protocol - start Jevity 1.5, nutrition consult for goal recs - daily BMP Heme/ID: MRSA Endocarditis MRSA Bacteremia Septic pulmonary emboli Multifocal pneumonia Leukopenia Anemia secondary to chronic disease Thrombocytopenia DVT - Vancomycin with pharmacy dosing: previous MRSA was sensitive to vancomycin. target trough > 15 - 20. - Zosyn 3.375gm iv q6h. when cultures are negative except for MRSA, will de- escalate therapy - q48h blood cultures until clear - re-consult ID - sputum culture, urine culture. - leukopenia suggestive of severe shock. - no signs of active bleeding: will not transfuse at this time. goal hgb > 7 - thrombocytopenia secondary to shock state and consumptive. 4T score low probability for HIT. known DVT. - heparin drip for DVT. Endocrine: Hyperglycemia of critical illness -- SSI, medium scale, every 6 Prophylaxis: GI Prophylaxis iv pepcid DVT Prophylaxis -- SCDs - heparin drip for DVT Lines: - right radial art line 09/03 - left SC central line 09/03 - Hercules Dispo: Admit to ICU. very critically ill. This patient remains critically ill with one or more organ systems which are or may become a threat to life. I have spent in excess of 85 minutes discontinuously in the care and management of this patient. This time is exclusive of procedures, and includes, but is not limited to, evaluation of the patient, review of the medical record, discussions with family, consultants, nursing staff, or respiratory therapy, and documentation in the medical record. Gordy Centeno MD Sep 03, 2017 16:25
--- NOTE | 2017-09-03 16:27 | PD.PROCEDR ---
Procedure Note Procedure Endotracheal Intubation Diagnosis: MRSA endocarditis and septic shock Indications: Severe acute hypoxic respiratory failure Consent: Emergent Anesthesia: Versed 10 mg IV, Rocuronium 100 mg IV Description of the Procedure: The patient was positioned in the sniffing position. Pre-oxygenation was performed using a nonrebreather mask. Anesthesia was induced via rapid sequence. A Manuel #2 was used for laryngoscopy. On first attempt, a grade III was obtained and esophageal intubation with immediate recognition. Endotracheal tube was removed. [id number] respirations. No hypoxia noted. Second attempt, Grade I view was obtained. A 8.5 cuffed endotracheal tube was inserted atraumatically through the vocal cords. Confirmation of correct endotracheal tube placement was made by equal and bilateral breath sounds and colorimetric CO2 detection. The endotracheal tube was secured at 23 cm at the teeth. There were no immediate complications noted. The patient remained hemodynamically stable throughout the procedure. A chest x-ray has been ordered. I personally performed the procedure. Gordy Centeno MD Sep 03, 2017 16:27
--- NOTE | 2017-09-03 16:28 | PD.PROCEDR ---
Procedure Note Procedure Procedure: Arterial Line Placement Right radial arterial line Diagnosis: Septic shock Indications: Need for beat to beat hemodynamic monitoring Consent: Emergent Description of the Procedure: The right wrist was prepped and draped sterilely. 1% lidocaine was used for local anesthesia. The pulse was located and a needle was advanced into the artery. A 20 gauge, 12 cm catheter was advanced into the artery using a modified Seldinger technique. The catheter was sutured to the skin and a sterile dressing was applied. The catheter was connected to a pressure transducer and an arterial waveform was noted. There were no immediate complications noted. There was minimal EBL. I personally performed the procedure. Gordy Centeno MD Sep 03, 2017 16:28
--- NOTE | 2017-09-03 16:29 | PD.PROCEDR ---
Procedure Note Procedure Central Line Procedure Note Left subclavian 10 Hungarian, 20 cm, 5 lumen central venous catheter Diagnosis: MRSA bacteremia, endocarditis Indications: Septic shock requiring highly potent vasoactive substances and central pressure monitoring Consent: Emergent Anesthesia: Propofol IV Description of the Procedure: The patient was placed in the supine, mild- Trendelenburg position. The area was prepped and draped sterilely. A 19g needle was inserted under negative pressure aspiration and dark venous blood was obtained. A guidewire was inserted easily without resistance. A small incision was made using a #11 blade. Using a modified Seldinger technique, the dilator and 10 Hungarian, 20 cm catheter were advanced over the guidewire without resistance. All ports were aspirated and flushed, and had brisk blood return. The line was secured at the skin using 2-0 silk interrupted sutures. A Biopatch and Transparent sterile dressing were applied. There were no immediate complications noted. There was minimal EBL. The patient tolerated the procedure well. Ultrasound guidance was not used for this procedure A Chest x-ray has been ordered. I personally performed the procedure. Gordy Centeno MD Sep 03, 2017 16:29
[2017-09-03] MEDS: INSULIN NovoLIN REGULAR SUPPLEMENTAL SCALE SQ SCH (17:45)
[2017-09-03] MEDS: HEPARIN-D5W 25,000 U/250 ML 250 ML IV PRN (17:58)
[2017-09-03] MEDS: oxyCODONE HCL ORAL CONC 5 MG/0.25 ML SYRINGE PO SCH ×2 (17:59→20:24)
[2017-09-03] MEDS: fentaNYL DRIP 250 ML IV PRN (20:20)
[2017-09-03] MEDS: PIPERACIL-TAZO 3.375 GM PREMIX 50 ML IV SCH (20:20)
[2017-09-03] MEDS: DOCUSATE SODIUM 50 MG/SENNA 8.6 MG TAB PO SCH (20:24)
[2017-09-03] MEDS: FAMOTIDINE 20 MG/2 ML VIAL IV PUSH SCH (20:24)
[2017-09-03] MEDS: CHLORHEXIDINE 0.12% (ORAL KIT) 15 ML CUP MT SCH (20:46)
[2017-09-03] MEDS: QUEtiapine FUMARATE 25 MG TAB PO SCH (21:54)
[2017-09-03 22:00] LABS: AMORPHOUS SEDIMENT, URINE RARE; BACTERIA, URINE OCC /hpf; BILIRUBIN, URINE NEG (NEG); BLOOD, URINE MOD (NEG); GLUCOSE,URINE TRACE mg/dL (NEG); KETONE, URINE TRACE mg/dL (NEG); NITRITE,URINE NEG (NEG); SQUAMOUS EPITHELIAL CELL URINE <1 /hpf (0-5); URINE COLOR YELLOW (YELLW/STRAW); URINE LEUKOCYTE ESTERASE NEG (NEG); WHITE BLOOD CELL CLUMPS RARE
[2017-09-03] MEDS: ACETAMINOPHEN 325 MG TAB PO PRN (22:34)
[2017-09-04] VITALS (21 sets, daily range): BP systolic 85–107; BP diastolic 52–61; PULSE 100–128; RESP 12–20; TEMP 98.1–99.6; O2SAT 81–100
[2017-09-04] MEDS: PIPERACIL-TAZO 3.375 GM PREMIX 50 ML IV SCH ×4 (01:58→20:48)
[2017-09-04] MEDS: oxyCODONE HCL ORAL CONC 5 MG/0.25 ML SYRINGE PO SCH ×6 (01:58→20:49)
[2017-09-04] MEDS: NOREPINEPHRINE-DEXTROSE DRIP 250 ML IV PRN (02:35)
[2017-09-04 03:17] LABS: HEMATOCRIT 24.9 % (35.0-46.0); HEMOGLOBIN 8.3 GM/DL (11.6-15.3); MEAN CELL VOLUME 88.2 FL (80.0-100.0); MEAN CORPUSCULAR HEMOGLOBIN 29.2 PG (27.0-34.0); MEAN CORPUSCULAR HGB CONC 33.1 % (32.0-36.0); MEAN PLATELET VOLUME 12.3 FL (7.0-11.0); PLATELET COUNT 41 TH/MM3 (150-450); RED BLOOD COUNT 2.83 MIL/MM3 (4.00-5.30); WHITE BLOOD COUNT 2.3 TH/MM3 (4.0-11.0)
[2017-09-04 03:57] LABS: BICARBONATE 18.1 MEQ/L (21.0-32.0); CALCIUM 7.6 MG/DL (8.5-10.1); CREATININE 1.05 MG/DL (0.50-1.00)
[2017-09-04] MEDS: CHLORHEXIDINE GLUCONATE 2 % 1 PACK (2 CLOTHS) TOP SCH (04:00)
--- NOTE | 2017-09-04 04:23 | RADRPT ---
EXAM DATE/TIME: 09/04/2017 02:34 [facility] COMPARISON: CHEST SINGLE AP, September 03, 2017, 15:17. INDICATIONS : Evaluate Atelectasis and pnuemonia MEDICAL HISTORY : Cardiovascular disease. Chronic obstructive pulmonary disease. TB SURGICAL HISTORY : None. ENCOUNTER: Subsequent ACUITY: 2 days PAIN SCORE: Non-responsive. LOCATION: Bilateral chest FINDINGS: Patchy airspace and coarse interstitial opacities again seen in both lungs, upper lobe and basilar pr edominant on both sides and not significantly changed. No large effusion. No pneumothorax. Heart size stable, the normal limits. Endotracheal tube tip is approximately 5 cm above the nela. Nasogastric tube courses into the stoma ch. There is a left subclavian central venous catheter with tip in the superior vena cava. CONCLUSION: No significant change. Thiago Mejia MD on September 04, 2017 at 4:20 Board Certified Radiologist. This report was verified electronically.
[2017-09-04] MEDS: RESP: ALBUTEROL 2.5 MG/IPRATROPIUM 0.5 MG NEB (SCH) INH ×4 (04:28→20:35)
[2017-09-04] MEDS: POTASSIUM CHLOR 40 MEQ PREMIX 100 ML IV PRN ×2 (05:06→11:45)
[2017-09-04] MEDS: QUEtiapine FUMARATE 25 MG TAB PO SCH ×3 (05:07→21:03)
[2017-09-04] MEDS: INSULIN NovoLIN REGULAR SUPPLEMENTAL SCALE SQ SCH ×4 (05:32→17:20)
[2017-09-04] MEDS ORDERED: FUROSEMIDE 100 MG/10 ML VIAL IV PUSH ONE (07:00)
--- NOTE | 2017-09-04 07:09 | HHI.CCPN ---
Subjective Remarks/Hospital Course Hospital Course: This is a 42yF with a history of methamphetamine IVDA who was recently admitted for three-valve endocarditis and was on IV Vancomycin for MRSA bacteremia/ endocarditis when she left AMA. This is the second time during this disease process that she left AMA. She re-presents in multiorgan system failure and septic shock with hypotension, tachycardia, hypoxia on NRB. CXR demonstrates multifocal bilateral patchy infiltrates suggestive of septic pulmonary emboli with possible superimposed community acquired pneumonia. She has acute kidney injury with elevated Cr 1.9. On last prior admission, she had a DVT and left without proper anticoagulation. She is leukopenic, anemic. On my evaluation, she has thrown her bedpan with urine on the floor. she threw her non-rebreather on the floor and states to me "it's not taking away my pain. I don't want it if it doesn't take away my pain." She is screaming at me for pain medication, but will not give me additional information about her recent illness. The remainder of the history is gleaned from the medical record. Her ROS is positive for chest pain, but otherwise unobtainable. She is quite hypoxic on my evaluation secondary to the fact that she is refusing her nonrebreather. However, when I asked her if she would like to go to Hospice and be made comfortable and without treatment, she denies this and says she wants me to "take away her pain and fix her." Subjective: 09/04: remains intubated in multi-organ failure. required vasopressors overnight. now oliguric. CVP rising. Serum bicarb lowering representing worsening acidosis. mixed-shock persists. also now less awake, and on minimal sedation only withdrawing to pain. Objective Vital Signs Date Time Temp Pulse Resp B/P (MAP) Pulse Ox O2 Delivery O2 Flow Rate FiO2 09/04/17 06:00 102 09/04/17 05:24 109/60 09/04/17 04:29 98 40 09/04/17 04:00 98.9 20 09/03/17 14:23 Non-Rebreather 15.00 Intake and Output 09/04/17 09/04/17 09/05/17 08:00 16:00 00:00 Intake Total 815.8 ml Output Total 124 ml Balance 691.8 ml Result Diagram: 09/04/17 0250 09/04/17 0250 Other Results Laboratory Tests Test 09/03/17 09:59 09/03/17 15:45 09/04/17 05:28 Blood Gas Puncture Site LT BRACHIAL ART LINE RT BRACHIAL Blood Gas Patient Temperature 98.6 98.6 98.6 Blood Gas HCO3 22 mmol/L (22-26) 18 mmol/L (22-26) 18 mmol/L (22-26) Blood Gas Base Excess -2.3 mmol/L (-2-2) -7.8 mmol/L (-2-2) -6.5 mmol/L (-2-2) Blood Gas Oxygen Saturation 95 % (90-100) 90 % (90-100) 90 % (90-100) Arterial Blood pH 7.42 (7.380-7.420) 7.25 (7.380-7.420) 7.33 (7.380-7.420) Arterial Blood Partial Pressure CO2 34 mmHg (38-42) 43 mmHg (38-42) 36 mmHg (38-42) Arterial Blood Partial Pressure O2 87 mmHG (61-120) 73 mmHg (61-120) 68 mmHg (61-120) Arterial Blood Oxygen Content 13.7 Vol % (12.0-20.0) 11.9 Vol % (12.0-20.0) 11.3 Vol % (12.0-20.0) Arterial Blood Carboxyhemoglobin 1.9 % (0-4) 0.9 % (0-4) 1.0 % (0-4) Arterial Blood Methemoglobin 0.5 % (0-2) 1.3 % (0-2) 1.0 % (0-2) Blood Gas Hemoglobin 10.2 G/DL (12.0-16.0) 9.4 G/DL (12.0-16.0) 8.9 G/DL (12.0-16.0) Oxygen Delivery Device Non-Rebreathing Mask VENTILATOR VENTILATOR Blood Gas Liter Flow 15 L/M Blood Gas Ventilator Setting PRVC/AC 550/18 SEE COMMENT Blood Gas Inspired Oxygen 50 % 40 % Imaging Last Impressions Chest X-Ray 09/03/17 0944 Signed Impressions: Service Date/Time: Sunday, September 03, 2017 10:34 - CONCLUSION: Scattered patchy infiltrates bilaterally consistent with pneumonia and/or pulmonary edema. Clinical correlation is recommended. Dagoberto Harmon MD Objective Remarks GENERAL: Middle-aged female who appears much older than stated age, lying in bed , intubated, sedated. HEENT: Normocephalic. Atraumatic. Pupils equal, round, reactive, conjugate. Mucous membranes are moist NECK: Trachea is midline. There is JVD up to the mid neck CHEST: on full mechanical support. PRVC. fio2 40%, peep 5. spo2 93%. bilateral coarse rales persist. left SC central line, site C/D/I. CARDIOVASCULAR: Tachycardic rate, regular rhythm. Sinus by telemetry. on norepinephrine. ABDOMEN: Soft, nontender, nondistended. No guarding. MUSCULOSKELETAL: Pulses 2+. No peripheral edema. Multiple scattered excoriations throughout her upper and lower extremities. right radial art line site clean dry intact. NEUROLOGICAL: RASS -3. withdraws to pain x 4. does not follow commands. A/P Assessment and Plan Assessment: 42-year-old female with active IV drug abuse and 3 valve endocarditis, including aortic, mitral, and tricuspid valve, with associated valvulopathies: most notably moderate aortic insufficiency. s/p leaving AMA x 2 during this active infection. Remains very critically ill today in mixed- shock which has not improved. remains profoundly septic and leukopenic and now volume overloaded from CHF exacerbation and valvulopathy. will be forced to diurese despite vasopressor requirement. Remains critically ill and she may not survive this illness. Plan by systems: Neurologic: Agitated delirium Toxic/metabolic encephalopathy - worsening. Methamphetamine abuse - RASS goal -2 - fentanyl and propofol - scheduled oxycodone 10mg po q4h to help with ongoing pain needs - scheduled seroquel 50mg po q8hr for delirium - breakthrough haldol 5mg iv q4h prn - watch for signs of amphetamine withdraw - daily sedation vacation Respiratory: Acute hypoxic respiratory failure MRSA septic pulmonary emboli Acute multifocal pneumonia secondary to bacteremia - intubated 09/03 - vent bundle, hob at 30 degrees, nebs - no weaning until out of shock - wean fio2 for spo2 > 90% - sputum culture not sent on admission. will send today. Cardiovascular: Septic shock - persistent. Cardiogenic shock - persistent. Elevated troponin - secondary to endocarditis Tricuspid valve endocarditis Moderate tricuspid regurgitation Mitral valve endocarditis Mild mitral valve regurgitation Aortic valve endocarditis Moderate aortic valve regurgitation - Levophed for goal map > 65 mmHg - volume overloaded this morning despite persistent shock. lasix 80mg iv x 1. - unlikely to be ACS, much more likely to be endocarditis related elevations in serum troponins. - clearing lactate. Renal: Acute kidney injury - secondary to shock - trend daily Cr - continue hercules catheter today. - has received adequate ivf. will use vasopressors to maintain renal perfusion pressure. -- Strict I/Os FEN/GI: Acute protein calorie malnutrition- severe Hypokalemia Hyponatremia - ICU electrolyte protocol - Jevity 1.5, nutrition consult for goal recs - daily BMP Heme/ID: MRSA Endocarditis MRSA Bacteremia Septic pulmonary emboli Multifocal pneumonia Leukopenia Anemia secondary to chronic disease Thrombocytopenia DVT - Vancomycin with pharmacy dosing: previous MRSA was sensitive to vancomycin. target trough > 15 - 20. - Zosyn 3.375gm iv q6h. when cultures are negative except for MRSA, will de- escalate therapy - q48h blood cultures until clear - re-consult ID - sputum culture, urine culture. - leukopenia suggestive of severe shock. - no signs of active bleeding: will not transfuse at this time. goal hgb > 7 - thrombocytopenia secondary to shock state and consumptive. 4T score low probability for HIT. known DVT. - heparin drip for DVT. Endocrine: Hyperglycemia of critical illness -- SSI, medium scale, every 6 Prophylaxis: GI Prophylaxis iv pepcid DVT Prophylaxis -- SCDs - heparin drip for DVT Lines: - right radial art line 09/03 - left SC central line 09/03 - Hercules Dispo: Remain in ICU. no improvements. This patient remains critically ill with one or more organ systems which are or may become a threat to life. I have spent in excess of 41 minutes discontinuously in the care and management of this patient. This time is exclusive of procedures, and includes, but is not limited to, evaluation of the patient, review of the medical record, discussions with family, consultants, nursing staff, or respiratory therapy, and documentation in the medical record. Gordy Centeno MD Sep 04, 2017 07:09
[2017-09-04] MEDS: FAMOTIDINE 20 MG/2 ML VIAL IV PUSH SCH ×2 (08:49→20:48)
[2017-09-04] MEDS: DOCUSATE SODIUM 50 MG/SENNA 8.6 MG TAB PO SCH ×2 (08:49→20:49)
[2017-09-04] MEDS: CHLORHEXIDINE 0.12% (ORAL KIT) 15 ML CUP MT SCH ×2 (08:50→20:48)
--- NOTE | 2017-09-04 11:41 | MB ---
cc: NELSY MARRUFO MD DATE OF CONSULTATION: 09/04/2017 REQUESTING PHYSICIAN: Dr. Mora REASON FOR CONSULTATION: A 42-year-old female with three valve endocarditis, left AMA earlier this month, now back in shock. HISTORY OF PRESENT ILLNESS This is a 42-year-old white female who presented to the emergency department with respiratory distress. The patient was brought in by [facility]. The patient was noted to be hypotensive, tachypneic, tachycardic on arrival and blood cultures were obtained and she was intubated. She is currently intubated and on the ventilator. Multiple blood cultures were sent and all of the blood cultures are coming back with gram-positive cocci. The patient was recently in the hospital in May and she signed out against medical advice on June 17. She previously also signed out against medical advice on June 04. On both these admissions she had a diagnosis of sepsis including positive blood cultures with MRSA for which she has been treated but left the hospital against medical advice. She was diagnosed with three valve endocarditis. MIREILLE on 06/08 revealed density on the mitral valve, tricuspid valve with two vegetations seen on the mitral valve, one 2.2 cm x 1.2 cm, and another 1.3 cm x 0.8 cm. She also was noted to have moderate aortic valve regurgitation and a density on the aortic valve measuring 0.7 cm x 0.7 cm. Surgical evaluation was requested and the patient was seen by cardiovascular surgery and due to noncompliance and IVDA, she was felt not to be a surgical candidate. The patient's white blood cell count was 2.5 when she presented and platelet count was 61. She also has renal failure with an estimated GFR of 28 yesterday. The estimated GFR today is 57. The patient is intubated on the ventilator and therefore information is obtained from the medical record. She has a chest x-ray which shows diffuse bilateral coarse infiltrates. Drug toxicology screen is positive for opiates, amphetamines and benzodiazepines. PAST MEDICAL HISTORY 1. IV drug abuse. 2. MRSA endocarditis. 3. History of cervical cancer. 4. History of deep venous thrombosis of the left upper extremity. ALLERGIES NO KNOWN DRUG ALLERGIES. MEDICATIONS 1. Vancomycin. 2. Seroquel. 3. Pepcid 4. Judy-Colace. 5. Piperacillin / tazobactam. 6. Oxycodone 10 mg q4 hours p.r.n. 7. Levophed daily. 8. Propofol. SOCIAL HISTORY Positive tobacco. No alcohol noted. Positive IV drug abuse. FAMILY HISTORY: Unknown. REVIEW OF SYSTEMS: Unobtainable. PHYSICAL EXAMINATION: The patient is a frail-appearing slender female, who looks older than stated age. She is intubated on the ventilator. VITAL SIGNS: Includes temperature 98.9. T-max 102.7, blood pressure 90/58, heart rate 113. Respiratory rate per ventilator. HEENT: The head is atraumatic. Extraocular movements cannot be assessed since the patient cannot cooperate. The pupils are pinpoint. No icterus. Oropharynx intubated. Neck: No adenopathy or swelling. Lungs: Coarse breath sounds bilateral. Heart: Normal S1-S2. Unable to appreciate murmur. Abdomen: Flat, soft, decreased bowel sounds. Rectal: Not performed. Extremities: Trace edema of the upper extremities. Few scattered ecchymotic areas at the hands. The patient has nail tanzanian and therefore the nail beds cannot be assessed. Neuro: Unable to assess. Skin: No diffuse rash. Psych: Unable to assess. LABORATORY DATA WBC 2.3, platelets 41, creatinine 1.05, BUN 32, estimated GFR 57, sodium 136. IMPRESSION 1. Septic shock due to gram-positive cocci in patient with recent MRSA bacteremia and endocarditis diagnosed on previous admission. The patient signed out from the hospital against medical advice. 2. Acute respiratory failure. 3. Acute renal failure 4. IV drug abuse. 5. Lung infiltrate probably represented septic pulmonary emboli. 6. Leukopenia and thrombocytopenia probably secondary to severe sepsis. RECOMMENDATIONS 1. Continue vancomycin 2. Continue piperacillin / tazobactam 3. Add Rifampin. 4. Follow the blood cultures and sensitivity of the gram-positive cocci. 5. Monitor clinical status. Given the recurrent sepsis in this patient who has multiple valve vegetation and now with organ dysfunction and severe sepsis, her prognosis is very poor, Thank you for this consultation. The patient's progress will be followed and further recommendations will be made on followup if necessary. Nelsy Marrufo MD FD/OFELIA /10:05 AM /10:47 AM HERLINDA
[2017-09-04] MEDS: RIFAMPIN INJ 300 MG in SODIUM CHLORIDE 0.9% INJ 100 ML IV SCH ×2 (13:33→20:48)
[2017-09-04] MEDS: ACETAMINOPHEN 325 MG TAB PO PRN (15:18)
[2017-09-04] MEDS: VANCOMYCIN 500 MG/NS 100 ML IV SCH ×2 (16:15)
--- NOTE | 2017-09-04 20:39 | EKG ---
Date Performed: 09/04/2017 Time Performed: 07:29:00 PTAGE: 42 years EKG: Sinus tachycardia Extensive ST elevation, CONSIDER ACUTE INFARCT Abnormal ECG NO PREVIOUS TRACING DOCTOR: Mariah Valenzuela Interpretating Date/Time 09/04/2017 20:37:42
--- NOTE | 2017-09-04 20:57 | EKG ---
Date Performed: 09/03/2017 Time Performed: 10:49:14 PTAGE: 42 years EKG: Irregular rhythm. Possible atrial fibrillation Electrical interferences preclude further an alysis of this tracing ABNORMAL ECG NO PREVIOUS TRACING DOCTOR: Mariah Valenzuela Interpretating Date/Time 09/04/2017 20:50:04
[2017-09-04] MEDS: fentaNYL DRIP 250 ML IV PRN (21:02)
[2017-09-04] MEDS: HEPARIN-D5W 25,000 U/250 ML 250 ML IV PRN (21:02)
[2017-09-05] VITALS (17 sets, daily range): BP systolic 84–106; BP diastolic 51–65; PULSE 110–121; RESP 20; TEMP 97.5–100.3; O2SAT 92–100
[2017-09-05] MEDS: NOREPINEPHRINE-DEXTROSE DRIP 250 ML IV PRN (01:21)
[2017-09-05] MEDS: PIPERACIL-TAZO 3.375 GM PREMIX 50 ML IV SCH ×4 (01:21→21:20)
[2017-09-05] MEDS: oxyCODONE HCL ORAL CONC 5 MG/0.25 ML SYRINGE PO SCH ×6 (01:46→21:21)
[2017-09-05] MEDS: RIFAMPIN INJ 300 MG in SODIUM CHLORIDE 0.9% INJ 100 ML IV SCH ×3 (03:44→21:20)
[2017-09-05] MEDS: CHLORHEXIDINE GLUCONATE 2 % 1 PACK (2 CLOTHS) TOP SCH (03:44)
[2017-09-05] MEDS: RESP: ALBUTEROL 2.5 MG/IPRATROPIUM 0.5 MG NEB (SCH) INH ×4 (04:23→21:45)
[2017-09-05] MEDS: QUEtiapine FUMARATE 25 MG TAB PO SCH ×3 (05:18→21:21)
[2017-09-05] MEDS: INSULIN NovoLIN REGULAR SUPPLEMENTAL SCALE SQ SCH ×5 (05:18→23:44)
[2017-09-05 05:45] LABS: HEMATOCRIT 26.2 % (35.0-46.0); HEMOGLOBIN 8.5 GM/DL (11.6-15.3); MEAN CELL VOLUME 90.7 FL (80.0-100.0); MEAN CORPUSCULAR HEMOGLOBIN 29.3 PG (27.0-34.0); MEAN CORPUSCULAR HGB CONC 32.3 % (32.0-36.0); MEAN PLATELET VOLUME 12.5 FL (7.0-11.0); PLATELET COUNT 65 TH/MM3 (150-450); RED BLOOD COUNT 2.88 MIL/MM3 (4.00-5.30); RED CELL DISTRIBUTION WIDTH 15.3 % (11.6-17.2); WHITE BLOOD COUNT 2.7 TH/MM3 (4.0-11.0)
[2017-09-05 06:18] LABS: BICARBONATE 20.8 MEQ/L (21.0-32.0); CALCIUM 8.3 MG/DL (8.5-10.1); CREATININE 1.75 MG/DL (0.50-1.00)
[2017-09-05] MEDS ORDERED: BUMETANIDE INJ 1 MG/4 ML VIAL ONE (08:03)
[2017-09-05] MEDS: CHLORHEXIDINE 0.12% (ORAL KIT) 15 ML CUP MT SCH ×2 (08:13→21:20)
[2017-09-05] MEDS: DOCUSATE SODIUM 50 MG/SENNA 8.6 MG TAB PO SCH ×2 (08:13→21:21)
[2017-09-05] MEDS: FAMOTIDINE 20 MG/2 ML VIAL IV PUSH SCH ×2 (08:14→21:21)
[2017-09-05] MEDS: fentaNYL DRIP 250 ML IV PRN ×2 (08:14→21:21)
--- NOTE | 2017-09-05 09:53 | HHI.CCPN ---
Subjective Remarks/Hospital Course Hospital Course: This is a 42yF with a history of methamphetamine IVDA who was recently admitted for three-valve endocarditis and was on IV Vancomycin for MRSA bacteremia/ endocarditis when she left AMA. This is the second time during this disease process that she left AMA. She re-presents in multiorgan system failure and septic shock with hypotension, tachycardia, hypoxia on NRB. CXR demonstrates multifocal bilateral patchy infiltrates suggestive of septic pulmonary emboli with possible superimposed community acquired pneumonia. She has acute kidney injury with elevated Cr 1.9. On last prior admission, she had a DVT and left without proper anticoagulation. She is leukopenic, anemic. On my evaluation, she has thrown her bedpan with urine on the floor. she threw her non-rebreather on the floor and states to me "it's not taking away my pain. I don't want it if it doesn't take away my pain." She is screaming at me for pain medication, but will not give me additional information about her recent illness. The remainder of the history is gleaned from the medical record. Her ROS is positive for chest pain, but otherwise unobtainable. She is quite hypoxic on my evaluation secondary to the fact that she is refusing her nonrebreather. However, when I asked her if she would like to go to Hospice and be made comfortable and without treatment, she denies this and says she wants me to "take away her pain and fix her." Subjective: 09/04: remains intubated in multi-organ failure. required vasopressors overnight. now oliguric. CVP rising. Serum bicarb lowering representing worsening acidosis. mixed-shock persists. also now less awake, and on minimal sedation only withdrawing to pain. 09/05: remains in shock on vasopressors. Cr rising. remains oliguric. still likely component of mixed shock. palliative consulted. Objective Vital Signs Date Time Temp Pulse Resp B/P (MAP) Pulse Ox O2 Delivery O2 Flow Rate FiO2 09/05/17 08:25 100 50 09/05/17 08:00 118 100/65 (77) 101/58 (72) 09/05/17 08:00 98.8 20 09/03/17 14:23 Non-Rebreather 15.00 Intake and Output 09/05/17 09/05/17 09/06/17 08:00 16:00 00:00 Intake Total 1434 ml Output Total 66 ml Balance 1368 ml Result Diagram: 09/05/17 0350 09/05/17 0350 Other Results Microbiology Date/Time Source Procedure Growth Status 09/03/17 10:50 Urine Clean Catch Urine Culture - Final 50-100,000 CFU/ML MIXED GRAM POSITIVE... Complete Imaging Last Impressions Chest X-Ray 09/03/17 0971 Signed Impressions: Service Date/Time: Sunday, September 03, 2017 10:34 - CONCLUSION: Scattered patchy infiltrates bilaterally consistent with pneumonia and/or pulmonary edema. Clinical correlation is recommended. Dagoberto Harmon MD Objective Remarks GENERAL: Middle-aged female who appears much older than stated age, lying in bed , intubated, sedated. HEENT: Normocephalic. Atraumatic. Pupils equal, round, reactive, conjugate. Mucous membranes are moist NECK: Trachea is midline. There is JVD up to the mid neck CHEST: on full mechanical support. PRVC. fio2 60%, peep 10. spo2 94%. bilateral coarse rales persist. left SC central line, site C/D/I. CARDIOVASCULAR: Tachycardic rate, regular rhythm. Sinus by telemetry. on norepinephrine. ABDOMEN: Soft, nontender, nondistended. No guarding. MUSCULOSKELETAL: Pulses 2+. No peripheral edema. Multiple scattered excoriations throughout her upper and lower extremities. right radial art line site clean dry intact. NEUROLOGICAL: RASS -3. withdraws to pain x 4. does not follow commands. A/P Assessment and Plan Assessment: 42-year-old female with active IV drug abuse and 3 valve endocarditis, including aortic, mitral, and tricuspid valve, with associated valvulopathies: most notably moderate aortic insufficiency. s/p leaving AMA x 2 during this active infection. Remains very critically ill today in mixed- shock which has not improved. remains profoundly septic and leukopenic and although she is likely volume overloaded still, her Cr is rising and we will hold further forced diuresis in the setting of persistent distributive shock. off pathway with no improvements in 3 days and worsening of her end-organ dysfunction. Palliative consult to find family. Poor prognosis. Plan by systems: Neurologic: Agitated delirium Toxic/metabolic encephalopathy - persistent. Methamphetamine abuse - RASS goal -2 - fentanyl and propofol - scheduled oxycodone 10mg po q4h to help with ongoing pain needs - scheduled seroquel 50mg po q8hr for delirium - breakthrough haldol 5mg iv q4h prn - watch for signs of amphetamine withdraw - daily sedation vacation Respiratory: Acute hypoxic respiratory failure - persistent, worsening. MRSA septic pulmonary emboli Acute multifocal pneumonia secondary to bacteremia - intubated 09/03 - vent bundle, hob at 30 degrees, nebs - no weaning until out of shock - wean fio2 for spo2 > 90%, increasing fio2 likely secondary to worsening VQ mismatch from shock and persistent wide-spread MRSA infection. Cardiovascular: Septic shock - persistent. Cardiogenic shock - persistent. Elevated troponin - secondary to endocarditis Tricuspid valve endocarditis Moderate tricuspid regurgitation Mitral valve endocarditis Mild mitral valve regurgitation Aortic valve endocarditis Moderate aortic valve regurgitation - Levophed for goal map > 65 mmHg - will not diurese given worsening renal function. - unlikely to be ACS, much more likely to be endocarditis related elevations in serum troponins. - clearing lactate. - will check limited 2d echo to rule out suppurative pericarditis and eval global LV function. Renal: Acute kidney injury - worsening. - secondary to shock - trend daily Cr - continue hercules catheter today. - will use vasopressors to maintain renal perfusion pressure. -- Strict I/Os FEN/GI: Acute protein calorie malnutrition- severe Hypokalemia Hyponatremia - ICU electrolyte protocol - Jevity 1.5, nutrition consult for goal recs - daily BMP Heme/ID: MRSA Endocarditis MRSA Bacteremia Septic pulmonary emboli Multifocal pneumonia Leukopenia Anemia secondary to chronic disease Thrombocytopenia DVT - Vancomycin with pharmacy dosing: previous MRSA was sensitive to vancomycin. target trough > 15 - 20. - Zosyn 3.375gm iv q6h. when cultures are negative except for MRSA, will de- escalate therapy - q48h blood cultures until clear - re-consulted ID - sputum culture, urine culture. - leukopenia suggestive of severe shock. - no signs of active bleeding: will not transfuse at this time. goal hgb > 7 - thrombocytopenia secondary to shock state and consumptive. 4T score low probability for HIT. known DVT. - heparin drip for DVT. Endocrine: Hyperglycemia of critical illness -- SSI, medium scale, every 6 Prophylaxis: GI Prophylaxis iv pepcid DVT Prophylaxis -- SCDs - heparin drip for DVT Lines: - right radial art line 09/03 - left SC central line 09/03 - Jovanna Dispo: Remain in ICU. no improvements. This patient remains critically ill with one or more organ systems which are or may become a threat to life. I have spent in excess of 32 minutes discontinuously in the care and management of this patient. This time is exclusive of procedures, and includes, but is not limited to, evaluation of the patient, review of the medical record, discussions with family, consultants, nursing staff, or respiratory therapy, and documentation in the medical record. Gordy Centeno MD Sep 05, 2017 09:53
--- NOTE | 2017-09-05 11:40 | HHI.IDPN ---
Note Infectious Disease Note Patient is off Levophed. On the vent and sedated. Non responsive. Yellow tube feed colored material coming from oral cavity. Afebrile. Presented to the emergency department with respiratory distress. patient was noted to be hypotensive, tachypneic, tachycardic on arrival and blood cultures were obtained and she was intubated. She is currently intubated and on the ventilator. The patient was recently in the hospital in May and she signed out against medical advice on June 17. She previously also signed out against medical advice on June 04. On both these admissions she had a diagnosis of sepsis including positive blood cultures with MRSA for which she has been treated but left the hospital against medical advice. MIREILLE on 06/08 revealed density on the mitral valve, tricuspid valve with two vegetations seen on the mitral valve, one 2.2 cm x 1.2 cm, and another 1.3 cm x 0.8 cm. She also was noted to have moderate aortic valve regurgitation and a density on the aortic valve measuring 0.7 cm x 0.7 cm. PAST MEDICAL HISTORY 1. IV drug abuse. 2. MRSA endocarditis. 3. History of cervical cancer. 4. History of deep venous thrombosis of the left upper extremity. ALLERGIES NO KNOWN DRUG ALLERGIES. MEDICATIONS 1. Vancomycin. 2. Rifampin. 3. Piperacillin / tazobactam. SOCIAL HISTORY Positive tobacco. No alcohol noted. Positive IV drug abuse. REVIEW OF SYSTEMS: Unobtainable. OBJECTIVE: Vital Signs Date Time Temp Pulse Resp B/P (MAP) Pulse Ox O2 Delivery O2 Flow Rate FiO2 09/05/17 10:41 20 09/05/17 10:00 118 09/05/17 09:00 116 116/60 09/05/17 08:25 100 50 09/05/17 08:00 118 100/65 (77) 101/58 (72) 09/05/17 08:00 118 09/05/17 08:00 98.8 118 20 100/65 (77) 95 101/58 (72) 09/05/17 08:00 50 09/05/17 06:00 114 09/05/17 04:24 96 60 09/05/17 04:00 116 09/05/17 04:00 98.4 116 20 93/58 (70) 95 90/61 (71) 09/05/17 04:00 60 09/05/17 04:00 116 93/58 (70) 90/61 (71) 09/05/17 02:00 111 09/05/17 01:21 111 95/59 09/05/17 00:06 95 60 09/05/17 00:00 60 09/05/17 00:00 110 09/05/17 00:00 110 84/56 (65) 93/59 (70) 09/05/17 00:00 97.5 110 20 84/56 (65) 96 93/59 (70) 09/04/17 22:00 110 09/04/17 20:29 96 60 09/04/17 20:00 113 09/04/17 20:00 98.1 113 12 88/55 (66) 96 92/55 (67) 09/04/17 20:00 113 88/55 (66) 92/55 (67) 09/04/17 20:00 60 09/04/17 18:32 118 103/63 09/04/17 18:00 127 09/04/17 18:00 120 09/04/17 16:18 21 09/04/17 16:00 127 100/56 (71) 103/60 (74) 09/04/17 16:00 127 09/04/17 16:00 127 15 100/56 (71) 94 103/60 (74) 09/04/17 16:00 60 09/04/17 15:23 94 60 09/04/17 15:00 128 09/04/17 14:00 123 09/04/17 13:00 120 09/04/17 12:00 116 09/04/17 12:00 40 09/04/17 12:00 99.6 116 20 98/60 (73) 94 107/59 (75) 09/04/17 12:00 116 98/60 (73) 107/59 (75) 09/04/17 11:55 95 50 Laboratory Tests Test 09/03/17 21:22 09/04/17 02:50 09/04/17 17:15 09/05/17 03:50 Lactic Acid Level 1.9 mmol/L Blood Urea Nitrogen 32 MG/DL 54 MG/DL Creatinine 1.05 MG/DL 1.75 MG/DL Random Glucose 145 MG/DL 156 MG/DL Calcium Level 7.6 MG/DL 8.3 MG/DL Sodium Level 136 MEQ/L 136 MEQ/L Potassium Level 3.0 MEQ/L 4.1 MEQ/L 4.1 MEQ/L Chloride Level 105 MEQ/L 105 MEQ/L Carbon Dioxide Level 18.1 MEQ/L 20.8 MEQ/L Anion Gap 13 MEQ/L 10 MEQ/L Estimat Glomerular Filtration Rate 57 ML/MIN 32 ML/MIN Microbiology Date/Time Source Procedure Growth Status 09/05/17 09:00 Blood Peripheral Aerobic Blood Culture Pending Received 09/05/17 09:00 Blood Peripheral Anaerobic Blood Culture Pending Received 09/05/17 08:52 Blood Peripheral Aerobic Blood Culture Pending Received 09/05/17 08:52 Blood Peripheral Anaerobic Blood Culture Pending Received 09/03/17 14:50 Blood Peripheral Aerobic Blood Culture - Preliminary Staph Sp Coagulase Positive Resulted 09/03/17 14:50 Anaerobic Blood Culture - Preliminary Gram Positive Cocci Resulted 09/03/17 14:50 Blood Peripheral Aerobic Blood Culture - Preliminary Staph Sp Coagulase Positive Resulted 09/03/17 14:50 Blood Peripheral Anaerobic Blood Culture - Preliminary NO GROWTH IN 2 DAYS Resulted 09/03/17 12:27 Blood Peripheral Aerobic Blood Culture - Preliminary Staph Sp Coagulase Positive Resulted 09/03/17 12:27 Anaerobic Blood Culture - Preliminary Staph Sp Coagulase Positive Resulted 09/03/17 12:22 Blood Peripheral Aerobic Blood Culture - Preliminary S. Aureus Mrsa Resulted 09/03/17 12:22 Anaerobic Blood Culture - Preliminary Staph Sp Coagulase Positive Resulted 09/03/17 10:50 Blood Peripheral Aerobic Blood Culture - Preliminary Staph Sp Coagulase Positive Resulted 09/03/17 10:50 Anaerobic Blood Culture - Preliminary Staph Sp Coagulase Positive Resulted 09/03/17 10:45 Blood Peripheral Aerobic Blood Culture - Preliminary Staph Sp Coagulase Positive Resulted 09/03/17 10:45 Anaerobic Blood Culture - Preliminary Staph Sp Coagulase Positive Resulted 09/04/17 09:30 Sputum Endotracheal Gram Stain - Final Resulted 09/04/17 09:30 Sputum Endotracheal Sputum Culture Pending Resulted 09/03/17 21:05 Urine Catheterized Urine Urine Culture - Final NO GROWTH IN 48 HOURS. Complete 09/03/17 10:50 Urine Clean Catch Urine Culture - Final 50-100,000 CFU/ML MIXED GRAM POSITIVE... Complete PHYSICAL EXAMINATION: GENERAL: Intubated on the ventilator. HEENT: The head is atraumatic. Extraocular movements cannot be assessed since the patient cannot cooperate. The pupils are pinpoint. No icterus. Oropharynx intubated. Neck: No adenopathy or swelling. Lungs: Coarse breath sounds. Heart: Normal S1-S2. Abdomen: Flat, soft, decreased bowel sounds. Extremities: Trace edema of the upper extremities. Few scattered ecchymotic areas at the hands. Neuro: Unable to assess. Skin: No diffuse rash. Psych: Unable to assess. IMPRESSION 1. Septic shock due to MRSA MRSA endocarditis. 2. Acute respiratory failure. 3. Acute renal failure 4. IV drug abuse. Non compliance. 5. Lung infiltrate probably represented septic pulmonary emboli. 6. Leukopenia. 7. Leukopenia and thrombocytopenia probably secondary to severe sepsis. RECOMMENDATIONS 1. Continue vancomycin 2. Stop piperacillin / tazobactam 3. Continue Rifampin. 4. Follow the blood cultures and sensitivity of the gram-positive cocci. Patient is very critically ill. Discussed with RN. Jonah Merida MD Sep 05, 2017 11:40
--- NOTE | 2017-09-05 14:04 | PD.CONS ---
Consult Service Palliative Care . Consult Requested By Dr. Centeno . Primary Care Physician Unknown . Reason for Consultation a. To assist with evaluation and management of symptoms including: pain, dyspnea. b. To assist medical decision maker(s) with: better understanding of current medical conditions; weighing benefits/burdens of medical treatment options; making medical treatment decisions. . HPI History of Present Illness Ms. Grant is a 42 year old female with past medical history of methamphetamine IVDA, MRSA endocarditis, history of cervical cancer and DVT left upper extremity. She was admitted 05/31/17 - 06/04/17 with severe sepsis, bacteremia with MRSA/group a beta strep and pneumonia and left AMA reported staff was being rude to her. She presented again on 06/05/17 - 06/17/17 for three- valve endocarditis and was on IV Vancomycin for MRSA bacteremia/endocarditis and left AMA. On prior admission, she had a DVT and left without proper anticoagulation. MIREILLE on 06/08/17 revealed density in the mitral valve, tricuspid valve and 2 vegetations seen on the mitral valve (2.2 x 1.2 cm and another 1.3 x 0.8 cm), moderate aortic valve regurgitation and a density on the aortic valve measuring 0.7 x 0.7 cm. Patient presented again to [facility] [address] emergency room via [facility] on 09/03/17 with respiratory distress. Evaluation revealed multiorgan system failure, septic shock with hypotension, tachycardia, hypoxia on NRB. Additional findings : * WBC 2.5, hemoglobin 9.5, hematocrit 29.2, platelet count 51, neutrophils 71.8% * Creatinine 1.9, GFR 28, sodium 130, potassium 3.3, chloride 95, carbon dioxide 21.7 * PT 11.5, INR 1.0, PTT 32.7 * total protein 7.2, albumin 2.2 * total bilirubin 0.6, AST 38, ALT 18, alkaline phosphatase 58 * D dimer greater than 35.20 * troponin 0.29 * BNP 225 * lactic acid 4.5 * CXR demonstrates multifocal bilateral patchy infiltrates suggestive of septic pulmonary emboli with possible superimposed community acquired pneumonia. * Urinalysis positive for leukocyte esterase and bacteria, culture indicated - later resulted probable contaminant, gram-positive Josselin Upon hand iii cutter, Dr. Centeno's evaluation, patient had thrown her bedpan with urine on the floor. She threw her non-rebreather on the floor and stated "it's not taking away my pain. I don't want it if it doesn't take away my pain." She was screaming for pain medication, but would not provide additional medical information. ROS was positive for chest pain, but otherwise unobtainable. She was quite hypoxic and refusing oxygen. Hospice and comfort measures were offered , she declined wanting him "take away her pain and fix her." She was then intubated, placed on mechanical ventilation and central and arterial lines were placed. She required vasopressor support. Cardiovascular surgery felt patient was not a surgical candidate given underlying noncompliance and IV drug abuse. Infectious disease, Dr. Merida was consulted for three valve endocarditis, septic shock. Notes indicate overall very poor prognosis in this patient with recurrent severe sepsis, multiple valve vegetation and now multiorgan dysfunction. Clinical condition since admission continues to worsen, patient remains on vasopressor support, worsening renal function, oliguric, creatinine 1.75. Palliative care was consulted to assist with further clarification of treatment goals. Discussed with Dr. Centeno. . Function/Cognitive Trajectory Patient has had declining health since May 2017. . Review of Systems ROS Limitations: Intubated (unable to provide ROS, ROS per family and EMR review. ) Constitutional: COMPLAINS OF: Fatigue, Change in appetite (decreased), Pain, Generalized weakness Respiratory: COMPLAINS OF: Shortness of breath Integumentary: COMPLAINS OF: Non-healing sores Hematologic/Lymphatics: COMPLAINS OF: Bruising Psychiatric: COMPLAINS OF: Anxiety, Depression Past Family Social History Coded Allergies: No Allergy Information Available (Unverified , 09/05/17) Patient is intubated, no family available. Past Medical History History cervical cancer Recent IV drug use the past year using crystal meth DVT left UE . Past Surgical History History of LEEP procedure. Tubal ligation . Reported Medications Reported Meds & Active Scripts Active No Active Prescriptions or Reported Medications . Current Medications Medications (Trade) Dose Ordered Sig/Peter Route Start Time Stop Time Status Last Admin (NS Flush) 2 ml UNSCH PRN IVF 09/03/17 10:00 09/05/17 11:25 Heparin Sodium/ Dextrose 250 ml @ 8 mls/hr TITRATE PRN IV 09/03/17 13:30 09/04/17 21:02 Fentanyl Citrate 250 ml @ 5 mls/hr TITRATE PRN IV 09/03/17 15:45 09/05/17 08:14 (Peridex 0.12% Liq) 15 ml BID@08,20 MT 09/03/17 20:00 09/05/17 08:13 (Mag-Ox) 800 mg UNSCH PRN PO 09/03/17 15:45 Magnesium Sulfate 4 gm/Sodium Chloride 100 ml @ 50 mls/hr UNSCH PRN IV 09/03/17 15:45 Magnesium Sulfate 2 gm/Sodium Chloride 100 ml @ 50 mls/hr UNSCH PRN IV 09/03/17 15:45 Potassium Chloride 100 ml @ 50 mls/hr Q2H PRN IV 09/03/17 15:45 Potassium Chloride 100 ml @ 50 mls/hr Q2H PRN IV 09/03/17 15:45 Potassium Chloride 100 ml @ 50 mls/hr Q2H PRN IV 09/03/17 15:45 09/04/17 11:45 Potassium Chloride 100 ml @ 25 mls/hr UNSCH PRN IV 09/03/17 15:45 (K-Phos) 2,000 mg Q4H PRN PO 09/03/17 15:45 (K-Phos) 2,000 mg UNSCH PRN PO/TUBE 09/03/17 15:45 Potassium Phosphate 30 mmol/ Sodium Chloride 260 ml @ 42 mls/hr UNSCH PRN IV 09/03/17 15:45 Sodium Phosphate 30 mmol/Sodium Chloride 250 ml @ 42 mls/hr UNSCH PRN IV 09/03/17 15:45 (D50w (Vial) Inj) 25 ml UNSCH PRN IV PUSH 09/03/17 15:45 (NovoLIN R SUPPLEMENTAL SCALE) 1 Q6HR SQ 09/03/17 18:00 09/05/17 11:27 (Duoneb Neb) 1 ampule Q6HR NEB INH 09/03/17 16:00 09/05/17 08:24 (Duoneb Neb) 1 ampule Q2HR NEB PRN INH 09/03/17 15:45 Norepinephrine Bitartrate 250 ml @ 7.5 mls/hr TITRATE PRN IV 09/03/17 15:45 09/05/17 01:21 (Brethine Inj) 1 mg UNSCH PRN SQ 09/03/17 15:45 Piperacillin Sod/ Tazobactam Sod 50 ml @ 100 mls/hr Q6H IV 09/03/17 20:00 09/05/17 13:08 Pharmacy Profile Note 0 ml @ 0 mls/hr UNSCH OTHER 09/03/17 15:45 (Pepcid Inj) 20 mg Q12HR IV PUSH 09/03/17 21:00 09/05/17 08:14 (Zofran Inj) 4 mg Q6H PRN IV PUSH 09/03/17 15:45 09/05/17 11:24 Miscellaneous Information 1 Q361D XX 09/03/17 15:45 09/03/17 15:45 (Chlorhexidine 2% Cloth) 3 pack Taper DAILY@04 TOP 09/04/17 04:00 08/31/18 03:59 09/05/17 03:44 (Chlorhexidine 2% Cloth) 3 pack UNSCH PRN TOP 09/03/17 15:45 (Judy-Colace) 1 tab BID PO 09/03/17 21:00 09/05/17 08:13 (Milk Of Magnesia Liq) 30 ml Q12H PRN PO 09/03/17 15:45 (Senokot) 17.2 mg Q12H PRN PO 09/03/17 15:45 (Lactulose Liq) 30 ml DAILY PRN PO 09/03/17 15:45 (Roxicodone Intensol Liq) 10 mg Q4H PO 09/03/17 17:00 09/05/17 13:07 (SEROquel) 50 mg Q8HR PO 09/03/17 22:00 09/05/17 13:07 (Haldol Inj) 5 mg Q4H PRN IV 09/03/17 15:45 Vancomycin HCl 500 mg/Sodium Chloride 100 ml @ 200 mls/hr Q24H IV 09/04/17 15:00 09/04/17 16:15 Miscellaneous Information SPECIFIC LAB TO BE DRAWN:[facility]... ONCE ONCE .XX 09/05/17 14:45 09/05/17 14:46 Propofol 100 ml @ 5.64 mls/hr TITRATE PRN IV 09/03/17 15:45 09/03/17 17:53 (Tylenol) 650 mg Q4H PRN PO 09/03/17 22:15 09/04/17 15:18 Rifampin 300 mg/ Sodium Chloride 100 ml @ 100 mls/hr Q8H IV 09/04/17 12:00 09/05/17 11:25 . Family History 4 sons, alive and well. . Substance Use Tobacco: positive. Alcohol: Prescription med abuse: Illicits: positive meth use. . Psychosocial History . Ex-boyfriend is Nirmal Mello. Roommate Shad Acosta. 4 sons: Prosper and Jerome (both adult) live in [place]. Westley (adult) in [place] and Clayton (age 16) lives local with his father Nirmal. . Spiritual/Cultural Factors Unknown. . Living Will: Never completed Health Care Surrogate: Never completed Durable Power of Rn Patient Services: Never completed Health Care Surrogate(s): Patient is incapacitated to make her own health care decisions, will not likely regained capacity. No written advance directives. Single. Has 3 adult sons and one juvenile son. According to [place] statutes health care proxy decision- making falls to majority of adult children. 3 sons Jerome Christy and Prosper all wish to serve as healthcare proxy decision makers. . Today's verbally stated goals: Patient incapacitated, will not likely regained capacity. Family/friends goals: Son Westley indicates patient told him recently that she was ready to . He feels she would want all NO CODE and not to be prolonged artificially been tubes and machines. Family meeting arranged 09/06/17 to further clarify goals with all 3 adult children. . Ethical and Legal Issues Patient is incapacitated to make her own health care decisions, will not likely regained capacity. No written advance directives. Single. Has 3 adult sons and one juvenile son. According to [place] statutes health care proxy decision- making falls to majority of adult children. 3 Jerome López and Prosper all wish to serve as healthcare proxy decision makers. . Physical Exam Vital Signs Date Time Temp Pulse Resp B/P (MAP) Pulse Ox O2 Delivery O2 Flow Rate FiO2 09/05/17 12:53 94 50 09/05/17 12:00 50 09/05/17 12:00 120 104/64 (77) 106/59 (75) 09/05/17 12:00 120 09/05/17 12:00 97.6 120 20 104/64 (77) 92 106/59 (75) 09/05/17 10:41 20 09/05/17 10:00 118 09/05/17 09:00 116 116/60 09/05/17 08:25 100 50 09/05/17 08:00 118 100/65 (77) 101/58 (72) 09/05/17 08:00 118 09/05/17 08:00 98.8 118 20 100/65 (77) 95 101/58 (72) 09/05/17 08:00 50 09/05/17 06:00 114 09/05/17 04:24 96 60 09/05/17 04:00 116 09/05/17 04:00 98.4 116 20 93/58 (70) 95 90/61 (71) 09/05/17 04:00 60 09/05/17 04:00 116 93/58 (70) 90/61 (71) 09/05/17 02:00 111 09/05/17 01:21 111 95/59 09/05/17 00:06 95 60 09/05/17 00:00 60 09/05/17 00:00 110 09/05/17 00:00 110 84/56 (65) 93/59 (70) 09/05/17 00:00 97.5 110 20 84/56 (65) 96 93/59 (70) 09/04/17 22:00 110 09/04/17 20:29 96 60 09/04/17 20:00 113 09/04/17 20:00 98.1 113 12 88/55 (66) 96 92/55 (67) 09/04/17 20:00 113 88/55 (66) 92/55 (67) 09/04/17 20:00 60 09/04/17 18:32 118 103/63 09/04/17 18:00 127 09/04/17 18:00 120 09/04/17 16:18 21 09/04/17 16:00 127 100/56 (71) 103/60 (74) 09/04/17 16:00 127 09/04/17 16:00 127 15 100/56 (71) 94 103/60 (74) 09/04/17 16:00 60 09/04/17 15:23 94 60 09/04/17 15:00 128 09/04/17 14:00 123 09/05/17 09/06/17 19:00 07:00 Intake Total 295 ml Output Total 98 ml Balance 197 ml IV Total 295 ml Output Urine Total 98 ml Exam CONSTITUTIONAL/GENERAL: This is a cachectic, critically ill patient, in no apparent distress. TUBES/LINES/DRAINS: ETT, OG, left subclavian central line, PIV left FA, arterial line right wrist, Nugent, SCDs. SKIN: Track sanon arms and feet. Ecchymoses on upper extremities. Skin temperature appropriate. Not diaphoretic. HEAD: Atraumatic. Normocephalic.Temporal wasting. EYES: Eyes closed. ENT: Unable to assess hearing. Nose without bleeding or purulent drainage. Poor dentition. NECK: Trachea midline. CARDIOVASCULAR: Tachycardic, + murmur. RESPIRATORY/CHEST: Symmetric, unlabored respirations on vent. Scattered course breath sounds. GASTROINTESTINAL: Abdomen distended. Hypoactive BS. GENITOURINARY: Without palpable bladder distension. Nugent catheter in place. MUSCULOSKELETAL: Extremities without clubbing, cyanosis, or edema. No mottling or clubbing. NEUROLOGICAL: Does not open eyes or follow commands. PSYCHIATRIC: unable to adequately assess due to condition. . Diagnostic Tests Laboratory Laboratory Tests Test 09/03/17 09:59 09/03/17 10:40 09/03/17 10:50 09/03/17 12:22 Blood Gas Puncture Site LT BRACHIAL Blood Gas Patient Temperature 98.6 Blood Gas HCO3 22 mmol/L (22-26) Blood Gas Base Excess -2.3 mmol/L (-2-2) Blood Gas Oxygen Saturation 95 % (90-100) Arterial Blood pH 7.42 (7.380-7.420) Arterial Blood Partial Pressure CO2 34 mmHg (38-42) Arterial Blood Partial Pressure O2 87 mmHG (61-120) Arterial Blood Oxygen Content 13.7 Vol % (12.0-20.0) Arterial Blood Carboxyhemoglobin 1.9 % (0-4) Arterial Blood Methemoglobin 0.5 % (0-2) Blood Gas Hemoglobin 10.2 G/DL (12.0-16.0) Oxygen Delivery Device Non-Rebreathing Mask Blood Gas Liter Flow 15 L/M Blood Urea Nitrogen 30 MG/DL (7-18) Creatinine 1.97 MG/DL (0.50-1.00) Random Glucose 97 MG/DL (74-106) Total Protein 7.2 GM/DL (6.4-8.2) Albumin 2.2 GM/DL (3.4-5.0) Calcium Level 8.2 MG/DL (8.5-10.1) Magnesium Level 1.8 MG/DL (1.5-2.5) Alkaline Phosphatase 58 U/L (45-117) Aspartate Amino Transf (AST/SGOT) 38 U/L (15-37) Alanine Aminotransferase (ALT/SGPT) 18 U/L (10-53) Total Bilirubin 0.6 MG/DL (0.2-1.0) Sodium Level 130 MEQ/L (136-145) Potassium Level 3.3 MEQ/L (3.5-5.1) Chloride Level 95 MEQ/L (98-107) Carbon Dioxide Level 21.7 MEQ/L (21.0-32.0) Anion Gap 13 MEQ/L (5-15) Estimat Glomerular Filtration Rate 28 ML/MIN (>89) Lactic Acid Level 4.5 mmol/L (0.4-2.0) Troponin I 0.29 NG/ML (0.02-0.05) B-Type Natriuretic Peptide 225 PG/ML (0-100) Urine Color DARK-YELLOW (YELLW/STRAW) Urine Turbidity CLOUDY (CLEAR) Urine pH 5.0 (5.0-8.5) Urine Specific [place] 1.027 (1.002-1.035) Urine Protein 100 mg/dL (NEG-TRACE) Urine Glucose (UA) NEG mg/dL (NEG) Urine Ketones NEG mg/dL (NEG) Urine Occult Blood TRACE (NEG) Urine Nitrite NEG (NEG) Urine Bilirubin NEG (NEG) Urine Urobilinogen 2.0 MG/DL (LESS THAN Urine Leukocyte Esterase SMALL (NEG) Urine RBC 5 /hpf (0-3) Urine WBC 26 /hpf (0-5) Urine Squamous Epithelial Cells 151 /hpf (0-5) Urine Bacteria MANY /hpf (NONE) Microscopic Urinalysis Comment CULTURE INDICATED Urine Opiates Screen POS (NEG) Urine Barbiturates Screen NEG (NEG) Urine Amphetamines Screen POS (NEG) Urine Benzodiazepines Screen POS (NEG) Urine Cocaine Screen NEG (NEG) Urine Cannabinoids Screen NEG (NEG) White Blood Count 2.5 TH/MM3 (4.0-11.0) Red Blood Count 3.24 MIL/MM3 (4.00-5.30) Hemoglobin 9.5 GM/DL (11.6-15.3) Hematocrit 29.2 % (35.0-46.0) Mean Corpuscular Volume 90.1 FL (80.0-100.0) Mean Corpuscular Hemoglobin 29.3 PG (27.0-34.0) Mean Corpuscular Hemoglobin Concent 32.5 % (32.0-36.0) Red Cell Distribution Width 15.0 % (11.6-17.2) Platelet Count 51 TH/MM3 (150-450) Mean Platelet Volume 10.8 FL (7.0-11.0) Neutrophils (%) (Auto) 71.8 % (16.0-70.0) Lymphocytes (%) (Auto) 9.2 % (9.0-44.0) Monocytes (%) (Auto) 17.9 % (0.0-8.0) Eosinophils (%) (Auto) 0.1 % (0.0-4.0) Basophils (%) (Auto) 1.0 % (0.0-2.0) Neutrophils # (Auto) 1.8 TH/MM3 (1.8-7.7) Lymphocytes # (Auto) 0.2 TH/MM3 (1.0-4.8) Monocytes # (Auto) 0.4 TH/MM3 (0-0.9) Eosinophils # (Auto) 0.0 TH/MM3 (0-0.4) Basophils # (Auto) 0.0 TH/MM3 (0-0.2) CBC Comment AUTO DIFF Differential Total Cells Counted 100 Neutrophils % (Manual) 75 % (16-70) Band Neutrophils % 4 % (0-6) Lymphocytes % 8 % (9-44) Monocytes % 2 % (0-8) Neutrophils # (Manual) 2.3 TH/MM3 (1.8-7.7) Metamyelocytes 7 % (0-1) Myelocytes 4 % (0-0) Differential Comment FINAL DIFF MANUAL Toxic Granulation 2+ (NORMAL) Toxic Vacuolation PRESENT (NONE SEEN) Dohle Bodies PRESENT (NONE SEEN) Platelet Estimate LOW (NORMAL) Platelet Morphology Comment ENLARGED (NORMAL) Acanthocytes OCC (NORMAL) Prothrombin Time 11.5 SEC (9.8-11.6) Prothromb Time International Ratio 1.0 RATIO Activated Partial Thromboplast Time 32.7 SEC (24.3-30.1) D-Dimer Quantitative (PE/DVT) GREATER THAN 35.20 MG/L FEU Test 09/03/17 15:45 09/03/17 21:05 09/03/17 21:22 09/04/17 01:50 Blood Gas Puncture Site ART LINE Blood Gas Patient Temperature 98.6 Blood Gas HCO3 18 mmol/L (22-26) Blood Gas Base Excess -7.8 mmol/L (-2-2) Blood Gas Oxygen Saturation 90 % (90-100) Arterial Blood pH 7.25 (7.380-7.420) Arterial Blood Partial Pressure CO2 43 mmHg (38-42) Arterial Blood Partial Pressure O2 73 mmHg (61-120) Arterial Blood Oxygen Content 11.9 Vol % (12.0-20.0) Arterial Blood Carboxyhemoglobin 0.9 % (0-4) Arterial Blood Methemoglobin 1.3 % (0-2) Blood Gas Hemoglobin 9.4 G/DL (12.0-16.0) Oxygen Delivery Device VENTILATOR Blood Gas Ventilator Setting PRVC/AC 550/18 Blood Gas Inspired Oxygen 50 % Urine Color YELLOW (YELLW/STRAW) Urine Turbidity HAZY (CLEAR) Urine pH 6.0 (5.0-8.5) Urine Specific [place] 1.021 (1.002-1.035) Urine Protein 100 mg/dL (NEG-TRACE) Urine Glucose (UA) TRACE mg/dL (NEG) Urine Ketones TRACE mg/dL (NEG) Urine Occult Blood MOD (NEG) Urine Nitrite NEG (NEG) Urine Bilirubin NEG (NEG) Urine Urobilinogen LESS THAN 2.0 MG/DL (LESS Urine Leukocyte Esterase NEG (NEG) Urine RBC 2 /hpf (0-3) Urine WBC 2 /hpf (0-5) Urine WBC Clumps RARE (NONE) Urine Squamous Epithelial Cells <1 /hpf (0-5) Urine Amorphous Sediment RARE Urine Bacteria OCC /hpf (NONE) Microscopic Urinalysis Comment CATH-CULTURE IND Lactic Acid Level 1.9 mmol/L (0.4-2.0) Activated Partial Thromboplast Time 44.1 SEC (24.3-30.1) Test 09/04/17 02:50 09/04/17 05:28 09/04/17 09:30 09/04/17 17:15 White Blood Count 2.3 TH/MM3 (4.0-11.0) Red Blood Count 2.83 MIL/MM3 (4.00-5.30) Hemoglobin 8.3 GM/DL (11.6-15.3) Hematocrit 24.9 % (35.0-46.0) Mean Corpuscular Volume 88.2 FL (80.0-100.0) Mean Corpuscular Hemoglobin 29.2 PG (27.0-34.0) Mean Corpuscular Hemoglobin Concent 33.1 % (32.0-36.0) Red Cell Distribution Width 15.0 % (11.6-17.2) Platelet Count 41 TH/MM3 (150-450) Mean Platelet Volume 12.3 FL (7.0-11.0) Blood Urea Nitrogen 32 MG/DL (7-18) Creatinine 1.05 MG/DL (0.50-1.00) Random Glucose 145 MG/DL (74-106) Calcium Level 7.6 MG/DL (8.5-10.1) Sodium Level 136 MEQ/L (136-145) Potassium Level 3.0 MEQ/L (3.5-5.1) 4.1 MEQ/L (3.5-5.1) Chloride Level 105 MEQ/L (98-107) Carbon Dioxide Level 18.1 MEQ/L (21.0-32.0) Anion Gap 13 MEQ/L (5-15) Estimat Glomerular Filtration Rate 57 ML/MIN (>89) Blood Gas Puncture Site RT BRACHIAL Blood Gas Patient Temperature 98.6 Blood Gas HCO3 18 mmol/L (22-26) Blood Gas Base Excess -6.5 mmol/L (-2-2) Blood Gas Oxygen Saturation 90 % (90-100) Arterial Blood pH 7.33 (7.380-7.420) Arterial Blood Partial Pressure CO2 36 mmHg (38-42) Arterial Blood Partial Pressure O2 68 mmHg (61-120) Arterial Blood Oxygen Content 11.3 Vol % (12.0-20.0) Arterial Blood Carboxyhemoglobin 1.0 % (0-4) Arterial Blood Methemoglobin 1.0 % (0-2) Blood Gas Hemoglobin 8.9 G/DL (12.0-16.0) Oxygen Delivery Device VENTILATOR Blood Gas Ventilator Setting SEE COMMENT Blood Gas Inspired Oxygen 40 % Activated Partial Thromboplast Time 40.4 SEC (24.3-30.1) Test 09/05/17 03:50 09/05/17 12:00 White Blood Count 2.7 TH/MM3 (4.0-11.0) Red Blood Count 2.88 MIL/MM3 (4.00-5.30) Hemoglobin 8.5 GM/DL (11.6-15.3) Hematocrit 26.2 % (35.0-46.0) Mean Corpuscular Volume 90.7 FL (80.0-100.0) Mean Corpuscular Hemoglobin 29.3 PG (27.0-34.0) Mean Corpuscular Hemoglobin Concent 32.3 % (32.0-36.0) Red Cell Distribution Width 15.3 % (11.6-17.2) Platelet Count 65 TH/MM3 (150-450) Mean Platelet Volume 12.5 FL (7.0-11.0) Activated Partial Thromboplast Time 34.1 SEC (24.3-30.1) 32.7 SEC (24.3-30.1) Blood Urea Nitrogen 54 MG/DL (7-18) Creatinine 1.75 MG/DL (0.50-1.00) Random Glucose 156 MG/DL (74-106) Calcium Level 8.3 MG/DL (8.5-10.1) Sodium Level 136 MEQ/L (136-145) Potassium Level 4.1 MEQ/L (3.5-5.1) Chloride Level 105 MEQ/L (98-107) Carbon Dioxide Level 20.8 MEQ/L (21.0-32.0) Anion Gap 10 MEQ/L (5-15) Estimat Glomerular Filtration Rate 32 ML/MIN (>89) Result Diagram: 09/05/17 0350 09/05/17 0350 Microbiology Microbiology Date/Time Source Procedure Growth Status 09/05/17 09:00 Blood Peripheral Aerobic Blood Culture Pending Received 09/05/17 09:00 Blood Peripheral Anaerobic Blood Culture Pending Received 09/05/17 08:52 Blood Peripheral Aerobic Blood Culture Pending Received 09/05/17 08:52 Blood Peripheral Anaerobic Blood Culture Pending Received 09/03/17 14:50 Blood Peripheral Aerobic Blood Culture - Preliminary Staph Sp Coagulase Positive Resulted 09/03/17 14:50 Anaerobic Blood Culture - Preliminary Gram Positive Cocci Resulted 09/03/17 14:50 Blood Peripheral Aerobic Blood Culture - Preliminary Staph Sp Coagulase Positive Resulted 09/03/17 14:50 Blood Peripheral Anaerobic Blood Culture - Preliminary NO GROWTH IN 2 DAYS Resulted 09/03/17 12:27 Blood Peripheral Aerobic Blood Culture - Preliminary Staph Sp Coagulase Positive Resulted 09/03/17 12:27 Anaerobic Blood Culture - Preliminary Staph Sp Coagulase Positive Resulted 09/03/17 12:22 Blood Peripheral Aerobic Blood Culture - Preliminary S. Aureus Mrsa Resulted 09/03/17 12:22 Anaerobic Blood Culture - Preliminary Staph Sp Coagulase Positive Resulted 09/03/17 10:50 Blood Peripheral Aerobic Blood Culture - Preliminary Staph Sp Coagulase Positive Resulted 09/03/17 10:50 Anaerobic Blood Culture - Preliminary Staph Sp Coagulase Positive Resulted 09/03/17 10:45 Blood Peripheral Aerobic Blood Culture - Preliminary Staph Sp Coagulase Positive Resulted 09/03/17 10:45 Anaerobic Blood Culture - Preliminary Staph Sp Coagulase Positive Resulted 09/04/17 09:30 Sputum Endotracheal Gram Stain - Final Resulted 09/04/17 09:30 Sputum Culture - Preliminary S. Aureus Mrsa Resulted 09/03/17 21:05 Urine Catheterized Urine Urine Culture - Final NO GROWTH IN 48 HOURS. Complete 09/03/17 10:50 Urine Clean Catch Urine Culture - Final 50-100,000 CFU/ML MIXED GRAM POSITIVE... Complete . Imaging Last Impressions Chest X-Ray 09/04/17 0600 Signed Impressions: Service Date/Time: Monday, September 04, 2017 02:34 - CONCLUSION: No significant change. Thiago Mejia MD . Procedures * 09/03/17 intubated, arterial and central lines placed. . Patient/Family Conference Present at Family Conference: Spoke with 3 sons Jerome Christy and Prosper via telephone. Also spoke with juvenile son, Clayton's father, Nirmal. . Family Conference Time (mins): 60 Family Conference Location: Telephone Issues Discussed: * Palliative care role, purpose, approach * Additional medical, psychosocial, and spiritual history * Patients general health, functional status, and cognitive changes in the months leading up to the current hospitalization * Patient/family understanding of the current medical problems * Patient/family understanding of prognosis * Patients goals of care as best understood from advance directives and/or conversations and/or values * Current medical treatment options and benefits/burdens of those options * Likely scenarios comparing ongoing aggressive care with a transition to comfort measures only * Questions answered to the best of my ability * Palliative care contact information provided All family understands overall poor prognosis. Considering code status. The meeting arranged 09/06/17 11 AM. . Assessment and Plan Disease Oriented Problem List: (1) Acute respiratory failure (2) Septic shock (3) Pneumonia (4) ARF (acute renal failure) (5) Endocarditis (6) IVDA (intravenous drug abuse) complicating (7) DVT (deep venous thrombosis) Symptom Scale: (1) Pain 0-10 Scale: Unable to quantify (2) Dyspnea 0-10 Scale: Unable to quantify Pertinent Non-Medical Issues Psychosocial: has a roommate, Shad. . He has 3 adult sons and 1 juvenile son. Spiritual: Unknown. Legal:Patient is incapacitated to make her own health care decisions, will not likely regained capacity. No written advance directives. Single. Has 3 adult sons and one juvenile son. According to [place] statutes health care proxy decision-making falls to majority of adult children. 3 sons WestleyJamah and Prosper all wish to serve as healthcare proxy decision makers. Ethical issues impacting care: no known concerns at this time. . Important Contacts * Prosper and Jerome Rudy: sons, lives in [place]/ [place]-HCP: [phone] * Westley Grant, son, lives in [place]/ [place] HCP: [phone] * Nirmal Mello, Juvenile son, Clayton's father: [phone] * Blaise Villarreal (Roomate) [phone]. . Prognosis Overall very poor prognosis in this patient with noncompliance, IVDA, recurrent severe sepsis, multiple valve vegetation and now multiorgan dysfunction. . Code Status: Full Code Plan * Decision Maker: Patient is incapacitated to make her own health care decisions , will not likely regained capacity. No written advance directives. Single. Has 3 adult sons and one juvenile son. According to [place] statutes health care proxy decision-making falls to majority of adult children. 3 sons WestleyJerome and Prosper all wish to serve as healthcare proxy decision makers. * FULL CODE - considering alternate code status, will further clarify on . * Palliative care spoke with 3 adult sons (Westley, Jerome and Prosper), spoke with youngest sons father (Nirmal) via telephone to provide medical update. Family meeting arranged with Jerome and Prosper on 09/06/17 at 11 AM. Will attempt to call Westley during this meeting to further clarify treatment goals. Family considering alternate code status. Family has been made aware of overall poor prognosis and the patient may not survive this hospitalization. * Discussed with Dr. Centeno. * SYMPTOMS: Pain: on fentanyl drip 200 g per hour, appears comfortable during my visit. Dyspnea: on mechanical ventilation. No new medication recommendations at this time. * Palliative care number provided. * Palliative care will continue to follow throughout hospital course to assist with symptom management and clarification of goals as needed. . Thank you for the opportunity to participate in the care of Ms. Grant. Attestation To help prompt me to consider important information that might be impacting today's encounter and assessment, information from prior notes written by myself or my colleagues may have been "brought forward" into today's note. My signature on this note, however, is an attestation that I personally performed the exam, history, and/or decision-making noted today, and, unless otherwise indicated, the interactions with patient, family, and staff as well as the review of records all occurred today. I also attest that the listed assessment and stated plan reflect my best clinical judgment today based on the combination of historical information, prior notes, and today's exam/ interactions. When time spent is documented, it refers only to time spent today by the signer, or if indicated, combined time spent today by collaborating physician/nurse practitioner. Martha Hannon Sep 05, 2017 14:04
[2017-09-05] MEDS ORDERED: PHARMACY ORDERED LAB ONE (14:45)
[2017-09-05] MEDS: VANCOMYCIN 500 MG/NS 100 ML IV SCH ×2 (15:24)
--- NOTE | 2017-09-05 15:48 | HHI.HCSW ---
Lead Pastor Visit Significant Family/Friend Attempted to contact patient's spouse/significant other (??) Nirmal Maritza: --no answer, left message requesting call back; [phone] -- number just rings, no answer, unable to leave Attempted to contact sister Lisa Dawson from previous CM notes: -- number just rings, no answer, unable to leave Cm notes from 01/02/12 indicate: "She has 4 children, ranging in age from 17 to 11 years old and only the 11 year old male lives with her. She is also a grandmother of two grandchildren from her eldest son. She was at age 17 , but is now ." Spoke with Blaise Villarreal ([employer]) [phone]. He states he has known Ms. Grant for 10+ years. He confirms Ms. Grant has 4 children (Westley- [facility] ([place]), Wicho ([facility]), Jerome ([facility]) , Clayton ([facility], under age 18). Confirms patient is not . States he is going to have Nirmal contact palliative care in attempt to reach the children. Potential matches for children found on social media (all but Clayton). Private message sent requesting call. 420pm- received call from Natacha. Prosper reports his brother Jerome is with him. Confirms Clayton is under the age of 18. Arranging phone conference with the three children with palliative care TOMAS Hannon. Advance Directive No known written advanced directives. Ms. Grant is not . She has 4 children, 3 above the age of 18. Per [place] Statutes, medical proxy decision making falls to the majority of adult children of which she has 3 (Westley, Jerome, Prosper). Prosper (son): [phone] Westley (son): [phone] . Follow Up Visit Palliative care will continue to follow throughout hospitalization. Attempted to identify legal proxy decision maker as Ms. Grant unable to make her own medical decisions. Per [place] Statutes, medical decision making falls to 3 adult children (Prosper Cano, Westley). Once medical decision maker identified, will further address goals of care. . Karla Mora, PHOTOGRAPHIC PRESS SCREWMAKER Sep 05, 2017 15:48
--- NOTE | 2017-09-05 15:48 | HHI.HCSW ---
Uniform Attendant Visit Significant Family/Friend Attempted to contact patient's spouse/significant other (??) Nirmal Maritza: --no answer, left message requesting call back; [phone] -- number just rings, no answer, unable to leave Attempted to contact sister Lisa Dawson from previous CM notes: -- number just rings, no answer, unable to leave Cm notes from 01/02/12 indicate: "She has 4 children, ranging in age from 17 to 11 years old and only the 11 year old male lives with her. She is also a grandmother of two grandchildren from her eldest son. She was at age 17 , but is now ." Spoke with Blaise Villarreal ([employer]) [phone]. He states he has known Ms. Grant for 10+ years. He confirms Ms. Grant has 4 children (Westley- [facility] ([place]), Wicho ([facility]), Jerome ([facility]) , Clayton ([facility], under age 18). Confirms patient is not . States he is going to have Nirmal contact palliative care in attempt to reach the children. Potential matches for children found on social media (all but Clayton). Private message sent requesting call. 420pm- received call from Natacha. Prosper reports his brother Jerome is with him. Confirms Clayton is under the age of 18. Arranging phone conference with the three children with palliative care TOMAS Hannon. Advance Directive No known written advanced directives. Ms. Grant is not . She has 4 children, 3 above the age of 18. Per [place] Statutes, medical proxy decision making falls to the majority of adult children of which she has 3 (Westley, Jerome, Prosper). Prosper (son): [phone] Westley (son): [phone] . Follow Up Visit Palliative care will continue to follow throughout hospitalization. Attempted to identify legal proxy decision maker as Ms. Grant unable to make her own medical decisions. Per [place] Statutes, medical decision making falls to 3 adult children (Prosper Cano, Westley). Once medical decision maker identified, will further address goals of care. . Karla Mora, PRACTICE COORDINATOR Sep 05, 2017 15:48
--- NOTE | 2017-09-05 15:48 | HHI.HCSW ---
Wool Presser Visit Significant Family/Friend Attempted to contact patient's spouse/significant other (??) Nirmal Maritza: --no answer, left message requesting call back; [phone] -- number just rings, no answer, unable to leave Attempted to contact sister Lisa Dawson from previous CM notes: [phone] -- number just rings, no answer, unable to leave Cm notes from 01/02/12 indicate: "She has 4 children, ranging in age from 17 to 11 years old and only the 11 year old male lives with her. She is also a grandmother of two grandchildren from her eldest son. She was at age 17 , but is now ." Spoke with Blaise Villarreal ([employer]) [phone]. He states he has known Ms. Grant for 10+ years. He confirms Ms. Grant has 4 children (Westley- [facility] ([place]), Wicho ([facility]), Jerome ([facility]) , Clayton ([facility], under age 18). Confirms patient is not . States he is going to have Nirmal contact palliative care in attempt to reach the children. Potential matches for children found on social media (all but Clayton). Private message sent requesting call. 420pm- received call from Natacha. Prosper reports his brother Jerome is with him. Confirms Clayton is under the age of 18. Arranging phone conference with the three children with palliative care TOMAS Hannon. Advance Directive No known written advanced directives. Ms. Grant is not . She has 4 children, 3 above the age of 18. Per [place] Statutes, medical proxy decision making falls to the majority of adult children of which she has 3 (Westley, Jerome, Prosper). Prosper (son): [phone] Westley (son): [phone] . Follow Up Visit Palliative care will continue to follow throughout hospitalization. Attempted to identify legal proxy decision maker as Ms. Grant unable to make her own medical decisions. Per [place] Statutes, medical decision making falls to 3 adult children (Prosper Cano, Westley). Once medical decision maker identified, will further address goals of care. . Karla Mora, TALENT ACQUISITION PROJECT MANAGER Sep 05, 2017 15:48
[2017-09-06] VITALS (16 sets, daily range): BP systolic 97–118; BP diastolic 53–66; PULSE 109–126; RESP 18–20; TEMP 99.2–99.9; O2SAT 96–99
[2017-09-06] MEDS: oxyCODONE HCL ORAL CONC 5 MG/0.25 ML SYRINGE PO SCH ×4 (00:59→13:20)
[2017-09-06] MEDS: PIPERACIL-TAZO 3.375 GM PREMIX 50 ML IV SCH ×2 (01:00→08:40)
[2017-09-06] MEDS: HEPARIN-D5W 25,000 U/250 ML 250 ML IV PRN (01:13)
[2017-09-06] MEDS: CHLORHEXIDINE GLUCONATE 2 % 1 PACK (2 CLOTHS) TOP SCH (01:44)
[2017-09-06 03:55] LABS: HEMATOCRIT 21.3 % (35.0-46.0); HEMOGLOBIN 7.3 GM/DL (11.6-15.3); MEAN CELL VOLUME 88.3 FL (80.0-100.0); MEAN CORPUSCULAR HEMOGLOBIN 30.3 PG (27.0-34.0); MEAN CORPUSCULAR HGB CONC 34.4 % (32.0-36.0); MEAN PLATELET VOLUME 11.5 FL (7.0-11.0); PLATELET COUNT 103 TH/MM3 (150-450); RED BLOOD COUNT 2.42 MIL/MM3 (4.00-5.30); RED CELL DISTRIBUTION WIDTH 15.8 % (11.6-17.2); WHITE BLOOD COUNT 5.1 TH/MM3 (4.0-11.0)
[2017-09-06 04:14] LABS: BICARBONATE 21.3 MEQ/L (21.0-32.0); CALCIUM 8.3 MG/DL (8.5-10.1); CREATININE 2.03 MG/DL (0.50-1.00)
[2017-09-06] MEDS: RESP: ALBUTEROL 2.5 MG/IPRATROPIUM 0.5 MG NEB (SCH) INH ×2 (04:26→09:11)
[2017-09-06] MEDS: RIFAMPIN INJ 300 MG in SODIUM CHLORIDE 0.9% INJ 100 ML IV SCH ×2 (04:29→11:31)
[2017-09-06] MEDS: QUEtiapine FUMARATE 25 MG TAB PO SCH ×2 (05:17→13:20)
[2017-09-06] MEDS: INSULIN NovoLIN REGULAR SUPPLEMENTAL SCALE SQ SCH ×2 (05:25→11:38)
[2017-09-06] MEDS: DOCUSATE SODIUM 50 MG/SENNA 8.6 MG TAB PO SCH (08:41)
[2017-09-06] MEDS: CHLORHEXIDINE 0.12% (ORAL KIT) 15 ML CUP MT SCH (08:41)
[2017-09-06] MEDS: FAMOTIDINE 20 MG/2 ML VIAL IV PUSH SCH (08:41)
[2017-09-06] MEDS: fentaNYL DRIP 250 ML IV PRN ×3 (08:48→15:37)
--- NOTE | 2017-09-06 13:39 | HHI.IDPN ---
Note Infectious Disease Note Patient is off Levophed. On the vent and sedated. RN report she was responsive earlier. Also noted to have projectile vomiting around the ETT yesterday. Low grade fever. Presented to the emergency department with respiratory distress. patient was noted to be hypotensive, tachypneic, tachycardic on arrival and blood cultures were obtained and she was intubated. She is currently intubated and on the ventilator. The patient was recently in the hospital in May and she signed out against medical advice on June 17. She previously also signed out against medical advice on June 04. On both these admissions she had a diagnosis of sepsis including positive blood cultures with MRSA for which she has been treated but left the hospital against medical advice. MIREILLE on 06/08 revealed density on the mitral valve, tricuspid valve with two vegetations seen on the mitral valve, one 2.2 cm x 1.2 cm, and another 1.3 cm x 0.8 cm. She also was noted to have moderate aortic valve regurgitation and a density on the aortic valve measuring 0.7 cm x 0.7 cm. PAST MEDICAL HISTORY 1. IV drug abuse. 2. MRSA endocarditis. 3. History of cervical cancer. 4. History of deep venous thrombosis of the left upper extremity. ALLERGIES NO KNOWN DRUG ALLERGIES. MEDICATIONS 1. Vancomycin. 2. Rifampin. 3. Piperacillin / tazobactam. SOCIAL HISTORY Positive tobacco. No alcohol noted. Positive IV drug abuse. OBJECTIVE: Vital Signs Date Time Temp Pulse Resp B/P (MAP) Pulse Ox O2 Delivery O2 Flow Rate FiO2 09/06/17 12:02 96 50 09/06/17 12:00 99.9 123 20 111/63 (79) 97 114/61 (78) 09/06/17 12:00 123 09/06/17 12:00 50 09/06/17 12:00 123 111/63 (79) 114/61 (78) 09/06/17 11:00 122 18 109/59 (76) 97 09/06/17 10:00 123 09/06/17 09:24 20 09/06/17 09:12 97 50 09/06/17 08:00 99.2 120 20 107/66 (80) 97 118/64 (82) 09/06/17 08:00 50 09/06/17 08:00 120 107/66 (80) 118/64 (82) 09/06/17 08:00 120 09/06/17 06:00 117 09/06/17 04:24 99 Ventilator 09/06/17 04:20 99 50 09/06/17 04:00 50 09/06/17 04:00 109 09/06/17 04:00 109 97/61 (73) 106/60 (75) 09/06/17 04:00 99.8 109 20 97/61 (73) 99 106/60 (75) 09/06/17 02:00 109 09/06/17 00:20 99 Ventilator 09/06/17 00:15 99 50 09/06/17 00:00 50 09/06/17 00:00 110 09/06/17 00:00 110 98/53 (68) 99/55 (70) 09/06/17 00:00 99.3 110 20 98/53 (68) 98 99/55 (70) 09/05/17 22:00 111 09/05/17 21:45 99 50 09/05/17 20:00 100.3 115 20 100/59 (73) 97 100/56 (71) 09/05/17 20:00 115 100/59 (73) 100/56 (71) 09/05/17 20:00 115 09/05/17 20:00 50 09/05/17 18:00 117 09/05/17 16:00 117 09/05/17 16:00 99.6 117 20 95/51 (66) 96 97/56 (70) 09/05/17 16:00 117 95/51 (66) 97/56 (70) 09/05/17 16:00 50 09/05/17 14:00 121 Laboratory Tests Test 09/05/17 03:50 09/06/17 03:20 White Blood Count 2.7 TH/MM3 5.1 TH/MM3 Red Blood Count 2.88 MIL/MM3 2.42 MIL/MM3 Hemoglobin 8.5 GM/DL 7.3 GM/DL Hematocrit 26.2 % 21.3 % Mean Corpuscular Volume 90.7 FL 88.3 FL Mean Corpuscular Hemoglobin 29.3 PG 30.3 PG Mean Corpuscular Hemoglobin Concent 32.3 % 34.4 % Red Cell Distribution Width 15.3 % 15.8 % Platelet Count 65 TH/MM3 103 TH/MM3 Mean Platelet Volume 12.5 FL 11.5 FL Laboratory Tests Test 09/04/17 17:15 09/05/17 03:50 09/06/17 03:20 Potassium Level 4.1 MEQ/L 4.1 MEQ/L 3.5 MEQ/L Blood Urea Nitrogen 54 MG/DL 66 MG/DL Creatinine 1.75 MG/DL 2.03 MG/DL Random Glucose 156 MG/DL 163 MG/DL Calcium Level 8.3 MG/DL 8.3 MG/DL Sodium Level 136 MEQ/L 140 MEQ/L Chloride Level 105 MEQ/L 107 MEQ/L Carbon Dioxide Level 20.8 MEQ/L 21.3 MEQ/L Anion Gap 10 MEQ/L 12 MEQ/L Estimat Glomerular Filtration Rate 32 ML/MIN 27 ML/MIN Microbiology Date/Time Source Procedure Growth Status 09/05/17 09:00 Blood Peripheral Aerobic Blood Culture - Preliminary NO GROWTH IN 1 DAY Resulted 09/05/17 09:00 Blood Peripheral Anaerobic Blood Culture - Preliminary NO GROWTH IN 1 DAY Resulted 09/05/17 08:52 Blood Peripheral Aerobic Blood Culture - Preliminary NO GROWTH IN 1 DAY Resulted 09/05/17 08:52 Blood Peripheral Anaerobic Blood Culture - Preliminary NO GROWTH IN 1 DAY Resulted 09/03/17 14:50 Blood Peripheral Aerobic Blood Culture - Final S. Aureus Mrsa Resulted 09/03/17 14:50 Anaerobic Blood Culture - Preliminary S. Aureus Mrsa Resulted 09/03/17 14:50 Blood Peripheral Aerobic Blood Culture - Final S. Aureus Mrsa Resulted 09/03/17 14:50 Anaerobic Blood Culture - Preliminary S. Aureus Mrsa Resulted 09/04/17 09:30 Sputum Endotracheal Gram Stain - Final Complete 09/04/17 09:30 Sputum Culture - Final S. Aureus Mrsa Complete 09/03/17 21:05 Urine Catheterized Urine Urine Culture - Final NO GROWTH IN 48 HOURS. Complete PHYSICAL EXAMINATION: GENERAL: On the ventilator. HEENT: The head is atraumatic. Extraocular movements cannot be assessed since the patient cannot cooperate. The pupils are pinpoint. No icterus. Oropharynx intubated. Neck: No adenopathy or swelling. Lungs: Coarse breath sounds. Heart: Normal S1-S2. Abdomen: Distended. Soft, decreased bowel sounds. Extremities: Trace edema of the upper extremities. Few scattered ecchymotic areas at the hands. Neuro: Awake. follows commands. Skin: No diffuse rash. Psych: Unable to assess. IMPRESSION 1. Septic shock due to MRSA MRSA endocarditis. 2. Acute respiratory failure. 3. Acute renal failure 4. IV drug abuse. Non compliance. 5. Lung infiltrate probably represented septic pulmonary emboli. MRSA positive sputum culture. 6. Leukopenia and thrombocytopenia probably secondary to severe sepsis. RECOMMENDATIONS 1. Continue vancomycin 2. Continue Rifampin. 3. Follow the repeat blood cultures. 4. Monitor clinical status. Discussed with RN. Jonah Merida MD Sep 06, 2017 13:39
[2017-09-06] MEDS ORDERED: MIDAZOLAM 100 MG/100 ML INJ 100 ML IV PRN (14:00)
--- NOTE | 2017-09-06 14:17 | HHI.CCPN ---
Subjective Remarks/Hospital Course Hospital Course: This is a 42yF with a history of methamphetamine IVDA who was recently admitted for three-valve endocarditis and was on IV Vancomycin for MRSA bacteremia/ endocarditis when she left AMA. This is the second time during this disease process that she left AMA. She re-presents in multiorgan system failure and septic shock with hypotension, tachycardia, hypoxia on NRB. CXR demonstrates multifocal bilateral patchy infiltrates suggestive of septic pulmonary emboli with possible superimposed community acquired pneumonia. She has acute kidney injury with elevated Cr 1.9. On last prior admission, she had a DVT and left without proper anticoagulation. She is leukopenic, anemic. On my evaluation, she has thrown her bedpan with urine on the floor. she threw her non-rebreather on the floor and states to me "it's not taking away my pain. I don't want it if it doesn't take away my pain." She is screaming at me for pain medication, but will not give me additional information about her recent illness. The remainder of the history is gleaned from the medical record. Her ROS is positive for chest pain, but otherwise unobtainable. She is quite hypoxic on my evaluation secondary to the fact that she is refusing her nonrebreather. However, when I asked her if she would like to go to Hospice and be made comfortable and without treatment, she denies this and says she wants me to "take away her pain and fix her." Subjective: 09/04: remains intubated in multi-organ failure. required vasopressors overnight. now oliguric. CVP rising. Serum bicarb lowering representing worsening acidosis. mixed-shock persists. also now less awake, and on minimal sedation only withdrawing to pain. 09/05: remains in shock on vasopressors. Cr rising. remains oliguric. still likely component of mixed shock. palliative consulted. 09/06: renal function continues to worsen. palliative meeting with the 3 adult children, where we discussed that her overall prognosis was poor and with incompletely treated 3-valve endocarditis without option of surgical intervention, this was a fatal condition. Family expressed understanding of this with clear goals as expressed to her family when she left AMA the last time , she called her sons to say that she knew she was going to , and wanted to go be with her Mother. With this knowledge, the sons elected to pursue palliative withdraw of care and comfort measures, which the palliative team and myself both agree is an appropriate decision. Objective Vital Signs Date Time Temp Pulse Resp B/P (MAP) Pulse Ox O2 Delivery O2 Flow Rate FiO2 09/06/17 12:02 96 50 09/06/17 12:00 99.9 123 20 111/63 (79) 114/61 (78) 09/06/17 04:24 Ventilator 09/03/17 14:23 15.00 Intake and Output 09/06/17 09/06/17 09/07/17 08:00 16:00 00:00 Intake Total 759 ml 577 ml Output Total 810 ml 585 ml Balance -51 ml -8 ml Result Diagram: 09/06/17 0320 09/06/17 0320 Other Results Microbiology Date/Time Source Procedure Growth Status 09/04/17 09:30 Sputum Endotracheal Gram Stain - Final Complete 09/04/17 09:30 Sputum Culture - Final S. Aureus Mrsa Complete 09/03/17 21:05 Urine Catheterized Urine Urine Culture - Final NO GROWTH IN 48 HOURS. Complete Imaging Last Impressions Chest X-Ray 09/03/17 0954 Signed Impressions: Service Date/Time: Sunday, September 03, 2017 10:34 - CONCLUSION: Scattered patchy infiltrates bilaterally consistent with pneumonia and/or pulmonary edema. Clinical correlation is recommended. Dagoberto Harmon MD Objective Remarks GENERAL: Middle-aged female who appears much older than stated age, lying in bed , intubated, sedated. HEENT: Normocephalic. Atraumatic. Pupils equal, round, reactive, conjugate. Mucous membranes are moist NECK: Trachea is midline. There is JVD up to the mid neck CHEST: on full mechanical support. PRVC. fio2 60%, peep 10. spo2 94%. bilateral coarse rales persist. left SC central line, site C/D/I. CARDIOVASCULAR: Tachycardic rate, regular rhythm. Sinus by telemetry. on norepinephrine. ABDOMEN: Soft, nontender, nondistended. No guarding. MUSCULOSKELETAL: Pulses 2+. No peripheral edema. Multiple scattered excoriations throughout her upper and lower extremities. right radial art line site clean dry intact. NEUROLOGICAL: RASS -3. withdraws to pain x 4. does not follow commands. A/P Assessment and Plan Assessment: 42-year-old female with active IV drug abuse and 3 valve endocarditis, including aortic, mitral, and tricuspid valve, with associated valvulopathies: most notably moderate aortic insufficiency. s/p leaving AMA x 2 during this active infection. Terminal overall condition and end-organ damage persists. family elects to withdraw care, which is appropriate. we will start fentanyl and versed drips and pursue palliative withdraw of care. Plan by systems: Neurologic: Agitated delirium Toxic/metabolic encephalopathy - persistent. Methamphetamine abuse - RASS goal -2 - fentanyl and propofol - scheduled oxycodone 10mg po q4h to help with ongoing pain needs - scheduled seroquel 50mg po q8hr for delirium - breakthrough haldol 5mg iv q4h prn - watch for signs of amphetamine withdraw - daily sedation vacation Respiratory: Acute hypoxic respiratory failure - persistent, worsening. MRSA septic pulmonary emboli Acute multifocal pneumonia secondary to bacteremia - intubated 09/03 - vent bundle, hob at 30 degrees, nebs - no weaning until out of shock - wean fio2 for spo2 > 90%, increasing fio2 likely secondary to worsening VQ mismatch from shock and persistent wide-spread MRSA infection. Cardiovascular: Septic shock - persistent. Cardiogenic shock - persistent. Elevated troponin - secondary to endocarditis Tricuspid valve endocarditis Moderate tricuspid regurgitation Mitral valve endocarditis Mild mitral valve regurgitation Aortic valve endocarditis Moderate aortic valve regurgitation - Levophed for goal map > 65 mmHg - will not diurese given worsening renal function. - unlikely to be ACS, much more likely to be endocarditis related elevations in serum troponins. - clearing lactate. - will check limited 2d echo to rule out suppurative pericarditis and eval global LV function. Renal: Acute kidney injury - worsening. - secondary to shock - trend daily Cr - continue hercules catheter today. - will use vasopressors to maintain renal perfusion pressure. -- Strict I/Os FEN/GI: Acute protein calorie malnutrition- severe Hypokalemia Hyponatremia - ICU electrolyte protocol - Jevity 1.5, nutrition consult for goal recs - daily BMP Heme/ID: MRSA Endocarditis MRSA Bacteremia Septic pulmonary emboli Multifocal pneumonia Leukopenia Anemia secondary to chronic disease Thrombocytopenia DVT - Vancomycin with pharmacy dosing: previous MRSA was sensitive to vancomycin. target trough > 15 - 20. - Zosyn 3.375gm iv q6h. when cultures are negative except for MRSA, will de- escalate therapy - q48h blood cultures until clear - re-consulted ID - sputum culture, urine culture. - leukopenia suggestive of severe shock. - no signs of active bleeding: will not transfuse at this time. goal hgb > 7 - thrombocytopenia secondary to shock state and consumptive. 4T score low probability for HIT. known DVT. - heparin drip for DVT. Endocrine: Hyperglycemia of critical illness -- SSI, medium scale, every 6 Prophylaxis: GI Prophylaxis iv pepcid DVT Prophylaxis -- SCDs - heparin drip for DVT Lines: - right radial art line 09/03 - left SC central line 09/03 - Hercules Dispo: Remain in ICU. no improvements. This patient remains critically ill with one or more organ systems which are or may become a threat to life. I have spent in excess of 32 minutes discontinuously in the care and management of this patient. This time is exclusive of procedures, and includes, but is not limited to, evaluation of the patient, review of the medical record, discussions with family, consultants, nursing staff, or respiratory therapy, and documentation in the medical record. Gordy Centeno MD Sep 06, 2017 14:17
--- NOTE | 2017-09-06 14:43 | HHI.HCPN ---
Reason for visit a. To assist with evaluation and management of symptoms including: pain, dyspnea. b. To assist medical decision maker(s) with: better understanding of current medical conditions; weighing benefits/burdens of medical treatment options; making medical treatment decisions. . Subjective/Interval History Patient seen and examined in ICU. Discussed with Dr. Roman, Dr. Centeno, nurse, Fozia. Patient appears painful on Fentanyl drip at 250mcg/hr. Facial grimacing and intermittent shaking episodes that she appears frightened. She then falls off to sleep with persistent facial grimacing. Nurse reports she was following commands earlier today. She does not arouse to voice or exam during my visit. Renal function worsening. Off pressors. Echocardiogram reviewed by Dr. Centeno which reveals worsening 3 valve endocarditis. . Family/friend interactions Dr. Centeno, Karla Mora WOUND NURSE and I met with tania Cano and Prosper in consult room. Also present via speaker phone son Westley. All family in agreement that patient would not want continued aggressive care. They elect NO CODE and desire to proceed with transition to comfort measures with withdrawal of life support. Sons indicate patient has been telling them for some time she is ready to , she wants to be with her mother in [facility]. Anticipatory guidance provided. Orders written by Dr. Centeno for comfort meds. . Advance Directives Living Will: Never completed Health Care Surrogate: Never completed Durable Power of International Editorial Producer: Never completed Advance Directive Specifics Health Care Surrogate(s): Patient is incapacitated to make her own health care decisions, will not likely regained capacity. No written advance directives. Single. Has 3 adult sons and one juvenile son. According to [place] statutes health care proxy decision- making falls to majority of adult children. 3 sons Jerome Christy and Prosper all wish to serve as healthcare proxy decision makers. . Significant change in goals: NO CODE. Plan to proceed with transition to comfort with compassionate withdrawal of life support. . Objective Vital Signs Date Time Temp Pulse Resp B/P (MAP) Pulse Ox O2 Delivery O2 Flow Rate FiO2 09/06/17 12:02 96 50 09/06/17 12:00 99.9 123 20 111/63 (79) 97 114/61 (78) 09/06/17 12:00 123 09/06/17 12:00 50 09/06/17 12:00 123 111/63 (79) 114/61 (78) 09/06/17 11:00 122 18 109/59 (76) 97 09/06/17 10:00 123 09/06/17 09:24 20 09/06/17 09:12 97 50 09/06/17 08:00 99.2 120 20 107/66 (80) 97 118/64 (82) 09/06/17 08:00 50 09/06/17 08:00 120 107/66 (80) 118/64 (82) 09/06/17 08:00 120 09/06/17 06:00 117 09/06/17 04:24 99 Ventilator 09/06/17 04:20 99 50 09/06/17 04:00 50 09/06/17 04:00 109 09/06/17 04:00 109 97/61 (73) 106/60 (75) 09/06/17 04:00 99.8 109 20 97/61 (73) 99 106/60 (75) 09/06/17 02:00 109 09/06/17 00:20 99 Ventilator 09/06/17 00:15 99 50 09/06/17 00:00 50 09/06/17 00:00 110 09/06/17 00:00 110 98/53 (68) 99/55 (70) 09/06/17 00:00 99.3 110 20 98/53 (68) 98 99/55 (70) 09/05/17 22:00 111 09/05/17 21:45 99 50 09/05/17 20:00 100.3 115 20 100/59 (73) 97 100/56 (71) 09/05/17 20:00 115 100/59 (73) 100/56 (71) 09/05/17 20:00 115 09/05/17 20:00 50 09/05/17 18:00 117 09/05/17 16:00 117 09/05/17 16:00 99.6 117 20 95/51 (66) 96 97/56 (70) 09/05/17 16:00 117 95/51 (66) 97/56 (70) 09/05/17 16:00 50 09/05/17 14:00 121 Intake & Output 09/06/17 09/06/17 07:00 19:00 Intake Total 909 ml 60 ml Output Total 1905 ml 760 ml Balance -996 ml -700 ml IV Total 668 ml 60 ml Tube Feeding 121 ml Other 120 ml Output Urine Total 1005 ml 760 ml Gastric Drainage Total 900 ml # Bowel Movements 0 Physical Exam CONSTITUTIONAL/GENERAL: This is a cachectic, critically ill patient, in no apparent distress. TUBES/LINES/DRAINS: ETT, OG, left subclavian central line, PIV left FA, arterial line right wrist, Nugent, SCDs. SKIN: Track sanon arms and feet. Ecchymoses on upper extremities. Skin temperature appropriate. Not diaphoretic. EYES: Eyes closed. CARDIOVASCULAR: Tachycardic, + murmur. RESPIRATORY/CHEST: Symmetric, unlabored respirations on vent. Scattered course breath sounds. GASTROINTESTINAL: Abdomen distended. Hypoactive BS. GENITOURINARY: Without palpable bladder distension. Nugent catheter in place. MUSCULOSKELETAL: Extremities without clubbing, cyanosis, or edema. No mottling or clubbing. NEUROLOGICAL: Does not open eyes or follow commands. PSYCHIATRIC: unable to adequately assess due to condition. . Diagnostic Tests Laboratory Laboratory Tests Test 09/03/17 15:45 09/03/17 21:05 09/03/17 21:22 09/04/17 01:50 Blood Gas Puncture Site ART LINE Blood Gas Patient Temperature 98.6 Blood Gas HCO3 18 mmol/L (22-26) Blood Gas Base Excess -7.8 mmol/L (-2-2) Blood Gas Oxygen Saturation 90 % (90-100) Arterial Blood pH 7.25 (7.380-7.420) Arterial Blood Partial Pressure CO2 43 mmHg (38-42) Arterial Blood Partial Pressure O2 73 mmHg (61-120) Arterial Blood Oxygen Content 11.9 Vol % (12.0-20.0) Arterial Blood Carboxyhemoglobin 0.9 % (0-4) Arterial Blood Methemoglobin 1.3 % (0-2) Blood Gas Hemoglobin 9.4 G/DL (12.0-16.0) Oxygen Delivery Device VENTILATOR Blood Gas Ventilator Setting PRV/AC 550/18 Blood Gas Inspired Oxygen 50 % Urine Color YELLOW (YELLW/STRAW) Urine Turbidity HAZY (CLEAR) Urine pH 6.0 (5.0-8.5) Urine Specific Riner 1.021 (1.002-1.035) Urine Protein 100 mg/dL (NEG-TRACE) Urine Glucose (UA) TRACE mg/dL (NEG) Urine Ketones TRACE mg/dL (NEG) Urine Occult Blood MOD (NEG) Urine Nitrite NEG (NEG) Urine Bilirubin NEG (NEG) Urine Urobilinogen LESS THAN 2.0 MG/DL (LESS Urine Leukocyte Esterase NEG (NEG) Urine RBC 2 /hpf (0-3) Urine WBC 2 /hpf (0-5) Urine WBC Clumps RARE (NONE) Urine Squamous Epithelial Cells <1 /hpf (0-5) Urine Amorphous Sediment RARE Urine Bacteria OCC /hpf (NONE) Microscopic Urinalysis Comment CATH-CULTURE IND Lactic Acid Level 1.9 mmol/L (0.4-2.0) Activated Partial Thromboplast Time 44.1 SEC (24.3-30.1) Test 09/04/17 02:50 09/04/17 05:28 09/04/17 09:30 09/04/17 17:15 White Blood Count 2.3 TH/MM3 (4.0-11.0) Red Blood Count 2.83 MIL/MM3 (4.00-5.30) Hemoglobin 8.3 GM/DL (11.6-15.3) Hematocrit 24.9 % (35.0-46.0) Mean Corpuscular Volume 88.2 FL (80.0-100.0) Mean Corpuscular Hemoglobin 29.2 PG (27.0-34.0) Mean Corpuscular Hemoglobin Concent 33.1 % (32.0-36.0) Red Cell Distribution Width 15.0 % (11.6-17.2) Platelet Count 41 TH/MM3 (150-450) Mean Platelet Volume 12.3 FL (7.0-11.0) Blood Urea Nitrogen 32 MG/DL (7-18) Creatinine 1.05 MG/DL (0.50-1.00) Random Glucose 145 MG/DL (74-106) Calcium Level 7.6 MG/DL (8.5-10.1) Sodium Level 136 MEQ/L (136-145) Potassium Level 3.0 MEQ/L (3.5-5.1) 4.1 MEQ/L (3.5-5.1) Chloride Level 105 MEQ/L (98-107) Carbon Dioxide Level 18.1 MEQ/L (21.0-32.0) Anion Gap 13 MEQ/L (5-15) Estimat Glomerular Filtration Rate 57 ML/MIN (>89) Blood Gas Puncture Site RT BRACHIAL Blood Gas Patient Temperature 98.6 Blood Gas HCO3 18 mmol/L (22-26) Blood Gas Base Excess -6.5 mmol/L (-2-2) Blood Gas Oxygen Saturation 90 % (90-100) Arterial Blood pH 7.33 (7.380-7.420) Arterial Blood Partial Pressure CO2 36 mmHg (38-42) Arterial Blood Partial Pressure O2 68 mmHg (61-120) Arterial Blood Oxygen Content 11.3 Vol % (12.0-20.0) Arterial Blood Carboxyhemoglobin 1.0 % (0-4) Arterial Blood Methemoglobin 1.0 % (0-2) Blood Gas Hemoglobin 8.9 G/DL (12.0-16.0) Oxygen Delivery Device VENTILATOR Blood Gas Ventilator Setting SEE COMMENT Blood Gas Inspired Oxygen 40 % Activated Partial Thromboplast Time 40.4 SEC (24.3-30.1) Test 09/05/17 03:50 09/05/17 12:00 09/05/17 14:55 09/05/17 18:30 White Blood Count 2.7 TH/MM3 (4.0-11.0) Red Blood Count 2.88 MIL/MM3 (4.00-5.30) Hemoglobin 8.5 GM/DL (11.6-15.3) Hematocrit 26.2 % (35.0-46.0) Mean Corpuscular Volume 90.7 FL (80.0-100.0) Mean Corpuscular Hemoglobin 29.3 PG (27.0-34.0) Mean Corpuscular Hemoglobin Concent 32.3 % (32.0-36.0) Red Cell Distribution Width 15.3 % (11.6-17.2) Platelet Count 65 TH/MM3 (150-450) Mean Platelet Volume 12.5 FL (7.0-11.0) Activated Partial Thromboplast Time 34.1 SEC (24.3-30.1) 32.7 SEC (24.3-30.1) 32.7 SEC (24.3-30.1) Blood Urea Nitrogen 54 MG/DL (7-18) Creatinine 1.75 MG/DL (0.50-1.00) Random Glucose 156 MG/DL (74-106) Calcium Level 8.3 MG/DL (8.5-10.1) Sodium Level 136 MEQ/L (136-145) Potassium Level 4.1 MEQ/L (3.5-5.1) Chloride Level 105 MEQ/L (98-107) Carbon Dioxide Level 20.8 MEQ/L (21.0-32.0) Anion Gap 10 MEQ/L (5-15) Estimat Glomerular Filtration Rate 32 ML/MIN (>89) Vancomycin Level Trough 13.3 MCG/ML (5.0-10.0) Test 09/06/17 01:00 09/06/17 03:20 09/06/17 08:10 Activated Partial Thromboplast Time 34.3 SEC (24.3-30.1) 34.5 SEC (24.3-30.1) White Blood Count 5.1 TH/MM3 (4.0-11.0) Red Blood Count 2.42 MIL/MM3 (4.00-5.30) Hemoglobin 7.3 GM/DL (11.6-15.3) Hematocrit 21.3 % (35.0-46.0) Mean Corpuscular Volume 88.3 FL (80.0-100.0) Mean Corpuscular Hemoglobin 30.3 PG (27.0-34.0) Mean Corpuscular Hemoglobin Concent 34.4 % (32.0-36.0) Red Cell Distribution Width 15.8 % (11.6-17.2) Platelet Count 103 TH/MM3 (150-450) Mean Platelet Volume 11.5 FL (7.0-11.0) Blood Urea Nitrogen 66 MG/DL (7-18) Creatinine 2.03 MG/DL (0.50-1.00) Random Glucose 163 MG/DL (74-106) Calcium Level 8.3 MG/DL (8.5-10.1) Sodium Level 140 MEQ/L (136-145) Potassium Level 3.5 MEQ/L (3.5-5.1) Chloride Level 107 MEQ/L (98-107) Carbon Dioxide Level 21.3 MEQ/L (21.0-32.0) Anion Gap 12 MEQ/L (5-15) Estimat Glomerular Filtration Rate 27 ML/MIN (>89) Result Diagram: 09/06/17 0320 09/06/17 032 Microbiology Microbiology Date/Time Source Procedure Growth Status 09/05/17 09:00 Blood Peripheral Aerobic Blood Culture - Preliminary NO GROWTH IN 1 DAY Resulted 09/05/17 09:00 Blood Peripheral Anaerobic Blood Culture - Preliminary NO GROWTH IN 1 DAY Resulted 09/05/17 08:52 Blood Peripheral Aerobic Blood Culture - Preliminary NO GROWTH IN 1 DAY Resulted 09/05/17 08:52 Blood Peripheral Anaerobic Blood Culture - Preliminary NO GROWTH IN 1 DAY Resulted 09/03/17 14:50 Blood Peripheral Aerobic Blood Culture - Final S. Aureus Mrsa Resulted 09/03/17 14:50 Anaerobic Blood Culture - Preliminary S. Aureus Mrsa Resulted 09/03/17 14:50 Blood Peripheral Aerobic Blood Culture - Final S. Aureus Mrsa Resulted 09/03/17 14:50 Anaerobic Blood Culture - Preliminary S. Aureus Mrsa Resulted 09/04/17 09:30 Sputum Endotracheal Gram Stain - Final Complete 09/04/17 09:30 Sputum Culture - Final S. Aureus Mrsa Complete 09/03/17 21:05 Urine Catheterized Urine Urine Culture - Final NO GROWTH IN 48 HOURS. Complete Imaging Last Impressions Chest X-Ray 09/04/17 0600 Signed Impressions: Service Date/Time: Monday, September 04, 2017 02:34 - CONCLUSION: No significant change. Thiago Mejia MD . Procedures * 09/03/17 intubated, arterial and central lines placed. . Assessment and Plan Disease Oriented Problem List: (1) Acute respiratory failure (2) Septic shock (3) Pneumonia (4) ARF (acute renal failure) (5) Endocarditis (6) IVDA (intravenous drug abuse) complicating (7) DVT (deep venous thrombosis) Symptom Scale: (1) Pain 0-10 Scale: Unable to quantify (2) Dyspnea 0-10 Scale: Unable to quantify Pertinent Non-Medical Issues Psychosocial: has a roommate, Shad. . He has 3 adult sons and 1 juvenile son. Spiritual: Unknown. Legal:Patient is incapacitated to make her own health care decisions, will not likely regained capacity. No written advance directives. Single. Has 3 adult sons and one juvenile son. According to [place] statutes health care proxy decision-making falls to majority of adult children. 3 sons Westley, Jerome and Prosper all wish to serve as healthcare proxy decision makers. Ethical issues impacting care: no known concerns at this time. . Important Contacts * Prosper and Jerome Grant: sons, lives in [place]/ Co-HCP: [phone] * Westley Grant, son, lives in [place]/ [place] HCP: [phone] * Nirmal Mello, Juvenile son, Clayton's father: [phone] * Blaise Villarreal (Roomate) [phone]. . Prognosis Patient has terminal condition with 3 valve endocarditis. . Code Status: No Code Plan * Decision Maker: Patient is incapacitated to make her own health care decisions , will not likely regained capacity. No written advance directives. Single. Has 3 adult sons and one juvenile son. According to [place] statutes health care proxy decision-making falls to majority of adult children. 3 sons Jerome Christy and Prosper all wish to serve as healthcare proxy decision makers. * NO CODE * 09/06/17 - Dr. Centeno, Karla INMANW and I met with sons Babita in consult room. Also present via speaker phone son Westley. All family in agreement that patient would not want continued aggressive care. They elect NO CODE and desire to proceed with transition to comfort measures with withdrawal of life support. Sons indicate patient has been telling them for some time she is ready to , she wants to be with her mother in [facility]. Anticipatory guidance provided. Declines hospice or mutuel cashier at this time. * Exhibits B & C on chart. * SYMPTOMS: Pain: on fentanyl drip 250 g per hour, appears painful with facial grimacing. Dyspnea: on mechanical ventilation. Orders written by Dr. Centeno for comfort meds. * Palliative care will continue to follow throughout hospital course to assist with symptom management and clarification of goals as needed. . Attestation To help prompt me to consider important information that might be impacting today's encounter and assessment, information from prior notes written by myself or my colleagues may have been "brought forward" into today's note. My signature on this note, however, is an attestation that I personally performed the exam, history, and/or decision-making noted today, and, unless otherwise indicated, the interactions with patient, family, and staff as well as the review of records all occurred today. I also attest that the listed assessment and stated plan reflect my best clinical judgment today based on the combination of historical information, prior notes, and today's exam/ interactions. When time spent is documented, it refers only to time spent today by the signer, or if indicated, combined time spent today by collaborating physician/nurse practitioner. Martha Hannon Sep 06, 2017 14:43
[2017-09-06] MEDS ORDERED: PIPERACIL-TAZO 2.25 GM PREMIX 50 ML IV SCH (15:00)
--- NOTE | 2017-09-06 15:56 | ECHRPT ---
Indication: Acute and subacute endocarditis, unspecified CONCLUSIONS Normal LV function The right ventricular size is normal. The right ventricular systoilc function is normal. No mitral valve stenosis Findings consistent with vegetation on the tricuspid valve. Mobile vegetation seen on the tricuspid valve. The pulmonary valve is not well visualized. There is no pericardial effusion. BP: / HR: Rhythm: Technical Quality:Fair FINDINGS LEFT VENTRICLE Normal left ventricular size and wall thickness. The left ventricular systolic function is normal wi th an estimated ejection fraction in the range of 60-65%. Left ventricular diastolic function parameters a re normal. RIGHT VENTRICLE The right ventricular size is normal. The right ventricular systoilc function is normal. LEFT ATRIUM The left atrial size is normal. RIGHT ATRIUM The right atrial size is normal. MITRAL VALVE Structurally normal mitral valve. No mitral valve stenosis AORTIC VALVE Trileaflet aortic valve. TRICUSPID VALVE Findings consistent with vegetation on the tricuspid valve. Mobile vegetation seen on the tricuspid valve. 1.5 x 2.8 cm PULMONARY VALVE The pulmonary valve is not well visualized. PERICARDIUM There is no pericardial effusion. Jaimie Ford MD, FACC (Electronically Signed) Final Date:06 September 2017 15:55
--- NOTE | 2017-09-06 17:51 | HHI.DS ---
Summary Note Date of : Sep 06, 2017 Time Of : 171 Admission Date Sep 03, 2017 at 13:39 Admitting Diagnosis septic shock, pneumonia, UTI, h/o SBE, IVDA Diagnosis at Time of : Brief History This is a 42yF with a history of methamphetamine IVDA who was recently admitted for three-valve endocarditis and was on IV Vancomycin for MRSA bacteremia/ endocarditis when she left AMA. This is the second time during this disease process that she left AMA. She re-presents in multiorgan system failure and septic shock with hypotension, tachycardia, hypoxia on NRB. CXR demonstrates multifocal bilateral patchy infiltrates suggestive of septic pulmonary emboli with possible superimposed community acquired pneumonia. She has acute kidney injury with elevated Cr 1.9. On last prior admission, she had a DVT and left without proper anticoagulation. She is leukopenic, anemic. On my evaluation, she has thrown her bedpan with urine on the floor. she threw her non-rebreather on the floor and states to me "it's not taking away my pain. I don't want it if it doesn't take away my pain." She is screaming at me for pain medication, but will not give me additional information about her recent illness. The remainder of the history is gleaned from the medical record. Her ROS is positive for chest pain, but otherwise unobtainable. She is quite hypoxic on my evaluation secondary to the fact that she is refusing her nonrebreather. However, when I asked her if she would like to go to Hospice and be made comfortable and without treatment, she denies this and says she wants me to "take away her pain and fix her. CBC/BMP: 09/06/17 0320 09/06/17 0320 Significant Findings Laboratory Tests Test 09/03/17 21:05 09/03/17 21:22 09/04/17 01:50 09/04/17 02:50 Urine Turbidity HAZY (CLEAR) Urine Protein 100 mg/dL (NEG-TRACE) Urine Ketones TRACE mg/dL (NEG) Urine Occult Blood MOD (NEG) Urine WBC Clumps RARE (NONE) Urine Bacteria OCC /hpf (NONE) Activated Partial Thromboplast Time 44.1 SEC (24.3-30.1) White Blood Count 2.3 TH/MM3 (4.0-11.0) Red Blood Count 2.83 MIL/MM3 (4.00-5.30) Hemoglobin 8.3 GM/DL (11.6-15.3) Hematocrit 24.9 % (35.0-46.0) Platelet Count 41 TH/MM3 (150-450) Mean Platelet Volume 12.3 FL (7.0-11.0) Blood Urea Nitrogen 32 MG/DL (7-18) Creatinine 1.05 MG/DL (0.50-1.00) Random Glucose 145 MG/DL (74-106) Calcium Level 7.6 MG/DL (8.5-10.1) Potassium Level 3.0 MEQ/L (3.5-5.1) Carbon Dioxide Level 18.1 MEQ/L (21.0-32.0) Estimat Glomerular Filtration Rate 57 ML/MIN (>89) Test 09/04/17 05:28 09/04/17 09:30 09/04/17 17:15 09/05/17 03:50 Blood Gas HCO3 18 mmol/L (22-26) Blood Gas Base Excess -6.5 mmol/L (-2-2) Arterial Blood pH 7.33 (7.380-7.420) Arterial Blood Partial Pressure CO2 36 mmHg (38-42) Arterial Blood Oxygen Content 11.3 Vol % (12.0-20.0) Blood Gas Hemoglobin 8.9 G/DL (12.0-16.0) Activated Partial Thromboplast Time 40.4 SEC (24.3-30.1) 34.1 SEC (24.3-30.1) White Blood Count 2.7 TH/MM3 (4.0-11.0) Red Blood Count 2.88 MIL/MM3 (4.00-5.30) Hemoglobin 8.5 GM/DL (11.6-15.3) Hematocrit 26.2 % (35.0-46.0) Platelet Count 65 TH/MM3 (150-450) Mean Platelet Volume 12.5 FL (7.0-11.0) Blood Urea Nitrogen 54 MG/DL (7-18) Creatinine 1.75 MG/DL (0.50-1.00) Random Glucose 156 MG/DL (74-106) Calcium Level 8.3 MG/DL (8.5-10.1) Carbon Dioxide Level 20.8 MEQ/L (21.0-32.0) Estimat Glomerular Filtration Rate 32 ML/MIN (>89) Test 09/05/17 12:00 09/05/17 14:55 09/05/17 18:30 09/06/17 01:00 Activated Partial Thromboplast Time 32.7 SEC (24.3-30.1) 32.7 SEC (24.3-30.1) 34.3 SEC (24.3-30.1) Vancomycin Level Trough 13.3 MCG/ML (5.0-10.0) Test 09/06/17 03:20 09/06/17 08:10 Red Blood Count 2.42 MIL/MM3 (4.00-5.30) Hemoglobin 7.3 GM/DL (11.6-15.3) Hematocrit 21.3 % (35.0-46.0) Platelet Count 103 TH/MM3 (150-450) Mean Platelet Volume 11.5 FL (7.0-11.0) Blood Urea Nitrogen 66 MG/DL (7-18) Creatinine 2.03 MG/DL (0.50-1.00) Random Glucose 163 MG/DL (74-106) Calcium Level 8.3 MG/DL (8.5-10.1) Estimat Glomerular Filtration Rate 27 ML/MIN (>89) Activated Partial Thromboplast Time 34.5 SEC (24.3-30.1) Imaging Last Impressions Chest X-Ray 09/03/17 0954 Signed Impressions: Service Date/Time: Sunday, September 03, 2017 10:34 - CONCLUSION: Scattered patchy infiltrates bilaterally consistent with pneumonia and/or pulmonary edema. Clinical correlation is recommended. Dagoberto Harmon MD Hospital Course This is a 42yF with a history of methamphetamine IVDA who was recently admitted for three-valve endocarditis and was on IV Vancomycin for MRSA bacteremia/ endocarditis when she left A. This is the second time during this disease process that she left AMA. She re-presents in multiorgan system failure and septic shock with hypotension, tachycardia, hypoxia on NRB. CXR demonstrates multifocal bilateral patchy infiltrates suggestive of septic pulmonary emboli with possible superimposed community acquired pneumonia. She has acute kidney injury with elevated Cr 1.9. On last prior admission, she had a DVT and left without proper anticoagulation. She is leukopenic, anemic. On my evaluation, she has thrown her bedpan with urine on the floor. she threw her non-rebreather on the floor and states to me "it's not taking away my pain. I don't want it if it doesn't take away my pain." She is screaming at me for pain medication, but will not give me additional information about her recent illness. The remainder of the history is gleaned from the medical record. Her ROS is positive for chest pain, but otherwise unobtainable. She is quite hypoxic on my evaluation secondary to the fact that she is refusing her nonrebreather. However, when I asked her if she would like to go to Hospice and be made comfortable and without treatment, she denies this and says she wants me to "take away her pain and fix her." 09/04: remains intubated in multi-organ failure. required vasopressors overnight. now oliguric. CVP rising. Serum bicarb lowering representing worsening acidosis. mixed-shock persists. also now less awake, and on minimal sedation only withdrawing to pain. 09/05: remains in shock on vasopressors. Cr rising. remains oliguric. still likely component of mixed shock. palliative consulted. 09/06: no improvements. family elects to withdraw care, which we think is appropriate given her terminal condition. patient made comfortable and extubated with her sons at bedside. she at 17:11 with her sons with her. Gordy Centeno MD Sep 06, 2017 17:50
== END 2017-09-06 17:11 | disposition expired | DRG 871 ==
LOC: NEPC 09:35 → NEDA 13:39 → HIME 14:15
PROVIDERS: ADMIT Internal Medicine Critical Care Medicine; ATTEND Internal Medicine Critical Care Medicine
PROC: 0BH17EZ Insertion of Endotracheal Airway into Trachea, Via Natural or Artificial Opening (ICD-10-PCS; principal; 2017-09-03)
PROC: 03HY32Z Insertion of Monitoring Device into Upper Artery, Percutaneous Approach (ICD-10-PCS; 2017-09-03)
PROC: 5A1945Z Respiratory Ventilation, 24-96 Consecutive Hours (ICD-10-PCS; 2017-09-03)
PROC: 05H633Z Insertion of Infusion Device into Left Subclavian Vein, Percutaneous Approach (ICD-10-PCS; 2017-09-03)
DX: A41.02 Sepsis due to Methicillin resistant Staphylococcus aureus (principal); R65.21 Severe sepsis with septic shock; I26.90 Septic pulmonary embolism without acute cor pulmonale; J96.01 Acute respiratory failure with hypoxia; R57.0 Cardiogenic shock; I33.0 Acute and subacute infective endocarditis; E43 Unspecified severe protein-calorie malnutrition; G93.41 Metabolic encephalopathy; I95.9 Hypotension, unspecified; J18.9 Pneumonia, unspecified organism; E87.2 Acidosis; G92 Toxic encephalopathy; N17.9 Acute kidney failure, unspecified; N30.00 Acute cystitis without hematuria; J44.0 Chronic obstructive pulmonary disease with (acute) lower respiratory infection; F05 Delirium due to known physiological condition; Z68.1 Body mass index [BMI] 19.9 or less, adult; E87.1 Hypo-osmolality and hyponatremia; I08.3 Combined rheumatic disorders of mitral, aortic and tricuspid valves; F19.10 Other psychoactive substance abuse, uncomplicated; F17.210 Nicotine dependence, cigarettes, uncomplicated; Z51.5 Encounter for palliative care; F15.10 Other stimulant abuse, uncomplicated; E87.6 Hypokalemia; D63.8 Anemia in other chronic diseases classified elsewhere; D69.6 Thrombocytopenia, unspecified; D72.819 Decreased white blood cell count, unspecified; R73.9 Hyperglycemia, unspecified; I50.9 Heart failure, unspecified; B95.62 Methicillin resistant Staphylococcus aureus infection as the cause of diseases classified elsewhere; Z86.718 Personal history of other venous thrombosis and embolism; Z91.19 Patient's noncompliance with other medical treatment and regimen; Z85.41 Personal history of malignant neoplasm of cervix uteri; Z86.14 Personal history of Methicillin resistant Staphylococcus aureus infection
CPT/HCPCS: 31500; 36556; 36600; 71010; 76937; 80048; 80053; 80202; 80307; 81001; 82805; 82948; 83605; 83735; 83880; 84132; 84484; 85007; 85027; 85379; 85610; 85730; 86403; 87040; 87070; 87086; 87147; 87186; 87205; 93005; 93308; 94002; 94003; 94640; 94664; 96361; 96365; 96375; J0456; J1644; J1940; J2250; J2405; J2543; J2930; J3010; J3370; J3480; J7030; J7050